=== PATIENT | female | born 1960 | race Caucasian/White ===

== ENCOUNTER 2019-11-09 13:03 | Outpatient (RCR) | payer MEDICARE, SELFPAY ==
--- NOTE | 2019-11-09 18:42 | N.ONRAD NP_ITS ---
Radiation Oncology New Patient Visit Patient: Alia Nair MR#: [id number] : 1960> Age: 59> Sex: Female> Dictated by: Dr. Vu Sher Date of Service: 11/09/2019 Referring Physician(s) : Chapin Seth M.D. 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 Radiotherapy to date: Course: C1 Treatment Site: RT NECK PTV50, Ref. ID: [id number], Energy: 6X, Dose/Fx (cGy): 200, #Fx: 25 / 25, Dose Correction (cGy): 0, Total Dose (cGy): 5,000, Start Date: 08/31/2015, End Date: 10/05/2015, Elapsed Days: 35 Treatment Site: RT NECK PTV68, Ref. ID: [id number], Energy: 6X, Dose/Fx (cGy): 200, #Fx: , Dose Correction (cGy): 0, Total Dose (cGy): 1,800, Start Date: 10/06/2015, End Date: 10/18/2015, Elapsed Days: 12 Chief Complaint / History of Present Illness: Mrs. 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 In late 2014 she underwent a resection of a right parotid mass. The pathology was adenoid cystic carcinoma. The tumor measured 2.1 cm. The tumor extended to the inked resection margin. Further surgery in the area of the positive margin was not advised. Cancer was low-grade but there was perineural invasion. No lymphovascular invasion seen. No lymph nodes were obtained at the time of surgery and staging was T2NXM0. Because of the perineural invasion and the positive margin, postoperative radiation was advised. That was delivered by Dr. Chase mckeon in [place]. A total dose of 6800 cGy in 34 fractions was delivered. Treatment was tolerated well overall, though the patient did develop some moist desquamation late in treatment. The skin healed uneventfully. Last spring, Ms. Mrs. Rivera began experiencing right jaw and facial pain. She underwent an MRI of the neck at [facility] 02/15/2019. The study showed no evidence of recurrent disease. A PET was performed 03/06/2019. The PET was interpreted as negative for recurrence. A CT of the head without contrast was performed 08/15/2019. That study showed abnormal soft tissue in the medial right orbit, inflammation versus pseudotumor versus infection versus neoplasm. It was negative otherwise. Symptoms persisted and patient developed right facial paralysis. Her pain worsened in the right jaw, right face and right ear area. She underwent an MR of the neck at [facility] 09/08/2019. Unfortunately that study shows extensive recurrent disease. I have not reviewed the study but it will be obtained. The report indicates there is enhancing tumor in the mesial right orbit extending to the orbital roof from near the orbital apex posteriorly to the anterior septum. Mild thickening and enhancement of the globe was noted. Enhancing tumor also appeared to be present in the inferior orbital fissure. Also tumor was seen in the foramen ovale extending into the cavernous sinus and probably was present in the foramen rotundum. Tumor noted also in the right receiving supervisor space especially anteriorly. Also extension into the pterygopalatine fossa was noted. Mrs. Rivera recently saw Dr. Posadas. He presented her case at the multi-disciplinary head neck tumor board. It was recommended that she be evaluated for palliative radiation and systemic therapy. She was referred to Dr. Stone and Dr. Walters. It was also discussed that she may be a candidate for proton beam therapy. That would need to be done in [place]. Mrs. Nair comes in for evaluation. She saw Dr. Walters earlier today. This patient was referred to to the palliative care service at [facility] in [place]. They are going to be seeing her once per month. They are controlling her pain medication regimen. She has extended release morphine, immediate release oxycodone, and is also on Lyrica and tramadol. Current Medications: Albuterol Sulfate, albuterol Sulfate HFA, aLPRAZolam, ambien, artificial Tears, stacy Aspirin, benadryl, deep Sea Nasal [place], lyrica, morphine Sulfate, oxyCODONE HCl, tobramycin, traMADol HCl, vitamin D3, zantac. Allergies: No Known Allergies Medical History: - Asthma, - cancer on 08/02/2015 (Adenoid Cystic Carcinoma of Right Parotid Gland) , - gastroesophageal reflux, - hypertension, - rheumatoid arthritis. No history of collagen vascular disease. No previous radiation therapy. Surgical History: Appendectomy in 1971, biopsy in 2004 (Growth on Right Cheek), knee Surgery in 1992, parotidectomy on 08/02/2015 and tonsillectomy in 1973. Family History: Father is at age 76 having experienced Pharynx Cancer. Mother is at age 72 having experienced Colon Cancer, and Leukemia. Paternal Grandfather is at age 68 having experienced Pharynx Cancer. Social History: Current every day smoker 0.5 packs/day for 51 years (25.5 pack years). Drinks occasionally. Smokes Vapor Cigarette. Current Complaints / Review of Systems: . Vital Signs: Performed on 11/09/2019 2:35 PM Height - 60.00 in, Weight - 144.6 lbs (high), BSA - 1.63 sq.m, BMI - 28.24, Temperature - 99.4 f (high), Pulse - 85 /min, Respiration - 18 /min, O2 Sat - 95 % (low), Pain - 5 and BP - 116/ 79 mm(hg). Physical Exam: Alert, oriented, and in mild distress from facial pain. She has obvious paralysis of the muscles of the right side of the face. The right eye is closed. The tympanic membranes are clear. No lesions seen in the ear canals. No palpable abnormality involving the soft tissues of the facial area. Oral cavity exam reveals that she is edentulous. She has full dental plates. The mucous membranes are dry. No lesions seen. Neck is supple and free of lymphadenopathy. No supraclavicular lymphadenopathy. Lungs clear to auscultation with no rales rhonchi or wheezes. No dullness to percussion. Heart rhythm regular with no murmur gallop or rub. Abdomen no distention. No organomegaly or mass or tenderness. Musculoskeletal exam reveals no bone tenderness. She has a normal gait. Performance Status: KPS 6/10 Pathology: Primary, c07 - malignant neoplasm of parotid gland, Diagnosed 08/15/2015 (active) stage x, t2, nx, m0. Lab: Imaging: See HPI Impression: Extensive recurrence of adenoid cystic carcinoma with involvement of the right orbit, the base of skull, the right cavernous sinus, the receiving supervisor space, and the pterygopalatine fossa. She does not have curable disease at this point. Surgery is not an option. Aggressive radiation is not advisable due to the dose of radiation she received in the past. I did discuss with her that proton beam therapy can be helpful in situations like thi,s where there is base of skull involvement and tumor very near critical structures. I asked that she think over the possibility of being referred to [place] for evaluation. I told her that I need to get the MR from [facility] to review; however, I doubt that she is a candidate for additional photon beam radiation. Certainly, a conservative approach would need to be taken and low dose RT might not turntable engineer to be helpful to the patient at all. She did say that Dr. Walters has some systemic therapy options to consider. She understands that palliation is the goal of treatment. Plan: Obtain the MRI from [facility] to review and await the patient's decision about referral to the proton center at [facility] in [place]. Signed by: 11/09/2019 6:40:29 PM <<Signature on File>> Time spent with patient: CPT Code: CPT Code:
--- NOTE | 2019-11-11 15:59 | ONC CON_ITS ---
Dr. Walters New Patient Note Patient: Alia Nair Unit #: [id number]: 1960 Dicatated By: Milton Walters M.D.Date of Visit: Nov 09, 2019 Onc MED New Patient/Consult Referring Physician: Chapin Seth History of Present Illness: Mrs. Alia Rivera, is a 59-year-old female with history of adenoid cystic carcinoma right excessive probably gland status post partial parotidectomy with facial nerve monitoring followed by reconstruction of she soft tissue defect with pedicled into oral buccal flap final pathology confirmed T2, MX lesion with positive surgical margins patient was referred to radiation oncology, as per patient she underwent radiation therapy here in [facility]. Since then she has been followed by ENT and with no evidence of disease until recently started having a right eye problem MRI scan of the neck done on 09/08/2019 showed widespread neural spread of tumor into the right orbit right cavernous sinus, projection camera operator space, pterygopalatine fossa and probably right facial nerve. Case was discussed in multidisciplinary head and neck tumor conference in [place] by her ENT physician there and options including treating skull base involved area to palliate symptoms (IMRT or SRS). Or perhaps consider proton beam IM RT. She was referred to radiation oncology here in [place] and she was also referred to palliative care clinic for pain management and also recommended to see medical oncology for palliative systemic therapy Long-standing history of smoking still active, Patient denies any fever or chills denies any nausea or vomiting, denies any diarrhea constipation, Dilantin dysphagia. Her pain is under control with current pain medication . And also complaining of right eye discomfort and visual problems. Past Medical History: Ms. Nair's medical history consists of Asthma, gastroesophageal reflux, hypertension, rheumatoid arthritis, and cancer (Adenoid Cystic Carcinoma of Right Parotid Gland) in 2015. Past Surgical History: Ms. Nair's surgical/procedural history consists of Parotidectomy in 2014, Biopsy in 2004 - Growth on Right Cheek, Knee Surgery in 1992, tonsillectomy in 1973, and appendectomy in 1971. Medications: Albuterol Sulfate (0.63 mg/3ml) Nebulization solution Inhalation daily, Albuterol Sulfate HFA 2 puff(s) (of 108 (90 Base) mcg/act) Aerosol, solution Inhalation q 6 hours PRN, ALPRAZolam 1 Tablet (of 1 mg) Oral t.i.d. PRN, Ambien 1 Tablet (of 5 mg) Tablet Oral at bedtime, Artificial Tears Ointment Ophthalmic q 2 hours, Darling Aspirin 1 Tablet (of 325 mg) Tablet, enteric coated Oral daily, Benadryl 1 Tablet (of 25 mg) Tablet Oral q 6 hours PRN, Deep Sea Nasal [place] 1 (0.65 %) Solution Nasal q 2 hours, Lyrica 1 Capsule (of 100 mg) Oral t.i.d., Morphine Sulfate 1 Tablet (of 15 mg) Oral b.i.d., OxyCODONE HCl 1 Tablet (of 20 mg) Oral q 4 to 6 hours PRN, Tobramycin 1 Drop(s) (of 0.3 %) Ointment Ophthalmic daily, traMADol HCl (50 mg) Tablet Oral 5x/d, Vitamin D3 1 Tablet (of 5000 Units) Tablet Oral daily, Zantac 1 Tablet (of 300 mg) Tablet Oral b.i.d. Allergies: No Known Allergies. Social History: Ms. Nair is and she is a disability. She is a daily smoker who has smoked 0.5 packs/day for 51 years. She drinks occasionally. Smokes Vapor Cigarette Family History: Ms. Nair's mother at age 72: Colon Cancer, and Leukemia. Ms. Nair's father at age 76: Pharynx Cancer. Her paternal grandfather at age 68: Pharynx Cancer. Review Of Symptoms: Constitutional - Appetite is good and weight is increasing. No fever, chills, hot flashes, or night sweats. Energy level is good, ENMT - No sinus congestion/drainage. No mouth sores. No sore throat or difficulty swallowing, Hematologic/Lymphatic - No abnormal bruising or bleeding, Respiratory - No shortness of breath. No cough. No pleuritic pain or hemoptysis, Cardiovascular - No angina pain. No palpitations, Gastrointestinal - No nausea or vomiting. Positive for heartburn, no acid reflux. No diarrhea or constipation. No blood in the stool or black stools, Genitourinary (F) - No dysuria or hematuria. No urinary frequency. No urgency or incontinence, Musculoskeletal - No joint or bone pain, Neurologic - No headache or dizziness. No numbness/paresthesias or other focal neurologic symptoms, Psychiatric - No anxiety or depression. No insomnia. Vital Signs: Performed on Nov 09, 2019 15:54: 60.00 in, 144.6 lbs, 99.4 F, 85, 18, 116/79 mm(hg), 95 % (LOW), 5, Performed on Nov 09, 2019 15:54: 28.24 kg/m2 (HIGH), and Performed on Nov 09, 2019 14:35: 1.63 sq.m. Performance Status: 1 - No physically strenuous activity, but ambulatory and able to carry out light or sedentary work (e.g. office work, light house work). (ECOG) Physical Examination: ENMT - postsurgical changes in right neck and face with protuberance/congestion of right eye and right facial deformity, Respiratory - Lungs are clear to auscultation without rhonchi or wheezing, Cardiovascular - Regular rate and rhythm of heart, Abdomen - Non-tender, non-distended, Good bowel sounds. No guarding or rebound tenderness. No pulsatile masses, Extremities - no edema. Lab/Imaging: Most recent lab results are not available for this patient. Impression: Recent adenoid cystic carcinoma peripheral gland with cranial nerve involvement/right skull base involvement per MRI scan done on 09/08/2019 which showed widespread spread of tumor into right orbit, right cavernous sinus, projection camera operator space, pterygopalatine fossa and right facial nerve. Now with right facial nerve paralysis, facial asymmetry. History of adenoid cystic carcinoma right excessive peripheral gland status post partial pericardiectomy with facial nerve monitoring followed by reconstruction for T2 Nx with possible surgical margin lesion, followed by radiation therapy. Chronic smoking Anxiety disorder Plan: Discussed with patient regarding her disease status and treatment options, because of poor concerned with right eye due to tumor involvement and right facial/neck/head pain not being managed by palliative care clinic in [place]. As per medical record patient's case was discussed in multidisciplinary head and neck tumor board in [facility], palliative radiation therapy was recommended followed by if possible palliative systemic therapy. At this point we will request pathology to check HER-2/rowdy status as well as androgen receptor status and also check NTRK gene status and in the meantime she will see radiation oncology discuss about role of palliative radiation therapy and we will review above-mentioned workup if she is negative for HER-2/rowdy, NTRK gene or androgen receptor then may consider cisplatin/Navelbine based chemotherapy regimen as this regimen has produced 44% overall response and blood 38% one year survival. She will return to clinic after palliative radiation therapy is concluded] Signed By: Milton Walters M.D. <<Signature on File>>
== END 2019-11-23 23:59 | disposition home or self-care (01) ==
LOC: ONCMED 13:03
PROVIDERS: Absent Provider Specialist; Family Provider Family Medicine; PCP Family Medicine; Referring Provider Otolaryngology; Visit Provider Internal Medicine Hematology & Oncology
DX: C07 Malignant neoplasm of parotid gland (principal); C79.51 Secondary malignant neoplasm of bone; G89.3 Neoplasm related pain (acute) (chronic); G51.0 Bell's palsy; J45.909 Unspecified asthma, uncomplicated; I10 Essential (primary) hypertension; K21.9 Gastro-esophageal reflux disease without esophagitis; M06.9 Rheumatoid arthritis, unspecified; F17.210 Nicotine dependence, cigarettes, uncomplicated; Z79.891 Long term (current) use of opiate analgesic; Z79.82 Long term (current) use of aspirin; Z98.890 Other specified postprocedural states; Z92.3 Personal history of irradiation
CPT/HCPCS: 99203; 99204; 99214

== ENCOUNTER 2019-11-15 08:02 | Day surgery (SDC) | payer MEDICARE, SELFPAY ==
--- NOTE | 2019-11-15 | SCC_ITS ---
Procedure Done: Placement of PowerPort in the left subclavian vein 43 seconds of fluoroscopic guidance, for a cumulative dose of 5.04 mGy, was provided to Dr. Kessler by the radiology department. C-arm images of the chest were saved for the patient's permanent record. BETH DAVID HOSPITALAbran
[2019-11-15 08:26] VITALS: BMI 26.4
[2019-11-15 08:38] VITALS: BP 118/78; PULSE 82; RESP 18; TEMP 36.9; O2SAT 95
--- NOTE | 2019-11-15 08:39 | W.PM.OPSUD ---
Surgery/Procedure H&P Update DATE OF PROCEDURE: November 15, 2019 DATE H&P PERFORMED: 11/12/19 H&P UPDATE INFORMATION: I have reviewed H&P completed within last 30 days, I have examined patient prior to procedure and No changes to prior documentation PREOP DIAGNOSIS: PowerPort placement PLANNED PROCEDURE: Operation Date: 11/15/19 09:50 Proposed Procedures p Portacath Placement 86106 C80.1(Not Applicable) - Alexandre Kessler MD
[2019-11-15] MEDS: sodium chloride 0.9% 1,000 ML 30 ML IV (08:42)
--- NOTE | 2019-11-15 08:45 | P.ANESASSM_ITS ---
Pre-Anesthetic Assessment Pre-Anesthetic Assessment: Height/Weight: Height 1.55 m Weight 63.503 kg Temp Pulse Resp BP Pulse Ox 98.5 F 82 18 118/78 95 11/15/19 08:38 11/15/19 08:38 11/15/19 08:38 11/15/19 08:38 11/15/19 08:38 Preop Diagnosis: PowerPort placement Proposed Procedure: Operation Date: 11/15/19 09:50 Proposed Procedures p Portacath Placement 96267 C80.1(Not Applicable) - Alexandre Kessler MD Familial anesthetic complications: None Was Beta Rah taken within 24 hours: N/A Last intake: Intake took morphine and oxycodone & ,lyrica this AM w/ sips of water Last Liquid Date 11/14/19 Last Liquid Time 22:30 Last Solid Date 11/14/19 Last Solid Time 22:30 Social: Social History: No alcohol and No tobacco Comment: vapes Exam: Pre-Anes Outpt Exam: alert, oriented x 3, clear to auscultation bilaterally and regular rate & rhythm Airway: Cervical ROM: WNL MP: 4 Dentition: False Additional comments: Asymmetrical mouth opening Pulmonary: Pulmonary: None reported CV/HEM: CV/HEM: None reported : : None reported Hepatic: Hepatic: None reported GI: GI: None reported Metabolic: Metabolic: None reported Musc/skel: Musc/skel: None reported Neuropsych: Neuropsych: None reported Comments: Carcinoma of R parotid, now spreading to ear/adenoid cyst Anesthetic Plan: ASA status: 3 Anesthesia: MAC Risk of > 500 ml blood loss (7ml/kg in children): No Meds/Allergies Current Medications: Current Medications Generic Name Dose Route Start Last Admin Trade Name Freq PRN Reason Stop Dose Admin Sodium Chloride 1,000 mls @ 30 ml s/hr 11/15/19 08:30 11/15/19 08:42 Sodium Chloride 0.9% IV 11/16/19 08:29 30 mls/hr .Q24H RICA Administration PFSH Anesthesia PFSH: Social History Smoking and tobacco status: never smoked Second hand smoke exposure: No Alcohol intake: never Adopted: No Caregiver/support person: Yes Lives independently: Yes Household members: spouse Housing: House Marital status: service: No Current occupational exposures/hazards: No Pets and animals: No History of recent travel: No Current gender identity: Female Kanchan/Sikhism: Roman Catholic Financial difficulty paying for basics: Decline to Answer Data Anesthesia Cardiac Studies: No Data to Display
--- NOTE | 2019-11-15 10:08 | SC_ITS ---
WS: [id number] INTRAOPERATIVE TECHNIQUE: 2 Spot fluoroscopic images for intraoperative purposes. FLUOROSCOPY TIME: 43 seconds CLINICAL INFORMATION: intra-op COMPARISON: None. FINDINGS: Left central venous catheter with tip in the mid SVC. No pneumothorax. SC/C-arm FL for CVA [id number] IMPRESSION: Images obtained for intraoperative purposes.
[2019-11-15] MEDS: lidocaine 1% INJ 20 mL SUBCUT (10:23)
[2019-11-15] MEDS: heparin, porcine 1,000 unit/mL INJ 10 mL 10000 UNIT IRRIGATION (10:24)
[2019-11-15 10:44] VITALS: BP 104/68; PULSE 74; RESP 18; TEMP 36.5; O2SAT 94
--- NOTE | 2019-11-15 10:46 | PM.OP ---
Operative Report Date of procedure: November 15, 2019 Pre-op Diagnosis: Adenocystic carcinoma requiring central venous access for chemotherapy Post-op diagnosis: same Procedure Done: Placement of PowerPort in the left subclavian vein Fluoroscopic guidance and interpretation for placement of catheter Pathology: none sent Surgeon: Alexandre Kessler Anesthesia: MAC Estimated blood loss (mL): 10 Condition: stable Disposition: PACU Procedure: The patient was taken to the Operating Room and the chest and neck bilaterally were prepped and draped in a sterile manner after the antibiotic had been administered and shoulder rolls had been placed. A total of 10 mL of 1% lidocaine with 0.5% Marcaine was infiltrated under the clavicle on the left side at the site of the planned entry into the subclavian vein. An introducer needle was then used to access the subclavian vein under the clavicle and after withdrawing blood syringe was removed and a guidewire passed under fluoroscopy into the superior vena cava. The site of the planned port was then marked on the chest and a 15 blade was used to make a 3 cm skin incision this was extended into the subcutaneous tissue using electrocautery and a subcutaneous pocket over the pectoralis fascia was created 2-0 Vicryl suture was used to suture the port to the pectoral fascia in the pocket on 3 sides. The catheter, after having been flushed with hep saline, was attached to the tunneler and a tunnel created between the port site and the subclavian vein entry site. Under fluoroscopy the dilator sheath was passed over the guidewire into the proximal superior vena cava. The inner dilator was removed and the sheath left behind and~ the catheter was introduced through the peel-away sheath with the tip in the superior vena cava. The peel-away sheath was removed. The proximal end of the catheter was cut to the right size and was attached to the port. Using a Collins needle the port was accessed, it withdrew blood easily and flushed easily. A final 5cc of heparin was used to flush the PowerPort. The subcutaneous tissue was approximated using interrupted 3-0 Vicryl sutures and the skin at the introducer site and the port site was closed using subcuticular running 4-0 Monocryl sutures. Surgical glue was applied and the patient was stable throughout the procedure. Fluoroscopic guidance and interpretation was performed for introduction of the guidewire in the left subclavian vein, passage of dilator and placement of catheter tip in the distal superior vena cava.
--- NOTE | 2019-11-15 10:52 | SUR.PHASEII ---
POWER PORT INFORMATION GIVEN TO
[2019-11-15 11:05] VITALS: BP 128/87; PULSE 78; RESP 20; O2SAT 100
== END 2019-11-15 11:15 | disposition home or self-care (01) ==
PROVIDERS: Family Provider Family Medicine; PCP Family Medicine; Visit Provider Surgery
PROC: (CPT 36561; principal; 2019-11-15 09:50)
DX: C08.0 Malignant neoplasm of submandibular gland (principal); Z79.82 Long term (current) use of aspirin
CPT/HCPCS: 36561; 12345; 76000; 77001; C1788; J0690; J1644; J2001; J2405; J2704; J3010; J3490; J7030

== ENCOUNTER 2019-12-23 06:56 | Outpatient (RCR) | payer MEDICARE, SELFPAY ==
[2019-12-22 20:06] LABS: Basophils % 0.4 %; Eosinophils # 0.4 10^3/uL (0.0-0.8); Eosinophils % 7.7 %; Hematocrit 41.9 % (37.0-47.0); Hemoglobin 12.8 g/dL (11.5-15.3); Lymphocytes # 1.8 10^3/uL (0.8-4.8); Lymphocytes % 38.5 %; Mean Corpuscular HGB Conc 30.5 g/dL (30.0-36.0); Mean Corpuscular Hemoglobin 26.3 pg (28.0-34.0); Mean Corpuscular Volume 86.2 fL (81-99); Mean Platelet Volume 9.8 fL (7.4-10.4); Monocytes # 0.6 10^3/uL (0.2-0.9); Monocytes % 11.7 %; Neutrophils % 41.5 %; Nucleated Red Blood Cells % 0 %; Platelet Count 282 10^3/cmm (130-400); Red Blood Count 4.86 10^6/uL (4.1-5.3); Red Cell Distribution Width 13.2 % (12.1-15.1); White Blood Count 4.8 10^3/uL (4.0-10.0)
[2019-12-22 21:07] LABS: Alanine Aminotransferase 16 U/L (0-33); Albumin Level 3.9 g/dL (3.5-5.2); Alkaline Phosphatase 83 IU/L (35-105); Anion Gap 14.1 (5-19); Aspartate Amino Transferase 18 U/L (0-32); Blood Urea Nitrogen 10 mg/dL (6-20); Calcium 9.6 mg/dL (8.5-10.5); Carbon Dioxide 28 mmol/L (22-29); Chloride 99 mmol/L (98-107); Globulin 2.9 g/dL (1.3-4.6); Glomerular Filtration Rate 85.6 mL/min (90-130); Glucose 73 mg/dL (65-115); Osmolality Calculated 279 mOsm/kg (285-295); Potassium 4.1 mmol/L (3.5-5.1); Sodium 137 mmol/L (136-145); Total Bilirubin 0.2 mg/dL (0.15-1.2); Total Protein 6.8 g/dL (6.6-8.7)
--- NOTE | 2019-12-23 16:55 | ONC FU_ITS ---
Dr. Walters follow up note Patient: Alia Nair Unit #: [id number]: 1960 Dicatated By: Milton Walters M.D.Date of Visit:Dec 23, 2019 Onc Med Follow-up/Prog Note History of Present Illness: Mrs. 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 Since then she has been followed by ENT and with no evidence of disease until recently started having a right eye problem MRI scan of the neck done on 09/08/2019 showed widespread neural spread of tumor into the right orbit right cavernous sinus, improvement auditor space, pterygopalatine fossa and probably right facial nerve. Case was discussed in multidisciplinary head and neck tumor conference in [place] by her ENT physician there and options including treating skull base involved area to palliate symptoms (IMRT or SRS). Or perhaps consider proton beam IM RT. She was referred to radiation oncology here in [place] and she was also referred to palliative care clinic for pain management and also recommended to see medical oncology for palliative systemic therapy Patient has seen radiation oncology and as per patient she was told there is a no room for further radiation therapy considering the risk versus benefits especially due to prior radiation therapy to same area. Long-standing history of smoking still active, Her pain is under control with current pain medication . And also complaining of right eye discomfort and visual problems.Next Came for follow-up, denies any new complaints but persistent right facial pain and visual disturbance in right eye. 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 Medications: Albuterol Sulfate HFA 2 puff(s) (of 108 (90 Base) mcg/act) Aerosol, solution Inhalation q 6 hours PRN, ALPRAZolam 1 Tablet (of 1 mg) Oral t.i.d. PRN, Artificial Tears Ointment Ophthalmic q 2 hours, Benadryl 1 Tablet (of 25 mg) Tablet Oral q 6 hours PRN, Deep Sea Nasal [place] 1 (0.65 %) Solution Nasal q 2 hours, Lyrica 1 Capsule (of 100 mg) Oral t.i.d., Morphine Sulfate 1 Tablet (of 15 mg) Oral b.i.d., OxyCODONE HCl 1 Tablet (of 20 mg) Oral q 4 to 6 hours PRN, Vitamin D3 1 Tablet (of 5000 Units) Tablet Oral daily, Zantac 1 Tablet (of 300 mg) Tablet Oral b.i.d. Allergies: No Known Allergies. Review of Systems: Constitutional - Appetite is good and weight is increasing. No fever, chills, hot flashes, or night sweats. Energy level is good, ENMT - No sinus congestion/drainage. No mouth sores. No sore throat or difficulty swallowing, Hematologic/Lymphatic - No abnormal bruising or bleeding, Respiratory - No shortness of breath. No cough. No pleuritic pain or hemoptysis, Cardiovascular - No angina pain. No palpitations, Gastrointestinal - No nausea or vomiting. Positive for heartburn, no acid reflux. No diarrhea or constipation. No blood in the stool or black stools, Genitourinary (F) - No dysuria or hematuria. No urinary frequency. No urgency or incontinence, Musculoskeletal - No joint or bone pain, Neurologic - No headache or dizziness. No numbness/paresthesias or other focal neurologic symptoms, Psychiatric - No anxiety or depression. No insomnia. Vital Signs: Performed on Dec 23, 2019 15:45 Height - 60.00 in Weight - 151.2 lbs (HIGH) BSA - 1.66 sq.m BMI - 29.53 Temperature - 99.0 F (HIGH) Pulse - 103 /min (HIGH) Respiration - 17 /min BP - 118/77 mm(hg) O2 Sat - 93 % (LOW) Pain - 6 Performance Status: 1 - No physically strenuous activity, but ambulatory and able to carry out light or sedentary work (e.g. office work, light house work). (ECOG) Physical Examination: Respiratory - Lungs are clear, Cardiovascular - Regular rate and rhythm of heart, Abdomen - bowel sounds present, no distention, Extremities - no visible edema or rash. Lab/Imaging: Most recent lab results are not available for this patient. Impression: Recent adenoid cystic carcinoma peripheral gland with cranial nerve involvement/right skull base involvement per MRI scan done on 09/08/2019 which showed widespread spread of tumor into right orbit, right cavernous sinus, improvement auditor space, pterygopalatine fossa and right facial nerve. Now with right facial nerve paralysis, facial asymmetry. History of adenoid cystic carcinoma right excessive peripheral gland status post partial pericardiectomy with facial nerve monitoring followed by reconstruction for T2 Nx with possible surgical margin lesion, followed by radiation therapy. Chronic smoking Anxiety disorder Plan: Discussed with patient regarding her labs white blood count 4.8 hemoglobin 12.8 hematocrit 41.9 platelets 282,000 CMP within normal limits Clinically, patient is doing reasonably well, in [id number] distress due to right facial pain and right eye visual disturbance, patient was referred to radiation oncology for palliative radiation therapy but she is not a candidate for further radiation therapy due to involved risk due to history of prior radiation therapy to same area. Request was sent to pathology regarding next generation sequencing especially NTRK gene analysis but we were told, specimen is not available for evaluation. Role of palliative chemotherapy with cisplatin/Navelbine was discussed as literature has shown overall responsibilities about 44% and with 38% one year survival. All the side effects possible benefits associated with cisplatin/Navelbine regimen were discussed including but not limited to bone marrow suppression, increase risk for infection, nausea vomiting, hair loss, nephro/ototoxicity especially with cisplatin and peripheral neuropathy and constipation especially with Navelbine . Further teaching will be done by chemotherapy nurse in the meantime we'll obtain approval from her insurance prior to the treatment and we'll see her back 1 week with CBC and CMP, after chemotherapy is initiated plan to give her chemotherapy with split dose of cisplatin/Navelbine on day 1 and 8 and repeat cycle every 21 days Signed By: Milton Walters M.D. <<Signature on File>>
== END 2019-12-23 23:59 | disposition home or self-care (01) ==
LOC: ONCMED 06:56
PROVIDERS: Family Provider Family Medicine; PCP Family Medicine; Referring Provider Otolaryngology; Visit Provider Internal Medicine Hematology & Oncology
DX: C07 Malignant neoplasm of parotid gland (principal); C79.89 Secondary malignant neoplasm of other specified sites; G89.3 Neoplasm related pain (acute) (chronic); F17.210 Nicotine dependence, cigarettes, uncomplicated; F41.9 Anxiety disorder, unspecified; Z92.3 Personal history of irradiation
CPT/HCPCS: 36415; 80053; 85025; 99214

== ENCOUNTER 2020-01-21 06:47 | Outpatient (RCR) | payer MEDICARE, SELFPAY ==
[2020-01-03] MEDS: sodium chloride 0.9% 250 ML 75 ML IV (09:35)
[2020-01-03 09:48] LABS: Basophils % 0.3 %; Eosinophils # 0.5 10^3/uL (0.0-0.8); Eosinophils % 6.9 %; Hematocrit 38.5 % (37.0-47.0); Hemoglobin 12.2 g/dL (11.5-15.3); Lymphocytes % 45.9 %; Mean Corpuscular HGB Conc 31.7 g/dL (30.0-36.0); Mean Corpuscular Hemoglobin 26.7 pg (28.0-34.0); Mean Corpuscular Volume 84.2 fL (81-99); Mean Platelet Volume 9.1 fL (7.4-10.4); Monocytes # 0.6 10^3/uL (0.2-0.9); Monocytes % 9.5 %; Neutrophils # 2.5 10^3/uL (1.8-7.7); Neutrophils % 37.2 %; Nucleated Red Blood Cells % 0 %; Platelet Count 353 10^3/cmm (130-400); Red Blood Count 4.57 10^6/uL (4.1-5.3); Red Cell Distribution Width 13.1 % (12.1-15.1); White Blood Count 6.6 10^3/uL (4.0-10.0)
[2020-01-03 10:10] LABS: Alanine Aminotransferase 16 U/L (0-33); Albumin Level 3.8 g/dL (3.5-5.2); Alkaline Phosphatase 86 IU/L (35-105); Anion Gap 13.1 (5-19); Aspartate Amino Transferase 16 U/L (0-32); Blood Urea Nitrogen 10 mg/dL (6-20); Calcium 9.8 mg/dL (8.5-10.5); Carbon Dioxide 31 mmol/L (22-29); Chloride 101 mmol/L (98-107); Globulin 3.1 g/dL (1.3-4.6); Glomerular Filtration Rate 85.6 mL/min (90-130); Glucose 88 mg/dL (65-115); Osmolality Calculated 287 mOsm/kg (285-295); Potassium 4.1 mmol/L (3.5-5.1); Sodium 141 mmol/L (136-145); Total Bilirubin 0.2 mg/dL (0.15-1.2); Total Protein 6.9 g/dL (6.6-8.7)
[2020-01-03] MEDS: FUROsemide 10 mg/mL SDV 2mL 20 MG IV (12:18)
[2020-01-03] MEDS: potassium chloride 20 MEQ in sodium chloride 0.9% 500 ML 250 MEQ IV (13:35)
[2020-01-10] MEDS: sodium chloride 0.9% 250 ML 75 ML IV (08:36)
[2020-01-10 08:54] LABS: Basophils % 0.4 %; Eosinophils # 0.1 10^3/uL (0.0-0.8); Eosinophils % 1.6 %; Hematocrit 44.4 % (37.0-47.0); Hemoglobin 14.3 g/dL (11.5-15.3); Lymphocytes # 1.6 10^3/uL (0.8-4.8); Lymphocytes % 32.7 %; Mean Corpuscular HGB Conc 32.2 g/dL (30.0-36.0); Mean Corpuscular Hemoglobin 25.9 pg (28.0-34.0); Mean Corpuscular Volume 80.4 fL (81-99); Mean Platelet Volume 9.9 fL (7.4-10.4); Monocytes # 0.3 10^3/uL (0.2-0.9); Monocytes % 5.4 %; Neutrophils % 59.5 %; Nucleated Red Blood Cells % 0 %; Platelet Count 390 10^3/cmm (130-400); Red Blood Count 5.52 10^6/uL (4.1-5.3); Red Cell Distribution Width 12.7 % (12.1-15.1)
[2020-01-10 09:09] LABS: Alanine Aminotransferase 29 U/L (0-33); Albumin Level 4.6 g/dL (3.5-5.2); Alkaline Phosphatase 87 IU/L (35-105); Anion Gap 17.7 (5-19); Aspartate Amino Transferase 17 U/L (0-32); Blood Urea Nitrogen 11 mg/dL (6-20); Calcium 10.5 mg/dL (8.5-10.5); Carbon Dioxide 26 mmol/L (22-29); Chloride 99 mmol/L (98-107); Globulin 3.3 g/dL (1.3-4.6); Glomerular Filtration Rate 102.3 mL/min (90-130); Glucose 129 mg/dL (65-115); Osmolality Calculated 286 mOsm/kg (285-295); Potassium 3.7 mmol/L (3.5-5.1); Sodium 139 mmol/L (136-145); Total Bilirubin 0.4 mg/dL (0.15-1.2); Total Protein 7.9 g/dL (6.6-8.7)
[2020-01-10] MEDS: potassium chloride 20 MEQ in sodium chloride 0.9% 500 ML 510 MEQ IV (12:56)
[2020-01-10] MEDS: FUROsemide 10 mg/mL SDV 2mL 20 MG IV (12:59)
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
[2020-01-19] MEDS: alteplase 1 mg/mL SDV 2 mL 2 MG IV (15:20)
[2020-01-19 16:11] LABS: Basophils % 0.4 %; Eosinophils % 1.2 %; Hematocrit 35.2 % (37.0-47.0); Hemoglobin 11.1 g/dL (11.5-15.3); Lymphocytes # 1.8 10^3/uL (0.8-4.8); Mean Corpuscular HGB Conc 31.5 g/dL (30.0-36.0); Mean Corpuscular Volume 82.4 fL (81-99); Monocytes # 0.1 10^3/uL (0.2-0.9); Monocytes % 5.6 %; Neutrophils % 22.8 %; Nucleated Red Blood Cells % 0 %; Platelet Count 289 10^3/cmm (130-400); Red Blood Count 4.27 10^6/uL (4.1-5.3); Red Cell Distribution Width 12.5 % (12.1-15.1); White Blood Count 2.5 10^3/uL (4.0-10.0)
[2020-01-19 18:50] LABS: Neutrophils # 0.6 10^3/uL (1.8-7.7)
[2020-01-19 18:52] LABS: Alanine Aminotransferase 17 U/L (0-33); Albumin Level 3.9 g/dL (3.5-5.2); Alkaline Phosphatase 87 IU/L (35-105); Anion Gap 15.2 (5-19); Aspartate Amino Transferase 15 U/L (0-32); Blood Urea Nitrogen 12 mg/dL (6-20); Calcium 9.5 mg/dL (8.5-10.5); Carbon Dioxide 27 mmol/L (22-29); Chloride 99 mmol/L (98-107); Globulin 2.7 g/dL (1.3-4.6); Glomerular Filtration Rate 102.3 mL/min (90-130); Glucose 102 mg/dL (65-115); Osmolality Calculated 280 mOsm/kg (285-295); Potassium 4.2 mmol/L (3.5-5.1); Sodium 137 mmol/L (136-145); Total Bilirubin 0.2 mg/dL (0.15-1.2); Total Protein 6.6 g/dL (6.6-8.7)
[2020-01-19 18:53] LABS: Slide Review Slide Review Perform
--- NOTE | 2020-01-24 14:01 | ONC FU_ITS ---
[facility] Ruby Patient Note Patient: Alia Nair Unit #: [id number]: 1960 Dictated By: Milton Walters M.D.Date of Visit: January 20, 2020 Onc MED Follow-Up/Prog Note Ms. Nair presented for interim counts today. This is day 15 of cisplatin and vinorelbine. She has not received growth factors support. Her white count was 2.5 hemoglobin 11.1 platelets return 89,000 and her day 15 ANC was 600. She is asymptomatic and afebrile at this time. However I have requested that she receive Neupogen 300 mcg daily for 3 days and recheck her counts on Friday. She will also be given a antibiotic to have on hand in the event that she develops fever or has any signs of infection over the weekend. Ms. Nair certainly will need growth Dr. support from this point forward. She will benefit from Neulasta on day 15 if her counts allow her to go that far again. She has definite chemo induced neutropenia on day 15 after receiving cisplatin vinorelbine on day 1 and 8. She is advised neutropenic precautions and she has no questions or complaints at this time. Signed By: Laura Ruby, CARPENTER-EMILIE, AOCNP Milton Walters MD <<Signature on File>>
== END 2020-01-23 23:59 | disposition home or self-care (01) ==
LOC: ONCMED 06:47
PROVIDERS: Nurse Practitioner; PCP Family Medicine; Referring Provider Otolaryngology; Visit Provider Internal Medicine Hematology & Oncology
DX: Z51.11 Encounter for antineoplastic chemotherapy (principal); C07 Malignant neoplasm of parotid gland; D70.1 Agranulocytosis secondary to cancer chemotherapy; T45.1X5A Adverse effect of antineoplastic and immunosuppressive drugs, initial encounter; K21.9 Gastro-esophageal reflux disease without esophagitis; I10 Essential (primary) hypertension; M06.9 Rheumatoid arthritis, unspecified; J45.909 Unspecified asthma, uncomplicated
CPT/HCPCS: 36415; 36593; 80053; 85025; 96366; 96367; 96372; 96374; 96375; 96413; 96415; 96417; 99214; J1100; J1442; J1453; J1940; J2469; J2997; J3475; J3480; J7030; J7040; J7050; J9060; J9390

== ENCOUNTER 2020-01-22 08:00 | Outpatient (CLI) | payer MEDICARE, SELFPAY ==
[2020-01-22 10:45] VITALS: BMI 27.8
[2020-01-22 11:24] VITALS: BP 141/78; PULSE 110; RESP 16; TEMP 36.4; O2SAT 96
== END 2020-01-22 09:00 | disposition home or self-care (01) ==
LOC: GILAB 04-28 11:46
PROVIDERS: PCP Family Medicine; Visit Provider Nurse Practitioner
DX: C07 Malignant neoplasm of parotid gland (principal); D70.2 Other drug-induced agranulocytosis; T45.1X5A Adverse effect of antineoplastic and immunosuppressive drugs, initial encounter; Y92.009 Unspecified place in unspecified non-institutional (private) residence as the place of occurrence of the external cause
CPT/HCPCS: 96372

== ENCOUNTER 2020-02-22 06:47 | Outpatient (RCR) | payer MEDICARE, MEDICAID, SELFPAY ==
[2020-01-24 10:12] LABS: Hematocrit 34.4 % (37.0-47.0); Hemoglobin 10.7 g/dL (11.5-15.3); Mean Corpuscular HGB Conc 31.1 g/dL (30.0-36.0); Mean Corpuscular Hemoglobin 26.4 pg (28.0-34.0); Mean Corpuscular Volume 84.9 fL (81-99); Mean Platelet Volume 9.4 fL (7.4-10.4); Nucleated Red Blood Cells # 0.1 /100WBC; Platelet Count 258 10^3/cmm (130-400); Red Blood Count 4.05 10^6/uL (4.1-5.3); White Blood Count 12.1 10^3/uL (4.0-10.0)
[2020-01-24 10:29] LABS: Alanine Aminotransferase 21 U/L (0-33); Albumin Level 3.7 g/dL (3.5-5.2); Alkaline Phosphatase 106 IU/L (35-105); Aspartate Amino Transferase 25 U/L (0-32); Blood Urea Nitrogen 12 mg/dL (6-20); Calcium 9.3 mg/dL (8.5-10.5); Carbon Dioxide 31 mmol/L (22-29); Chloride 98 mmol/L (98-107); Globulin 2.7 g/dL (1.3-4.6); Glomerular Filtration Rate 85.6 mL/min (90-130); Glucose 112 mg/dL (65-115); Osmolality Calculated 285 mOsm/kg (285-295); Sodium 139 mmol/L (136-145); Total Bilirubin 0.2 mg/dL (0.15-1.2); Total Protein 6.4 g/dL (6.6-8.7)
[2020-01-24 10:32] LABS: Slide Review Slide Review Perform
[2020-01-24 10:35] LABS: Absolute Eosinophils 0.2 10^3/cmm (0.0-0.7); Absolute Segmented Neutrophil 2.9 10/cmm (1.6-7.1); Band Neutrophils Absolute 3.1 10^3/cmm (0.0-1.2); Eosinophils 2 %; Lymphocytes 30 %; Monocytes Absolute 1.3 10^3/cmm (0.1-0.6); Platelet Estimate Normal (Normal); Segmented Neutrophils 24 %; Total Cells Counted 100 (0-100)
[2020-01-24] MEDS: sodium chloride 0.9% 250 ML 75 ML IV (12:30)
[2020-01-24] MEDS: potassium chloride 20 MEQ in sodium chloride 0.9% 500 ML 500 MEQ IV (14:05)
[2020-01-24] MEDS: FUROsemide 10 mg/mL SDV 2mL 20 MG IV (14:05)
--- NOTE | 2020-01-25 17:21 | ONC FU_ITS ---
Dr. Walters follow up note Patient: Alia Nair Unit #: [id number]: 1960 Dicatated By: Milton Walters M.D.Date of Visit:Jan 24, 2020 Onc Med Follow-up/Prog Note History of Present Illness: Mrs. Rivera is a 59-year-old female with history of adenoid cystic carcinoma right parotid gland. She is status post partial parotidectomy with facial nerve monitoring followed by reconstruction of the soft tissue defect with pedicled into oral buccal flap. The final pathology confirmed T2, MX lesion with positive surgical margins. Mrs Nair was referred to radiation oncology, as per patient she underwent radiation therapy here in [facility]. Since then she has been followed by ENT and with no evidence of disease until recently started having a right eye problem. MRI scan of the neck done on 09/08/2019 showed widespread neural spread of tumor into the right orbit right cavernous sinus, fixed income manager space, pterygopalatine fossa and probably right facial nerve. Her case was discussed in multidisciplinary head and neck tumor conference in [place] by her ENT physician there. Treatment options including treating skull base involved area to palliate symptoms (IMRT or SRS). Or perhaps consider proton beam IM RT. She was referred to radiation oncology here in [place] and she was also referred to palliative care clinic for pain management. Mrs Nair was also encouraged to see medical oncology for palliative systemic therap. Mrs Nair has seen radiation oncology and as per patient she was told there is no plan for further radiation therapy considering the risk versus benefits, especially due to prior radiation therapy to same area. 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 did offer her treatment with Cisplatin and vinorelbine. She began her first cycle on 01/03/2020. Long-standing history of smoking still active. Her pain (right eye and right side of her face) is under control with current pain medication. Came for follow-up, denies any specific complaints, in fact now she is pleased with chemotherapy as her right facial swelling is improving and also notice discharge from her right nostril and now pain in her right eye area is also improving. Patient is very pleased with the improvement and tolerating systemic chemotherapy with cisplatin/Navelbine well Medications: Albuterol Sulfate HFA 2 puff(s) (of 108 (90 Base) mcg/act) Aerosol, solution Inhalation q 6 hours PRN, ALPRAZolam 1 Tablet (of 1 mg) Oral t.i.d. PRN, Deep Sea Nasal [place] 1 (0.65 %) Solution Nasal q 2 hours, Lyrica 1 Capsule (of 100 mg) Oral t.i.d., Morphine Sulfate 1 Tablet (of 30 mg) Oral t.i.d., OxyCODONE HCl 1 Tablet (of 20 mg) Oral q 4 to 6 hours PRN Allergies: Aleve Review of Systems: Review of Systems is not available for this patient. Vital Signs: Performed on Jan 24, 2020 15:20 Height - 60.00 in Temperature - 98.2 F (LOW) Pulse - 77 /min Respiration - 18 /min BP - 121/89 mm(hg) O2 Sat - 97 % Pain - 0 Fatigue - 0 Performed on Jan 24, 2020 11:27 Height - 60.00 in Weight - 156.4 lbs (HIGH) BSA - 1.68 sq.m BMI - 30.54 (HIGH) Temperature - 97.3 F (LOW) Pulse - 88 /min Respiration - 16 /min BP - 109/70 mm(hg) O2 Sat - 95 % (LOW) Pain - 4 Performance Status: 1 - No physically strenuous activity, but ambulatory and able to carry out light or sedentary work (e.g. office work, light house work). (ECOG) Physical Examination: ENMT - no mouth sores, no thrush, right facial swelling, is improving, Respiratory - Lungs are clear, Cardiovascular - Regular rate and rhythm of heart, Abdomen - soft, bowel sounds present, Extremities - , no visible edema or rash. Lab/Imaging: Test performed on January 10, 2020 08:19 Sodium 139 mmol/L Potassium 3.7 mmol/L Chloride 99 mmol/L CO2 26 mmol/L Anion Gap 17.7 BUN 11 mg/dL Creatinine 0.6 mg/dL Cr Clearance (Est) 109.3100 mL/min eGFR 102.3 mL/min Glucose 129 mg/dL Calcium 10.5 mg/dL Protein, Total 7.9 g/dL Albumin 4.6 g/dL Globulin 3.3 g/dL Bilirubin, Total 0.4 mg/dL ALT (SGPT) 29 U/L AST (SGOT) 17 U/L Alkaline Phosphatase 87 IU/L WBC 5.0 10 3/uL RBC 5.52 10 6/uL HGB 14.3 g/dL HCT 44.4 % MCV 80.4 fL MCH 25.9 pg MCHC 32.2 g/dL RDW 12.7 % Platelet Count 390 10 3/cmm MPV 9.9 fL Neutrophils 3.0 10 3/uL Lymphocytes 1.6 10 3/uL Monocytes 0.3 10 3/uL Eosinophils 0.1 10 3/uL Basophils 0.0 10 3/uL Neutrophil % 59.5 % Lymphocyte % 32.7 % Monocyte % 5.4 % Eosinophil % 1.6 % Basophils % 0.4 % Impression: Recent adenoid cystic carcinoma peripheral gland with cranial nerve involvement/right skull base involvement. MRI scan done on 09/08/2019 showed widespread spread of tumor into right orbit, right cavernous sinus, fixed income manager space, pterygopalatine fossa and right facial nerve. Now with right facial nerve paralysis, facial asymmetry. History of adenoid cystic carcinoma right excessive peripheral gland status post partial pericardiectomy with facial nerve monitoring followed by reconstruction for T2 Nx with possible surgical margin lesion, followed by radiation therapy. Chronic smoking Anxiety disorder Clinically, patient has been doing reasonably well, in sbek-pe-yurkjebv distress due to right facial pain and right eye visual disturbance. Mrs Rivera was referred to radiation oncology for palliative radiation therapy. Unfortunately, she is not a candidate for further radiation therapy due to involved risk due to history of prior radiation therapy to same area. A request was sent to pathology regarding next generation sequencing especially NTRK gene analysis but we were told, specimen is not available for evaluation. The role of palliative chemotherapy with cisplatin/Navelbine was discussed per Dr Walters as literature has shown overall responsibilities about 44% and with 38% one year survival. did offer her treatment with cisplatin and Navelbine. Her current treatment plan is to give her chemotherapy with split dose of cisplatin/Navelbine on day 1 and 8 and repeat cycle every 21 days. She began her first dose on 01/03/2020. She is tolerating treatment well thus far. Plan: Discussed with patient regarding her labs white blood count 12.1 hemoglobin 10.7 crit 34.4 platelets 258,000 CMP within normal limits Clinically, patient is doing well, tolerating palliative therapy with cisplatin/Navelbine well but with expected side effects. We'll proceed with next cycle today and then she will return to clinic in 1 week with CBC CMP, reasonable , for day 8 chemotherapy Signed By: Milton Walters M.D. <<Signature on File>>
[2020-01-31 09:47] LABS: Basophils % 0.5 %; Hematocrit 37.3 % (37.0-47.0); Lymphocytes # 0.9 10^3/uL (0.8-4.8); Lymphocytes % 24.4 %; Mean Corpuscular HGB Conc 32.2 g/dL (30.0-36.0); Mean Corpuscular Hemoglobin 26.1 pg (28.0-34.0); Mean Corpuscular Volume 81.3 fL (81-99); Mean Platelet Volume 9.9 fL (7.4-10.4); Monocytes # 0.1 10^3/uL (0.2-0.9); Monocytes % 3.1 %; Neutrophils # 2.7 10^3/uL (1.8-7.7); Nucleated Red Blood Cells % 0 %; Platelet Count 163 10^3/cmm (130-400); Red Blood Count 4.59 10^6/uL (4.1-5.3); Red Cell Distribution Width 13.2 % (12.1-15.1); White Blood Count 3.8 10^3/uL (4.0-10.0)
[2020-01-31] MEDS: sodium chloride 0.9% 250 ML 999 ML IV (09:50)
[2020-01-31 10:01] LABS: Alanine Aminotransferase 18 U/L (0-33); Alkaline Phosphatase 81 IU/L (35-105); Anion Gap 15.6 (5-19); Aspartate Amino Transferase 15 U/L (0-32); Blood Urea Nitrogen 18 mg/dL (6-20); Carbon Dioxide 28 mmol/L (22-29); Chloride 98 mmol/L (98-107); Globulin 2.9 g/dL (1.3-4.6); Glomerular Filtration Rate 102.3 mL/min (90-130); Glucose 136 mg/dL (65-115); Osmolality Calculated 285 mOsm/kg (285-295); Potassium 3.6 mmol/L (3.5-5.1); Sodium 138 mmol/L (136-145); Total Bilirubin 0.3 mg/dL (0.15-1.2); Total Protein 6.9 g/dL (6.6-8.7)
[2020-01-31 10:23] LABS: Slide Review Slide Review Perform
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
[2020-01-31] MEDS: FUROsemide 10 mg/mL SDV 2mL 20 MG IV (13:36)
[2020-01-31] MEDS: potassium chloride 20 MEQ in sodium chloride 0.9% 500 ML 500 MEQ IV (13:38)
[2020-02-07 17:05] LABS: Eosinophils % 1.2 %; Hematocrit 32.1 % (37.0-47.0); Hemoglobin 10.4 g/dL (11.5-15.3); Lymphocytes # 0.7 10^3/uL (0.8-4.8); Mean Corpuscular HGB Conc 32.4 g/dL (30.0-36.0); Mean Corpuscular Hemoglobin 26.2 pg (28.0-34.0); Mean Corpuscular Volume 80.9 fL (81-99); Mean Platelet Volume 10.2 fL (7.4-10.4); Monocytes % 4.9 %; Neutrophils % 9.9 %; Nucleated Red Blood Cells % 0 %; Platelet Count 229 10^3/cmm (130-400); Red Blood Count 3.97 10^6/uL (4.1-5.3); Red Cell Distribution Width 13.4 % (12.1-15.1)
[2020-02-07 17:42] LABS: Alanine Aminotransferase 19 U/L (0-33); Alkaline Phosphatase 80 IU/L (35-105); Anion Gap 13.9 (5-19); Aspartate Amino Transferase 15 U/L (0-32); Blood Urea Nitrogen 12 mg/dL (6-20); Carbon Dioxide 28 mmol/L (22-29); Chloride 99 mmol/L (98-107); Globulin 2.6 g/dL (1.3-4.6); Glomerular Filtration Rate 126.3 mL/min (90-130); Glucose 122 mg/dL (65-115); Osmolality Calculated 281 mOsm/kg (285-295); Potassium 3.9 mmol/L (3.5-5.1); Sodium 137 mmol/L (136-145); Total Bilirubin 0.2 mg/dL (0.15-1.2); Total Protein 6.6 g/dL (6.6-8.7)
[2020-02-07 18:45] LABS: Slide Review Slide Review Perform
[2020-02-07 19:48] LABS: Neutrophils # 0.1 10^3/uL (1.8-7.7); White Blood Count 0.8 10^3/uL (4.0-10.0)
[2020-02-10 10:57] LABS: Hematocrit 29.1 % (37.0-47.0); Hemoglobin 9.5 g/dL (11.5-15.3); Mean Corpuscular HGB Conc 32.6 g/dL (30.0-36.0); Mean Corpuscular Hemoglobin 26.1 pg (28.0-34.0); Mean Corpuscular Volume 79.9 fL (81-99); Mean Platelet Volume 9.6 fL (7.4-10.4); Nucleated Red Blood Cells # 0.1 /100WBC; Nucleated Red Blood Cells % 1.2 %; Platelet Count 340 10^3/cmm (130-400); Red Blood Count 3.64 10^6/uL (4.1-5.3); Red Cell Distribution Width 13.5 % (12.1-15.1); White Blood Count 4.2 10^3/uL (4.0-10.0)
[2020-02-10 12:32] LABS: Slide Review Slide Review Perform
[2020-02-10 12:33] LABS: Total Cells Counted 100 (0-100)
[2020-02-10 12:42] LABS: Absolute Segmented Neutrophil 0.9 10/cmm (1.6-7.1); Lymphocytes 55 %; Lymphocytes Absolute 2.9 10^3/cmm (1.2-3.4); Monocytes Absolute 0.2 10^3/cmm (0.1-0.6); Segmented Neutrophils 22 %
[2020-02-10 12:43] LABS: Platelet Estimate Normal (Normal)
[2020-02-10 12:45] LABS: Absolute Neutrophil 0.9 10^3/cmm (1.4-6.5)
[2020-02-14 11:08] LABS: Hematocrit 32.9 % (37.0-47.0); Hemoglobin 10.4 g/dL (11.5-15.3); Mean Corpuscular HGB Conc 31.6 g/dL (30.0-36.0); Mean Corpuscular Hemoglobin 25.8 pg (28.0-34.0); Mean Corpuscular Volume 81.6 fL (81-99); Mean Platelet Volume 9.1 fL (7.4-10.4); Nucleated Red Blood Cells # 0.1 /100WBC; Nucleated Red Blood Cells % 1.1 %; Platelet Count 275 10^3/cmm (130-400); Red Blood Count 4.03 10^6/uL (4.1-5.3); Red Cell Distribution Width 14.8 % (12.1-15.1); White Blood Count 12.2 10^3/uL (4.0-10.0)
[2020-02-14 11:16] LABS: Alanine Aminotransferase 13 U/L (0-33); Alkaline Phosphatase 96 IU/L (35-105); Anion Gap 15.2 (5-19); Aspartate Amino Transferase 21 U/L (0-32); Blood Urea Nitrogen 11 mg/dL (6-20); Calcium 9.4 mg/dL (8.5-10.5); Carbon Dioxide 28 mmol/L (22-29); Chloride 98 mmol/L (98-107); Globulin 2.9 g/dL (1.3-4.6); Glomerular Filtration Rate 102.3 mL/min (90-130); Glucose 129 mg/dL (65-115); Osmolality Calculated 282 mOsm/kg (285-295); Potassium 4.2 mmol/L (3.5-5.1); Sodium 137 mmol/L (136-145); Total Bilirubin 0.2 mg/dL (0.15-1.2); Total Protein 6.9 g/dL (6.6-8.7)
[2020-02-14 11:45] LABS: Slide Review Slide Review Perform
[2020-02-14 11:47] LABS: Absolute Segmented Neutrophil 3.2 10/cmm (1.6-7.1); Band Neutrophils Absolute 2.7 10^3/cmm (0.0-1.2); Lymphocytes 25 %; Lymphocytes Absolute 3.4 10^3/cmm (1.2-3.4); Monocytes Absolute 1.5 10^3/cmm (0.1-0.6); Segmented Neutrophils 26 %; Total Cells Counted 100 (0-100)
[2020-02-14 11:48] LABS: Absolute Neutrophil 5.9 10^3/cmm (1.4-6.5); Platelet Estimate Normal (Normal)
[2020-02-15] MEDS: FUROsemide 10 mg/mL SDV 2mL 20 MG IV (13:35)
[2020-02-15] MEDS: sodium chlor 0.9% + KCl 20 mEq 20 MEQ/1,000 ML BAG 500 MEQ IV (13:38)
--- NOTE | 2020-02-16 17:41 | ONC FU_ITS ---
Dr. Walters follow up note Patient: Alia Nair Unit #: [id number]: 1960 Dicatated By: Milton Walters M.D.Date of Visit:Feb 15, 2020 Onc Med Follow-up/Prog Note History of Present Illness: Mrs. Rivera is a 59-year-old female with history of adenoid cystic carcinoma right parotid gland. She is status post partial parotidectomy with facial nerve monitoring followed by reconstruction of the soft tissue defect with pedicled into oral buccal flap. The final pathology confirmed T2, MX lesion with positive surgical margins. Mrs Nair was referred to radiation oncology, as per patient she underwent radiation therapy here in [facility]. Since then she has been followed by ENT and with no evidence of disease until recently started having a right eye problem. MRI scan of the neck done on 09/08/2019 showed widespread neural spread of tumor into the right orbit right cavernous sinus, bricklayer's assistant space, pterygopalatine fossa and probably right facial nerve. Her case was discussed in multidisciplinary head and neck tumor conference in [place] by her ENT physician there. Treatment options including treating skull base involved area to palliate symptoms (IMRT or SRS). Or perhaps consider proton beam IM RT. She was referred to radiation oncology here in [place] and she was also referred to palliative care clinic for pain management. Mrs Nair was also encouraged to see medical oncology for palliative systemic therap. Mrs Nair has seen radiation oncology and as per patient she was told there is no plan for further radiation therapy considering the risk versus benefits, especially due to prior radiation therapy to same area. 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 She began her first cycle on 01/03/2020. Long-standing history of smoking still active. Her pain (right eye and right side of her face) is under control with current pain medication. Came for follow-up, denies any specific complaint, no fever or chills, no nausea or vomiting, no diarrhea or constipation, right facial swelling is improving, no more headache, now even noticed drainage from her right nose, and can also breathe through right nostril. Overall, is pleased with response to the chemotherapy, tolerating palliative chemotherapy with cisplatin and Navelbine well Medications: Albuterol Sulfate HFA 2 puff(s) (of 108 (90 Base) mcg/act) Aerosol, solution Inhalation q 6 hours PRN, ALPRAZolam 1 Tablet (of 1 mg) Oral t.i.d. PRN, Deep Sea Nasal [place] 1 (0.65 %) Solution Nasal q 2 hours, Effexor XR 1 Capsule (of 37.5 mg) Capsule SR 24 HR Oral daily, Morphine Sulfate 1 Tablet (of 30 mg) Oral t.i.d., OxyCODONE HCl 1 Tablet (of 20 mg) Oral q 4 to 6 hours PRN Allergies: Aleve Review of Systems: Constitutional - Appetite is good and weight is stable. No fever, chills, hot flashes, or night sweats. Energy level is good, ENMT - No sinus congestion/drainage. No mouth sores. No sore throat or difficulty swallowing, Hematologic/Lymphatic - No abnormal bruising or bleeding, Respiratory - No shortness of breath. No cough. No pleuritic pain or hemoptysis, Cardiovascular - No angina pain. No palpitations, Gastrointestinal - No nausea or vomiting. Positive for heartburn, no acid reflux. No diarrhea or constipation. No blood in the stool or black stools, Genitourinary (F) - No dysuria or hematuria. No urinary frequency. No urgency or incontinence, Musculoskeletal - No joint or bone pain, Neurologic - No headache or dizziness. No numbness/paresthesias or other focal neurologic symptoms, Psychiatric - No anxiety or depression. No insomnia. Vital Signs: Performed on Feb 15, 2020 09:15 Height - 60.00 in Temperature - 97.8 F (LOW) Pulse - 85 /min Respiration - 18 /min BP - 112/77 mm(hg) O2 Sat - 98 % Performance Status: 1 - No physically strenuous activity, but ambulatory and able to carry out light or sedentary work (e.g. office work, light house work). (ECOG) Physical Examination: ENMT - No mouth sores, right facial swelling improving, still unable to open her right eye, no thrush, no jaundice, Respiratory - Lungs are clear, Cardiovascular - Regular rate and rhythm of heart, Abdomen - Soft, bowel sounds present, Extremities - No visible edema. Lab/Imaging: Test performed on Feb 10, 2020 10:22 WBC 4.2 10 3/uL Manual Bands % 0.0 % RBC 3.64 10 6/uL HGB 9.5 g/dL Manual Lymphs % 55 % Atypical Lymphs % 13.0 % HCT 29.1 % Manual Monos % 4.0 % MCV 79.9 fL MCH 26.1 pg MCHC 32.6 g/dL Metamyelocytes % 1.0 % RDW 13.5 % Platelet Count 340 10 3/cmm MPV 9.6 fL Promyelocytes % 5.0 % NRBC % 1.2 % CBC Slide Review Slide Review Perform Manual Bands Abs 0.0 10 3/cmm Manual Neutrophils Abs 0.9 10 3/cmm Manual Lymphocytes Abs 2.9 10 3/cmm Manual Monocytes Abs 0.2 10 3/cmm Test performed on Jan 31, 2020 09:35 Sodium 138 mmol/L Potassium 3.6 mmol/L Chloride 98 mmol/L CO2 28 mmol/L Anion Gap 15.6 BUN 18 mg/dL Creatinine 0.6 mg/dL Cr Clearance (Est) 109.3100 mL/min eGFR 102.3 mL/min Glucose 136 mg/dL Calcium 10.0 mg/dL Protein, Total 6.9 g/dL Albumin 4.0 g/dL Globulin 2.9 g/dL Bilirubin, Total 0.3 mg/dL ALT (SGPT) 18 U/L AST (SGOT) 15 U/L Alkaline Phosphatase 81 IU/L Neutrophils 2.7 10 3/uL Lymphocytes 0.9 10 3/uL Monocytes 0.1 10 3/uL Eosinophils 0.0 10 3/uL Basophils 0.0 10 3/uL Neutrophil % 70.0 % Lymphocyte % 24.4 % Monocyte % 3.1 % Eosinophil % 1.0 % Basophils % 0.5 % Test performed on Jan 24, 2020 09:37 Myelocytes % 2.0 % Manual Eosinophils Abs 0.2 10 3/cmm Impression: Recent adenoid cystic carcinoma peripheral gland with cranial nerve involvement/right skull base involvement. MRI scan done on 09/08/2019 showed widespread spread of tumor into right orbit, right cavernous sinus, bricklayer's assistant space, pterygopalatine fossa and right facial nerve. Now with right facial nerve paralysis, facial asymmetry. History of adenoid cystic carcinoma right excessive peripheral gland status post partial pericardiectomy with facial nerve monitoring followed by reconstruction for T2 Nx with possible surgical margin lesion, followed by radiation therapy. Chronic smoking Anxiety disorder Clinically, patient has been doing reasonably well, in [id number] distress due to right facial pain and right eye visual disturbance. Mrs Rivera was referred to radiation oncology for palliative radiation therapy. Unfortunately, she is not a candidate for further radiation therapy due to involved risk due to history of prior radiation therapy to same area. A request was sent to pathology regarding next generation sequencing especially NTRK gene analysis but we were told, specimen is not available for evaluation. The role of palliative chemotherapy with cisplatin/Navelbine was discussed as literature has shown overall responsibilities about 44% and with 38% one year survival. did offer her treatment with cisplatin and Navelbine. Her current treatment plan is to give her chemotherapy with split dose of cisplatin/Navelbine on day 1 and 8 and repeat cycle every 21 days. She began her first dose on 01/03/2020. She is tolerating treatment well thus far. Plan: Discussed with patient regarding her labs white blood count 12.2 hemoglobin 10.4 hematocrit 32.9 platelets 275,000 CMP within normal limits Clinically, patient is doing well, tolerating palliative therapy with cisplatin/Navelbine well but with expected side effects. We will proceed with next cycle day 1 with weekly cisplatin/Navelbine today then she will return to clinic in 1 week with CBC CMP followed by Neulasta to prevent chemotherapy-induced neutropenia. Signed By: Milton Walters M.D. <<Signature on File>>
[2020-02-22 09:12] LABS: Eosinophils % 0.6 %; Hematocrit 30.1 % (37.0-47.0); Hemoglobin 9.7 g/dL (11.5-15.3); Lymphocytes # 2.1 10^3/uL (0.8-4.8); Mean Corpuscular HGB Conc 32.2 g/dL (30.0-36.0); Mean Corpuscular Hemoglobin 26.1 pg (28.0-34.0); Mean Corpuscular Volume 81.1 fL (81-99); Mean Platelet Volume 9.9 fL (7.4-10.4); Monocytes # 0.2 10^3/uL (0.2-0.9); Monocytes % 5.4 %; Neutrophils % 26.7 %; Nucleated Red Blood Cells % 0 %; Platelet Count 242 10^3/cmm (130-400); Red Blood Count 3.71 10^6/uL (4.1-5.3); Red Cell Distribution Width 14.5 % (12.1-15.1); White Blood Count 3.1 10^3/uL (4.0-10.0)
[2020-02-22 10:01] LABS: Neutrophils # 0.8 10^3/uL (1.8-7.7)
[2020-02-22 10:02] LABS: Alanine Aminotransferase 15 U/L (0-33); Albumin Level 3.8 g/dL (3.5-5.2); Alkaline Phosphatase 86 IU/L (35-105); Anion Gap 13.2 (5-19); Aspartate Amino Transferase 16 U/L (0-32); Blood Urea Nitrogen 19 mg/dL (6-20); Calcium 9.2 mg/dL (8.5-10.5); Carbon Dioxide 31 mmol/L (22-29); Chloride 98 mmol/L (98-107); Globulin 2.6 g/dL (1.3-4.6); Glomerular Filtration Rate 102.3 mL/min (90-130); Glucose 143 mg/dL (65-115); Osmolality Calculated 285 mOsm/kg (285-295); Potassium 4.2 mmol/L (3.5-5.1); Sodium 138 mmol/L (136-145); Total Bilirubin 0.2 mg/dL (0.15-1.2); Total Protein 6.4 g/dL (6.6-8.7)
--- NOTE | 2020-02-22 11:04 | ONC FU_ITS ---
Dr. Walters follow up note Patient: Alia Nair Unit #: [id number]: 1960 Dicatated By: Milton Walters M.D.Date of Visit:Feb 22, 2020 Onc Med Follow-up/Prog Note History of Present Illness: Mrs. Rivera is a 59-year-old female with history of adenoid cystic carcinoma right parotid gland. She is status post partial parotidectomy with facial nerve monitoring followed by reconstruction of the soft tissue defect with pedicled into oral buccal flap. The final pathology confirmed T2, MX lesion with positive surgical margins. Mrs Nair was referred to radiation oncology, as per patient she underwent radiation therapy here in [facility]. Since then she has been followed by ENT and with no evidence of disease until recently started having a right eye problem. MRI scan of the neck done on 09/08/2019 showed widespread neural spread of tumor into the right orbit right cavernous sinus, french folding machine operator space, pterygopalatine fossa and probably right facial nerve. Her case was discussed in multidisciplinary head and neck tumor conference in [place] by her ENT physician there. Treatment options including treating skull base involved area to palliate symptoms (IMRT or SRS). Or perhaps consider proton beam IM RT. She was referred to radiation oncology here in [place] and she was also referred to palliative care clinic for pain management. Mrs Nair was also encouraged to see medical oncology for palliative systemic therap. Mrs Nair has seen radiation oncology and as per patient she was told there is no plan for further radiation therapy considering the risk versus benefits, especially due to prior radiation therapy to same area. 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 She began her first cycle on 01/03/2020. Long-standing history of smoking still active. Her pain (right eye and right side of her face) is under control with current pain medication., right facial swelling is improving, no more headache, now even noticed drainage from her right nose, and can also breathe through right nostril. Overall, is pleased with response to the chemotherapy, Came for follow-up, denies any specific complaints, no fever or chills, no nausea or vomiting, no diarrhea or constipation, no peripheral neuropathy, right facial swelling continue to improve. Tolerating palliative therapy with cisplatin/Navelbine well Medications: Albuterol Sulfate HFA 2 puff(s) (of 108 (90 Base) mcg/act) Aerosol, solution Inhalation q 6 hours PRN, ALPRAZolam 1 Tablet (of 1 mg) Oral t.i.d. PRN, Deep Sea Nasal [place] 1 (0.65 %) Solution Nasal q 2 hours, Effexor XR 1 Capsule (of 37.5 mg) Capsule SR 24 HR Oral daily, Morphine Sulfate 1 Tablet (of 30 mg) Oral t.i.d., OxyCODONE HCl 1 Tablet (of 20 mg) Oral q 4 to 6 hours PRN Allergies: Aleve Review of Systems: Constitutional - Appetite is good and weight is stable. No fever, chills, hot flashes, or night sweats. Energy level is good, ENMT - No sinus congestion/drainage. No mouth sores. No sore throat or difficulty swallowing, Hematologic/Lymphatic - No abnormal bruising or bleeding, Respiratory - No shortness of breath. No cough. No pleuritic pain or hemoptysis, Cardiovascular - No angina pain. No palpitations, Gastrointestinal - No nausea or vomiting. Positive for heartburn, no acid reflux. No diarrhea or constipation. No blood in the stool or black stools, Genitourinary (F) - No dysuria or hematuria. No urinary frequency. No urgency or incontinence, Musculoskeletal - No joint or bone pain, Neurologic - No headache or dizziness. No numbness/paresthesias or other focal neurologic symptoms, Psychiatric - No anxiety or depression. No insomnia. Vital Signs: Performed on Feb 22, 2020 10:45 Height - 60.00 in Weight - 156.0 lbs (HIGH) BSA - 1.68 sq.m BMI - 30.47 (HIGH) Temperature - 98.3 F (LOW) Pulse - 100 /min Respiration - 20 /min BP - 107/72 mm(hg) O2 Sat - 96 % Pain - 0 Performance Status: 1 - No physically strenuous activity, but ambulatory and able to carry out light or sedentary work (e.g. office work, light house work). (ECOG) Physical Examination: ENMT - Right facial swelling improving, No mouth sores, no thrush, no jaundice, Respiratory - Lungs are clear, Cardiovascular - Regular rate and rhythm of heart, Abdomen - Soft, bowel sounds present, Extremities - No edema or rash. Lab/Imaging: Test performed on Feb 14, 2020 10:33 Sodium 137 mmol/L Potassium 4.2 mmol/L Chloride 98 mmol/L CO2 28 mmol/L Anion Gap 15.2 BUN 11 mg/dL Creatinine 0.6 mg/dL Cr Clearance (Est) 108.15 mL/min eGFR 102.3 mL/min Glucose 129 mg/dL Calcium 9.4 mg/dL Protein, Total 6.9 g/dL Albumin 4.0 g/dL Globulin 2.9 g/dL Bilirubin, Total 0.2 mg/dL ALT (SGPT) 13 U/L AST (SGOT) 21 U/L Alkaline Phosphatase 96 IU/L WBC 12.2 10 3/uL Manual Bands % 22.0 % RBC 4.03 10 6/uL HGB 10.4 g/dL Manual Lymphs % 25 % Atypical Lymphs % 3.0 % HCT 32.9 % Manual Monos % 12.0 % MCV 81.6 fL MCH 25.8 pg MCHC 31.6 g/dL Metamyelocytes % 8.0 % RDW 14.8 % Myelocytes % 4.0 % Platelet Count 275 10 3/cmm MPV 9.1 fL NRBC % 1.1 % CBC Slide Review Slide Review Perform Manual Bands Abs 2.7 10 3/cmm Manual Neutrophils Abs 5.9 10 3/cmm Manual Lymphocytes Abs 3.4 10 3/cmm Manual Monocytes Abs 1.5 10 3/cmm Test performed on Feb 10, 2020 10:22 Promyelocytes % 5.0 % Test performed on Jan 31, 2020 09:35 Neutrophils 2.7 10 3/uL Lymphocytes 0.9 10 3/uL Monocytes 0.1 10 3/uL Eosinophils 0.0 10 3/uL Basophils 0.0 10 3/uL Neutrophil % 70.0 % Lymphocyte % 24.4 % Monocyte % 3.1 % Eosinophil % 1.0 % Basophils % 0.5 % Test performed on Jan 24, 2020 09:37 Manual Eosinophils Abs 0.2 10 3/cmm Impression: Recent adenoid cystic carcinoma peripheral gland with cranial nerve involvement/right skull base involvement. MRI scan done on 09/08/2019 showed widespread spread of tumor into right orbit, right cavernous sinus, french folding machine operator space, pterygopalatine fossa and right facial nerve. Now with right facial nerve paralysis, facial asymmetry. History of adenoid cystic carcinoma right excessive peripheral gland status post partial pericardiectomy with facial nerve monitoring followed by reconstruction for T2 Nx with possible surgical margin lesion, followed by radiation therapy. Chronic smoking Anxiety disorder Clinically, patient has been doing reasonably well, in [id number] distress due to right facial pain and right eye visual disturbance. Mrs Rivera was referred to radiation oncology for palliative radiation therapy. Unfortunately, she is not a candidate for further radiation therapy due to involved risk due to history of prior radiation therapy to same area. A request was sent to pathology regarding next generation sequencing especially NTRK gene analysis but we were told, specimen is not available for evaluation. The role of palliative chemotherapy with cisplatin/Navelbine was discussed as literature has shown overall responsibilities about 44% and with 38% one year survival. did offer her treatment with cisplatin and Navelbine. Her current treatment plan is to give her chemotherapy with split dose of cisplatin/Navelbine on day 1 and 8 and repeat cycle every 21 days. She began her first dose on 01/03/2020. She is tolerating treatment well thus far. Plan: Discussed with patient regarding her labs white blood count 3.1 hemoglobin 9.7 hematocrit 30.1 platelets 242,000 ANC 800 CMP within normal limits except glucose 143 Clinically, patient is doing well, tolerating palliative therapy with cisplatin/Navelbine well but with expected side effects e.g. progressive neutropenia causing delay in her treatment. We will hold her chemotherapy today and consider Neupogen 400 mcg subcu today and tomorrow and then repeat her CBC on Friday if recover consider next weekly dose of split dose cisplatin and Navelbine. And patient already scheduled for follow-up CT scan of head and face next week. Signed By: Milton Walters M.D. <<Signature on File>>
== END 2020-02-22 23:59 | disposition home or self-care (01) ==
LOC: ONCMED 06:47
PROVIDERS: Nurse Practitioner; PCP Family Medicine; Referring Provider Otolaryngology; Visit Provider Internal Medicine Hematology & Oncology
DX: Z51.11 Encounter for antineoplastic chemotherapy (principal); C07 Malignant neoplasm of parotid gland; C79.31 Secondary malignant neoplasm of brain; F17.210 Nicotine dependence, cigarettes, uncomplicated; F41.9 Anxiety disorder, unspecified
CPT/HCPCS: 36591; 80053; 85007; 85025; 96365; 96366; 96367; 96372; 96375; 96411; 96413; 96415; 99214; J1100; J1442; J1453; J1940; J2469; J3475; J3480; J7030; J7040; J7050; J9060; J9390

== ENCOUNTER 2020-03-24 06:50 | Outpatient (RCR) | payer MEDICARE, MEDICAID, SELFPAY ==
--- NOTE | 2020-02-29 11:00 | CT_ITS ---
WS: [id number] CT HEAD TECHNIQUE: Noncontrast and contrast-enhanced CT of the head. CLINICAL INFORMATION: HX OF CANCER-RESTAGING PLS INCLUDE VIEW OF MANDIBLE COMPARISON: August 15, 2019 DLP: 925.[address] scans at use at least one of these dose optimization techniques: automat ed exposure control; mA and/or kV adjustment per patient size (includes targeted exams where dose is matched to clinical indication); or iterative reconstruction. FINDINGS: No evidence of intracranial hemorrhage or mass effect. Ventricular system and basal cisterns are tena nt. Mild small vessel changes. Mild parenchymal volume loss. Chronic appearing infarct in the left ba ning ganglia is unchanged since August 15, 2019. No abnormal intracranial enhancement. No evidence o f enhancing intracranial metastatic disease. Left mastoid air cells are well aerated. Opacification right mastoid air cells and middle ear. Mild m ucosal thickening in the ethmoid air cells.Previously described thin curvilinear soft tissue along th e right medial orbit deep to the medial rectus is unchanged since the MRI September 08, 2019 and the [address] ior CT head of August 15, 2019. This is nonspecific but could be related to orbital pseudotumor, ne oplasm, or prior surgery. CT/CT head wo/w con [id number] IMPRESSION: 1. No evidence of enhancing intracranial metastatic disease. 2. Mild small vessel changes with chronic infarct in the left basal ganglia un changed. 3. Curvilinear previously described soft tissue along the right medial orbit d eep to the medial rectus is unchanged. This is nonspecific but could be related to orbital pseudotumor, neoplasm, or prior surgery. 4. Mild parenchymal volume loss. 5. No abnormal intracranial enhancement. 6. Opacification right mastoid air cells and right middle ear.
--- NOTE | 2020-02-29 11:00 | CT_ITS ---
WS: [id number] CT NECK TECHNIQUE: Contrast-enhanced CT of the neck with coronal and sagittal reformatted images. CLINICAL INFORMATION: RESTAGING EVALUATION;COMP TO LAST MALIG NEOPLASM PAROTID COMPARISON: MRI neck September 08, 2019 CT head August 15, 2019 PET/CT March 06, [address] neck November 02, 2015 DLP: 2375.[address] scans at [facility] use at least one of these dose optimization techniques: automat ed exposure control; mA and/or kV adjustment per patient size (includes targeted exams where dose is matched to clinical indication); or iterative reconstruction. FINDINGS: Prior postoperative changes right parotidectomy with resection of the adjacent nodule previously desc ribed along the anterior margin of the right masseter. No evidence of residual or recurrent tumor in this area. Expected postoperative surgical changes in the right neck. Salivary glands otherwise norm al. Normal left parotid gland and submandibular glands. No evidence of supraglottic or glottic mass. Subglottic airway is normal. Normal parapharyngeal fat. Normal posterior nasopharynx. Normal piriform sinuses. Cluster of slightly prominent enhancing lymph nodes left submandibular and jugulodigastric measuring 6 to 7 mm in short axis dimension. These appear stable compared to the September 08, 2019 MRI. Recommend interval follow-u p with PET/CT. Otherwise no cervical lymphadenopathy. Small left thyroid nodule 6 mm is unchanged. Opacification rig ht mastoid air cells and right middle ear. Moderate spondylitic changes cervical spine. CT/CT neck w con* [id number] IMPRESSION: 1. Prior postoperative changes right parotidectomy. No evidence of recurrent o r residual disease in the right neck. 2. Cluster of slightly prominent enhancing lymph nodes left submandibular and jugulodigastric measuring 6 to 7 mm in short axis dimension. These appear stabl e compared to the September 08, 2019 MRI. Recommend interval follow-up with PET/C T. 3. Otherwise no cervical lymphadenopathy. 4. Stable postoperative changes right neck. 5. Opacification right mastoid air cells and middle ear. 6. No evidence of supraglottic or glottic mass.
[2020-02-29] MEDS: iohexol 300 mg/mL 100 mL Btl IV ×2 (11:52→11:54)
[2020-03-01 08:49] LABS: Basophils % 0.2 %; Eosinophils # 0.2 10^3/uL (0.0-0.8); Hemoglobin 9.7 g/dL (11.5-15.3); Lymphocytes # 2.3 10^3/uL (0.8-4.8); Mean Corpuscular HGB Conc 31.3 g/dL (30.0-36.0); Mean Corpuscular Hemoglobin 25.8 pg (28.0-34.0); Mean Corpuscular Volume 82.4 fL (81-99); Mean Platelet Volume 8.9 fL (7.4-10.4); Monocytes # 0.8 10^3/uL (0.2-0.9); Monocytes % 18.6 %; Neutrophils % 22.6 %; Nucleated Red Blood Cells % 0 %; Platelet Count 304 10^3/cmm (130-400); Red Blood Count 3.76 10^6/uL (4.1-5.3); Red Cell Distribution Width 16.4 % (12.1-15.1); White Blood Count 4.4 10^3/uL (4.0-10.0)
[2020-03-01 09:15] LABS: Alanine Aminotransferase 11 U/L (0-33); Albumin Level 3.7 g/dL (3.5-5.2); Alkaline Phosphatase 72 IU/L (35-105); Anion Gap 12.9 (5-19); Aspartate Amino Transferase 15 U/L (0-32); Blood Urea Nitrogen 13 mg/dL (6-20); Calcium 9.1 mg/dL (8.5-10.5); Carbon Dioxide 28 mmol/L (22-29); Chloride 101 mmol/L (98-107); Globulin 2.6 g/dL (1.3-4.6); Glomerular Filtration Rate 73.4 mL/min (90-130); Glucose 111 mg/dL (65-115); Osmolality Calculated 283 mOsm/kg (285-295); Potassium 3.9 mmol/L (3.5-5.1); Sodium 138 mmol/L (136-145); Total Bilirubin 0.2 mg/dL (0.15-1.2); Total Protein 6.3 g/dL (6.6-8.7)
[2020-03-01] MEDS: sodium chloride 0.9% 250 ML 75 ML IV (10:20)
[2020-03-01] MEDS: FUROsemide 10 mg/mL SDV 2mL 20 MG IV (12:32)
[2020-03-01] MEDS: pegfilgrastim 6 mg/0.6 mL Kit (onpro) SUBCUT (14:20)
--- NOTE | 2020-03-07 21:59 | ONC FU_ITS ---
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 Rivera is a 59-year-old female with history of adenoid cystic carcinoma right parotid gland. She is status post partial parotidectomy with facial nerve monitoring followed by reconstruction of the soft tissue defect with pedicled into oral buccal flap. The final pathology confirmed T2, MX lesion with positive surgical margins. Mrs Nair was referred to radiation oncology, as per patient she underwent radiation therapy here in [facility]. Since then she has been followed by ENT and with no evidence of disease until recently started having a right eye problem. MRI scan of the neck done on 09/08/2019 showed widespread neural spread of tumor into the right orbit right cavernous sinus, weed sprayer space, pterygopalatine fossa and probably right facial nerve. Her case was discussed in multidisciplinary head and neck tumor conference in [place] by her ENT physician there. Treatment options including treating skull base involved area to palliate symptoms (IMRT or SRS). Or perhaps consider proton beam IM RT. She was referred to radiation oncology here in [place] and she was also referred to palliative care clinic for pain management. Mrs Nair was also encouraged to see medical oncology for palliative systemic therapy. Mrs Nair has seen radiation oncology and as per patient she was told there is no plan for further radiation therapy considering the risk versus benefits, especially due to prior radiation therapy to same area. 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 Dr Walters did offer her treatment with Cisplatin and vinorelbine. She began her first cycle on 01/03/2020. Long-standing history of smoking and is still active. Her pain (right eye and right side of her face) is under control with current pain medication., right facial swelling is improving, no more headache, now even noticed drainage from her right nose, and can also breathe through right nostril. Overall, she is pleased with response to the chemotherapy. She had CT of the head on 02/29/2020 with and without contrast. There is no evidence of intracranial hemorrhage or mass-effect. Ventricular system and basal cisterns are patent. Mild small vessel changes. Mild parenchymal volume loss. 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 No evidence of enhancing intracranial metastatic disease. The left mastoid air cells are well aerated. Opacification right mastoid air cells and middle ear. Mild mucosal thickening along the ethmoid air cells. Previously described thin curvilinear soft tissue along the right medial orbit deep to the medial rectus is unchanged since her MRI September 08, [address] of the head August 15, 2019. This is nonspecific but could be related to orbital pseudotumor, neoplasm or prior surgery. She also had CT of the neck on 02/29/2020 with contrast. There is postoperative changes in the right parotidectomy. No evidence of recurrent residual disease in the right neck. Cluster of slightly prominent enhancing lymph nodes left submandibular and jugulodigastric gastric measuring 6 to 7 mm in short axis dimension. These appear stable compared to September 08, 2019. Recommend interval follow-up with PET/CT. Otherwise no cervical lymphadenopathy. Stable postoperative changes right neck. Opacification right mastoid air cells and middle ear. No evidence of supraglottic or glottic mass. As of February 15, 2020 Mrs. Nair had started her third cycle of chemotherapy unfortunately day 8 was held due to neutropenia. Her ANC at that time was 800. She was given 2 days of Neupogen and is here today for reassessment. Her ANC today is 1000. Ms. Nair states that overall she is doing well. She denies any fever or chills. She states that her right ear and right eye have been draining however. Is been some yellow thick discharge. She states is been there for for 5 days now. She states she is eating good. She denies any new pain. She denies any taste changes or changes in her appetite. She denies mouth sores, sore throat or difficulty swallowing. She denies any new shortness of breath orthopnea. She denies chest pain or palpitations. She states she has had no diarrhea or constipation. She denies any new neuropathy symptoms at this time. Her ECOG is 1. She did have some slight pain with the Neupogen in the past but did not sound as if she took her Claritin consistently. Past Medical History: Asthma Gastroesophageal reflux Hypertension Rheumatoid arthritis Cancer (Adenoid Cystic Carcinoma of Right Parotid Gland) in 2014 Past Surgical History: Parotidectomy in 2014 Biopsy in 2004 - Growth on Right Cheek Knee Surgery in 1992 Tonsillectomy in 1973 Appendectomy in 1971 Allergies: Aleve Medications: Albuterol Sulfate HFA 2 puff(s) (of 108 (90 Base) mcg/act) Aerosol, solution Inhalation q 6 hours PRN ALPRAZolam 1 Tablet (of 1 mg) Oral t.i.d. PRN Deep Sea Nasal [place] 1 (0.65 %) Solution Nasal q 2 hours Effexor XR 1 Capsule (of 37.5 mg) Capsule SR 24 HR Oral daily Morphine Sulfate 1 Tablet (of 30 mg) Oral t.i.d. OxyCODONE HCl 1 Tablet (of 20 mg) Oral q 4 to 6 hours PRN Family History: Ms. Nair's mother at age 72: Colon Cancer, and Leukemia. Ms. Nair's father at age 76: Pharynx Cancer. Her paternal grandfather at age 68: Pharynx Cancer. Social History: Ms. Nair is and she is a disability. She is a daily smoker who has smoked 0.5 packs/day for 51 years. She drinks occasionally. Smokes Vapor Cigarette She uses vape cig. . Review Of Symptoms: Constitutional Denies fevers, chills, night sweats, excessive fatigue or weight loss. Eyes left eye normal but right eye affected by disease and non functional. Some eye socket pain but controlled. Occasional drainage from right eye. ENMT Denies changes in hearing, sore throat, mouth sores, difficulty or changes in swallowing ability, and/or sinus drainage. Intermittent right ear pain and drainage but overall much better. Hematologic/Lymphatic Denies easy bruising or bleeding. The patient denies any tender or palpable lymph nodes. Breasts mammo current Respiratory Denies dyspnea on exertion, chest pain, cough or hemoptysis. Denies orthopnea. Cardiovascular Denies anginal chest pain, palpitations or orthopnea. Gastrointestinal Denies vomiting, diarrhea, GI bleeding, or constipation. Denies change in bowel habits and/or stool color, no heartburn or early satiety. Some nausea but controlled with lorazepam. Genitourinary (F) No hematuria, hesitancy, incontinence, vaginal bleeding, discharge or other problems with urination. Musculoskeletal Denies joint pain, swelling or redness. No decreased range of motion. Integumentary Denies chronic rashes, inflammation, ulcerations or skin changes. Neurologic Normal gait. No sensory problems. Right sided pain but no worse than before-some better now. Psychiatric Denies insomnia, depression, karen or mood swings. Vital Signs: Performed on Mar 01, 2020 08:57 Height - 60.00 in Weight - 155.4 lbs (LOW) BSA - 1.68 sq.m BMI - 30.35 (HIGH) Temperature - 98.5 F Pulse - 88 /min Respiration - 19 /min BP - 145/100 mm(hg) (HIGH) O2 Sat - 97 % Pain - 3,1 - No physically strenuous activity, but ambulatory and able to carry out light or sedentary work (e.g. office work, light house work). (ECOG) Physical Examination: Constitutional Alert, oriented, no acute distress. Skin pink, warm and dry. Head Normocephalic; atraumatic. Right side paralysis noted but not new. Eyes Conjunctivae and sclerae are clear and without icterus. Pupils are reactive and equal. Right eye lashes have scant amount of dried exudate. No redness or odor. ENMT Right ear is unremarkable-no exudate or TM changes visualized. Neck Supple without masses or thyromegaly. No jugular venous distension. Hematologic/Lymphatic No petechiae or purpura. No tender or palpable lymph nodes in the cervical or supraclavicular areas. Respiratory Lungs are clear to auscultation without rhonchi or wheezing. Cardiovascular Regular rate and rhythm of heart without murmurs,clicks, gallops or rubs. Chest Left chest wall port a cath healed well and unremarkable. Abdomen Non-tender, non-distended, no masses or ascites. No guarding or rebound tenderness. No pulsatile masses. Back/Spine Non-tender to palpation. Extremities No visible deformities, no cyanosis, clubbing. Trace bilateral ankle edema. Musculoskeletal No tenderness or swelling, normal range of motion without obvious weakness. Integumentary No rashes or lesions. Neurologic No sensory or motor deficits, normal cerebellar function, normal gait. Psychiatric Alert and oriented times three. Coherent speech. Verbalizes understanding of our discussions today. Laboratory:Test performed on Mar 01, 2020 08:25 Sodium 138 mmol/L Potassium 3.9 mmol/L Chloride 101 mmol/L CO2 28 mmol/L Anion Gap 12.9 BUN 13 mg/dL Creatinine 0.8 mg/dL Cr Clearance (Est) 81.1100 mL/min eGFR 73.4 mL/min Glucose 111 mg/dL Calcium 9.1 mg/dL Protein, Total 6.3 g/dL Albumin 3.7 g/dL Globulin 2.6 g/dL Bilirubin, Total 0.2 mg/dL ALT (SGPT) 11 U/L AST (SGOT) 15 U/L Alkaline Phosphatase 72 IU/L WBC 4.4 10 3/uL RBC 3.76 10 6/uL HGB 9.7 g/dL HCT 31.0 % MCV 82.4 fL MCH 25.8 pg MCHC 31.3 g/dL RDW 16.4 % Platelet Count 304 10 3/cmm MPV 8.9 fL Neutrophils 1.0 10 3/uL Lymphocytes 2.3 10 3/uL Monocytes 0.8 10 3/uL Eosinophils 0.2 10 3/uL Basophils 0.0 10 3/uL Neutrophil % 22.6 % Lymphocyte % 52.0 % Monocyte % 18.6 % Eosinophil % 5.0 % Basophils % 0.2 % NRBC % 0 % Impression: Recent adenoid cystic carcinoma peripheral gland with cranial nerve involvement/right skull base involvement. MRI scan done on 09/08/2019 showed widespread spread of tumor into right orbit, right cavernous sinus, weed sprayer space, pterygopalatine fossa and right facial nerve. Now with right facial nerve paralysis, facial asymmetry. History of adenoid cystic carcinoma right excessive peripheral gland status post partial pericardiectomy with facial nerve monitoring followed by reconstruction for T2 Nx with possible surgical margin lesion, followed by radiation therapy. Chronic smoking Anxiety disorder Clinically, patient has been doing reasonably well, in [id number] distress due to right facial pain and right eye visual disturbance. Mrs Rivera was referred to radiation oncology for palliative radiation therapy. Unfortunately, she is not a candidate for further radiation therapy due to involved risk due to history of prior radiation therapy to same area. A request was sent to pathology regarding next generation sequencing especially NTRK gene analysis but we were told, specimen is not available for evaluation. The role of palliative chemotherapy with cisplatin/Navelbine was discussed as literature has shown overall responsibilities about 44% and with 38% one year survival. did offer her treatment with cisplatin and Navelbine. Her current treatment plan is to give her chemotherapy with split dose of cisplatin/Navelbine on day 1 and 8 and repeat cycle every 21 days. She began her first dose on 01/03/2020. She is tolerating treatment well thus far. She had CT of the head on 02/29/2020 with and without contrast. There is no evidence of intracranial hemorrhage or mass-effect. Ventricular system and basal cisterns are patent. Mild small vessel changes. Mild parenchymal volume loss. 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 No evidence of enhancing intracranial metastatic disease. The left mastoid air cells are well aerated. Opacification right mastoid air cells and middle ear. Mild mucosal thickening along the ethmoid air cells. Previously described thin curvilinear soft tissue along the right medial orbit deep to the medial rectus is unchanged since her MRI September 08, [address] of the head August 15, 2019. This is nonspecific but could be related to orbital pseudotumor, neoplasm or prior surgery. She also had CT of the neck on 02/29/2020 with contrast. There is postoperative changes in the right parotidectomy. No evidence of recurrent residual disease in the right neck. Cluster of slightly prominent enhancing lymph nodes left submandibular and jugulodigastric gastric measuring 6 to 7 mm in short axis dimension. These appear stable compared to September 08, 2019. Recommend interval follow-up with PET/CT. Otherwise no cervical lymphadenopathy. Stable postoperative changes right neck. Opacification right mastoid air cells and middle ear. No evidence of supraglottic or glottic mass. As of February 15, 2020 Mrs. Nair had started her third cycle of chemotherapy unfortunately day 8 was held due to neutropenia. Her ANC at that time was 800. She was given 2 days of Neupogen and is here today for reassessment. Her ANC today is 1000. Plan: 1. Proceed with cycle 3-day 8 (delayed due to ANC of 800 last week) cisplatin/vinorelbine. 2. Request PA for Neulasta for supportive care given her ANC is 800 on day 8 and even after 2 doses of Neupogen 4 and 80 mcg her ANC is only 1000. She will be due for the Neulasta tomorrow if approved. 3. Continue current antiemetics as they are working well for her. 3. We will have her try Levaquin 500 mg daily her right ear and eye drainage. She does have an ANC of 100 and is noted to have some drainage from the eye, however the ear is not drainage at present, but some crusting noted. 4. Today's labs reviewed in detail and discussed with Mrs. Nair and a copy was given to her. WBC 4.4 hemoglobin 9.7 platelets 304,000 ANC is 8000 creatinine 0.8 random glucose 111 LFTs are normal. Her weight is stable at 155.4. 5. Most recent restaging imaging with CT of the neck and head from 02/29/2024 results see above. 6. She was encouraged to take Claritin daily for Neulasta pain. She was advised to make sure that she does go ahead and start the Levaquin and to have a refill on hand in the event that her ANC drops with her next treatments. 7. We will plan to have her return in 2 weeks with CBC CMP she will be due for cycle 4-day 1 cisplatin/vinorelabine at that time. 8. Mrs. Nair was encouraged to contact us in the interim should questions or problems arise. Signed By: Harper Vick-, [facility] Milton Walters MD <<Signature on File>>
[2020-03-16 08:40] LABS: Basophils % 0.4 %; Eosinophils # 0.2 10^3/uL (0.0-0.8); Eosinophils % 3.5 %; Hematocrit 31.1 % (37.0-47.0); Hemoglobin 9.7 g/dL (11.5-15.3); Lymphocytes # 2.2 10^3/uL (0.8-4.8); Lymphocytes % 44.7 %; Mean Corpuscular HGB Conc 31.2 g/dL (30.0-36.0); Mean Corpuscular Hemoglobin 25.8 pg (28.0-34.0); Mean Corpuscular Volume 82.7 fL (81-99); Mean Platelet Volume 8.9 fL (7.4-10.4); Monocytes # 0.6 10^3/uL (0.2-0.9); Monocytes % 11.8 %; Neutrophils # 1.89 10^3/uL (1.8-7.7); Neutrophils % 39.2 %; Nucleated Red Blood Cells % 0 %; Platelet Count 208 10^3/cmm (130-400); Red Blood Count 3.76 10^6/uL (4.1-5.3); White Blood Count 4.8 10^3/uL (4.0-10.0)
[2020-03-16] MEDS: sodium chloride 0.9% 250 ML 999 ML IV (08:45)
[2020-03-16 09:01] LABS: Alanine Aminotransferase 10 U/L (0-33); Albumin Level 3.9 g/dL (3.5-5.2); Alkaline Phosphatase 102 IU/L (35-105); Anion Gap 10.9 (5-19); Aspartate Amino Transferase 15 U/L (0-32); Blood Urea Nitrogen 14 mg/dL (8-23); Calcium 8.5 mg/dL (8.5-10.5); Carbon Dioxide 29 mmol/L (22-29); Chloride 102 mmol/L (98-107); Globulin 2.5 g/dL (1.3-4.6); Glomerular Filtration Rate 85.4 mL/min (90-130); Glucose 114 mg/dL (65-115); Osmolality Calculated 283 mOsm/kg (285-295); Potassium 3.9 mmol/L (3.5-5.1); Sodium 138 mmol/L (136-145); Total Bilirubin 0.2 mg/dL (0.15-1.2); Total Protein 6.4 g/dL (6.6-8.7)
[2020-03-16] MEDS: FUROsemide 10 mg/mL SDV 2mL 20 MG IV (13:48)
[2020-03-16] MEDS: sodium chlor 0.9% + KCl 20 mEq 20 MEQ/1,000 ML BAG 500 MEQ IV (13:50)
--- NOTE | 2020-03-17 11:01 | ONC FU_ITS ---
Dr. Walters follow up note Patient: Alia Nair Unit #: [id number]: 1960 Dicatated By: Milton Walters M.D.Date of Visit:Mar 16, 2020 Onc Med Follow-up/Prog Note History of Present Illness: Mrs. Rivera is a 60 -year-old female with history of adenoid cystic carcinoma right parotid gland. She is status post partial parotidectomy with facial nerve monitoring followed by reconstruction of the soft tissue defect with pedicled into oral buccal flap. The final pathology confirmed T2, MX lesion with positive surgical margins. Mrs Nair was referred to radiation oncology, as per patient she underwent radiation therapy here in [facility]. Since then she has been followed by ENT and with no evidence of disease until recently started having a right eye problem. MRI scan of the neck done on 09/08/2019 showed widespread neural spread of tumor into the right orbit right cavernous sinus, dough puncher space, pterygopalatine fossa and probably right facial nerve. Her case was discussed in multidisciplinary head and neck tumor conference in [place] by her ENT physician there. Treatment options including treating skull base involved area to palliate symptoms (IMRT or SRS). Or perhaps consider proton beam IM RT. She was referred to radiation oncology here in [place] and she was also referred to palliative care clinic for pain management. Mrs Nair was also encouraged to see medical oncology for palliative systemic therapy. Mrs Nair has seen radiation oncology and as per patient she was told there is no plan for further radiation therapy considering the risk versus benefits, especially due to prior radiation therapy to same area. 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 was offerred treatment with Cisplatin and vinorelbine. She began her first cycle on 01/03/2020. Long-standing history of smoking and is still active. Her pain (right eye and right side of her face) is under control with current pain medication., right facial swelling is improving, no more headache, now even noticed drainage from her right nose, and can also breathe through right nostril. Overall, she is pleased with response to the chemotherapy. She had CT of the head on 02/29/2020 with and without contrast. There is no evidence of intracranial hemorrhage or mass-effect. Ventricular system and basal cisterns are patent. Mild small vessel changes. Mild parenchymal volume loss. 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 No evidence of enhancing intracranial metastatic disease. The left mastoid air cells are well aerated. Opacification right mastoid air cells and middle ear. Mild mucosal thickening along the ethmoid air cells. Previously described thin curvilinear soft tissue along the right medial orbit deep to the medial rectus is unchanged since her MRI September 08, [address] of the head August 15, 2019. This is nonspecific but could be related to orbital pseudotumor, neoplasm or prior surgery. She also had CT of the neck on 02/29/2020 with contrast. There is postoperative changes in the right parotidectomy. No evidence of recurrent residual disease in the right neck. Cluster of slightly prominent enhancing lymph nodes left submandibular and jugulodigastric gastric measuring 6 to 7 mm in short axis dimension. These appear stable compared to September 08, 2019. Recommend interval follow-up with PET/CT. Otherwise no cervical lymphadenopathy. Stable postoperative changes right neck. Opacification right mastoid air cells and middle ear. No evidence of supraglottic or glottic mass. As of February 15, 2020 Mrs. Nair had started her third cycle of chemotherapy unfortunately day 8 was held due to neutropenia. Her ANC at that time was 800. She was given Neupogen Came for follow-up, denies any specific complaint except right ear discomfort/pain and right maxillary fullness but overall feeling much better since she is on chemotherapy and facial swelling facial swelling has gone down significantly, no fever chills otherwise no nausea or vomiting, no diarrhea or constipation, tolerating systemic chemotherapy with cisplatin/Navelbine well with no significant side effects. Medications: Albuterol Sulfate HFA 2 puff(s) (of 108 (90 Base) mcg/act) Aerosol, solution Inhalation q 6 hours PRN, ALPRAZolam 1 Tablet (of 1 mg) Oral t.i.d. PRN, Deep Sea Nasal Napoleon 1 (0.65 %) Solution Nasal q 2 hours, Effexor XR 1 Capsule (of 37.5 mg) Capsule SR 24 HR Oral daily, Morphine Sulfate 1 Tablet (of 30 mg) Oral t.i.d., OxyCODONE HCl 1 Tablet (of 20 mg) Oral q 4 to 6 hours PRN Allergies: Aleve Review of Systems: Review of Systems is not available for this patient. Vital Signs: Vitals are not available for this patient. Performance Status: 1 - No physically strenuous activity, but ambulatory and able to carry out light or sedentary work (e.g. office work, light house work). (ECOG) Physical Examination: ENMT - no mouth sores no thrush, no Right sinus tenderness or no visible right ear discharge or inflammation, Respiratory - Lungs are clear, Cardiovascular - Regular rate and rhythm of heart, Abdomen - Soft, bowel sounds present, Extremities - No visible edema. Lab/Imaging: Test performed on Mar 01, 2020 08:25 Sodium 138 mmol/L Potassium 3.9 mmol/L Chloride 101 mmol/L CO2 28 mmol/L Anion Gap 12.9 BUN 13 mg/dL Creatinine 0.8 mg/dL Cr Clearance (Est) 81.1100 mL/min eGFR 73.4 mL/min Glucose 111 mg/dL Calcium 9.1 mg/dL Protein, Total 6.3 g/dL Albumin 3.7 g/dL Globulin 2.6 g/dL Bilirubin, Total 0.2 mg/dL ALT (SGPT) 11 U/L AST (SGOT) 15 U/L Alkaline Phosphatase 72 IU/L WBC 4.4 10 3/uL RBC 3.76 10 6/uL HGB 9.7 g/dL HCT 31.0 % MCV 82.4 fL MCH 25.8 pg MCHC 31.3 g/dL RDW 16.4 % Platelet Count 304 10 3/cmm MPV 8.9 fL Neutrophils 1.0 10 3/uL Lymphocytes 2.3 10 3/uL Monocytes 0.8 10 3/uL Eosinophils 0.2 10 3/uL Basophils 0.0 10 3/uL Neutrophil % 22.6 % Lymphocyte % 52.0 % Monocyte % 18.6 % Eosinophil % 5.0 % Basophils % 0.2 % NRBC % 0 % Test performed on Feb 14, 2020 10:33 Manual Bands % 22.0 % Manual Lymphs % 25 % Atypical Lymphs % 3.0 % Manual Monos % 12.0 % Metamyelocytes % 8.0 % Myelocytes % 4.0 % CBC Slide Review Slide Review Perform Manual Bands Abs 2.7 10 3/cmm Manual Neutrophils Abs 5.9 10 3/cmm Manual Lymphocytes Abs 3.4 10 3/cmm Manual Monocytes Abs 1.5 10 3/cmm Test performed on Feb 10, 2020 10:22 Promyelocytes % 5.0 % Test performed on Jan 24, 2020 09:37 Manual Eosinophils Abs 0.2 10 3/cmm Impression: Recent adenoid cystic carcinoma peripheral gland with cranial nerve involvement/right skull base involvement. MRI scan done on 09/08/2019 showed widespread spread of tumor into right orbit, right cavernous sinus, dough puncher space, pterygopalatine fossa and right facial nerve. Now with right facial nerve paralysis, facial asymmetry. History of adenoid cystic carcinoma right excessive peripheral gland status post partial pericardiectomy with facial nerve monitoring followed by reconstruction for T2 Nx with possible surgical margin lesion, followed by radiation therapy. Chronic smoking Anxiety disorder Clinically, patient has been doing reasonably well, in [id number] distress due to right facial pain and right eye visual disturbance. Mrs Rivera was referred to radiation oncology for palliative radiation therapy. Unfortunately, she is not a candidate for further radiation therapy due to involved risk due to history of prior radiation therapy to same area. A request was sent to pathology regarding next generation sequencing especially NTRK gene analysis but we were told, specimen is not available for evaluation. The role of palliative chemotherapy with cisplatin/Navelbine was discussed as literature has shown overall responsibilities about 44% and with 38% one year survival. did offer her treatment with cisplatin and Navelbine. Her current treatment plan is to give her chemotherapy with split dose of cisplatin/Navelbine on day 1 and 8 and repeat cycle every 21 days. She began her first dose on 01/03/2020. She is tolerating treatment well thus far. She had CT of the head on 02/29/2020 with and without contrast. There is no evidence of intracranial hemorrhage or mass-effect. Ventricular system and basal cisterns are patent. Mild small vessel changes. Mild parenchymal volume loss. 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 No evidence of enhancing intracranial metastatic disease. The left mastoid air cells are well aerated. Opacification right mastoid air cells and middle ear. Mild mucosal thickening along the ethmoid air cells. Previously described thin curvilinear soft tissue along the right medial orbit deep to the medial rectus is unchanged since her MRI September 08, [address] of the head August 15, 2019. This is nonspecific but could be related to orbital pseudotumor, neoplasm or prior surgery. She also had CT of the neck on 02/29/2020 with contrast. There is postoperative changes in the right parotidectomy. No evidence of recurrent residual disease in the right neck. Cluster of slightly prominent enhancing lymph nodes left submandibular and jugulodigastric gastric measuring 6 to 7 mm in short axis dimension. These appear stable compared to September 08, 2019. Recommend interval follow-up with PET/CT. Otherwise no cervical lymphadenopathy. Stable postoperative changes right neck. Opacification right mastoid air cells and middle ear. No evidence of supraglottic or glottic mass. As of February 15, 2020 Mrs. Nair had started her third cycle of chemotherapy unfortunately day 8 was held due to neutropenia. Her ANC at that time was 800. She was given 2 days of Neupogen Plan: Discussed with patient regarding her labs white blood count 4.8 hemoglobin 9.7 hematocrit 31.1 platelets 208,000 CMP within normal limits Clinically, patient is doing reasonably well with good palliation with systemic therapy with cisplatin/Navelbine. We will proceed with next dose with cycle #4 today and then she will return to clinic in 1 week with CBC CMP As well as right ear pain/discomfort or right maxillary fullness is concerned, will refer her to Dr. Alfonso, for ENT evaluation, may be helpful. Signed By: Mitlon Walters M.D. <<Signature on File>>
[2020-03-23 09:22] LABS: Basophils % 0.7 %; Eosinophils # 0.2 10^3/uL (0.0-0.8); Eosinophils % 6.3 %; Hematocrit 28.6 % (37.0-47.0); Lymphocytes # 1.3 10^3/uL (0.8-4.8); Lymphocytes % 46.9 %; Mean Corpuscular HGB Conc 31.5 g/dL (30.0-36.0); Mean Corpuscular Hemoglobin 25.8 pg (28.0-34.0); Mean Corpuscular Volume 81.9 fL (81-99); Mean Platelet Volume 9.6 fL (7.4-10.4); Monocytes # 0.2 10^3/uL (0.2-0.9); Monocytes % 6.3 %; Neutrophils # 1.06 10^3/uL (1.8-7.7); Neutrophils % 39.1 %; Nucleated Red Blood Cells % 0 %; Platelet Count 222 10^3/cmm (130-400); Red Blood Count 3.49 10^6/uL (4.1-5.3); Red Cell Distribution Width 17.5 % (12.1-15.1); White Blood Count 2.7 10^3/uL (4.0-10.0)
[2020-03-23 09:37] LABS: Alanine Aminotransferase 11 U/L (0-33); Alkaline Phosphatase 69 IU/L (35-105); Anion Gap 11.8 (5-19); Aspartate Amino Transferase 14 U/L (0-32); Blood Urea Nitrogen 12 mg/dL (8-23); Calcium 8.6 mg/dL (8.5-10.5); Carbon Dioxide 28 mmol/L (22-29); Chloride 96 mmol/L (98-107); Globulin 2.4 g/dL (1.3-4.6); Glucose 108 mg/dL (65-115); Osmolality Calculated 271 mOsm/kg (285-295); Potassium 3.8 mmol/L (3.5-5.1); Sodium 132 mmol/L (136-145); Total Bilirubin 0.5 mg/dL (0.15-1.2); Total Protein 6.4 g/dL (6.6-8.7)
--- NOTE | 2020-03-24 13:23 | ONC FU_ITS ---
Dr. Walters follow up note Patient: Alia Nair Unit #: [id number]: 1960 Dicatated By: Milton Walters M.D.Date of Visit:Mar 23, 2020 Onc Med Follow-up/Prog Note History of Present Illness: Mrs. Rivera is a 60 -year-old female with history of adenoid cystic carcinoma right parotid gland. She is status post partial parotidectomy with facial nerve monitoring followed by reconstruction of the soft tissue defect with pedicled into oral buccal flap. The final pathology confirmed T2, MX lesion with positive surgical margins. Mrs Nair was referred to radiation oncology, as per patient she underwent radiation therapy here in [facility]. Since then she has been followed by ENT and with no evidence of disease until recently started having a right eye problem. MRI scan of the neck done on 09/08/2019 showed widespread neural spread of tumor into the right orbit right cavernous sinus, analysis tester space, pterygopalatine fossa and probably right facial nerve. Her case was discussed in multidisciplinary head and neck tumor conference in [place] by her ENT physician there. Treatment options including treating skull base involved area to palliate symptoms (IMRT or SRS). Or perhaps consider proton beam IM RT. She was referred to radiation oncology here in [place] and she was also referred to palliative care clinic for pain management. Mrs Nair was also encouraged to see medical oncology for palliative systemic therapy. Mrs Nair has seen radiation oncology and as per patient she was told there is no plan for further radiation therapy considering the risk versus benefits, especially due to prior radiation therapy to same area. 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 was offerred treatment with Cisplatin and vinorelbine. She began her first cycle on 01/03/2020. Long-standing history of smoking and is still active. Her pain (right eye and right side of her face) is under control with current pain medication., right facial swelling is improving, no more headache, now even noticed drainage from her right nose, and can also breathe through right nostril. Overall, she is pleased with response to the chemotherapy. She had CT of the head on 02/29/2020 with and without contrast. There is no evidence of intracranial hemorrhage or mass-effect. Ventricular system and basal cisterns are patent. Mild small vessel changes. Mild parenchymal volume loss. 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 No evidence of enhancing intracranial metastatic disease. The left mastoid air cells are well aerated. Opacification right mastoid air cells and middle ear. Mild mucosal thickening along the ethmoid air cells. Previously described thin curvilinear soft tissue along the right medial orbit deep to the medial rectus is unchanged since her MRI September 08, [address] of the head August 15, 2019. This is nonspecific but could be related to orbital pseudotumor, neoplasm or prior surgery. She also had CT of the neck on 02/29/2020 with contrast. There is postoperative changes in the right parotidectomy. No evidence of recurrent residual disease in the right neck. Cluster of slightly prominent enhancing lymph nodes left submandibular and jugulodigastric gastric measuring 6 to 7 mm in short axis dimension. These appear stable compared to September 08, 2019. Recommend interval follow-up with PET/CT. Otherwise no cervical lymphadenopathy. Stable postoperative changes right neck. Opacification right mastoid air cells and middle ear. No evidence of supraglottic or glottic mass. As of February 15, 2020 Mrs. Nair had started her third cycle of chemotherapy unfortunately day 8 was held due to neutropenia. Her ANC at that time was 800. She was given Neupogen Came for follow-up, denies any specific complaints, no fever chills, no nausea or vomiting, no diarrhea or constipation, right ear pain/discomfort and right sinus fullness is under control, awaiting ENT evaluation scheduled for April 03, 2020. Tolerating palliative chemotherapy with cisplatin/Navelbine well Medications: Albuterol Sulfate HFA 2 puff(s) (of 108 (90 Base) mcg/act) Aerosol, solution Inhalation q 6 hours PRN, ALPRAZolam 1 Tablet (of 1 mg) Oral t.i.d. PRN, Deep Sea Nasal Jackson 1 (0.65 %) Solution Nasal q 2 hours, Effexor XR 1 Capsule (of 37.5 mg) Capsule SR 24 HR Oral daily, Morphine Sulfate 1 Tablet (of 30 mg) Oral t.i.d., OxyCODONE HCl 1 Tablet (of 20 mg) Oral q 4 to 6 hours PRN Allergies: Aleve Review of Systems: Constitutional - Appetite is good and weight is stable. No fever, chills, hot flashes, or night sweats. Energy level is good, ENMT - No sinus congestion/drainage. No mouth sores. No sore throat or difficulty swallowing, Hematologic/Lymphatic - No abnormal bruising or bleeding, Respiratory - No shortness of breath. No cough. No pleuritic pain or hemoptysis, Cardiovascular - No angina pain. No palpitations, Gastrointestinal - No nausea or vomiting. Positive for heartburn, no acid reflux. No diarrhea or constipation. No blood in the stool or black stools, Genitourinary (F) - No dysuria or hematuria. No urinary frequency. No urgency or incontinence, Musculoskeletal - No joint or bone pain, Neurologic - No headache or dizziness. No numbness/paresthesias or other focal neurologic symptoms, Psychiatric - No anxiety or depression. No insomnia. Vital Signs: Performed on Mar 23, 2020 09:14 Height - 60.00 in Weight - 152.4 lbs (LOW) BSA - 1.66 sq.m BMI - 29.76 Temperature - 98.4 F Pulse - 94 /min Respiration - 18 /min BP - 111/73 mm(hg) O2 Sat - 95 % (LOW) Pain - 3 Performance Status: 1 - No physically strenuous activity, but ambulatory and able to carry out light or sedentary work (e.g. office work, light house work). (ECOG) Physical Examination: Respiratory - Lungs are clear, Cardiovascular - Regular rate and rhythm of heart, Abdomen - Soft, bowel sounds present, Extremities - No visible edema. Lab/Imaging: Test performed on Mar 16, 2020 08:25 Sodium 138 mmol/L Potassium 3.9 mmol/L Chloride 102 mmol/L CO2 29 mmol/L Anion Gap 10.9 BUN 14 mg/dL Creatinine 0.7 mg/dL Cr Clearance (Est) 91.5600 mL/min eGFR 85.4 mL/min Glucose 114 mg/dL Calcium 8.5 mg/dL Protein, Total 6.4 g/dL Albumin 3.9 g/dL Globulin 2.5 g/dL Bilirubin, Total 0.2 mg/dL ALT (SGPT) 10 U/L AST (SGOT) 15 U/L Alkaline Phosphatase 102 IU/L WBC 4.8 10 3/uL RBC 3.76 10 6/uL HGB 9.7 g/dL HCT 31.1 % MCV 82.7 fL MCH 25.8 pg MCHC 31.2 g/dL RDW 18.0 % Platelet Count 208 10 3/cmm MPV 8.9 fL Neutrophils 1.89 10 3/uL Lymphocytes 2.2 10 3/uL Monocytes 0.6 10 3/uL Eosinophils 0.2 10 3/uL Basophils 0.0 10 3/uL Neutrophil % 39.2 % Lymphocyte % 44.7 % Monocyte % 11.8 % Eosinophil % 3.5 % Basophils % 0.4 % NRBC % 0 % Test performed on Feb 14, 2020 10:33 Manual Bands % 22.0 % Manual Lymphs % 25 % Atypical Lymphs % 3.0 % Manual Monos % 12.0 % Metamyelocytes % 8.0 % Myelocytes % 4.0 % CBC Slide Review Slide Review Perform Manual Bands Abs 2.7 10 3/cmm Manual Neutrophils Abs 5.9 10 3/cmm Manual Lymphocytes Abs 3.4 10 3/cmm Manual Monocytes Abs 1.5 10 3/cmm Test performed on Feb 10, 2020 10:22 Promyelocytes % 5.0 % Test performed on Jan 24, 2020 09:37 Manual Eosinophils Abs 0.2 10 3/cmm Impression: Recent adenoid cystic carcinoma peripheral gland with cranial nerve involvement/right skull base involvement. MRI scan done on 09/08/2019 showed widespread spread of tumor into right orbit, right cavernous sinus, analysis tester space, pterygopalatine fossa and right facial nerve. Now with right facial nerve paralysis, facial asymmetry. History of adenoid cystic carcinoma right excessive peripheral gland status post partial pericardiectomy with facial nerve monitoring followed by reconstruction for T2 Nx with possible surgical margin lesion, followed by radiation therapy. Chronic smoking Anxiety disorder Clinically, patient has been doing reasonably well, in [id number] distress due to right facial pain and right eye visual disturbance. Mrs Rivera was referred to radiation oncology for palliative radiation therapy. Unfortunately, she is not a candidate for further radiation therapy due to involved risk due to history of prior radiation therapy to same area. A request was sent to pathology regarding next generation sequencing especially NTRK gene analysis but we were told, specimen is not available for evaluation. The role of palliative chemotherapy with cisplatin/Navelbine was discussed as literature has shown overall responsibilities about 44% and with 38% one year survival. did offer her treatment with cisplatin and Navelbine. Her current treatment plan is to give her chemotherapy with split dose of cisplatin/Navelbine on day 1 and 8 and repeat cycle every 21 days. She began her first dose on 01/03/2020. She is tolerating treatment well thus far. She had CT of the head on 02/29/2020 with and without contrast. There is no evidence of intracranial hemorrhage or mass-effect. Ventricular system and basal cisterns are patent. Mild small vessel changes. Mild parenchymal volume loss. 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 No evidence of enhancing intracranial metastatic disease. The left mastoid air cells are well aerated. Opacification right mastoid air cells and middle ear. Mild mucosal thickening along the ethmoid air cells. Previously described thin curvilinear soft tissue along the right medial orbit deep to the medial rectus is unchanged since her MRI September 08, [address] of the head August 15, 2019. This is nonspecific but could be related to orbital pseudotumor, neoplasm or prior surgery. She also had CT of the neck on 02/29/2020 with contrast. There is postoperative changes in the right parotidectomy. No evidence of recurrent residual disease in the right neck. Cluster of slightly prominent enhancing lymph nodes left submandibular and jugulodigastric gastric measuring 6 to 7 mm in short axis dimension. These appear stable compared to September 08, 2019. Recommend interval follow-up with PET/CT. Otherwise no cervical lymphadenopathy. Stable postoperative changes right neck. Opacification right mastoid air cells and middle ear. No evidence of supraglottic or glottic mass. As of February 15, 2020 Mrs. Nair had started her third cycle of chemotherapy unfortunately day 8 was held due to neutropenia. Her ANC at that time was 800. She was given 2 days of Neupogen Plan: Discussed with patient regarding her labs white blood count 2.7 hemoglobin 9 g hematocrit 28.6 platelets 222,000 ANC 1300 CMP within normal limits Clinically, patient doing well, with excellent palliation, tolerating weekly cisplatin/Navelbine well but with expected side effects e.g. progressive leukopenia/neutropenia, we will hold her chemotherapy today and consider dose of Neupogen today and tomorrow and then if she return to clinic on Friday blood count looks reasonable proceed with weekly dose of cisplatin/Navelbine and in the future we will consider Neupogen daily x2 after every weekly dose to maintain chemotherapy schedule. Patient will follow-up with Dr. Alfonso on April 03, 2020 for right ear discomfort and right sinus fullness evaluation. Signed By: Milton Walters M.D. <<Signature on File>>
== END 2020-03-24 23:59 | disposition home or self-care (01) ==
LOC: ONCMED 06:50
PROVIDERS: Nurse Practitioner; PCP Family Medicine; Referring Provider Otolaryngology; Visit Provider Internal Medicine Hematology & Oncology
DX: Z51.11 Encounter for antineoplastic chemotherapy (principal); C07 Malignant neoplasm of parotid gland; C79.49 Secondary malignant neoplasm of other parts of nervous system; C78.39 Secondary malignant neoplasm of other respiratory organs; D70.1 Agranulocytosis secondary to cancer chemotherapy; T45.1X5A Adverse effect of antineoplastic and immunosuppressive drugs, initial encounter; G51.0 Bell's palsy; F17.210 Nicotine dependence, cigarettes, uncomplicated; F41.9 Anxiety disorder, unspecified; K21.9 Gastro-esophageal reflux disease without esophagitis; I10 Essential (primary) hypertension; M06.9 Rheumatoid arthritis, unspecified; Z79.891 Long term (current) use of opiate analgesic; Z92.3 Personal history of irradiation
CPT/HCPCS: 70470; 70491; 80053; 85025; 96365; 96366; 96367; 96372; 96375; 96413; 96417; 99214; J1100; J1442; J1453; J1940; J2469; J2505; J3475; J3480; J7030; J7040; J7050; J9060; J9390; Q9967

== ENCOUNTER 2020-04-24 05:34 | Outpatient (RCR) | payer MEDICARE, MEDICAID, SELFPAY ==
[2020-03-27] MEDS: sodium chloride 0.9% 250 ML 999 ML IV (08:45)
[2020-03-27 08:46] LABS: Basophils % 0.3 %; Eosinophils # 0.2 10^3/uL (0.0-0.8); Hematocrit 29.9 % (37.0-47.0); Hemoglobin 9.5 g/dL (11.5-15.3); Lymphocytes # 1.7 10^3/uL (0.8-4.8); Lymphocytes % 46.2 %; Mean Corpuscular HGB Conc 31.8 g/dL (30.0-36.0); Mean Corpuscular Hemoglobin 26.9 pg (28.0-34.0); Mean Corpuscular Volume 84.7 fL (81-99); Mean Platelet Volume 9.2 fL (7.4-10.4); Monocytes # 0.8 10^3/uL (0.2-0.9); Monocytes % 20.9 %; Neutrophils % 26.3 %; Nucleated Red Blood Cells % 0 %; Platelet Count 226 10^3/cmm (130-400); Red Blood Count 3.53 10^6/uL (4.1-5.3); Red Cell Distribution Width 18.6 % (12.1-15.1); White Blood Count 3.7 10^3/uL (4.0-10.0)
[2020-03-27 09:06] LABS: Alanine Aminotransferase 14 U/L (0-33); Alkaline Phosphatase 90 IU/L (35-105); Anion Gap 11.8 (5-19); Aspartate Amino Transferase 17 U/L (0-32); Blood Urea Nitrogen 7 mg/dL (8-23); Calcium 8.8 mg/dL (8.5-10.5); Carbon Dioxide 29 mmol/L (22-29); Chloride 104 mmol/L (98-107); Globulin 2.7 g/dL (1.3-4.6); Glomerular Filtration Rate 85.4 mL/min (90-130); Glucose 114 mg/dL (65-115); Osmolality Calculated 289 mOsm/kg (285-295); Potassium 3.8 mmol/L (3.5-5.1); Sodium 141 mmol/L (136-145); Total Bilirubin 0.2 mg/dL (0.15-1.2); Total Protein 6.7 g/dL (6.6-8.7)
[2020-03-27 09:11] LABS: Neutrophils # 0.97 10^3/uL (1.8-7.7)
[2020-03-29 08:41] LABS: Hematocrit 29.3 % (37.0-47.0); Hemoglobin 8.9 g/dL (11.5-15.3); Mean Corpuscular HGB Conc 30.4 g/dL (30.0-36.0); Mean Corpuscular Hemoglobin 25.9 pg (28.0-34.0); Mean Corpuscular Volume 85.4 fL (81-99); Mean Platelet Volume 9.6 fL (7.4-10.4); Platelet Count 293 10^3/cmm (130-400); Red Blood Count 3.43 10^6/uL (4.1-5.3); Red Cell Distribution Width 19.3 % (12.1-15.1)
[2020-03-29 09:11] LABS: Alanine Aminotransferase 10 U/L (0-33); Albumin Level 3.8 g/dL (3.5-5.2); Alkaline Phosphatase 113 IU/L (35-105); Anion Gap 12.8 (5-19); Aspartate Amino Transferase 15 U/L (0-32); Blood Urea Nitrogen 5 mg/dL (8-23); Calcium 8.7 mg/dL (8.5-10.5); Carbon Dioxide 29 mmol/L (22-29); Chloride 101 mmol/L (98-107); Globulin 2.4 g/dL (1.3-4.6); Glomerular Filtration Rate 63.9 mL/min (90-130); Glucose 147 mg/dL (65-115); Osmolality Calculated 286 mOsm/kg (285-295); Potassium 3.8 mmol/L (3.5-5.1); Sodium 139 mmol/L (136-145); Total Bilirubin 0.2 mg/dL (0.15-1.2); Total Protein 6.2 g/dL (6.6-8.7)
[2020-03-29 09:27] LABS: Slide Review Slide Review Perform; White Blood Count 30.1 10^3/uL (4.0-10.0)
[2020-03-29 09:38] LABS: Absolute Eosinophils 0.9 10^3/cmm (0.0-0.7); Absolute Neutrophil 20.2 10^3/cmm (1.4-6.5); Absolute Segmented Neutrophil 10.5 10/cmm (1.6-7.1); Band Neutrophils Absolute 9.6 10^3/cmm (0.0-1.2); Eosinophils 3 %; Lymphocytes 17 %; Platelet Estimate Normal (Normal); Segmented Neutrophils 35 %; Total Cells Counted 100 (0-100)
[2020-03-29] MEDS: sodium chloride 0.9% 250 ML 75 ML IV (10:45)
[2020-03-29] MEDS: sodium chlor 0.9% + KCl 20 mEq 20 MEQ/1,000 ML BAG 999 MEQ IV (13:00)
[2020-03-29] MEDS: FUROsemide 10 mg/mL SDV 2mL 20 MG IV (14:55)
[2020-04-11 09:38] LABS: Basophils % 1.1 %; Eosinophils # 0.1 10^3/uL (0.0-0.8); Eosinophils % 2.6 %; Hematocrit 32.6 % (37.0-47.0); Hemoglobin 10.1 g/dL (11.5-15.3); Lymphocytes # 1.3 10^3/uL (0.8-4.8); Lymphocytes % 66.7 %; Mean Corpuscular Hemoglobin 26.4 pg (28.0-34.0); Mean Corpuscular Volume 85.1 fL (81-99); Mean Platelet Volume 9.3 fL (7.4-10.4); Monocytes # 0.4 10^3/uL (0.2-0.9); Monocytes % 22.8 %; Neutrophils % 6.3 %; Nucleated Red Blood Cells % 0 %; Platelet Count 357 10^3/cmm (130-400); Red Blood Count 3.83 10^6/uL (4.1-5.3); Red Cell Distribution Width 18.4 % (12.1-15.1); White Blood Count 1.9 10^3/uL (4.0-10.0)
[2020-04-11 10:00] LABS: Alanine Aminotransferase 12 U/L (0-33); Albumin Level 4.6 g/dL (3.5-5.2); Alkaline Phosphatase 93 IU/L (35-105); Anion Gap 14.5 (5-19); Aspartate Amino Transferase 11 U/L (0-32); Blood Urea Nitrogen 6 mg/dL (8-23); Calcium 9.4 mg/dL (8.5-10.5); Carbon Dioxide 26 mmol/L (22-29); Chloride 100 mmol/L (98-107); Globulin 2.7 g/dL (1.3-4.6); Glucose 161 mg/dL (65-115); Osmolality Calculated 283 mOsm/kg (285-295); Potassium 3.5 mmol/L (3.5-5.1); Sodium 137 mmol/L (136-145); Total Bilirubin 0.3 mg/dL (0.15-1.2); Total Protein 7.3 g/dL (6.6-8.7)
[2020-04-11 10:14] LABS: Neutrophils # 0.12 10^3/uL (1.8-7.7)
--- NOTE | 2020-04-11 16:48 | ONC FU_ITS ---
Dr. Walters follow up note Patient: Alia Nair Unit #: [id number]: 1960 Dicatated By: Milton Walters M.D.Date of Visit:Apr 11, 2020 Onc Med Follow-up/Prog Note History of Present Illness: Mrs. Rivera is a 60 -year-old female with history of adenoid cystic carcinoma right parotid gland. She is status post partial parotidectomy with facial nerve monitoring followed by reconstruction of the soft tissue defect with pedicled into oral buccal flap. The final pathology confirmed T2, MX lesion with positive surgical margins. Mrs Nair was referred to radiation oncology, as per patient she underwent radiation therapy here in [facility]. Since then she has been followed by ENT and with no evidence of disease until recently started having a right eye problem. MRI scan of the neck done on 09/08/2019 showed widespread neural spread of tumor into the right orbit right cavernous sinus, shirt ironer supervisor space, pterygopalatine fossa and probably right facial nerve. Her case was discussed in multidisciplinary head and neck tumor conference in [place] by her ENT physician there. Treatment options including treating skull base involved area to palliate symptoms (IMRT or SRS). Or perhaps consider proton beam IM RT. She was referred to radiation oncology here in [place] and she was also referred to palliative care clinic for pain management. Mrs Nair was also encouraged to see medical oncology for palliative systemic therapy. Mrs Nair has seen radiation oncology and as per patient she was told there is no plan for further radiation therapy considering the risk versus benefits, especially due to prior radiation therapy to same area. 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 was offerred treatment with Cisplatin and vinorelbine. She began her first cycle on 01/03/2020. Long-standing history of smoking and is still active. Her pain (right eye and right side of her face) is under control with current pain medication., right facial swelling is improving, no more headache, now even noticed drainage from her right nose, and can also breathe through right nostril. Overall, she is pleased with response to the chemotherapy. She had CT of the head on 02/29/2020 with and without contrast. There is no evidence of intracranial hemorrhage or mass-effect. Ventricular system and basal cisterns are patent. Mild small vessel changes. Mild parenchymal volume loss. 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 No evidence of enhancing intracranial metastatic disease. The left mastoid air cells are well aerated. Opacification right mastoid air cells and middle ear. Mild mucosal thickening along the ethmoid air cells. Previously described thin curvilinear soft tissue along the right medial orbit deep to the medial rectus is unchanged since her MRI September 08, [address] of the head August 15, 2019. This is nonspecific but could be related to orbital pseudotumor, neoplasm or prior surgery. She also had CT of the neck on 02/29/2020 with contrast. There is postoperative changes in the right parotidectomy. No evidence of recurrent residual disease in the right neck. Cluster of slightly prominent enhancing lymph nodes left submandibular and jugulodigastric gastric measuring 6 to 7 mm in short axis dimension. These appear stable compared to September 08, 2019. Recommend interval follow-up with PET/CT. Otherwise no cervical lymphadenopathy. Stable postoperative changes right neck. Opacification right mastoid air cells and middle ear. No evidence of supraglottic or glottic mass. As of February 15, 2020 Mrs. Nair had started her third cycle of chemotherapy unfortunately day 8 was held due to neutropenia. Her ANC at that time was 800. She was given Neupogen Tolerating palliative chemotherapy with cisplatin/Navelbine well Came for follow-up, denies any specific complaints, no fever chills, no nausea or vomiting, no diarrhea constipation, no headaches, no right ear pain is much better, no peripheral numbness, tolerating systemic chemotherapy well otherwise Medications: Albuterol Sulfate HFA 2 puff(s) (of 108 (90 Base) mcg/act) Aerosol, solution Inhalation q 6 hours PRN, ALPRAZolam 1 Tablet (of 1 mg) Oral t.i.d. PRN, Deep Sea Nasal [place] 1 (0.65 %) Solution Nasal q 2 hours, Effexor XR 1 Capsule (of 37.5 mg) Capsule SR 24 HR Oral daily, Lyrica 1 Capsule (of 100 mg) Oral t.i.d., Morphine Sulfate 1 Tablet (of 30 mg) Oral t.i.d., OxyCODONE HCl 1 Tablet (of 20 mg) Oral q 4 to 6 hours PRN Allergies: Aleve Review of Systems: Review of Systems is not available for this patient. Vital Signs: Performed on Apr 11, 2020 11:03 Height - 60.00 in Weight - 147.6 lbs (LOW) BSA - 1.64 sq.m BMI - 28.83 Temperature - 99.0 F (HIGH) Pulse - 93 /min Respiration - 22 /min BP - 179/104 mm(hg) (HIGH) O2 Sat - 96 % Pain - 2 Performance Status: 1 - No physically strenuous activity, but ambulatory and able to carry out light or sedentary work (e.g. office work, light house work). (ECOG) Physical Examination: Respiratory - Lungs are clear, Cardiovascular - Regular rate and rhythm of heart, Abdomen - Soft, bowel sounds present, Extremities - No visible edema. Lab/Imaging: Test performed on Mar 29, 2020 08:20 Sodium 139 mmol/L Potassium 3.8 mmol/L Chloride 101 mmol/L CO2 29 mmol/L Anion Gap 12.8 BUN 5 mg/dL Creatinine 0.9 mg/dL Cr Clearance (Est) 71.2100 mL/min eGFR 63.9 mL/min Glucose 147 mg/dL Calcium 8.7 mg/dL Protein, Total 6.2 g/dL Albumin 3.8 g/dL Globulin 2.4 g/dL Bilirubin, Total 0.2 mg/dL ALT (SGPT) 10 U/L AST (SGOT) 15 U/L Alkaline Phosphatase 113 IU/L WBC 30.1 10 3/uL Manual Bands % 32.0 % RBC 3.43 10 6/uL HGB 8.9 g/dL Manual Lymphs % 17 % HCT 29.3 % Manual Monos % 10.0 % MCV 85.4 fL MCH 25.9 pg MCHC 30.4 g/dL Metamyelocytes % 2.0 % RDW 19.3 % Myelocytes % 1.0 % Platelet Count 293 10 3/cmm MPV 9.6 fL CBC Slide Review Slide Review Perform Manual Bands Abs 9.6 10 3/cmm Manual Neutrophils Abs 20.2 10 3/cmm Manual Monocytes Abs 3.0 10 3/cmm Manual Eosinophils Abs 0.9 10 3/cmm Test performed on Mar 27, 2020 08:33 Neutrophils 0.97 10 3/uL Lymphocytes 1.7 10 3/uL Monocytes 0.8 10 3/uL Eosinophils 0.2 10 3/uL Basophils 0.0 10 3/uL Neutrophil % 26.3 % Lymphocyte % 46.2 % Monocyte % 20.9 % Eosinophil % 6.0 % Basophils % 0.3 % NRBC % 0 % Test performed on Feb 14, 2020 10:33 Atypical Lymphs % 3.0 % Manual Lymphocytes Abs 3.4 10 3/cmm Test performed on Feb 10, 2020 10:22 Promyelocytes % 5.0 % Impression: Recent adenoid cystic carcinoma peripheral gland with cranial nerve involvement/right skull base involvement. MRI scan done on 09/08/2019 showed widespread spread of tumor into right orbit, right cavernous sinus, shirt ironer supervisor space, pterygopalatine fossa and right facial nerve. Now with right facial nerve paralysis, facial asymmetry. History of adenoid cystic carcinoma right excessive peripheral gland status post partial pericardiectomy with facial nerve monitoring followed by reconstruction for T2 Nx with possible surgical margin lesion, followed by radiation therapy. Chronic smoking Anxiety disorder Clinically, patient has been doing reasonably well, in [id number] distress due to right facial pain and right eye visual disturbance. Mrs Rivera was referred to radiation oncology for palliative radiation therapy. Unfortunately, she is not a candidate for further radiation therapy due to involved risk due to history of prior radiation therapy to same area. A request was sent to pathology regarding next generation sequencing especially NTRK gene analysis but we were told, specimen is not available for evaluation. The role of palliative chemotherapy with cisplatin/Navelbine was discussed as literature has shown overall responsibilities about 44% and with 38% one year survival. did offer her treatment with cisplatin and Navelbine. Her current treatment plan is to give her chemotherapy with split dose of cisplatin/Navelbine on day 1 and 8 and repeat cycle every 21 days. She began her first dose on 01/03/2020. She is tolerating treatment well thus far. She had CT of the head on 02/29/2020 with and without contrast. There is no evidence of intracranial hemorrhage or mass-effect. Ventricular system and basal cisterns are patent. Mild small vessel changes. Mild parenchymal volume loss. 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 No evidence of enhancing intracranial metastatic disease. The left mastoid air cells are well aerated. Opacification right mastoid air cells and middle ear. Mild mucosal thickening along the ethmoid air cells. Previously described thin curvilinear soft tissue along the right medial orbit deep to the medial rectus is unchanged since her MRI September 08, [address] of the head August 15, 2019. This is nonspecific but could be related to orbital pseudotumor, neoplasm or prior surgery. She also had CT of the neck on 02/29/2020 with contrast. There is postoperative changes in the right parotidectomy. No evidence of recurrent residual disease in the right neck. Cluster of slightly prominent enhancing lymph nodes left submandibular and jugulodigastric gastric measuring 6 to 7 mm in short axis dimension. These appear stable compared to September 08, 2019. Recommend interval follow-up with PET/CT. Otherwise no cervical lymphadenopathy. Stable postoperative changes right neck. Opacification right mastoid air cells and middle ear. No evidence of supraglottic or glottic mass. As of February 15, 2020 Mrs. Nair had started her third cycle of chemotherapy unfortunately day 8 was held due to neutropenia. Her ANC at that time was 800. She was given 2 days of Neupogen Plan: Discussed with patient regarding her labs white blood count 1.9 hemoglobin 10.1 hematocrit 32.6 platelets 357,000 ANC 120 CMP within normal range except glucose 161 Clinically, patient is doing reasonably well tolerating palliative chemotherapy with cisplatin/Navelbine well but with expected side effects e.g. progressive leukopenia/neutropenia requiring colony-stimulating factor, patient was supposed to get daily Neupogen x2 but she took 1 dose only. Today her CBC shows persistent leukopenia/neutropenia with absolute neutrophil count 120, in that case we will hold her chemotherapy and consider Neupogen daily x3 and then she will return to clinic next Friday with CBC CMP if recover we will consider next cycle of chemotherapy with cisplatin and Navelbine, because of severe neutropenia, will consider Levaquin 5 mg p.o. daily prophylactically. Patient was advised in case she has any mental status changes or fever, she need to go to hospital immediately. Signed By: Milton Walters M.D. <<Signature on File>>
[2020-04-20 09:42] LABS: Basophils % 0.4 %; Eosinophils # 0.2 10^3/uL (0.0-0.8); Eosinophils % 4.4 %; Hematocrit 33.2 % (37.0-47.0); Hemoglobin 10.1 g/dL (11.5-15.3); Lymphocytes # 1.9 10^3/uL (0.8-4.8); Lymphocytes % 35.8 %; Mean Corpuscular HGB Conc 30.4 g/dL (30.0-36.0); Mean Corpuscular Hemoglobin 25.6 pg (28.0-34.0); Mean Corpuscular Volume 84.3 fL (81-99); Mean Platelet Volume 9.3 fL (7.4-10.4); Monocytes # 0.7 10^3/uL (0.2-0.9); Monocytes % 12.8 %; Neutrophils # 2.39 10^3/uL (1.8-7.7); Neutrophils % 45.8 %; Nucleated Red Blood Cells % 0 %; Platelet Count 245 10^3/cmm (130-400); Red Blood Count 3.94 10^6/uL (4.1-5.3); Red Cell Distribution Width 17.1 % (12.1-15.1); White Blood Count 5.2 10^3/uL (4.0-10.0)
[2020-04-20 10:04] LABS: Alanine Aminotransferase 8 U/L (0-33); Albumin Level 3.7 g/dL (3.5-5.2); Alkaline Phosphatase 86 IU/L (35-105); Anion Gap 12.3 (5-19); Aspartate Amino Transferase 12 U/L (0-32); Blood Urea Nitrogen 13 mg/dL (8-23); Calcium 8.7 mg/dL (8.5-10.5); Carbon Dioxide 26 mmol/L (22-29); Chloride 102 mmol/L (98-107); Globulin 2.6 g/dL (1.3-4.6); Glomerular Filtration Rate 125.9 mL/min (90-130); Glucose 122 mg/dL (65-115); Osmolality Calculated 279 mOsm/kg (285-295); Potassium 4.3 mmol/L (3.5-5.1); Sodium 136 mmol/L (136-145); Total Bilirubin 0.2 mg/dL (0.15-1.2); Total Protein 6.3 g/dL (6.6-8.7)
[2020-04-20] MEDS: sodium chloride 0.9% 250 ML 999 ML IV (11:00)
--- NOTE | 2020-04-20 11:09 | ONC FU_ITS ---
Dr. Walters follow up note Patient: Alia Nair Unit #: [id number]: [id number] Dicatated By: Milton Walters M.D.Date of Visit:Apr 20, 2020 Onc Med Follow-up/Prog Note History of Present Illness: Mrs. Rivera is a 60 -year-old female with history of adenoid cystic carcinoma right parotid gland. She is status post partial parotidectomy with facial nerve monitoring followed by reconstruction of the soft tissue defect with pedicled into oral buccal flap. The final pathology confirmed T2, MX lesion with positive surgical margins. Mrs Nair was referred to radiation oncology, as per patient she underwent radiation therapy here in [facility]. Since then she has been followed by ENT and with no evidence of disease until recently started having a right eye problem. MRI scan of the neck done on 09/08/2019 showed widespread neural spread of tumor into the right orbit right cavernous sinus, sinter feeder space, pterygopalatine fossa and probably right facial nerve. Her case was discussed in multidisciplinary head and neck tumor conference in [place] by her ENT physician there. Treatment options including treating skull base involved area to palliate symptoms (IMRT or SRS). Or perhaps consider proton beam IM RT. She was referred to radiation oncology here in [place] and she was also referred to palliative care clinic for pain management. Mrs Nair was also encouraged to see medical oncology for palliative systemic therapy. Mrs Nair has seen radiation oncology and as per patient she was told there is no plan for further radiation therapy considering the risk versus benefits, especially due to prior radiation therapy to same area. 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 was offerred treatment with Cisplatin and vinorelbine. She began her first cycle on 01/03/2020. Long-standing history of smoking and is still active. Her pain (right eye and right side of her face) is under control with current pain medication., right facial swelling is improving, no more headache, now even noticed drainage from her right nose, and can also breathe through right nostril. Overall, she is pleased with response to the chemotherapy. She had CT of the head on 02/29/2020 with and without contrast. There is no evidence of intracranial hemorrhage or mass-effect. Ventricular system and basal cisterns are patent. Mild small vessel changes. Mild parenchymal volume loss. 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 No evidence of enhancing intracranial metastatic disease. The left mastoid air cells are well aerated. Opacification right mastoid air cells and middle ear. Mild mucosal thickening along the ethmoid air cells. Previously described thin curvilinear soft tissue along the right medial orbit deep to the medial rectus is unchanged since her MRI September 08, [address] of the head August 15, 2019. This is nonspecific but could be related to orbital pseudotumor, neoplasm or prior surgery. She also had CT of the neck on 02/29/2020 with contrast. There is postoperative changes in the right parotidectomy. No evidence of recurrent residual disease in the right neck. Cluster of slightly prominent enhancing lymph nodes left submandibular and jugulodigastric gastric measuring 6 to 7 mm in short axis dimension. These appear stable compared to September 08, 2019. Recommend interval follow-up with PET/CT. Otherwise no cervical lymphadenopathy. Stable postoperative changes right neck. Opacification right mastoid air cells and middle ear. No evidence of supraglottic or glottic mass. As of February 15, 2020 Mrs. Nair had started her third cycle of chemotherapy unfortunately day 8 was held due to neutropenia. Her ANC at that time was 800. She was given Neupogen Tolerating palliative chemotherapy with cisplatin/Navelbine well Came for follow-up, denies any specific complaints, no fever chills, no nausea or vomiting, no diarrhea constipation, no right facial pain, has seen Dr. Alfonso, ENT recently, as per patient no abnormality seen in the ear or sinus. Tolerating palliative therapy with cisplatin/Navelbine well Medications: Albuterol Sulfate HFA 2 puff(s) (of 108 (90 Base) mcg/act) Aerosol, solution Inhalation q 6 hours PRN, ALPRAZolam 1 Tablet (of 1 mg) Oral t.i.d. PRN, Deep Sea Nasal [place] 1 (0.65 %) Solution Nasal q 2 hours, Effexor XR 1 Capsule (of 37.5 mg) Capsule SR 24 HR Oral daily, Lyrica 1 Capsule (of 100 mg) Oral t.i.d., Morphine Sulfate 1 Tablet (of 30 mg) Oral t.i.d., OxyCODONE HCl 1 Tablet (of 20 mg) Oral q 4 to 6 hours PRN Allergies: Aleve Review of Systems: Review of Systems is not available for this patient. Vital Signs: Performed on Apr 20, 2020 10:44 Height - 60.00 in Weight - 153.0 lbs (HIGH) BSA - 1.67 sq.m BMI - 29.88 Temperature - 98.3 F (LOW) Pulse - 90 /min Respiration - 20 /min BP - 154/86 mm(hg) (HIGH) O2 Sat - 97 % Pain - 3 Performance Status: 0 - Fully active, able to carry on all predisease activities without restrictions. (ECOG) Physical Examination: ENMT - No mouth sores, no thrush, Respiratory - Lungs are clear, Cardiovascular - Regular rate and rhythm of heart, Abdomen - Soft, bowel sounds present, Extremities - No visible edema. Lab/Imaging: Test performed on Mar 29, 2020 08:20 Sodium 139 mmol/L Potassium 3.8 mmol/L Chloride 101 mmol/L CO2 29 mmol/L Anion Gap 12.8 BUN 5 mg/dL Creatinine 0.9 mg/dL Cr Clearance (Est) 71.2100 mL/min eGFR 63.9 mL/min Glucose 147 mg/dL Calcium 8.7 mg/dL Protein, Total 6.2 g/dL Albumin 3.8 g/dL Globulin 2.4 g/dL Bilirubin, Total 0.2 mg/dL ALT (SGPT) 10 U/L AST (SGOT) 15 U/L Alkaline Phosphatase 113 IU/L WBC 30.1 10 3/uL Manual Bands % 32.0 % RBC 3.43 10 6/uL HGB 8.9 g/dL Manual Lymphs % 17 % HCT 29.3 % Manual Monos % 10.0 % MCV 85.4 fL MCH 25.9 pg MCHC 30.4 g/dL Metamyelocytes % 2.0 % RDW 19.3 % Myelocytes % 1.0 % Platelet Count 293 10 3/cmm MPV 9.6 fL CBC Slide Review Slide Review Perform Manual Bands Abs 9.6 10 3/cmm Manual Neutrophils Abs 20.2 10 3/cmm Manual Monocytes Abs 3.0 10 3/cmm Manual Eosinophils Abs 0.9 10 3/cmm Test performed on Mar 27, 2020 08:33 Neutrophils 0.97 10 3/uL Lymphocytes 1.7 10 3/uL Monocytes 0.8 10 3/uL Eosinophils 0.2 10 3/uL Basophils 0.0 10 3/uL Neutrophil % 26.3 % Lymphocyte % 46.2 % Monocyte % 20.9 % Eosinophil % 6.0 % Basophils % 0.3 % NRBC % 0 % Test performed on Feb 14, 2020 10:33 Atypical Lymphs % 3.0 % Manual Lymphocytes Abs 3.4 10 3/cmm Test performed on Feb 10, 2020 10:22 Promyelocytes % 5.0 % Impression: Recent adenoid cystic carcinoma peripheral gland with cranial nerve involvement/right skull base involvement. MRI scan done on 09/08/2019 showed widespread spread of tumor into right orbit, right cavernous sinus, sinter feeder space, pterygopalatine fossa and right facial nerve. Now with right facial nerve paralysis, facial asymmetry. History of adenoid cystic carcinoma right excessive peripheral gland status post partial pericardiectomy with facial nerve monitoring followed by reconstruction for T2 Nx with possible surgical margin lesion, followed by radiation therapy. Chronic smoking Anxiety disorder Clinically, patient has been doing reasonably well, in [id number] distress due to right facial pain and right eye visual disturbance. Mrs Rivera was referred to radiation oncology for palliative radiation therapy. Unfortunately, she is not a candidate for further radiation therapy due to involved risk due to history of prior radiation therapy to same area. A request was sent to pathology regarding next generation sequencing especially NTRK gene analysis but we were told, specimen is not available for evaluation. The role of palliative chemotherapy with cisplatin/Navelbine was discussed as literature has shown overall responsibilities about 44% and with 38% one year survival. did offer her treatment with cisplatin and Navelbine. Her current treatment plan is to give her chemotherapy with split dose of cisplatin/Navelbine on day 1 and 8 and repeat cycle every 21 days. She began her first dose on 01/03/2020. She is tolerating treatment well thus far. She had CT of the head on 02/29/2020 with and without contrast. There is no evidence of intracranial hemorrhage or mass-effect. Ventricular system and basal cisterns are patent. Mild small vessel changes. Mild parenchymal volume loss. 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 No evidence of enhancing intracranial metastatic disease. The left mastoid air cells are well aerated. Opacification right mastoid air cells and middle ear. Mild mucosal thickening along the ethmoid air cells. Previously described thin curvilinear soft tissue along the right medial orbit deep to the medial rectus is unchanged since her MRI September 08, [address] of the head August 15, 2019. This is nonspecific but could be related to orbital pseudotumor, neoplasm or prior surgery. She also had CT of the neck on 02/29/2020 with contrast. There is postoperative changes in the right parotidectomy. No evidence of recurrent residual disease in the right neck. Cluster of slightly prominent enhancing lymph nodes left submandibular and jugulodigastric gastric measuring 6 to 7 mm in short axis dimension. These appear stable compared to September 08, 2019. Recommend interval follow-up with PET/CT. Otherwise no cervical lymphadenopathy. Stable postoperative changes right neck. Opacification right mastoid air cells and middle ear. No evidence of supraglottic or glottic mass. As of February 15, 2020 Mrs. Nair had started her third cycle of chemotherapy unfortunately day 8 was held due to neutropenia. Her ANC at that time was 800. She was given 2 days of Neupogen Plan: Discussed with patient regarding her labs white blood count 5.2 hemoglobin 10.1 hematocrit 33.2 platelets 245,000 CMP within normal limits Clinically, patient is doing well, tolerating split dose cisplatin/Navelbine well but with expected side effects e.g. progressive neutropenia/leukopenia causing delay in treatment. Now her blood count has recovered, will consider proceeding with next cycle of chemotherapy day 1 with split dose cisplatin/Navelbine followed by daily Neupogen for 3 days and then she will return to clinic in 1 week with CBC CMP if blood count looks reasonable will consider day 8 with cisplatin/Navelbine. Signed By: Milton Walters M.D. <<Signature on File>>
[2020-04-20] MEDS: FUROsemide 10 mg/mL SDV 2mL 20 MG IV (13:45)
[2020-04-20] MEDS: sodium chlor 0.9% + KCl 20 mEq 20 MEQ/1,000 ML BAG 800 MEQ IV (13:45)
== END 2020-04-24 23:59 | disposition home or self-care (01) ==
LOC: ONCMED 05:34
PROVIDERS: Nurse Practitioner; PCP Family Medicine; Referring Provider Otolaryngology; Visit Provider Internal Medicine Hematology & Oncology
DX: Z51.11 Encounter for antineoplastic chemotherapy (principal); C07 Malignant neoplasm of parotid gland; J45.909 Unspecified asthma, uncomplicated; K21.9 Gastro-esophageal reflux disease without esophagitis; I10 Essential (primary) hypertension; M06.9 Rheumatoid arthritis, unspecified
CPT/HCPCS: 80053; 85007; 85025; 96365; 96366; 96367; 96372; 96375; 96413; 96417; 99214; J1100; J1442; J1453; J1940; J2469; J3475; J3480; J7030; J7040; J7050; J9060; J9390

== ENCOUNTER 2020-05-17 06:19 | Outpatient (RCR) | payer MEDICARE, MEDICAID, SELFPAY ==
[2020-04-26] MEDS: sodium chloride 0.9% 250 ML 75 ML IV ×2 (08:20→09:55)
[2020-04-26 08:43] LABS: Hematocrit 32.4 % (37.0-47.0); Mean Corpuscular HGB Conc 30.9 g/dL (30.0-36.0); Mean Corpuscular Hemoglobin 26.5 pg (28.0-34.0); Mean Corpuscular Volume 85.7 fL (81-99); Mean Platelet Volume 10.4 fL (7.4-10.4); Platelet Count 234 10^3/cmm (130-400); Red Blood Count 3.78 10^6/uL (4.1-5.3); Red Cell Distribution Width 17.5 % (12.1-15.1); White Blood Count 21.7 10^3/uL (4.0-10.0)
[2020-04-26 09:04] LABS: Alanine Aminotransferase 11 U/L (0-33); Alkaline Phosphatase 122 IU/L (35-105); Anion Gap 11.8 (5-19); Aspartate Amino Transferase 11 U/L (0-32); Blood Urea Nitrogen 14 mg/dL (8-23); Calcium 9.4 mg/dL (8.5-10.5); Carbon Dioxide 31 mmol/L (22-29); Chloride 100 mmol/L (98-107); Globulin 2.8 g/dL (1.3-4.6); Glomerular Filtration Rate 85.4 mL/min (90-130); Glucose 136 mg/dL (65-115); Osmolality Calculated 286 mOsm/kg (285-295); Potassium 3.8 mmol/L (3.5-5.1); Sodium 139 mmol/L (136-145); Total Bilirubin 0.3 mg/dL (0.15-1.2); Total Protein 6.8 g/dL (6.6-8.7)
[2020-04-26 09:24] LABS: Slide Review Slide Review Perform
[2020-04-26 09:25] LABS: Absolute Neutrophil 19.7 10^3/cmm (1.4-6.5); Absolute Segmented Neutrophil 15.4 10/cmm (1.6-7.1); Anisocytosis Trace; Band Neutrophils Absolute 4.3 10^3/cmm (0.0-1.2); Lymphocytes 8 %; Monocytes Absolute 0.2 10^3/cmm (0.1-0.6); Platelet Estimate Normal (Normal); Segmented Neutrophils 71 %; Total Cells Counted 100 (0-100)
--- NOTE | 2020-04-26 10:21 | ONC FU_ITS ---
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 Rivera is a 59-year-old female with history of adenoid cystic carcinoma right parotid gland. She is status post partial parotidectomy with facial nerve monitoring followed by reconstruction of the soft tissue defect with pedicled into oral buccal flap. The final pathology confirmed T2, MX lesion with positive surgical margins. Mrs Nair was referred to radiation oncology, as per patient she underwent radiation therapy here in [facility]. Since then she has been followed by ENT and with no evidence of disease until recently started having a right eye problem. MRI scan of the neck done on 09/08/2019 showed widespread neural spread of tumor into the right orbit right cavernous sinus, safety relief valve technician space, pterygopalatine fossa and probably right facial nerve. Her case was discussed in multidisciplinary head and neck tumor conference in [place] by her ENT physician there. Treatment options including treating skull base involved area to palliate symptoms (IMRT or SRS). Or perhaps consider proton beam IM RT. She was referred to radiation oncology here in [place] and she was also referred to palliative care clinic for pain management. Mrs Nair was also encouraged to see medical oncology for palliative systemic therapy. Mrs Nair has seen radiation oncology and as per patient she was told there is no plan for further radiation therapy considering the risk versus benefits, especially due to prior radiation therapy to same area. 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 Dr Walters did offer her treatment with Cisplatin and vinorelbine. She began her first cycle on 01/03/2020. Long-standing history of smoking and is still active. Her pain (right eye and right side of her face) is under control with current pain medication., right facial swelling improved; no more headache and can also breathe through right nostril. Overall, she is pleased with response to the chemotherapy. She had CT of the head on 02/29/2020 with and without contrast. There is no evidence of intracranial hemorrhage or mass-effect. Ventricular system and basal cisterns are patent. Mild small vessel changes. Mild parenchymal volume loss. 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 No evidence of enhancing intracranial metastatic disease. The left mastoid air cells are well aerated. Opacification right mastoid air cells and middle ear. Mild mucosal thickening along the ethmoid air cells. Previously described thin curvilinear soft tissue along the right medial orbit deep to the medial rectus is unchanged since her MRI September 08, [address] of the head August 15, 2019. This is nonspecific but could be related to orbital pseudotumor, neoplasm or prior surgery. She also had CT of the neck on 02/29/2020 with contrast. There is postoperative changes in the right parotidectomy. No evidence of recurrent residual disease in the right neck. Cluster of slightly prominent enhancing lymph nodes left submandibular and jugulodigastric gastric measuring 6 to 7 mm in short axis dimension. These appear stable compared to September 08, 2019. Recommend interval follow-up with PET/CT. Otherwise no cervical lymphadenopathy. Stable postoperative changes right neck. Opacification right mastoid air cells and middle ear. No evidence of supraglottic or glottic mass. As of February 15, 2020 Mrs. Nair had started her third cycle of chemotherapy unfortunately day 8 was held due to neutropenia. Her ANC at that time was 800. She has required growth factor support through her treatment. Mrs. Nair is here today for followup. She is due for cycle 5-day 8. She is tolerating the treatment well overall. She received 3 doses of Neupogen since last week for persistent chemotherapy induced neturopenia. She states she did have some bone pain but overall it is better. She denies any fever or chills. She denies any shortness of breath or cough. She states that she has not had any trouble swallowing more than her normal. She is eating well. She denies nausea or vomiting. She is had no diarrhea or constipation. She denies any neuropathy symptoms but states she has some jerking in her hands once a while which she thinks is from the Lyrica. This is not new and is no worse than what it has been for her. She states she has noticed a white patchy spot on the right side of her tongue. She is concerned that it may be the cancer. It is not painful or has been draining. It is not altered her taste any. She continues to have right-sided paralysis which is stable. Her ECOG is 1. Past Medical History: Asthma Gastroesophageal reflux Hypertension Rheumatoid arthritis Cancer (Adenoid Cystic Carcinoma of Right Parotid Gland) in 2014 Past Surgical History: Parotidectomy in 2014 Biopsy in 2004 - Growth on Right Cheek Knee Surgery in 1992 Tonsillectomy in 1973 Appendectomy in 1971 Allergies: Aleve Medications: Albuterol Sulfate HFA 2 puff(s) (of 108 (90 Base) mcg/act) Aerosol, solution Inhalation q 6 hours PRN ALPRAZolam 1 Tablet (of 1 mg) Oral t.i.d. PRN Deep Sea Nasal [place] 1 (0.65 %) Solution Nasal q 2 hours Effexor XR 1 Capsule (of 37.5 mg) Capsule SR 24 HR Oral daily Lyrica 1 Capsule (of 100 mg) Oral t.i.d. Morphine Sulfate 1 Tablet (of 30 mg) Oral t.i.d. OxyCODONE HCl 1 Tablet (of 20 mg) Oral q 4 to 6 hours PRN Family History: Ms. Nair's mother at age 72: Colon Cancer, and Leukemia. Ms. Nair's father at age 76: Pharynx Cancer. Her paternal grandfather at age 68: Pharynx Cancer. Social History: Ms. Nair is and she is a disability. She is a daily smoker who has smoked 0.5 packs/day for 51 years. She drinks occasionally. Smokes Vapor Cigarette She uses vape cig. . Review Of Symptoms: Constitutional Denies fevers, chills, night sweats, excessive fatigue or weight loss. Eyes left eye normal but right eye affected by disease and non functional. Some eye socket pain but controlled. Occasional drainage from right eye. ENMT Denies changes in hearing, sore throat, mouth sores, difficulty or changes in swallowing ability, and/or sinus drainage. Intermittent right ear pain and drainage but overall much better. White stuff on tongue . Hematologic/Lymphatic Denies easy bruising or bleeding. The patient denies any tender or palpable lymph nodes. Breasts mammo current Respiratory Denies dyspnea on exertion, chest pain, cough or hemoptysis. Denies orthopnea. Cardiovascular Denies anginal chest pain, palpitations or orthopnea. Gastrointestinal Denies vomiting, diarrhea, GI bleeding, or constipation. Denies change in bowel habits and/or stool color, no heartburn or early satiety. Genitourinary (F) No hematuria, hesitancy, incontinence, vaginal bleeding, discharge or other problems with urination. Musculoskeletal Denies joint pain, swelling or redness. No decreased range of motion. Integumentary Denies chronic rashes, inflammation, ulcerations or skin changes. Neurologic Normal gait. No sensory problems. Right sided pain but no worse than before-some better now. Psychiatric Denies insomnia, depression, karen or mood swings. Vital Signs: Performed on Apr 26, 2020 09:20 Height - 60.00 in Weight - 151.8 lbs (LOW) BSA - 1.66 sq.m BMI - 29.65 Temperature - 97.7 F (LOW) Pulse - 92 /min Respiration - 18 /min BP - 122/81 mm(hg) O2 Sat - 98 % Pain - 0,1 - No physically strenuous activity, but ambulatory and able to carry out light or sedentary work (e.g. office work, light house work). (ECOG) Physical Examination: Constitutional Alert, oriented, no acute distress. Skin pink, warm and dry. Head Normocephalic; atraumatic. Right side paralysis noted but not new-no worse than her normal. Eyes Conjunctivae and sclerae are clear and without icterus. Pupils are reactive and equal. Right eye lashes have scant amount of dried exudate. No redness or odor. ENMT No oral exudates, ulcers, masses or mucositis. Oropharynx clear. Tongue has mild thrush on the right side anterior and slightly posterior side-no pain or drainage. Neck Supple without masses or thyromegaly. No jugular venous distension. Hematologic/Lymphatic No petechiae or purpura. No tender or palpable lymph nodes in the cervical or supraclavicular areas. Respiratory Lungs are clear to auscultation without rhonchi or wheezing. Cardiovascular Regular rate and rhythm of heart without murmurs,clicks, gallops or rubs. Chest Left chest wall port a cath healed well and unremarkable. Abdomen Non-tender, non-distended, no masses or ascites. No guarding or rebound tenderness. No pulsatile masses. Back/Spine Non-tender to palpation. Extremities No visible deformities, no cyanosis, clubbing. Trace bilateral ankle edema. Musculoskeletal No tenderness or swelling, normal range of motion without obvious weakness. Integumentary No rashes or lesions. Neurologic No sensory or motor deficits, normal cerebellar function, normal gait. Psychiatric Alert and oriented times three. Coherent speech. Verbalizes understanding of our discussions today. Laboratory:Test performed on Apr 26, 2020 08:15 Sodium 139 mmol/L Potassium 3.8 mmol/L Chloride 100 mmol/L CO2 31 mmol/L Anion Gap 11.8 BUN 14 mg/dL Creatinine 0.7 mg/dL Cr Clearance (Est) 91.5600 mL/min eGFR 85.4 mL/min Glucose 136 mg/dL Calcium 9.4 mg/dL Protein, Total 6.8 g/dL Albumin 4.0 g/dL Globulin 2.8 g/dL Bilirubin, Total 0.3 mg/dL ALT (SGPT) 11 U/L AST (SGOT) 11 U/L Alkaline Phosphatase 122 IU/L WBC 21.7 10 3/uL Manual Bands % 20.0 % RBC 3.78 10 6/uL HGB 10.0 g/dL Manual Lymphs % 8 % HCT 32.4 % Manual Monos % 1.0 % MCV 85.7 fL MCH 26.5 pg MCHC 30.9 g/dL RDW 17.5 % Platelet Count 234 10 3/cmm MPV 10.4 fL Anisocytosis Trace CBC Slide Review Slide Review Perform Manual Bands Abs 4.3 10 3/cmm Manual Neutrophils Abs 19.7 10 3/cmm Manual Monocytes Abs 0.2 10 3/cmm Test performed on Mar 29, 2020 08:20 Metamyelocytes % 2.0 % Myelocytes % 1.0 % Manual Eosinophils Abs 0.9 10 3/cmm Test performed on Mar 27, 2020 08:33 Neutrophils 0.97 10 3/uL Lymphocytes 1.7 10 3/uL Monocytes 0.8 10 3/uL Eosinophils 0.2 10 3/uL Basophils 0.0 10 3/uL Neutrophil % 26.3 % Lymphocyte % 46.2 % Monocyte % 20.9 % Eosinophil % 6.0 % Basophils % 0.3 % NRBC % 0 % Test performed on Feb 14, 2020 10:33 Atypical Lymphs % 3.0 % Manual Lymphocytes Abs 3.4 10 3/cmm Test performed on Feb 10, 2020 10:22 Promyelocytes % 5.0 % Impression: Recent adenoid cystic carcinoma peripheral gland with cranial nerve involvement/right skull base involvement. MRI scan done on 09/08/2019 showed widespread spread of tumor into right orbit, right cavernous sinus, safety relief valve technician space, pterygopalatine fossa and right facial nerve. Now with right facial nerve paralysis, facial asymmetry. History of adenoid cystic carcinoma right excessive peripheral gland status post partial pericardiectomy with facial nerve monitoring followed by reconstruction for T2 Nx with possible surgical margin lesion, followed by radiation therapy. Chronic smoking Anxiety disorder Clinically, patient has been doing reasonably well, in [id number] distress due to right facial pain and right eye visual disturbance. Mrs Rivera was referred to radiation oncology for palliative radiation therapy. Unfortunately, she is not a candidate for further radiation therapy due to involved risk due to history of prior radiation therapy to same area. A request was sent to pathology regarding next generation sequencing especially NTRK gene analysis but we were told, specimen is not available for evaluation. The role of palliative chemotherapy with cisplatin/Navelbine was discussed as literature has shown overall responsibilities about 44% and with 38% one year survival. did offer her treatment with cisplatin and Navelbine. Her current treatment plan is to give her chemotherapy with split dose of cisplatin/Navelbine on day 1 and 8 and repeat cycle every 21 days. She began her first dose on 01/03/2020. She prieto tolerated treatment well thus far. She had CT of the head on 02/29/2020 with and without contrast. There is no evidence of intracranial hemorrhage or mass-effect. Ventricular system and basal cisterns are patent. Mild small vessel changes. Mild parenchymal volume loss. 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 No evidence of enhancing intracranial metastatic disease. The left mastoid air cells are well aerated. Opacification right mastoid air cells and middle ear. Mild mucosal thickening along the ethmoid air cells. Previously described thin curvilinear soft tissue along the right medial orbit deep to the medial rectus is unchanged since her MRI September 08, [address] of the head August 15, 2019. This is nonspecific but could be related to orbital pseudotumor, neoplasm or prior surgery. She also had CT of the neck on 02/29/2020 with contrast. There is postoperative changes in the right parotidectomy. No evidence of recurrent residual disease in the right neck. Cluster of slightly prominent enhancing lymph nodes left submandibular and jugulodigastric gastric measuring 6 to 7 mm in short axis dimension. These appear stable compared to September 08, 2019. Recommend interval follow-up with PET/CT. Otherwise no cervical lymphadenopathy. Stable postoperative changes right neck. Opacification right mastoid air cells and middle ear. No evidence of supraglottic or glottic mass. As of February 15, 2020 Mrs. Nair had started her third cycle of chemotherapy unfortunately day 8 was held due to neutropenia. Her ANC at that time was 800. She was given 2 days of Neupogen and recovered well. She has required continued growth factor support with her chemotherapy due to persistent chemotherapy induced neutropenia. The growth factors has been necessary to keep her treatment plan on schedule. Plan: 1. Proceed with cycle 5-day 8 cisplatin vinorelbine. 2. Continue current antiemetics as they are working well for him. 3. Today's labs were reviewed in detail and discussed with Ms. Nair and a copy was given to her. Her white count is 21.7 hemoglobin is 10 platelet count 3 34,000 ANC is 19,700 creatinine 0.7 LFTs are normal random glucose is 136. 4. I have not ordered any growth factor support for her for this week. I plan to have her return in 1 week to recheck her CBC CMP if she is neutropenic at that time or trending low we will add the Neupogen 480 for couple doses then to prepare for treatment in 2 weeks. 5. She return in 2 weeks with CBC CMP and planned for cycle 6-day 1 cisplatin vinorelbine. 6. We will have her try nystatin for the white patches on her tongue. This was called [facility]. She has no insurance and complete self-pay at this point. She has very small, limited from her disability. 7. Mrs. Nair was instructed to contact us in the interim should questions or problems arise. Signed By: Harper Vick-, [facility] Milton Walters MD <<Signature on File>>
[2020-04-26] MEDS: sodium chlor 0.9% + KCl 20 mEq 20 MEQ/1,000 ML BAG 800 MEQ IV (12:15)
[2020-04-26] MEDS: FUROsemide 10 mg/mL SDV 2mL 20 MG IV (12:15)
[2020-05-03 09:28] LABS: Eosinophils # 0.1 10^3/uL (0.0-0.8); Eosinophils % 8.2 %; Hemoglobin 8.3 g/dL (11.5-15.3); Lymphocytes # 0.7 10^3/uL (0.8-4.8); Lymphocytes % 75.3 %; Mean Corpuscular HGB Conc 30.7 g/dL (30.0-36.0); Mean Corpuscular Hemoglobin 26.3 pg (28.0-34.0); Mean Corpuscular Volume 85.7 fL (81-99); Monocytes # 0.1 10^3/uL (0.2-0.9); Monocytes % 5.2 %; Neutrophils % 10.3 %; Nucleated Red Blood Cells % 0 %; Platelet Count 202 10^3/cmm (130-400); Red Blood Count 3.15 10^6/uL (4.1-5.3); Red Cell Distribution Width 16.6 % (12.1-15.1)
[2020-05-03 09:46] LABS: Alanine Aminotransferase 10 U/L (0-33); Albumin Level 3.6 g/dL (3.5-5.2); Alkaline Phosphatase 78 IU/L (35-105); Anion Gap 10.7 (5-19); Aspartate Amino Transferase 13 U/L (0-32); Blood Urea Nitrogen 12 mg/dL (8-23); Calcium 8.7 mg/dL (8.5-10.5); Carbon Dioxide 28 mmol/L (22-29); Chloride 101 mmol/L (98-107); Globulin 2.3 g/dL (1.3-4.6); Glucose 113 mg/dL (65-115); Osmolality Calculated 279 mOsm/kg (285-295); Potassium 3.7 mmol/L (3.5-5.1); Sodium 136 mmol/L (136-145); Total Bilirubin 0.2 mg/dL (0.15-1.2); Total Protein 5.9 g/dL (6.6-8.7)
[2020-05-10 09:19] LABS: Basophils # 0.1 10^3/uL (0.0-0.1); Basophils % 0.8 %; Eosinophils # 0.2 10^3/uL (0.0-0.8); Eosinophils % 2.5 %; Hematocrit 32.3 % (37.0-47.0); Hemoglobin 9.7 g/dL (11.5-15.3); Lymphocytes # 2.6 10^3/uL (0.8-4.8); Lymphocytes % 32.5 %; Mean Corpuscular Hemoglobin 25.9 pg (28.0-34.0); Mean Corpuscular Volume 86.1 fL (81-99); Mean Platelet Volume 9.6 fL (7.4-10.4); Monocytes # 1.4 10^3/uL (0.2-0.9); Monocytes % 17.7 %; Neutrophils # 3.14 10^3/uL (1.8-7.7); Nucleated Red Blood Cells # 0.1 /100WBC; Nucleated Red Blood Cells % 0.8 %; Platelet Count 319 10^3/cmm (130-400); Red Blood Count 3.75 10^6/uL (4.1-5.3); Red Cell Distribution Width 17.7 % (12.1-15.1); White Blood Count 7.9 10^3/uL (4.0-10.0)
[2020-05-10 09:42] LABS: Alanine Aminotransferase 12 U/L (0-33); Albumin Level 4.1 g/dL (3.5-5.2); Alkaline Phosphatase 83 IU/L (35-105); Anion Gap 13.2 (5-19); Aspartate Amino Transferase 17 U/L (0-32); Blood Urea Nitrogen 13 mg/dL (8-23); Calcium 8.7 mg/dL (8.5-10.5); Carbon Dioxide 27 mmol/L (22-29); Chloride 100 mmol/L (98-107); Globulin 2.7 g/dL (1.3-4.6); Glomerular Filtration Rate 85.4 mL/min (90-130); Glucose 125 mg/dL (65-115); Osmolality Calculated 280 mOsm/kg (285-295); Potassium 4.2 mmol/L (3.5-5.1); Sodium 136 mmol/L (136-145); Total Bilirubin 0.2 mg/dL (0.15-1.2); Total Protein 6.8 g/dL (6.6-8.7)
[2020-05-10 10:01] LABS: Slide Review Slide Review Perform
[2020-05-10] MEDS: sodium chloride 0.9% 250 ML 75 ML IV (10:30)
[2020-05-10] MEDS: sodium chlor 0.9% + KCl 20 mEq 20 MEQ/1,000 ML BAG 800 MEQ IV (12:50)
[2020-05-10] MEDS: FUROsemide 10 mg/mL SDV 2mL 20 MG IV (12:50)
--- NOTE | 2020-05-14 17:14 | ONC FU_ITS ---
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 Rivera is a 59-year-old female with history of adenoid cystic carcinoma right parotid gland. She is status post partial parotidectomy with facial nerve monitoring followed by reconstruction of the soft tissue defect with pedicled into oral buccal flap. The final pathology confirmed T2, MX lesion with positive surgical margins. Mrs Nair was referred to radiation oncology, as per patient she underwent radiation therapy here in [facility]. Since then she has been followed by ENT and with no evidence of disease until recently started having a right eye problem. MRI scan of the neck done on 09/08/2019 showed widespread neural spread of tumor into the right orbit right cavernous sinus, soot blower space, pterygopalatine fossa and probably right facial nerve. Her case was discussed in multidisciplinary head and neck tumor conference in [place] by her ENT physician there. Treatment options including treating skull base involved area to palliate symptoms (IMRT or SRS). Or perhaps consider proton beam IM RT. She was referred to radiation oncology here in [place] and she was also referred to palliative care clinic for pain management. Mrs Nair was also encouraged to see medical oncology for palliative systemic therapy. Mrs Nair has seen radiation oncology and as per patient she was told there is no plan for further radiation therapy considering the risk versus benefits, especially due to prior radiation therapy to same area. 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 Dr Walters did offer her treatment with Cisplatin and vinorelbine. She began her first cycle on 01/03/2020. Long-standing history of smoking and is still active. Her pain (right eye and right side of her face) is under control with current pain medication., right facial swelling improved; no more headache and can also breathe through right nostril. Overall, she is pleased with response to the chemotherapy. She had CT of the head on 02/29/2020 with and without contrast. There is no evidence of intracranial hemorrhage or mass-effect. Ventricular system and basal cisterns are patent. Mild small vessel changes. Mild parenchymal volume loss. 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 No evidence of enhancing intracranial metastatic disease. The left mastoid air cells are well aerated. Opacification right mastoid air cells and middle ear. Mild mucosal thickening along the ethmoid air cells. Previously described thin curvilinear soft tissue along the right medial orbit deep to the medial rectus is unchanged since her MRI September 08, [address] of the head August 15, 2019. This is nonspecific but could be related to orbital pseudotumor, neoplasm or prior surgery. She also had CT of the neck on 02/29/2020 with contrast. There is postoperative changes in the right parotidectomy. No evidence of recurrent residual disease in the right neck. Cluster of slightly prominent enhancing lymph nodes left submandibular and jugulodigastric gastric measuring 6 to 7 mm in short axis dimension. These appear stable compared to September 08, 2019. Recommend interval follow-up with PET/CT. Otherwise no cervical lymphadenopathy. Stable postoperative changes right neck. Opacification right mastoid air cells and middle ear. No evidence of supraglottic or glottic mass. As of February 15, 2020 Mrs. Nair had started her third cycle of chemotherapy unfortunately day 8 was held due to neutropenia. Her ANC at that time was 800. She has required growth factor support through her treatment. Mrs. Nair is here today for followup. She is due for cycle 6-day 1. She is tolerating the treatment well overall. She received 3 doses of Neupogen since last week for persistent chemotherapy induced neturopenia. She states she did have some bone pain but overall it is better. She denies any fever or chills. She denies any shortness of breath or cough. She states that she has not had any trouble swallowing more than her normal. She is eating well. She denies nausea or vomiting. She is had no diarrhea or constipation. She denies any neuropathy symptoms but states she has some jerking in her hands once a while which she thinks is from the Lyrica. This is not new and is no worse than what it has been for her. She has no new concerns today. She continues to have right-sided paralysis which is stable. Her ECOG is 1. Past Medical History: Asthma Gastroesophageal reflux Hypertension Rheumatoid arthritis Cancer (Adenoid Cystic Carcinoma of Right Parotid Gland) in 2014 Past Surgical History: Parotidectomy in 2014 Biopsy in 2004 - Growth on Right Cheek Knee Surgery in 1992 Tonsillectomy in 1973 Appendectomy in 1971 Allergies: Aleve Medications: Albuterol Sulfate HFA 2 puff(s) (of 108 (90 Base) mcg/act) Aerosol, solution Inhalation q 6 hours PRN ALPRAZolam 1 Tablet (of 1 mg) Oral t.i.d. PRN Deep Sea Nasal [place] 1 (0.65 %) Solution Nasal q 2 hours Effexor XR 1 Capsule (of 37.5 mg) Capsule SR 24 HR Oral daily Lyrica 1 Capsule (of 100 mg) Oral t.i.d. Morphine Sulfate 1 Tablet (of 30 mg) Oral t.i.d. OxyCODONE HCl 1 Tablet (of 20 mg) Oral q 4 to 6 hours PRN Family History: Ms. Nair's mother at age 72: Colon Cancer, and Leukemia. Ms. Nair's father at age 76: Pharynx Cancer. Her paternal grandfather at age 68: Pharynx Cancer. Social History: Ms. Nair is and she is a disability. She is a daily smoker who has smoked 0.5 packs/day for 51 years. She drinks occasionally. Smokes Vapor Cigarette She uses vape cig. . Review Of Symptoms: Constitutional Denies fevers, chills, night sweats, excessive fatigue or weight loss. Eyes left eye normal but right eye affected by disease and non functional. Some eye socket pain but controlled. Occasional drainage from right eye. ENMT Denies changes in hearing, sore throat, mouth sores, difficulty or changes in swallowing ability, and/or sinus drainage. White stuff on tongue better with Nystatin. Hematologic/Lymphatic Denies easy bruising or bleeding. The patient denies any tender or palpable lymph nodes. Respiratory Denies dyspnea on exertion, chest pain, cough or hemoptysis. Denies orthopnea. Cardiovascular Denies anginal chest pain, palpitations or orthopnea. Gastrointestinal Denies vomiting, diarrhea, GI bleeding, or constipation. Denies change in bowel habits and/or stool color, no heartburn or early satiety. Genitourinary (F) No hematuria, hesitancy, incontinence, vaginal bleeding, discharge or other problems with urination. Musculoskeletal Denies joint pain, swelling or redness. No decreased range of motion. Integumentary Denies chronic rashes, inflammation, ulcerations or skin changes. Neurologic Normal gait. No sensory problems. Psychiatric Denies insomnia, depression, karen or mood swings. Vital Signs: Performed on May 10, 2020 14:16 Height - 60.00 in Temperature - 97.1 F (LOW) Pulse - 82 /min Respiration - 18 /min BP - 132/92 mm(hg) O2 Sat - 94 % (LOW) Pain - 0 Fatigue - 0 Performed on May 10, 2020 09:57 Height - 60.00 in Weight - 155.6 lbs (HIGH) BSA - 1.68 sq.m BMI - 30.39 (HIGH) Temperature - 97.7 F (LOW) Pulse - 96 /min Respiration - 18 /min BP - 137/101 mm(hg) O2 Sat - 95 % (LOW) Pain - 2,1 - No physically strenuous activity, but ambulatory and able to carry out light or sedentary work (e.g. office work, light house work). (ECOG) Physical Examination: Constitutional Alert, oriented, no acute distress. Skin pink, warm and dry. Head Normocephalic; atraumatic. Right side paralysis noted but not new-no worse than her normal. Eyes Left eye unremarkable. Right eye covered today. ENMT No oral exudates, ulcers, masses or mucositis. Oropharynx clear. Tongue has very slight thrush on the right side anterior and slightly posterior side-no pain or drainage. Improved from last week. Neck Supple without masses or thyromegaly. No jugular venous distension. Hematologic/Lymphatic No petechiae or purpura. No tender or palpable lymph nodes in the cervical or supraclavicular areas. Respiratory Lungs are clear to auscultation without rhonchi or wheezing. Cardiovascular Regular rate and rhythm of heart without murmurs,clicks, gallops or rubs. Chest Left chest wall port a cath healed well and unremarkable. Abdomen Non-tender, non-distended, no masses or ascites. No guarding or rebound tenderness. No pulsatile masses. Back/Spine Non-tender to palpation. Extremities No visible deformities, no cyanosis, clubbing. Trace bilateral ankle edema. Musculoskeletal No tenderness or swelling, normal range of motion without obvious weakness. Integumentary No rashes or lesions. Neurologic No sensory or motor deficits, normal cerebellar function, normal gait. Psychiatric Alert and oriented times three. Coherent speech. Verbalizes understanding of our discussions today. Laboratory:Test performed on May 10, 2020 08:50 Sodium 136 mmol/L Potassium 4.2 mmol/L Chloride 100 mmol/L CO2 27 mmol/L Anion Gap 13.2 BUN 13 mg/dL Creatinine 0.7 mg/dL Cr Clearance (Est) 91.5600 mL/min eGFR 85.4 mL/min Glucose 125 mg/dL Osmolality - Calculated 280 mOsm/kg Calcium 8.7 mg/dL Protein, Total 6.8 g/dL Albumin 4.1 g/dL Globulin 2.7 g/dL Bilirubin, Total 0.2 mg/dL ALT (SGPT) 12 U/L AST (SGOT) 17 U/L Alkaline Phosphatase 83 IU/L WBC 7.9 10 3/uL RBC 3.75 10 6/uL HGB 9.7 g/dL HCT 32.3 % MCV 86.1 fL MCH 25.9 pg MCHC 30.0 g/dL RDW 17.7 % Platelet Count 319 10 3/cmm MPV 9.6 fL Neutrophils 3.14 10 3/uL Lymphocytes 2.6 10 3/uL Monocytes 1.4 10 3/uL Eosinophils 0.2 10 3/uL Basophils 0.1 10 3/uL Neutrophil % 40.0 % Lymphocyte % 32.5 % Monocyte % 17.7 % Eosinophil % 2.5 % Basophils % 0.8 % NRBC % 0.8 % CBC Slide Review Slide Review Perform SLIDE REVIEW AGREES WITH AUTOMATED RESULTS ST Impression: Recent adenoid cystic carcinoma peripheral gland with cranial nerve involvement/right skull base involvement. MRI scan done on 09/08/2019 showed widespread spread of tumor into right orbit, right cavernous sinus, soot blower space, pterygopalatine fossa and right facial nerve. Now with right facial nerve paralysis, facial asymmetry. History of adenoid cystic carcinoma right excessive peripheral gland status post partial pericardiectomy with facial nerve monitoring followed by reconstruction for T2 Nx with possible surgical margin lesion, followed by radiation therapy. Chronic smoking Anxiety disorder Clinically, patient has been doing reasonably well, in [id number] distress due to right facial pain and right eye visual disturbance. Mrs Rivera was referred to radiation oncology for palliative radiation therapy. Unfortunately, she is not a candidate for further radiation therapy due to involved risk due to history of prior radiation therapy to same area. A request was sent to pathology regarding next generation sequencing especially NTRK gene analysis but we were told, specimen is not available for evaluation. The role of palliative chemotherapy with cisplatin/Navelbine was discussed as literature has shown overall responsibilities about 44% and with 38% one year survival. did offer her treatment with cisplatin and Navelbine. Her current treatment plan is to give her chemotherapy with split dose of cisplatin/Navelbine on day 1 and 8 and repeat cycle every 21 days. She began her first dose on 01/03/2020. She prieto tolerated treatment well thus far. She had CT of the head on 02/29/2020 with and without contrast. There is no evidence of intracranial hemorrhage or mass-effect. Ventricular system and basal cisterns are patent. Mild small vessel changes. Mild parenchymal volume loss. 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 No evidence of enhancing intracranial metastatic disease. The left mastoid air cells are well aerated. Opacification right mastoid air cells and middle ear. Mild mucosal thickening along the ethmoid air cells. Previously described thin curvilinear soft tissue along the right medial orbit deep to the medial rectus is unchanged since her MRI September 08, [address] of the head August 15, 2019. This is nonspecific but could be related to orbital pseudotumor, neoplasm or prior surgery. She also had CT of the neck on 02/29/2020 with contrast. There is postoperative changes in the right parotidectomy. No evidence of recurrent residual disease in the right neck. Cluster of slightly prominent enhancing lymph nodes left submandibular and jugulodigastric gastric measuring 6 to 7 mm in short axis dimension. These appear stable compared to September 08, 2019. Recommend interval follow-up with PET/CT. Otherwise no cervical lymphadenopathy. Stable postoperative changes right neck. Opacification right mastoid air cells and middle ear. No evidence of supraglottic or glottic mass. As of February 15, 2020 Mrs. Nair had started her third cycle of chemotherapy unfortunately day 8 was held due to neutropenia. Her ANC at that time was 800. She was given 2 days of Neupogen and recovered well. She has required continued growth factor support with her chemotherapy due to persistent chemotherapy induced neutropenia. The growth factors has been necessary to keep her treatment plan on schedule. Plan: 1. Proceed with cycle 6-day 1 cisplatin/vinorelbine. 2. Continue current antiemetics as they are working well for him. 3. Today's labs were reviewed in detail and discussed with Ms. Nair and a copy was given to her. Her white count is 7.9 hemoglobin is 9.7 platelet count 319,000 ANC is 3140 creatinine 0.7 LFTs are normal random glucose is 125. 4. Neupogen 480 ordered for next Friday and Friday prior to day 8 chemo. 5. She return in 1 week with CBC CMP and planned for cycle 6-day 8 cisplatin vinorelbine. 6. We will have continue nystatin prn for the white patches on her tongue-if they return. 7. Mrs. Nair was instructed to contact us in the interim should questions or problems arise. Signed By: Harper Vick-, CNP Milton Walters MD <<Signature on File>>
[2020-05-16 13:29] LABS: Basophils # 0.2 10^3/uL (0.0-0.1); Basophils % 0.5 %; Eosinophils # 0.1 10^3/uL (0.0-0.8); Eosinophils % 0.2 %; Hematocrit 29.1 % (37.0-47.0); Hemoglobin 9.1 g/dL (11.5-15.3); Lymphocytes # 2.8 10^3/uL (0.8-4.8); Lymphocytes % 8.4 %; Mean Corpuscular HGB Conc 31.3 g/dL (30.0-36.0); Mean Corpuscular Hemoglobin 26.4 pg (28.0-34.0); Mean Corpuscular Volume 84.3 fL (81-99); Mean Platelet Volume 10.6 fL (7.4-10.4); Monocytes # 0.3 10^3/uL (0.2-0.9); Neutrophils % 88.4 %; Nucleated Red Blood Cells % 0 %; Platelet Count 209 10^3/cmm (130-400); Red Blood Count 3.45 10^6/uL (4.1-5.3); Red Cell Distribution Width 17.6 % (12.1-15.1)
[2020-05-16 13:37] LABS: Alanine Aminotransferase 10 U/L (0-33); Albumin Level 3.9 g/dL (3.5-5.2); Alkaline Phosphatase 86 IU/L (35-105); Anion Gap 11.5 (5-19); Aspartate Amino Transferase 13 U/L (0-32); Blood Urea Nitrogen 16 mg/dL (8-23); Calcium 8.6 mg/dL (8.5-10.5); Carbon Dioxide 29 mmol/L (22-29); Chloride 100 mmol/L (98-107); Globulin 2.5 g/dL (1.3-4.6); Glucose 105 mg/dL (65-115); Osmolality Calculated 284 mOsm/kg (285-295); Potassium 4.5 mmol/L (3.5-5.1); Sodium 136 mmol/L (136-145); Total Bilirubin 0.2 mg/dL (0.15-1.2); Total Protein 6.4 g/dL (6.6-8.7)
[2020-05-16 13:38] LABS: White Blood Count 33.4 10^3/uL (4.0-10.0)
[2020-05-17] MEDS: sodium chlor 0.9% + KCl 20 mEq 20 MEQ/1,000 ML BAG 800 MEQ IV (10:40)
[2020-05-17] MEDS: sodium chloride 0.9% 250 ML 75 ML IV (12:20)
[2020-05-17] MEDS: FUROsemide 10 mg/mL SDV 2mL 20 MG IV (12:41)
--- NOTE | 2020-05-26 07:26 | ONC FU_ITS ---
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 Rivera is a 59-year-old female with history of adenoid cystic carcinoma right parotid gland. She is status post partial parotidectomy with facial nerve monitoring followed by reconstruction of the soft tissue defect with pedicled into oral buccal flap. The final pathology confirmed T2, MX lesion with positive surgical margins. Mrs Nair was referred to radiation oncology, as per patient she underwent radiation therapy here in [facility]. Since then she has been followed by ENT and with no evidence of disease until recently started having a right eye problem. 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 Her case was discussed in multidisciplinary head and neck tumor conference in [place] by her ENT physician there. Treatment options including treating skull base involved area to palliate symptoms (IMRT or SRS). Or perhaps consider proton beam IM RT. She was referred to radiation oncology here in [place] and she was also referred to palliative care clinic for pain management. Mrs Nair was also encouraged to see medical oncology for palliative systemic therapy. Mrs Nair has seen radiation oncology and as per patient she was told there is no plan for further radiation therapy considering the risk versus benefits, especially due to prior radiation therapy to same area. 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 Dr Walters did offer her treatment with Cisplatin and vinorelbine. She began her first cycle on 01/03/2020. Long-standing history of smoking and is still active. Her pain (right eye and right side of her face) is under control with current pain medication., right facial swelling improved; no more headache and can also breathe through right nostril. Overall, she is pleased with response to the chemotherapy. She had CT of the head on 02/29/2020 with and without contrast. There is no evidence of intracranial hemorrhage or mass-effect. Ventricular system and basal cisterns are patent. Mild small vessel changes. Mild parenchymal volume loss. 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 No evidence of enhancing intracranial metastatic disease. The left mastoid air cells are well aerated. Opacification right mastoid air cells and middle ear. Mild mucosal thickening along the ethmoid air cells. Previously described thin curvilinear soft tissue along the right medial orbit deep to the medial rectus is unchanged since her MRI September 08, [address] of the head August 15, 2019. This is nonspecific but could be related to orbital pseudotumor, neoplasm or prior surgery. She also had CT of the neck on 02/29/2020 with contrast. There is postoperative changes in the right parotidectomy. No evidence of recurrent residual disease in the right neck. Cluster of slightly prominent enhancing lymph nodes left submandibular and jugulodigastric gastric measuring 6 to 7 mm in short axis dimension. These appear stable compared to September 08, 2019. Recommend interval follow-up with PET/CT. Otherwise no cervical lymphadenopathy. Stable postoperative changes right neck. Opacification right mastoid air cells and middle ear. No evidence of supraglottic or glottic mass. As of February 15, 2020 Mrs. Nair had started her third cycle of chemotherapy unfortunately day 8 was held due to neutropenia. Her ANC at that time was 800. She has required growth factor support through her treatment. Mrs. Nair is here today for followup. She is due for cycle 6-day 8. She continues to tolerate the treatment well overall. She received 2 doses of Neupogen since her treatment last week for persistent chemotherapy induced neturopenia. She states she did have some bone pain but overall it is better. She denies any fever or chills. She denies any shortness of breath or cough. She states that she has not had any trouble swallowing more than her normal. She is eating well. She denies nausea or vomiting. She has had no diarrhea or constipation. She denies any neuropathy symptoms. She has no new concerns today. She states she does have a follow-up with the pain clinic tomorrow. They are regulating her pain medication at this time. She states she thinks the pain medication is not working as well as it had and may need to be adjusted. She continues to have right-sided paralysis which is stable. Her ECOG is 1. Past Medical History: Asthma Gastroesophageal reflux Hypertension Rheumatoid arthritis Cancer (Adenoid Cystic Carcinoma of Right Parotid Gland) in 2014 Past Surgical History: Parotidectomy in 2014 Biopsy in 2004 - Growth on Right Cheek Knee Surgery in 1992 Tonsillectomy in 1973 Appendectomy in 1971 Allergies: Aleve Medications: Albuterol Sulfate HFA 2 puff(s) (of 108 (90 Base) mcg/act) Aerosol, solution Inhalation q 6 hours PRN ALPRAZolam 1 Tablet (of 1 mg) Oral t.i.d. PRN Deep Sea Nasal [place] 1 (0.65 %) Solution Nasal q 2 hours Effexor XR 1 Capsule (of 37.5 mg) Capsule SR 24 HR Oral daily Furosemide 1 Tablet (of 20 mg) Oral PRN Lyrica 1 Capsule (of 100 mg) Oral t.i.d. Morphine Sulfate 1 Tablet (of 30 mg) Oral t.i.d. OxyCODONE HCl 1 Tablet (of 20 mg) Oral q 4 to 6 hours PRN Family History: Ms. Nair's mother at age 72: Colon Cancer, and Leukemia. Ms. Nair's father at age 76: Pharynx Cancer. Her paternal grandfather at age 68: Pharynx Cancer. Social History: Ms. Nair is and she is a disability. She is a daily smoker who has smoked 0.5 packs/day for 51 years. She drinks occasionally. Smokes Vapor Cigarette She uses vape cig. . Review Of Symptoms: Constitutional Denies fevers, chills, night sweats, excessive fatigue or weight loss. Some increase in right sided head pain behind eye. Eyes left eye normal but right eye affected by disease and non functional. Some eye socket pain but controlled. Occasional drainage from right eye. ENMT Denies changes in hearing, sore throat, mouth sores, difficulty or changes in swallowing ability, and/or sinus drainage. Hematologic/Lymphatic Denies easy bruising or bleeding. The patient denies any tender or palpable lymph nodes. Breasts mammo current Respiratory Denies dyspnea on exertion, chest pain, cough or hemoptysis. Denies orthopnea. Cardiovascular Denies anginal chest pain, palpitations or orthopnea. Gastrointestinal Denies vomiting, diarrhea, GI bleeding, or constipation. Denies change in bowel habits and/or stool color, no heartburn or early satiety. Genitourinary (F) No hematuria, hesitancy, incontinence, vaginal bleeding, discharge or other problems with urination. Musculoskeletal Denies joint pain, swelling or redness. No decreased range of motion. Integumentary Denies chronic rashes, inflammation, ulcerations or skin changes. Neurologic Normal gait. No sensory problems. Psychiatric Denies insomnia, depression, karen or mood swings. Vital Signs: Performed on May 17, 2020 15:05 Height - 60.00 in Temperature - 98.5 F Pulse - 88 /min Respiration - 18 /min BP - 127/88 mm(hg) O2 Sat - 97 % Pain - 0 Fatigue - 0 Performed on May 17, 2020 09:45 Height - 60.00 in Weight - 153.6 lbs (LOW) BSA - 1.67 sq.m BMI - 30.00 Temperature - 99.1 F (HIGH) Pulse - 97 /min Respiration - 22 /min BP - 101/69 mm(hg) O2 Sat - 98 % Pain - 5,1 - No physically strenuous activity, but ambulatory and able to carry out light or sedentary work (e.g. office work, light house work). (ECOG) Physical Examination: Constitutional Alert, oriented, no acute distress. Skin pink, warm and dry. Head Normocephalic; atraumatic. Right side paralysis noted but not new-no worse than her normal. Eyes Left eye unremarkable. Right eye covered today. ENMT No oral exudates, ulcers, masses or mucositis. Oropharynx clear. Tongue is clear. Neck Supple without masses or thyromegaly. No jugular venous distension. Hematologic/Lymphatic No petechiae or purpura. No tender or palpable lymph nodes in the cervical or supraclavicular areas. Respiratory Lungs are clear to auscultation without rhonchi or wheezing. Cardiovascular Regular rate and rhythm of heart without murmurs,clicks, gallops or rubs. Chest Left chest wall port a cath healed well and unremarkable. Abdomen Non-tender, non-distended, no masses or ascites. No guarding or rebound tenderness. No pulsatile masses. Back/Spine Non-tender to palpation. Extremities No visible deformities, no cyanosis, clubbing. Trace bilateral ankle edema. Musculoskeletal No tenderness or swelling, normal range of motion without obvious weakness. Integumentary No rashes or lesions. Neurologic No sensory or motor deficits, normal cerebellar function, normal gait. Psychiatric Alert and oriented times three. Coherent speech. Verbalizes understanding of our discussions today. Laboratory:Test performed on May 16, 2020 12:45 Sodium 136 mmol/L Potassium 4.5 mmol/L Chloride 100 mmol/L CO2 29 mmol/L Anion Gap 11.5 BUN 16 mg/dL Creatinine 0.6 mg/dL Cr Clearance (Est) 106.8100 mL/min eGFR 102.0 mL/min Glucose 105 mg/dL Osmolality - Calculated 284 mOsm/kg Calcium 8.6 mg/dL Protein, Total 6.4 g/dL Albumin 3.9 g/dL Globulin 2.5 g/dL Bilirubin, Total 0.2 mg/dL ALT (SGPT) 10 U/L AST (SGOT) 13 U/L Alkaline Phosphatase 86 IU/L WBC 33.4 10 3/uL RBC 3.45 10 6/uL HGB 9.1 g/dL HCT 29.1 % MCV 84.3 fL MCH 26.4 pg MCHC 31.3 g/dL RDW 17.6 % Platelet Count 209 10 3/cmm MPV 10.6 fL Neutrophils 29.50 10 3/uL Lymphocytes 2.8 10 3/uL Monocytes 0.3 10 3/uL Eosinophils 0.1 10 3/uL Basophils 0.2 10 3/uL Neutrophil % 88.4 % Lymphocyte % 8.4 % Monocyte % 1.0 % Eosinophil % 0.2 % Basophils % 0.5 % NRBC % 0 % Impression: Recent adenoid cystic carcinoma peripheral gland with cranial nerve involvement/right skull base involvement. 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 Now with right facial nerve paralysis, facial asymmetry. History of adenoid cystic carcinoma right excessive peripheral gland status post partial pericardiectomy with facial nerve monitoring followed by reconstruction for T2 Nx with possible surgical margin lesion, followed by radiation therapy. Chronic smoking Anxiety disorder Clinically, patient has been doing reasonably well, in [id number] distress due to right facial pain and right eye visual disturbance. Mrs Rivera was referred to radiation oncology for palliative radiation therapy. Unfortunately, she is not a candidate for further radiation therapy due to involved risk due to history of prior radiation therapy to same area. A request was sent to pathology regarding next generation sequencing especially NTRK gene analysis but we were told, specimen is not available for evaluation. The role of palliative chemotherapy with cisplatin/Navelbine was discussed as literature has shown overall responsibilities about 44% and with 38% one year survival. did offer her treatment with cisplatin and Navelbine. Her current treatment plan is to give her chemotherapy with split dose of cisplatin/Navelbine on day 1 and 8 and repeat cycle every 21 days. She began her first dose on 01/03/2020. She has tolerated treatment well thus far. She had CT of the head on 02/29/2020 with and without contrast. There is no evidence of intracranial hemorrhage or mass-effect. Ventricular system and basal cisterns are patent. Mild small vessel changes. Mild parenchymal volume loss. 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 No evidence of enhancing intracranial metastatic disease. The left mastoid air cells are well aerated. Opacification right mastoid air cells and middle ear. Mild mucosal thickening along the ethmoid air cells. Previously described thin curvilinear soft tissue along the right medial orbit deep to the medial rectus is unchanged since her MRI September 08, [address] of the head August 15, 2019. This is nonspecific but could be related to orbital pseudotumor, neoplasm or prior surgery. She also had CT of the neck on 02/29/2020 with contrast. There is postoperative changes in the right parotidectomy. No evidence of recurrent residual disease in the right neck. Cluster of slightly prominent enhancing lymph nodes left submandibular and jugulodigastric gastric measuring 6 to 7 mm in short axis dimension. These appear stable compared to September 08, 2019. Recommend interval follow-up with PET/CT. Otherwise no cervical lymphadenopathy. Stable postoperative changes right neck. Opacification right mastoid air cells and middle ear. No evidence of supraglottic or glottic mass. As of February 15, 2020 Mrs. Nair had started her third cycle of chemotherapy unfortunately day 8 was held due to neutropenia. Her ANC at that time was 800. She was given 2 days of Neupogen and recovered well. She has required continued growth factor support with her chemotherapy due to persistent chemotherapy induced neutropenia. The growth factors has been necessary to keep her treatment plan on schedule. Plan: 81. Proced with cycle 6-day 8 cisplatin/vinorelbine. 2. Continue current antiemetics as they are working well for him. 3. Today's labs were reviewed in detail and discussed with Ms. Nair and a copy was given to her. Her white count is 33.4 hemoglobin is 9.1 platelet count 209,000 ANC is 29,500 creatinine 0.6 LFTs are normal random glucose is 105. 4. No Neupogen was ordered affter today's treatment given her ANC is 29,500. She will be off treatment next week so her blood counts should recover before her next cycle of chemotherapy. 5. She return in 2 weeks with CBC CMP and planned for cycle 7-day 1 cisplatin vinorelbine. 6. We will request follow-up PET/CT as her last PET/CT was January 2020. She is now completed 6 cycles of chemotherapy. She is also stating that she is having some worsening right-sided head pain. Her last PET/CT was in [facility]. I have requested that she had the PET done prior to her follow-up in 2 weeks. 7. Mrs. Nair was instructed to contact us in the interim should questions or problems arise. Signed By: Harper Vick-, AOP Milton Walters MD <<Signature on File>>
== END 2020-05-24 23:59 | disposition home or self-care (01) ==
LOC: ONCMED 06:19
PROVIDERS: Internal Medicine Hematology & Oncology; PCP Family Medicine; Referring Provider Otolaryngology; Visit Provider Nurse Practitioner
DX: Z51.11 Encounter for antineoplastic chemotherapy (principal); C07 Malignant neoplasm of parotid gland; F17.210 Nicotine dependence, cigarettes, uncomplicated; F41.9 Anxiety disorder, unspecified; R51 Headache; H53.9 Unspecified visual disturbance; Z79.899 Other long term (current) drug therapy; Z92.3 Personal history of irradiation
CPT/HCPCS: 36591; 80053; 85007; 85025; 96366; 96367; 96372; 96375; 96413; 96417; 99214; J1100; J1442; J1453; J1940; J2469; J3475; J3480; J7030; J7040; J7050; J9060; J9390

== ENCOUNTER 2020-06-19 05:35 | Outpatient (RCR) | payer MEDICARE, MEDICAID, SELFPAY ==
[2020-05-30] MEDS: alteplase 1 mg/mL SDV 2 mL 2 MG INTRACATH (12:05)
[2020-05-30 12:23] LABS: Basophils % 0.4 %; Eosinophils # 0.1 10^3/uL (0.0-0.8); Eosinophils % 5.3 %; Hematocrit 28.5 % (37.0-47.0); Hemoglobin 8.8 g/dL (11.5-15.3); Lymphocytes # 1.5 10^3/uL (0.8-4.8); Lymphocytes % 62.6 %; Mean Corpuscular HGB Conc 30.9 g/dL (30.0-36.0); Mean Corpuscular Volume 84.1 fL (81-99); Mean Platelet Volume 9.8 fL (7.4-10.4); Monocytes # 0.4 10^3/uL (0.2-0.9); Monocytes % 16.5 %; Neutrophils % 15.2 %; Nucleated Red Blood Cells % 0 %; Platelet Count 284 10^3/cmm (130-400); Red Blood Count 3.39 10^6/uL (4.1-5.3); Red Cell Distribution Width 17.9 % (12.1-15.1); White Blood Count 2.4 10^3/uL (4.0-10.0)
[2020-05-30 12:28] LABS: Neutrophils # 0.37 10^3/uL (1.8-7.7)
[2020-05-30 12:58] LABS: Alanine Aminotransferase 9 U/L (0-33); Alkaline Phosphatase 87 IU/L (35-105); Aspartate Amino Transferase 13 U/L (0-32); Blood Urea Nitrogen 9 mg/dL (8-23); Carbon Dioxide 28 mmol/L (22-29); Chloride 99 mmol/L (98-107); Globulin 2.3 g/dL (1.3-4.6); Glucose 93 mg/dL (65-115); Osmolality Calculated 276 mOsm/kg (285-295); Sodium 134 mmol/L (136-145); Total Bilirubin 0.2 mg/dL (0.15-1.2); Total Protein 6.3 g/dL (6.6-8.7)
[2020-06-05 08:56] LABS: Basophils # 0.1 10^3/uL (0.0-0.1); Eosinophils # 0.2 10^3/uL (0.0-0.8); Eosinophils % 2.4 %; Hematocrit 33.6 % (37.0-47.0); Hemoglobin 10.3 g/dL (11.5-15.3); Lymphocytes # 2.4 10^3/uL (0.8-4.8); Mean Corpuscular HGB Conc 30.7 g/dL (30.0-36.0); Mean Corpuscular Hemoglobin 25.7 pg (28.0-34.0); Mean Corpuscular Volume 83.8 fL (81-99); Mean Platelet Volume 9.1 fL (7.4-10.4); Monocytes # 1.2 10^3/uL (0.2-0.9); Monocytes % 19.4 %; Neutrophils # 2.22 10^3/uL (1.8-7.7); Neutrophils % 35.5 %; Nucleated Red Blood Cells % 0 %; Platelet Count 277 10^3/cmm (130-400); Red Blood Count 4.01 10^6/uL (4.1-5.3); Red Cell Distribution Width 17.4 % (12.1-15.1); White Blood Count 6.2 10^3/uL (4.0-10.0)
[2020-06-05 09:36] LABS: Alanine Aminotransferase 7 U/L (0-33); Albumin Level 3.9 g/dL (3.5-5.2); Alkaline Phosphatase 86 IU/L (35-105); Anion Gap 12.1 (5-19); Aspartate Amino Transferase 13 U/L (0-32); Blood Urea Nitrogen 9 mg/dL (8-23); Calcium 9.6 mg/dL (8.5-10.5); Carbon Dioxide 30 mmol/L (22-29); Chloride 101 mmol/L (98-107); Globulin 2.5 g/dL (1.3-4.6); Glucose 107 mg/dL (65-115); Osmolality Calculated 287 mOsm/kg (285-295); Potassium 4.1 mmol/L (3.5-5.1); Sodium 139 mmol/L (136-145); Total Bilirubin 0.2 mg/dL (0.15-1.2); Total Protein 6.4 g/dL (6.6-8.7)
[2020-06-05] MEDS: sodium chloride 0.9% 250 ML 75 ML IV (11:00)
[2020-06-05] MEDS: FUROsemide 10 mg/mL SDV 2mL 20 MG IV (13:00)
[2020-06-05] MEDS: sodium chlor 0.9% + KCl 20 mEq 20 MEQ/1,000 ML BAG 800 MEQ IV (13:15)
--- NOTE | 2020-06-05 16:44 | ONC FU_ITS ---
Dr. Walters follow up note Patient: Alia Nair Unit #: [id number]: 1960 Dicatated By: Milton Walters M.D.Date of Visit:Jun 05, 2020 Onc Med Follow-up/Prog Note History of Present Illness: Mrs. Rivera is a 60 -year-old female with history of adenoid cystic carcinoma right parotid gland. She is status post partial parotidectomy with facial nerve monitoring followed by reconstruction of the soft tissue defect with pedicled into oral buccal flap. The final pathology confirmed T2, MX lesion with positive surgical margins. Mrs Nair was referred to radiation oncology, as per patient she underwent radiation therapy here in [facility]. Since then she has been followed by ENT and with no evidence of disease until recently started having a right eye problem. MRI scan of the neck done on 09/08/2019 showed widespread neural spread of tumor into the right orbit right cavernous sinus, engine repairer service space, pterygopalatine fossa and probably right facial nerve. Her case was discussed in multidisciplinary head and neck tumor conference in [place] by her ENT physician there. Treatment options including treating skull base involved area to palliate symptoms (IMRT or SRS). Or perhaps consider proton beam IM RT. She was referred to radiation oncology here in [place] and she was also referred to palliative care clinic for pain management. Mrs Nair was also encouraged to see medical oncology for palliative systemic therapy. Mrs Nair has seen radiation oncology and as per patient she was told there is no plan for further radiation therapy considering the risk versus benefits, especially due to prior radiation therapy to same area. 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 Dr Walters did offer her treatment with Cisplatin and vinorelbine. She began her first cycle on 01/03/2020. Long-standing history of smoking and is still active. Her pain (right eye and right side of her face) is under control with current pain medication., right facial swelling improved; no more headache and can also breathe through right nostril. Overall, she is pleased with response to the chemotherapy. She had CT of the head on 02/29/2020 with and without contrast. There is no evidence of intracranial hemorrhage or mass-effect. Ventricular system and basal cisterns are patent. Mild small vessel changes. Mild parenchymal volume loss. 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 No evidence of enhancing intracranial metastatic disease. The left mastoid air cells are well aerated. Opacification right mastoid air cells and middle ear. Mild mucosal thickening along the ethmoid air cells. Previously described thin curvilinear soft tissue along the right medial orbit deep to the medial rectus is unchanged since her MRI September 08, [address] of the head August 15, 2019. This is nonspecific but could be related to orbital pseudotumor, neoplasm or prior surgery. She also had CT of the neck on 02/29/2020 with contrast. There is postoperative changes in the right parotidectomy. No evidence of recurrent residual disease in the right neck. Cluster of slightly prominent enhancing lymph nodes left submandibular and jugulodigastric gastric measuring 6 to 7 mm in short axis dimension. These appear stable compared to September 08, 2019. Otherwise no cervical lymphadenopathy. Stable postoperative changes right neck. Opacification right mastoid air cells and middle ear. No evidence of supraglottic or glottic mass. As of February 15, 2020 Mrs. Nair had started her third cycle of chemotherapy unfortunately day 8 was held due to neutropenia. Her ANC at that time was 800. She has required growth factor support through her treatment.Follow-up CT PET scan done on May 30, 2020 showed focal increased metabolic activity is present in the left posterior palate. A single left level 2 lymph node size 0.6 cm, demonstrated increased metabolic activity. No evidence of metabolic activity disease in the right face or involving orbit or previous tumor location. New, compared to CT PET scan done in February 2019, subcentimeter left lung nodular findings size about 0.7 cm and 0.6 cm may reflect early metastatic disease. Came for follow-up, denies any specific complaints, no fever chills, no nausea or vomiting, no diarrhea or constipation, no peripheral neuropathy, tolerating systemic chemotherapy with cisplatin/Navelbine well Medications: Albuterol Sulfate HFA 2 puff(s) (of 108 (90 Base) mcg/act) Aerosol, solution Inhalation q 6 hours PRN, ALPRAZolam 1 Tablet (of 1 mg) Oral t.i.d. PRN, Deep Sea Nasal [place] 1 (0.65 %) Solution Nasal q 2 hours, Effexor XR 1 Capsule (of 37.5 mg) Capsule SR 24 HR Oral daily, Furosemide 1 Tablet (of 20 mg) Oral PRN, Lyrica 1 Capsule (of 100 mg) Oral t.i.d., Morphine Sulfate 1 Tablet (of 30 mg) Oral t.i.d., OxyCODONE HCl 1 Tablet (of 20 mg) Oral q 4 to 6 hours PRN Allergies: Aleve Review of Systems: Review of Systems is not available for this patient. Vital Signs: Performed on Jun 05, 2020 10:07 Height - 60.00 in Weight - 156.6 lbs (HIGH) BSA - 1.68 sq.m BMI - 30.58 (HIGH) Temperature - 99.0 F (HIGH) Pulse - 80 /min Respiration - 18 /min BP - 171/97 mm(hg) (HIGH) O2 Sat - 100 % Pain - 4 Performance Status: 1 - No physically strenuous activity, but ambulatory and able to carry out light or sedentary work (e.g. office work, light house work). (ECOG) Physical Examination: ENMT - No mouth sores, no thrush, no jaundice, Respiratory - Lungs are clear to auscultation, Cardiovascular - Regular rate and rhythm of heart, Abdomen - Soft, bowel sounds present, Extremities - No visible edema or rash. Lab/Imaging: Test performed on May 16, 2020 12:45 Sodium 136 mmol/L Potassium 4.5 mmol/L Chloride 100 mmol/L CO2 29 mmol/L Anion Gap 11.5 BUN 16 mg/dL Creatinine 0.6 mg/dL Cr Clearance (Est) 106.8100 mL/min eGFR 102.0 mL/min Glucose 105 mg/dL Osmolality - Calculated 284 mOsm/kg Calcium 8.6 mg/dL Protein, Total 6.4 g/dL Albumin 3.9 g/dL Globulin 2.5 g/dL Bilirubin, Total 0.2 mg/dL ALT (SGPT) 10 U/L AST (SGOT) 13 U/L Alkaline Phosphatase 86 IU/L WBC 33.4 10 3/uL RBC 3.45 10 6/uL HGB 9.1 g/dL HCT 29.1 % MCV 84.3 fL MCH 26.4 pg MCHC 31.3 g/dL RDW 17.6 % Platelet Count 209 10 3/cmm MPV 10.6 fL Neutrophils 29.50 10 3/uL Lymphocytes 2.8 10 3/uL Monocytes 0.3 10 3/uL Eosinophils 0.1 10 3/uL Basophils 0.2 10 3/uL Neutrophil % 88.4 % Lymphocyte % 8.4 % Monocyte % 1.0 % Eosinophil % 0.2 % Basophils % 0.5 % NRBC % 0 % Test performed on Apr 26, 2020 08:15 CBC Slide Review Slide Review Perform Test performed on Feb 14, 2020 10:33 Manual Bands % 22.0 % Manual Lymphs % 25 % Atypical Lymphs % 3.0 % Manual Monos % 12.0 % Metamyelocytes % 8.0 % Myelocytes % 4.0 % Manual Bands Abs 2.7 10 3/cmm Manual Neutrophils Abs 5.9 10 3/cmm Manual Lymphocytes Abs 3.4 10 3/cmm Manual Monocytes Abs 1.5 10 3/cmm Test performed on Feb 10, 2020 10:22 Promyelocytes % 5.0 % Test performed on Jan 24, 2020 09:37 Manual Eosinophils Abs 0.2 10 3/cmm Impression: Recent adenoid cystic carcinoma peripheral gland with cranial nerve involvement/right skull base involvement. MRI scan done on 09/08/2019 showed widespread spread of tumor into right orbit, right cavernous sinus, engine repairer service space, pterygopalatine fossa and right facial nerve. Now with right facial nerve paralysis, facial asymmetry. History of adenoid cystic carcinoma right excessive peripheral gland status post partial pericardiectomy with facial nerve monitoring followed by reconstruction for T2 Nx with possible surgical margin lesion, followed by radiation therapy. Chronic smoking Anxiety disorder Clinically, patient has been doing reasonably well, in [id number] distress due to right facial pain and right eye visual disturbance. Mrs Rivera was referred to radiation oncology for palliative radiation therapy. Unfortunately, she is not a candidate for further radiation therapy due to involved risk due to history of prior radiation therapy to same area. A request was sent to pathology regarding next generation sequencing especially NTRK gene analysis but we were told, specimen is not available for evaluation. The role of palliative chemotherapy with cisplatin/Navelbine was discussed as literature has shown overall responsibilities about 44% and with 38% one year survival. did offer her treatment with cisplatin and Navelbine. Her current treatment plan is to give her chemotherapy with split dose of cisplatin/Navelbine on day 1 and 8 and repeat cycle every 21 days. She began her first dose on 01/03/2020. She has tolerated treatment well thus far. She had CT of the head on 02/29/2020 with and without contrast. There is no evidence of intracranial hemorrhage or mass-effect. Ventricular system and basal cisterns are patent. Mild small vessel changes. Mild parenchymal volume loss. 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 No evidence of enhancing intracranial metastatic disease. The left mastoid air cells are well aerated. Opacification right mastoid air cells and middle ear. Mild mucosal thickening along the ethmoid air cells. Previously described thin curvilinear soft tissue along the right medial orbit deep to the medial rectus is unchanged since her MRI September 08, [address] of the head August 15, 2019. This is nonspecific but could be related to orbital pseudotumor, neoplasm or prior surgery. She also had CT of the neck on 02/29/2020 with contrast. There is postoperative changes in the right parotidectomy. No evidence of recurrent residual disease in the right neck. Cluster of slightly prominent enhancing lymph nodes left submandibular and jugulodigastric gastric measuring 6 to 7 mm in short axis dimension. These appear stable compared to September 08, 2019. Recommend interval follow-up with PET/CT. Otherwise no cervical lymphadenopathy. Stable postoperative changes right neck. Opacification right mastoid air cells and middle ear. No evidence of supraglottic or glottic mass. As of February 15, 2020 Mrs. Nair had started her third cycle of chemotherapy unfortunately day 8 was held due to neutropenia. Her ANC at that time was 800. She was given 2 days of Neupogen and recovered well. She has required continued growth factor support with her chemotherapy due to persistent chemotherapy induced neutropenia. The growth factors has been necessary to keep her treatment plan on schedule. Plan: Discussed with patient regarding her labs blood work on 6.2 hemoglobin 10.3 hematocrit 33.6 platelets 277,000 CMP within normal limits And CT PET scan finding which shows excellent response, Clinically patient doing very well no more facial pain, some vision in the right eye but still rotated to the right side with no eyeball movements. As per patient she has some vision in her right eye. No facial swelling. No swallowing problem. With excellent palliative results from systemic chemotherapy with cisplatin/Navelbine. We will proceed with the next weekly dose today, CT PET scan findings were discussed with patient, and she will return to clinic in 1 week with a CBC CMP In the meantime we will refer her to ophthalmology for right eye evaluation to see any role of palliative surgery which can improve her vision or salvage her right eye. Signed By: Milton Walters M.D. <<Signature on File>>
[2020-06-12] MEDS: sodium chloride 0.9% 250 ML 75 ML IV (09:15)
[2020-06-12 09:25] LABS: Basophils % 0.5 %; Eosinophils # 0.2 10^3/uL (0.0-0.8); Eosinophils % 4.1 %; Hematocrit 33.1 % (37.0-47.0); Hemoglobin 10.3 g/dL (11.5-15.3); Mean Corpuscular HGB Conc 31.1 g/dL (30.0-36.0); Mean Corpuscular Hemoglobin 25.4 pg (28.0-34.0); Mean Corpuscular Volume 81.5 fL (81-99); Mean Platelet Volume 9.8 fL (7.4-10.4); Monocytes # 0.3 10^3/uL (0.2-0.9); Neutrophils # 2.16 10^3/uL (1.8-7.7); Neutrophils % 59.1 %; Nucleated Red Blood Cells % 0 %; Platelet Count 231 10^3/cmm (130-400); Red Blood Count 4.06 10^6/uL (4.1-5.3); White Blood Count 3.7 10^3/uL (4.0-10.0)
[2020-06-12 09:43] LABS: Alanine Aminotransferase 10 U/L (0-33); Alkaline Phosphatase 92 IU/L (35-105); Anion Gap 13.1 (5-19); Aspartate Amino Transferase 14 U/L (0-32); Blood Urea Nitrogen 17 mg/dL (8-23); Calcium 9.6 mg/dL (8.5-10.5); Carbon Dioxide 25 mmol/L (22-29); Chloride 104 mmol/L (98-107); Globulin 2.4 g/dL (1.3-4.6); Glucose 102 mg/dL (65-115); Osmolality Calculated 288 mOsm/kg (285-295); Potassium 4.1 mmol/L (3.5-5.1); Sodium 138 mmol/L (136-145); Total Bilirubin 0.2 mg/dL (0.15-1.2); Total Protein 6.4 g/dL (6.6-8.7)
[2020-06-12] MEDS: FUROsemide 10 mg/mL SDV 2mL 20 MG IV (14:00)
[2020-06-12] MEDS: sodium chlor 0.9% + KCl 20 mEq 20 MEQ/1,000 ML BAG 800 MEQ IV (14:05)
--- NOTE | 2020-06-12 20:19 | ONC FU_ITS ---
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 Rivera is a 60 -year-old female with history of adenoid cystic carcinoma right parotid gland. She is status post partial parotidectomy with facial nerve monitoring followed by reconstruction of the soft tissue defect with pedicled into oral buccal flap. The final pathology confirmed T2, MX lesion with positive surgical margins. Mrs Nair was referred to radiation oncology, as per patient she underwent radiation therapy here in [facility]. Since then she has been followed by ENT and with no evidence of disease until recently started having a right eye problem. MRI scan of the neck done on 09/08/2019 showed widespread neural spread of tumor into the right orbit right cavernous sinus, cold press operator space, pterygopalatine fossa and probably right facial nerve. Her case was discussed in multidisciplinary head and neck tumor conference in [place] by her ENT physician there. Treatment options including treating skull base involved area to palliate symptoms (IMRT or SRS). Or perhaps consider proton beam IM RT. She was referred to radiation oncology here in [place] and she was also referred to palliative care clinic for pain management. Mrs Nair was also encouraged to see medical oncology for palliative systemic therapy. Mrs Nair has seen radiation oncology and as per patient she was told there is no plan for further radiation therapy considering the risk versus benefits, especially due to prior radiation therapy to same area. 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 Dr Walters did offer her treatment with Cisplatin and vinorelbine. She began her first cycle on 01/03/2020. Long-standing history of smoking and is still active. Her pain (right eye and right side of her face) is under control with current pain medication., right facial swelling improved; no more headache and can also breathe through right nostril. Overall, she is pleased with response to the chemotherapy. She had CT of the head on 02/29/2020 with and without contrast. There is no evidence of intracranial hemorrhage or mass-effect. Ventricular system and basal cisterns are patent. Mild small vessel changes. Mild parenchymal volume loss. 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 No evidence of enhancing intracranial metastatic disease. The left mastoid air cells are well aerated. Opacification right mastoid air cells and middle ear. Mild mucosal thickening along the ethmoid air cells. Previously described thin curvilinear soft tissue along the right medial orbit deep to the medial rectus is unchanged since her MRI September 08, [address] of the head August 15, 2019. This is nonspecific but could be related to orbital pseudotumor, neoplasm or prior surgery. She also had CT of the neck on 02/29/2020 with contrast. There is postoperative changes in the right parotidectomy. No evidence of recurrent residual disease in the right neck. Cluster of slightly prominent enhancing lymph nodes left submandibular and jugulodigastric gastric measuring 6 to 7 mm in short axis dimension. These appear stable compared to September 08, 2019. Otherwise no cervical lymphadenopathy. Stable postoperative changes right neck. Opacification right mastoid air cells and middle ear. No evidence of supraglottic or glottic mass. As of February 15, 2020 Mrs. Nair had started her third cycle of chemotherapy unfortunately day 8 was held due to neutropenia. Her ANC at that time was 800. She has required growth factor support through her treatment.Follow-up CT PET scan done on May 30, 2020 showed focal increased metabolic activity is present in the left posterior palate. A single left level 2 lymph node size 0.6 cm, demonstrated increased metabolic activity. No evidence of metabolic activity disease in the right face or involving orbit or previous tumor location. New, compared to CT PET scan done in February 2019, subcentimeter left lung nodular findings size about 0.7 cm and 0.6 cm may reflect early metastatic disease. Ms. Nair is here today for follow-up. She states Dr. Walters told her her last PET scan was improved and was responding to treatment. She states her right eye has been draining and itching and burning more. She states been very red. She does have an appointment to see Dr. Ignacio later today. She is been tolerating the chemotherapy well. She has required Neupogen support due to her chemo induced neutropenia. She has been getting 2 doses of Neupogen in between day 1 and 8 and then again after day 8 and this is supported her well. She has no concerns with diarrhea or nausea vomiting. She states her bowels are moving normally for her. She does have a bowel regimen if she does get constipated which works well for her. She denies any mouth sores, sore throat or difficulty swallowing. She is had no hearing changes???she is a little hard hearing to begin with but does not think it is worse. She denies any numbness or tingling in her hands or feet. She states she has not had any fever or chills or any signs infection for at least the last 72 hours. She has not had any known Covid exposure or symptoms. She states she is eating good and her energy is fair. She is able to do her ADLs without any assistance. Her ECOG is 1. Past Medical History: Asthma Gastroesophageal reflux Hypertension Rheumatoid arthritis Cancer (Adenoid Cystic Carcinoma of Right Parotid Gland) in 2014 Past Surgical History: Parotidectomy in 2014 Biopsy in 2004 - Growth on Right Cheek Knee Surgery in 1992 Tonsillectomy in 1973 Appendectomy in 1971 Allergies: Aleve Medications: Albuterol Sulfate HFA 2 puff(s) (of 108 (90 Base) mcg/act) Aerosol, solution Inhalation q 6 hours PRN ALPRAZolam 1 Tablet (of 1 mg) Oral t.i.d. PRN Deep Sea Nasal [place] 1 (0.65 %) Solution Nasal q 2 hours Effexor XR 1 Capsule (of 37.5 mg) Capsule SR 24 HR Oral daily Furosemide 1 Tablet (of 20 mg) Oral PRN Lyrica 1 Capsule (of 100 mg) Oral t.i.d. Morphine Sulfate 1 Tablet (of 30 mg) Oral t.i.d. OxyCODONE HCl 1 Tablet (of 20 mg) Oral q 4 to 6 hours PRN Family History: Ms. Nair's mother at age 72: Colon Cancer, and Leukemia. Ms. Nair's father at age 76: Pharynx Cancer. Her paternal grandfather at age 68: Pharynx Cancer. Social History: Ms. Nair is and she is a disability. She is a daily smoker who has smoked 0.5 packs/day for 51 years. She drinks occasionally. Smokes Vapor Cigarette She uses vape cig. . Review Of Symptoms: Constitutional Denies fevers, chills, night sweats, excessive fatigue or weight loss. Some increase in right sided head pain behind eye. Eyes left eye normal but right eye affected by disease and non functional. Some eye socket pain but controlled. More drainage and itching from right eye. Sees Dr Ignacio later today. ENMT Denies changes in hearing, sore throat, mouth sores, difficulty or changes in swallowing ability, and/or sinus drainage. Hematologic/Lymphatic Denies easy bruising or bleeding. The patient denies any tender or palpable lymph nodes. Respiratory Denies dyspnea on exertion, chest pain, cough or hemoptysis. Denies orthopnea. Cardiovascular Denies anginal chest pain, palpitations or orthopnea. Gastrointestinal Denies vomiting, diarrhea, GI bleeding, or constipation. Denies change in bowel habits and/or stool color, no heartburn or early satiety. Genitourinary (F) No hematuria, hesitancy, incontinence, vaginal bleeding, discharge or other problems with urination. Musculoskeletal Denies joint pain, swelling or redness. No decreased range of motion. Integumentary Denies chronic rashes, inflammation, ulcerations or skin changes. Neurologic Normal gait. No sensory problems. Psychiatric Denies insomnia, depression, karen or mood swings. Vital Signs: Performed on Jun 12, 2020 10:55 Height - 60.00 in Weight - 154.2 lbs (LOW) BSA - 1.67 sq.m BMI - 30.12 (HIGH) Temperature - 98.7 F Pulse - 84 /min Respiration - 18 /min BP - 127/84 mm(hg) O2 Sat - 97 % Pain - 4,1 - No physically strenuous activity, but ambulatory and able to carry out light or sedentary work (e.g. office work, light house work). (ECOG) Physical Examination: Constitutional Alert, oriented, no acute distress. Skin pink, warm and dry. Head Normocephalic; atraumatic. Right side paralysis noted but not new-no worse than her normal. Eyes Left eye unremarkable. Right eye -sclera red-irritated with slight exudate noted. ENMT No oral exudates, ulcers, masses or mucositis. Oropharynx clear. Tongue is clear. Neck Supple without masses or thyromegaly. No jugular venous distension. Hematologic/Lymphatic No petechiae or purpura. No tender or palpable lymph nodes in the cervical or supraclavicular areas. Respiratory Lungs are clear to auscultation without rhonchi or wheezing. Cardiovascular Regular rate and rhythm of heart without murmurs,clicks, gallops or rubs. Chest Left chest wall port a cath healed well and unremarkable. Abdomen Non-tender, non-distended, no masses or ascites. No guarding or rebound tenderness. No pulsatile masses. Back/Spine Non-tender to palpation. Extremities No visible deformities, no cyanosis, clubbing. Trace bilateral ankle edema. Musculoskeletal No tenderness or swelling, normal range of motion without obvious weakness. Integumentary No rashes or lesions. Neurologic No sensory or motor deficits, normal cerebellar function, normal gait. Psychiatric Alert and oriented times three. Coherent speech. Verbalizes understanding of our discussions today. Laboratory:Test performed on Jun 12, 2020 09:09 Sodium 138 mmol/L Potassium 4.1 mmol/L Chloride 104 mmol/L CO2 25 mmol/L Anion Gap 13.1 BUN 17 mg/dL Creatinine 0.6 mg/dL Cr Clearance (Est) 106.8100 mL/min eGFR 102.0 mL/min Glucose 102 mg/dL Osmolality - Calculated 288 mOsm/kg Calcium 9.6 mg/dL Protein, Total 6.4 g/dL Albumin 4.0 g/dL Globulin 2.4 g/dL Bilirubin, Total 0.2 mg/dL ALT (SGPT) 10 U/L AST (SGOT) 14 U/L Alkaline Phosphatase 92 IU/L WBC 3.7 10 3/uL RBC 4.06 10 6/uL HGB 10.3 g/dL HCT 33.1 % MCV 81.5 fL MCH 25.4 pg MCHC 31.1 g/dL RDW 17.0 % Platelet Count 231 10 3/cmm MPV 9.8 fL Neutrophils 2.16 10 3/uL Lymphocytes 1.0 10 3/uL Monocytes 0.3 10 3/uL Eosinophils 0.2 10 3/uL Basophils 0.0 10 3/uL Neutrophil % 59.1 % Lymphocyte % 27.0 % Monocyte % 9.0 % Eosinophil % 4.1 % Basophils % 0.5 % NRBC % 0 % Test performed on Apr 26, 2020 08:15 CBC Slide Review Slide Review Perform Test performed on Feb 14, 2020 10:33 Manual Bands % 22.0 % Manual Lymphs % 25 % Atypical Lymphs % 3.0 % Manual Monos % 12.0 % Metamyelocytes % 8.0 % Myelocytes % 4.0 % Manual Bands Abs 2.7 10 3/cmm Manual Neutrophils Abs 5.9 10 3/cmm Manual Lymphocytes Abs 3.4 10 3/cmm Manual Monocytes Abs 1.5 10 3/cmm Test performed on Feb 10, 2020 10:22 Promyelocytes % 5.0 % Test performed on Jan 24, 2020 09:37 Manual Eosinophils Abs 0.2 10 3/cmm Impression: Recent adenoid cystic carcinoma peripheral gland with cranial nerve involvement/right skull base involvement. MRI scan done on 09/08/2019 showed widespread spread of tumor into right orbit, right cavernous sinus, cold press operator space, pterygopalatine fossa and right facial nerve. Now with right facial nerve paralysis, facial asymmetry. History of adenoid cystic carcinoma right excessive peripheral gland status post partial pericardiectomy with facial nerve monitoring followed by reconstruction for T2 Nx with possible surgical margin lesion, followed by radiation therapy. Chronic smoking Anxiety disorder Clinically, patient has been doing reasonably well, in [id number] distress due to right facial pain and right eye visual disturbance. Mrs Rivera was referred to radiation oncology for palliative radiation therapy. Unfortunately, she is not a candidate for further radiation therapy due to involved risk due to history of prior radiation therapy to same area. A request was sent to pathology regarding next generation sequencing especially NTRK gene analysis but we were told, specimen is not available for evaluation. The role of palliative chemotherapy with cisplatin/Navelbine was discussed as literature has shown overall responsibilities about 44% and with 38% one year survival. did offer her treatment with cisplatin and Navelbine. Her current treatment plan is to give her chemotherapy with split dose of cisplatin/Navelbine on day 1 and 8 and repeat cycle every 21 days. She began her first dose on 01/03/2020. She has tolerated treatment well thus far. She had CT of the head on 02/29/2020 with and without contrast. There is no evidence of intracranial hemorrhage or mass-effect. Ventricular system and basal cisterns are patent. Mild small vessel changes. Mild parenchymal volume loss. 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 No evidence of enhancing intracranial metastatic disease. The left mastoid air cells are well aerated. Opacification right mastoid air cells and middle ear. Mild mucosal thickening along the ethmoid air cells. Previously described thin curvilinear soft tissue along the right medial orbit deep to the medial rectus is unchanged since her MRI September 08, [address] of the head August 15, 2019. This is nonspecific but could be related to orbital pseudotumor, neoplasm or prior surgery. She also had CT of the neck on 02/29/2020 with contrast. There is postoperative changes in the right parotidectomy. No evidence of recurrent residual disease in the right neck. Cluster of slightly prominent enhancing lymph nodes left submandibular and jugulodigastric gastric measuring 6 to 7 mm in short axis dimension. These appear stable compared to September 08, 2019. Recommend interval follow-up with PET/CT. Otherwise no cervical lymphadenopathy. Stable postoperative changes right neck. Opacification right mastoid air cells and middle ear. No evidence of supraglottic or glottic mass. As of February 15, 2020 Mrs. Nair had started her third cycle of chemotherapy unfortunately day 8 was held due to neutropenia. Her ANC at that time was 800. She was given 2 days of Neupogen and recovered well. She has required continued growth factor support with her chemotherapy due to persistent chemotherapy induced neutropenia. The growth factors has been necessary to keep her treatment plan on schedule. PET/CT from May 30, 2020 shows excellent response per Dr Walters's notes. She continues with chemotherapy as she does still have residual disease but dramatically improved. Dr Walters did refer her to ophthalmology for right eye evaluation to see any role of palliative surgery which can improve her vision or salvage her right eye. Plan: 1. Proceed with cycle 7-day 8 cisplatin vinorelbine. 2. Continue aggressive antiemetics due to high risk regimen 3. Continue Neupogen support as her ANC today is 2160. She will do 2 doses in between treatments. 4. Today's labs were reviewed in detail and discussed with Ms. Nair and a copy was given to her WBC 3.7, hemoglobin 10.3, platelets 231,000 ANC is 2160. Potassium 4.1, creatinine 0.6 random glucose 102 LFTs were normal. 5. Mrs. Nair does have an appoint with Dr. Ignacio in ophthalmology later today. She will keep this appointment per her statement. 6. She will have weekly interim counts and we will see her back in 2 weeks for cycle 8-day 1 chemotherapy consideration. 7. Mrs. Nair was instructed to contact us in the interim should questions or problems arise. Signed By: Harper Vick-, [facility] Fercho Wheatley MD <<Signature on File>>
[2020-06-19 14:17] LABS: Eosinophils # 0.1 10^3/uL (0.0-0.8); Eosinophils % 4.3 %; Hematocrit 28.4 % (37.0-47.0); Hemoglobin 8.9 g/dL (11.5-15.3); Lymphocytes # 1.5 10^3/uL (0.8-4.8); Lymphocytes % 56.2 %; Mean Corpuscular HGB Conc 31.3 g/dL (30.0-36.0); Mean Corpuscular Hemoglobin 25.6 pg (28.0-34.0); Mean Corpuscular Volume 81.8 fL (81-99); Mean Platelet Volume 9.9 fL (7.4-10.4); Monocytes # 0.3 10^3/uL (0.2-0.9); Monocytes % 13.2 %; Neutrophils % 25.9 %; Nucleated Red Blood Cells % 0 %; Platelet Count 214 10^3/cmm (130-400); Red Blood Count 3.47 10^6/uL (4.1-5.3); Red Cell Distribution Width 17.7 % (12.1-15.1); White Blood Count 2.6 10^3/uL (4.0-10.0)
[2020-06-19 14:23] LABS: Neutrophils # 0.67 10^3/uL (1.8-7.7)
== END 2020-06-24 23:59 | disposition home or self-care (01) ==
LOC: ONCMED 05:35
PROVIDERS: Internal Medicine Hematology & Oncology; PCP Family Medicine; Referring Provider Otolaryngology; Visit Provider Nurse Practitioner
DX: Z51.11 Encounter for antineoplastic chemotherapy (principal); C07 Malignant neoplasm of parotid gland; C79.49 Secondary malignant neoplasm of other parts of nervous system; C78.39 Secondary malignant neoplasm of other respiratory organs; D70.1 Agranulocytosis secondary to cancer chemotherapy; T45.1X5A Adverse effect of antineoplastic and immunosuppressive drugs, initial encounter; T82.9XXA Unspecified complication of cardiac and vascular prosthetic device, implant and graft, initial encounter; Y82.9 Unspecified medical devices associated with adverse incidents; G89.3 Neoplasm related pain (acute) (chronic); J45.909 Unspecified asthma, uncomplicated; K21.9 Gastro-esophageal reflux disease without esophagitis; I10 Essential (primary) hypertension; M19.90 Unspecified osteoarthritis, unspecified site; F17.210 Nicotine dependence, cigarettes, uncomplicated; F41.9 Anxiety disorder, unspecified; Z79.51 Long term (current) use of inhaled steroids; Z79.891 Long term (current) use of opiate analgesic; Z92.3 Personal history of irradiation
CPT/HCPCS: 36415; 36591; 36593; 80053; 85025; 96367; 96372; 96374; 96375; 96413; 96417; 99214; J1100; J1442; J1453; J1940; J2469; J2997; J3475; J3480; J7030; J7040; J7050; J9060; J9390

== ENCOUNTER 2020-07-24 05:09 | Outpatient (RCR) | payer MEDICARE, MEDICAID, SELFPAY ==
[2020-06-26] MEDS: sodium chloride 0.9% 250 ML 50 ML IV (09:15)
[2020-06-26 10:12] LABS: Hematocrit 31.1 % (37.0-47.0); Hemoglobin 9.3 g/dL (11.5-15.3); Mean Corpuscular HGB Conc 29.9 g/dL (30.0-36.0); Mean Corpuscular Hemoglobin 25.3 pg (28.0-34.0); Mean Corpuscular Volume 84.7 fL (81-99); Mean Platelet Volume 9.9 fL (7.4-10.4); Platelet Count 292 10^3/cmm (130-400); Red Blood Count 3.67 10^6/uL (4.1-5.3); Red Cell Distribution Width 18.5 % (12.1-15.1); White Blood Count 3.2 10^3/uL (4.0-10.0)
[2020-06-26 10:17] LABS: Alanine Aminotransferase 10 U/L (0-33); Albumin Level 3.9 g/dL (3.5-5.2); Alkaline Phosphatase 86 IU/L (35-105); Anion Gap 10.7 (5-19); Aspartate Amino Transferase 13 U/L (0-32); Blood Urea Nitrogen 10 mg/dL (8-23); Carbon Dioxide 29 mmol/L (22-29); Chloride 100 mmol/L (98-107); Globulin 2.2 g/dL (1.3-4.6); Glomerular Filtration Rate 85.4 mL/min (90-130); Glucose 140 mg/dL (65-115); Osmolality Calculated 283 mOsm/kg (285-295); Potassium 3.7 mmol/L (3.5-5.1); Sodium 136 mmol/L (136-145); Total Bilirubin 0.2 mg/dL (0.15-1.2); Total Protein 6.1 g/dL (6.6-8.7)
[2020-06-26 10:32] LABS: Slide Review Slide Review Perform
[2020-06-26 10:37] LABS: Absolute Eosinophils 0.3 10^3/cmm (0.0-0.7); Absolute Segmented Neutrophil 0.9 10/cmm (1.6-7.1); Band Neutrophils Absolute 0.2 10^3/cmm (0.0-1.2); Eosinophils 10 %; Lymphocytes 48 %; Monocytes Absolute 0.3 10^3/cmm (0.1-0.6); Segmented Neutrophils 29 %; Total Cells Counted 100 (0-100)
[2020-06-26 10:38] LABS: Absolute Neutrophil 1.1 10^3/cmm (1.4-6.5); Anisocytosis 1+; Giant Platelets Trace; Microcytosis Trace; Ovalocytes Trace; Platelet Estimate Normal (Normal); Poikilocytosis 1+
--- NOTE | 2020-06-26 16:08 | ONC FU_ITS ---
Dr. Walters follow up note Patient: Alia Nair Unit #: [id number]: 1960 Dicatated By: Milton Walters M.D.Date of Visit:Jun 26, 2020 Onc Med Follow-up/Prog Note History of Present Illness: Mrs. Rivera is a 60 -year-old female with history of adenoid cystic carcinoma right parotid gland. She is status post partial parotidectomy with facial nerve monitoring followed by reconstruction of the soft tissue defect with pedicled into oral buccal flap. The final pathology confirmed T2, MX lesion with positive surgical margins. Mrs Nair was referred to radiation oncology, as per patient she underwent radiation therapy here in [facility]. Since then she has been followed by ENT and with no evidence of disease until recently started having a right eye problem. MRI scan of the neck done on 09/08/2019 showed widespread neural spread of tumor into the right orbit right cavernous sinus, precision filer hand space, pterygopalatine fossa and probably right facial nerve. Her case was discussed in multidisciplinary head and neck tumor conference in [place] by her ENT physician there. Treatment options including treating skull base involved area to palliate symptoms (IMRT or SRS). Or perhaps consider proton beam IM RT. She was referred to radiation oncology here in [place] and she was also referred to palliative care clinic for pain management. Mrs Nair was also encouraged to see medical oncology for palliative systemic therapy. Mrs Nair has seen radiation oncology and as per patient she was told there is no plan for further radiation therapy considering the risk versus benefits, especially due to prior radiation therapy to same area. 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 did offer her treatment with Cisplatin and vinorelbine. She began her first cycle on 01/03/2020. Long-standing history of smoking and is still active. Her pain (right eye and right side of her face) is under control with current pain medication., right facial swelling improved; no more headache and can also breathe through right nostril. Overall, she is pleased with response to the chemotherapy. She had CT of the head on 02/29/2020 with and without contrast. There is no evidence of intracranial hemorrhage or mass-effect. Ventricular system and basal cisterns are patent. Mild small vessel changes. Mild parenchymal volume loss. 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 No evidence of enhancing intracranial metastatic disease. The left mastoid air cells are well aerated. Opacification right mastoid air cells and middle ear. Mild mucosal thickening along the ethmoid air cells. Previously described thin curvilinear soft tissue along the right medial orbit deep to the medial rectus is unchanged since her MRI September 08, [address] of the head August 15, 2019. This is nonspecific but could be related to orbital pseudotumor, neoplasm or prior surgery. She also had CT of the neck on 02/29/2020 with contrast. There is postoperative changes in the right parotidectomy. No evidence of recurrent residual disease in the right neck. Cluster of slightly prominent enhancing lymph nodes left submandibular and jugulodigastric gastric measuring 6 to 7 mm in short axis dimension. These appear stable compared to September 08, 2019. Otherwise no cervical lymphadenopathy. Stable postoperative changes right neck. Opacification right mastoid air cells and middle ear. No evidence of supraglottic or glottic mass. As of February 15, 2020 Mrs. Nair had started her third cycle of chemotherapy unfortunately day 8 was held due to neutropenia. Her ANC at that time was 800. She has required growth factor support through her treatment.Follow-up CT PET scan done on May 30, 2020 showed focal increased metabolic activity is present in the left posterior palate. A single left level 2 lymph node size 0.6 cm, demonstrated increased metabolic activity. No evidence of metabolic activity disease in the right face or involving orbit or previous tumor location. New, compared to CT PET scan done in February 2019, subcentimeter left lung nodular findings size about 0.7 cm and 0.6 cm may reflect early metastatic disease.But compared to CT scan of head and neck prior to the treatment showed excellent response Came for follow-up, denies any specific complaints, no fever chills, no nausea or vomiting, no diarrhea constipation, patient said she has seen ophthalmology and recently underwent a right lid closure to prevent further damage to the eyeball or minimize risk of infections., Tolerating systemic therapy with cisplatin/Navelbine well Medications: Albuterol Sulfate HFA 2 puff(s) (of 108 (90 Base) mcg/act) Aerosol, solution Inhalation q 6 hours PRN, ALPRAZolam 1 Tablet (of 1 mg) Oral t.i.d. PRN, Deep Sea Nasal [place] 1 (0.65 %) Solution Nasal q 2 hours, Effexor XR 1 Capsule (of 37.5 mg) Capsule SR 24 HR Oral daily, Furosemide 1 Tablet (of 20 mg) Oral PRN, Lyrica 1 Capsule (of 100 mg) Oral t.i.d., Morphine Sulfate 1 Tablet (of 30 mg) Oral t.i.d., OxyCODONE HCl 1 Tablet (of 20 mg) Oral q 4 to 6 hours PRN Allergies: Aleve Review of Systems: Review of Systems is not available for this patient. Vital Signs: Performed on Jun 26, 2020 10:48 Height - 60.00 in Weight - 157.4 lbs (HIGH) BSA - 1.69 sq.m BMI - 30.74 (HIGH) Temperature - 97.2 F (LOW) Pulse - 90 /min Respiration - 18 /min BP - 144/80 mm(hg) (HIGH) O2 Sat - 97 % Pain - 4 Performance Status: 1 - No physically strenuous activity, but ambulatory and able to carry out light or sedentary work (e.g. office work, light house work). (ECOG) Physical Examination: ENMT - No mouth sores, no thrush, status post right eyelid closure, Respiratory - Lungs are clear to auscultation, Cardiovascular - Regular rate and rhythm of heart, Abdomen - Soft, bowel sounds present, Extremities - No visible edema. Lab/Imaging: Test performed on Jun 26, 2020 09:27 Sodium 136 mmol/L Potassium 3.7 mmol/L Chloride 100 mmol/L CO2 29 mmol/L Anion Gap 10.7 BUN 10 mg/dL Creatinine 0.7 mg/dL Cr Clearance (Est) 91.5600 mL/min eGFR 85.4 mL/min Glucose 140 mg/dL Osmolality - Calculated 283 mOsm/kg Calcium 9.0 mg/dL Protein, Total 6.1 g/dL Albumin 3.9 g/dL Globulin 2.2 g/dL Bilirubin, Total 0.2 mg/dL ALT (SGPT) 10 U/L AST (SGOT) 13 U/L Alkaline Phosphatase 86 IU/L WBC 3.2 10 3/uL Manual Segs % 29 % Manual Bands % 5.0 % RBC 3.67 10 6/uL HGB 9.3 g/dL Manual Lymphs % 48 % Atypical Lymphs % 0.0 % HCT 31.1 % MCV 84.7 fL Total Cells Counted 100 Manual Monos % 8.0 % MCH 25.3 pg Manual Eos % 10 % MCHC 29.9 g/dL Manual Basos % 0.0 % RDW 18.5 % Platelet Count 292 10 3/cmm MPV 9.9 fL CBC Slide Review Slide Review Perform Anisocytosis 1+ Microcytosis Trace Poikilocytosis 1+ Ovalocytes Trace Platelet Estimate Normal Platelets, Giant Trace Manual Segs Abs 0.9 10/cmm Manual Bands Abs 0.2 10 3/cmm Manual Neutrophils Abs 1.1 10 3/cmm Manual Monocytes Abs 0.3 10 3/cmm Manual Eosinophils Abs 0.3 10 3/cmm Manual Basophils Abs 0.0 10 3/cmm Test performed on Jun 19, 2020 13:58 Neutrophils 0.67 10 3/uL Lymphocytes 1.5 10 3/uL Monocytes 0.3 10 3/uL Eosinophils 0.1 10 3/uL Basophils 0.0 10 3/uL Neutrophil % 25.9 % Lymphocyte % 56.2 % Monocyte % 13.2 % Eosinophil % 4.3 % Basophils % 0.0 % NRBC % 0 % Test performed on Feb 14, 2020 10:33 Metamyelocytes % 8.0 % Myelocytes % 4.0 % Manual Lymphocytes Abs 3.4 10 3/cmm Test performed on Feb 10, 2020 10:22 Promyelocytes % 5.0 % Impression: Recent adenoid cystic carcinoma peripheral gland with cranial nerve involvement/right skull base involvement. MRI scan done on 09/08/2019 showed widespread spread of tumor into right orbit, right cavernous sinus, precision filer hand space, pterygopalatine fossa and right facial nerve. Now with right facial nerve paralysis, facial asymmetry. History of adenoid cystic carcinoma right excessive peripheral gland status post partial pericardiectomy with facial nerve monitoring followed by reconstruction for T2 Nx with possible surgical margin lesion, followed by radiation therapy. Chronic smoking Anxiety disorder Clinically, patient has been doing reasonably well, in [id number] distress due to right facial pain and right eye visual disturbance. Mrs Rivera was referred to radiation oncology for palliative radiation therapy. Unfortunately, she is not a candidate for further radiation therapy due to involved risk due to history of prior radiation therapy to same area. A request was sent to pathology regarding next generation sequencing especially NTRK gene analysis but we were told, specimen is not available for evaluation. The role of palliative chemotherapy with cisplatin/Navelbine was discussed as literature has shown overall responsibilities about 44% and with 38% one year survival. did offer her treatment with cisplatin and Navelbine. Her current treatment plan is to give her chemotherapy with split dose of cisplatin/Navelbine on day 1 and 8 and repeat cycle every 21 days. She began her first dose on 01/03/2020. She has tolerated treatment well thus far. She had CT of the head on 02/29/2020 with and without contrast. There is no evidence of intracranial hemorrhage or mass-effect. Ventricular system and basal cisterns are patent. Mild small vessel changes. Mild parenchymal volume loss. 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 No evidence of enhancing intracranial metastatic disease. The left mastoid air cells are well aerated. Opacification right mastoid air cells and middle ear. Mild mucosal thickening along the ethmoid air cells. Previously described thin curvilinear soft tissue along the right medial orbit deep to the medial rectus is unchanged since her MRI September 08, [address] of the head August 15, 2019. This is nonspecific but could be related to orbital pseudotumor, neoplasm or prior surgery. She also had CT of the neck on 02/29/2020 with contrast. There is postoperative changes in the right parotidectomy. No evidence of recurrent residual disease in the right neck. Cluster of slightly prominent enhancing lymph nodes left submandibular and jugulodigastric gastric measuring 6 to 7 mm in short axis dimension. These appear stable compared to September 08, 2019. Recommend interval follow-up with PET/CT. Otherwise no cervical lymphadenopathy. Stable postoperative changes right neck. Opacification right mastoid air cells and middle ear. No evidence of supraglottic or glottic mass. As of February 15, 2020 Mrs. Nair had started her third cycle of chemotherapy unfortunately day 8 was held due to neutropenia. Her ANC at that time was 800. She was given 2 days of Neupogen and recovered well. She has required continued growth factor support with her chemotherapy due to persistent chemotherapy induced neutropenia. The growth factors has been necessary to keep her treatment plan on schedule. PET/CT from May 30, 2020 shows excellent response When compared with CT scan of head and neck prior to the initiation of palliative chemotherapy with cisplatin/Navelbine. She continues with chemotherapy as she does still have residual disease but dramatically improved. did refer her to ophthalmology for right eye evaluation to see any role of palliative surgery which can improve her vision or salvage her right eye. Plan: Discussed with patient regarding her labs white blood count 3.2 hemoglobin 9.3 hematocrit 31.1 platelets 292,000 ANC 1100 CMP within normal limit Clinically, patient is doing reasonably well, tolerating palliative chemotherapy with cisplatin/Navelbine well but with expected side effect e.g. progressive/persistent leukopenia/neutropenia now causing delay in her treatment, at this point will proceed with Neupogen 480 mcg subcu today and then tomorrow and repeat CBC on Friday if improved will consider next cycle of chemotherapy and because of progressive/persistent neutropenia/leukopenia causing delay in her chemotherapy, will consider Neulasta after day 8 chemotherapy, to prevent chemotherapy-induced persistent/progressive neutropenia as well as to maintain chemotherapy schedule Patient return to clinic on Friday, June 28, 2020 with CBC if it shows resolution of neutropenia/leukopenia will consider next cycle of chemotherapy with cisplatin/Navelbine Signed By: Milton Walters M.D. <<Signature on File>>
[2020-06-28 11:45] LABS: Basophils # 0.1 10^3/uL (0.0-0.1); Basophils % 0.1 %; Eosinophils # 0.4 10^3/uL (0.0-0.8); Eosinophils % 0.8 %; Hematocrit 31.1 % (37.0-47.0); Hemoglobin 9.5 g/dL (11.5-15.3); Lymphocytes # 2.7 10^3/uL (0.8-4.8); Lymphocytes % 5.6 %; Mean Corpuscular HGB Conc 30.5 g/dL (30.0-36.0); Mean Corpuscular Hemoglobin 25.8 pg (28.0-34.0); Mean Corpuscular Volume 84.5 fL (81-99); Mean Platelet Volume 9.3 fL (7.4-10.4); Monocytes # 1.3 10^3/uL (0.2-0.9); Monocytes % 2.8 %; Neutrophils # 40.32 10^3/uL (1.8-7.7); Neutrophils % 84.6 %; Nucleated Red Blood Cells % 0 %; Platelet Count 295 10^3/cmm (130-400); Red Blood Count 3.68 10^6/uL (4.1-5.3); Red Cell Distribution Width 19.4 % (12.1-15.1)
[2020-06-28 12:16] LABS: Alanine Aminotransferase 10 U/L (0-33); Albumin Level 4.1 g/dL (3.5-5.2); Alkaline Phosphatase 133 IU/L (35-105); Aspartate Amino Transferase 15 U/L (0-32); Blood Urea Nitrogen 7 mg/dL (8-23); Carbon Dioxide 32 mmol/L (22-29); Chloride 96 mmol/L (98-107); Globulin 2.2 g/dL (1.3-4.6); Glomerular Filtration Rate 56.6 mL/min (90-130); Glucose 152 mg/dL (65-115); Osmolality Calculated 283 mOsm/kg (285-295); Sodium 136 mmol/L (136-145); Total Bilirubin 0.2 mg/dL (0.15-1.2); Total Protein 6.3 g/dL (6.6-8.7)
[2020-06-28 12:34] LABS: Slide Review Slide Review Perform; White Blood Count 47.7 10^3/uL (4.0-10.0)
[2020-06-28] MEDS: sodium chlor 0.9% + KCl 20 mEq 20 MEQ/1,000 ML BAG 800 MEQ IV (13:00)
[2020-06-28] MEDS: sodium chloride 0.9% 250 ML 75 ML IV (13:05)
[2020-06-28] MEDS: FUROsemide 10 mg/mL SDV 2mL 20 MG IV (15:00)
[2020-07-04 08:58] LABS: Basophils % 1.6 %; Eosinophils # 0.1 10^3/uL (0.0-0.8); Eosinophils % 3.6 %; Hematocrit 33.9 % (37.0-47.0); Hemoglobin 10.6 g/dL (11.5-15.3); Lymphocytes % 52.3 %; Mean Corpuscular HGB Conc 31.3 g/dL (30.0-36.0); Mean Corpuscular Hemoglobin 25.4 pg (28.0-34.0); Mean Corpuscular Volume 81.1 fL (81-99); Mean Platelet Volume 10.1 fL (7.4-10.4); Monocytes # 0.2 10^3/uL (0.2-0.9); Monocytes % 7.8 %; Neutrophils % 32.6 %; Nucleated Red Blood Cells % 0 %; Platelet Count 200 10^3/cmm (130-400); Red Blood Count 4.18 10^6/uL (4.1-5.3); Red Cell Distribution Width 17.4 % (12.1-15.1); White Blood Count 1.9 10^3/uL (4.0-10.0)
[2020-07-04 09:15] LABS: Alanine Aminotransferase 12 U/L (0-33); Alkaline Phosphatase 93 IU/L (35-105); Anion Gap 12.2 (5-19); Aspartate Amino Transferase 14 U/L (0-32); Blood Urea Nitrogen 16 mg/dL (8-23); Calcium 9.2 mg/dL (8.5-10.5); Carbon Dioxide 28 mmol/L (22-29); Chloride 101 mmol/L (98-107); Globulin 2.4 g/dL (1.3-4.6); Glucose 115 mg/dL (65-115); Osmolality Calculated 286 mOsm/kg (285-295); Potassium 4.2 mmol/L (3.5-5.1); Sodium 137 mmol/L (136-145); Total Bilirubin 0.2 mg/dL (0.15-1.2); Total Protein 6.4 g/dL (6.6-8.7)
[2020-07-04 10:15] LABS: Neutrophils # 0.63 10^3/uL (1.8-7.7); Slide Review Slide Review Perform
--- NOTE | 2020-07-04 16:52 | ONC FU_ITS ---
Dr. Walters follow up note Patient: Alia Nair Unit #: [id number]: 1960 Dicatated By: Milton Walters M.D.Date of Visit:Jul 04, 2020 Onc Med Follow-up/Prog Note History of Present Illness: Mrs. Rivera is a 60 -year-old female with history of adenoid cystic carcinoma right parotid gland. She is status post partial parotidectomy with facial nerve monitoring followed by reconstruction of the soft tissue defect with pedicled into oral buccal flap. The final pathology confirmed T2, MX lesion with positive surgical margins. Mrs Nair was referred to radiation oncology, as per patient she underwent radiation therapy here in [facility]. Since then she has been followed by ENT and with no evidence of disease until recently started having a right eye problem. MRI scan of the neck done on 09/08/2019 showed widespread neural spread of tumor into the right orbit right cavernous sinus, secretary of state space, pterygopalatine fossa and probably right facial nerve. Her case was discussed in multidisciplinary head and neck tumor conference in [place] by her ENT physician there. Treatment options including treating skull base involved area to palliate symptoms (IMRT or SRS). Or perhaps consider proton beam IM RT. She was referred to radiation oncology here in [place] and she was also referred to palliative care clinic for pain management. Mrs Nair was also encouraged to see medical oncology for palliative systemic therapy. Mrs Nair has seen radiation oncology and as per patient she was told there is no plan for further radiation therapy considering the risk versus benefits, especially due to prior radiation therapy to same area. 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 did offer her treatment with Cisplatin and vinorelbine. She began her first cycle on 01/03/2020. Long-standing history of smoking and is still active. Her pain (right eye and right side of her face) is under control with current pain medication., right facial swelling improved; no more headache and can also breathe through right nostril. Overall, she is pleased with response to the chemotherapy. She had CT of the head on 02/29/2020 with and without contrast. There is no evidence of intracranial hemorrhage or mass-effect. Ventricular system and basal cisterns are patent. Mild small vessel changes. Mild parenchymal volume loss. 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 No evidence of enhancing intracranial metastatic disease. The left mastoid air cells are well aerated. Opacification right mastoid air cells and middle ear. Mild mucosal thickening along the ethmoid air cells. Previously described thin curvilinear soft tissue along the right medial orbit deep to the medial rectus is unchanged since her MRI September 08, [address] of the head August 15, 2019. This is nonspecific but could be related to orbital pseudotumor, neoplasm or prior surgery. She also had CT of the neck on 02/29/2020 with contrast. There is postoperative changes in the right parotidectomy. No evidence of recurrent residual disease in the right neck. Cluster of slightly prominent enhancing lymph nodes left submandibular and jugulodigastric gastric measuring 6 to 7 mm in short axis dimension. These appear stable compared to September 08, 2019. Otherwise no cervical lymphadenopathy. Stable postoperative changes right neck. Opacification right mastoid air cells and middle ear. No evidence of supraglottic or glottic mass. As of February 15, 2020 Mrs. Nair had started her third cycle of chemotherapy unfortunately day 8 was held due to neutropenia. Her ANC at that time was 800. She has required growth factor support through her treatment.Follow-up CT PET scan done on May 30, 2020 showed focal increased metabolic activity is present in the left posterior palate. A single left level 2 lymph node size 0.6 cm, demonstrated increased metabolic activity. No evidence of metabolic activity disease in the right face or involving orbit or previous tumor location. New, compared to CT PET scan done in February 2019, subcentimeter left lung nodular findings size about 0.7 cm and 0.6 cm may reflect early metastatic disease.But compared to CT scan of head and neck prior to the treatment showed excellent response Tolerating systemic therapy with cisplatin/Navelbine well Came for follow-up, complaining generalized weakness and fatigue but no nausea or vomiting no fever chills, no diarrhea constipation, tolerating palliative therapy with weekly cisplatin/Navelbine well otherwise Medications: Albuterol Sulfate HFA 2 puff(s) (of 108 (90 Base) mcg/act) Aerosol, solution Inhalation q 6 hours PRN, ALPRAZolam 1 Tablet (of 1 mg) Oral t.i.d. PRN, Deep Sea Nasal Mcdougal 1 (0.65 %) Solution Nasal q 2 hours, Effexor XR 1 Capsule (of 37.5 mg) Capsule SR 24 HR Oral daily, Furosemide 1 Tablet (of 20 mg) Oral PRN, Lyrica 1 Capsule (of 100 mg) Oral t.i.d., Morphine Sulfate 1 Tablet (of 30 mg) Oral t.i.d., OxyCODONE HCl 1 Tablet (of 20 mg) Oral q 4 to 6 hours PRN Allergies: Aleve Review of Systems: Constitutional - Appetite is good and weight is stable. No fever, chills, hot flashes, or night sweats. Energy level is good, ENMT - No sinus congestion/drainage. No mouth sores. No sore throat or difficulty swallowing, Hematologic/Lymphatic - No abnormal bruising or bleeding, Respiratory - No shortness of breath. No cough. No pleuritic pain or hemoptysis, Cardiovascular - No angina pain. No palpitations, Gastrointestinal - No nausea or vomiting. Positive for heartburn, no acid reflux. No diarrhea or constipation. No blood in the stool or black stools, Genitourinary (F) - No dysuria or hematuria. No urinary frequency. No urgency or incontinence, Musculoskeletal - No joint or bone pain, Neurologic - No headache or dizziness. No numbness/paresthesias or other focal neurologic symptoms, Psychiatric - No anxiety or depression. No insomnia. Vital Signs: Performed on Jul 04, 2020 10:18 Height - 60.00 in Weight - 151.8 lbs (LOW) BSA - 1.66 sq.m BMI - 29.65 Temperature - 98.6 F Pulse - 85 /min Respiration - 18 /min BP - 116/75 mm(hg) O2 Sat - 97 % Pain - 2 Performance Status: 1 - No physically strenuous activity, but ambulatory and able to carry out light or sedentary work (e.g. office work, light house work). (ECOG) Physical Examination: ENMT - No mouth sores, no thrush, no jaundice, Respiratory - Lungs are clear to auscultation, Cardiovascular - Regular rate and rhythm of heart, Abdomen - Soft, bowel sounds present, Extremities - No visible edema. Lab/Imaging: Test performed on Jun 28, 2020 11:27 Sodium 136 mmol/L Potassium 4.0 mmol/L Chloride 96 mmol/L CO2 32 mmol/L Anion Gap 12.0 BUN 7 mg/dL Creatinine 1.0 mg/dL Cr Clearance (Est) 64.0900 mL/min eGFR 56.6 mL/min Glucose 152 mg/dL Osmolality - Calculated 283 mOsm/kg Calcium 9.0 mg/dL Protein, Total 6.3 g/dL Albumin 4.1 g/dL Globulin 2.2 g/dL Bilirubin, Total 0.2 mg/dL ALT (SGPT) 10 U/L AST (SGOT) 15 U/L Alkaline Phosphatase 133 IU/L WBC 47.7 10 3/uL RBC 3.68 10 6/uL HGB 9.5 g/dL HCT 31.1 % MCV 84.5 fL MCH 25.8 pg MCHC 30.5 g/dL RDW 19.4 % Platelet Count 295 10 3/cmm MPV 9.3 fL Neutrophils 40.32 10 3/uL Lymphocytes 2.7 10 3/uL Monocytes 1.3 10 3/uL Eosinophils 0.4 10 3/uL Basophils 0.1 10 3/uL Neutrophil % 84.6 % Lymphocyte % 5.6 % Monocyte % 2.8 % Eosinophil % 0.8 % Basophils % 0.1 % NRBC % 0 % CBC Slide Review Slide Review Perform Test performed on Jun 28, 2020 00:00 Manual Diff Cancelled via OM: Cancelled in Connected System Test performed on Jun 26, 2020 09:27 Manual Segs % 29 % Manual Bands % 5.0 % Manual Lymphs % 48 % Atypical Lymphs % 0.0 % Total Cells Counted 100 Manual Monos % 8.0 % Manual Eos % 10 % Manual Basos % 0.0 % Anisocytosis 1+ Microcytosis Trace Poikilocytosis 1+ Ovalocytes Trace Platelet Estimate Normal Platelets, Giant Trace Manual Segs Abs 0.9 10/cmm Manual Bands Abs 0.2 10 3/cmm Manual Neutrophils Abs 1.1 10 3/cmm Manual Monocytes Abs 0.3 10 3/cmm Manual Eosinophils Abs 0.3 10 3/cmm Manual Basophils Abs 0.0 10 3/cmm Test performed on Feb 14, 2020 10:33 Metamyelocytes % 8.0 % Myelocytes % 4.0 % Manual Lymphocytes Abs 3.4 10 3/cmm Test performed on Feb 10, 2020 10:22 Promyelocytes % 5.0 % Impression: Recent adenoid cystic carcinoma peripheral gland with cranial nerve involvement/right skull base involvement. MRI scan done on 09/08/2019 showed widespread spread of tumor into right orbit, right cavernous sinus, secretary of state space, pterygopalatine fossa and right facial nerve. Now with right facial nerve paralysis, facial asymmetry. History of adenoid cystic carcinoma right excessive peripheral gland status post partial pericardiectomy with facial nerve monitoring followed by reconstruction for T2 Nx with possible surgical margin lesion, followed by radiation therapy. Chronic smoking Anxiety disorder Clinically, patient has been doing reasonably well, in [id number] distress due to right facial pain and right eye visual disturbance. Mrs Rivera was referred to radiation oncology for palliative radiation therapy. Unfortunately, she is not a candidate for further radiation therapy due to involved risk due to history of prior radiation therapy to same area. A request was sent to pathology regarding next generation sequencing especially NTRK gene analysis but we were told, specimen is not available for evaluation. The role of palliative chemotherapy with cisplatin/Navelbine was discussed as literature has shown overall responsibilities about 44% and with 38% one year survival. did offer her treatment with cisplatin and Navelbine. Her current treatment plan is to give her chemotherapy with split dose of cisplatin/Navelbine on day 1 and 8 and repeat cycle every 21 days. She began her first dose on 01/03/2020. She has tolerated treatment well thus far. She had CT of the head on 02/29/2020 with and without contrast. There is no evidence of intracranial hemorrhage or mass-effect. Ventricular system and basal cisterns are patent. Mild small vessel changes. Mild parenchymal volume loss. 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 No evidence of enhancing intracranial metastatic disease. The left mastoid air cells are well aerated. Opacification right mastoid air cells and middle ear. Mild mucosal thickening along the ethmoid air cells. Previously described thin curvilinear soft tissue along the right medial orbit deep to the medial rectus is unchanged since her MRI September 08, [address] of the head August 15, 2019. This is nonspecific but could be related to orbital pseudotumor, neoplasm or prior surgery. She also had CT of the neck on 02/29/2020 with contrast. There is postoperative changes in the right parotidectomy. No evidence of recurrent residual disease in the right neck. Cluster of slightly prominent enhancing lymph nodes left submandibular and jugulodigastric gastric measuring 6 to 7 mm in short axis dimension. These appear stable compared to September 08, 2019. Recommend interval follow-up with PET/CT. Otherwise no cervical lymphadenopathy. Stable postoperative changes right neck. Opacification right mastoid air cells and middle ear. No evidence of supraglottic or glottic mass. As of February 15, 2020 Mrs. Nair had started her third cycle of chemotherapy unfortunately day 8 was held due to neutropenia. Her ANC at that time was 800. She was given 2 days of Neupogen and recovered well. She has required continued growth factor support with her chemotherapy due to persistent chemotherapy induced neutropenia. The growth factors has been necessary to keep her treatment plan on schedule. PET/CT from May 30, 2020 shows excellent response When compared with CT scan of head and neck prior to the initiation of palliative chemotherapy with cisplatin/Navelbine. She continues with chemotherapy as she does still have residual disease but dramatically improved. Plan: Discussed with patient regarding her labs white blood count 1.9 hemoglobin 10.6 hematocrit 33.9 platelets 200,000 ANC 630 Clinically, patient is doing reasonably well, tolerating palliative therapy with cisplatin/Navelbine well her follow-up labs shows severe neutropenia/leukopenia, will hold her next dose of chemotherapy with cisplatin/Navelbine and consider Neupogen 480 mg subcu today and for next 3 days and return to clinic on Friday with CBC CMP if count looks reasonable, consider next cycle of chemotherapy. Signed By: Milton Walters M.D. <<Signature on File>>
[2020-07-10] MEDS: alteplase 1 mg/mL SDV 2 mL 2 MG IV (09:05)
[2020-07-10 09:23] LABS: Basophils % 0.3 %; Eosinophils # 0.3 10^3/uL (0.0-0.8); Eosinophils % 3.4 %; Hematocrit 33.2 % (37.0-47.0); Lymphocytes # 2.9 10^3/uL (0.8-4.8); Lymphocytes % 31.8 %; Mean Corpuscular HGB Conc 30.1 g/dL (30.0-36.0); Mean Corpuscular Hemoglobin 25.4 pg (28.0-34.0); Mean Corpuscular Volume 84.3 fL (81-99); Mean Platelet Volume 9.8 fL (7.4-10.4); Monocytes # 1.7 10^3/uL (0.2-0.9); Monocytes % 18.2 %; Nucleated Red Blood Cells # 0.1 /100WBC; Platelet Count 244 10^3/cmm (130-400); Red Blood Count 3.94 10^6/uL (4.1-5.3); Red Cell Distribution Width 18.8 % (12.1-15.1); White Blood Count 9.1 10^3/uL (4.0-10.0)
[2020-07-10 09:26] LABS: Neutrophils % 45.5 %
[2020-07-10 09:40] LABS: Alanine Aminotransferase 16 U/L (0-33); Albumin Level 4.2 g/dL (3.5-5.2); Alkaline Phosphatase 108 IU/L (35-105); Anion Gap 14.5 (5-19); Aspartate Amino Transferase 19 U/L (0-32); Blood Urea Nitrogen 8 mg/dL (8-23); Calcium 8.7 mg/dL (8.5-10.5); Carbon Dioxide 28 mmol/L (22-29); Chloride 99 mmol/L (98-107); Globulin 2.2 g/dL (1.3-4.6); Glomerular Filtration Rate 85.4 mL/min (90-130); Glucose 127 mg/dL (65-115); Osmolality Calculated 286 mOsm/kg (285-295); Potassium 3.5 mmol/L (3.5-5.1); Sodium 138 mmol/L (136-145); Total Bilirubin 0.2 mg/dL (0.15-1.2); Total Protein 6.4 g/dL (6.6-8.7)
[2020-07-10] MEDS: sodium chloride 0.9% 250 ML 75 ML IV (12:15)
[2020-07-10] MEDS: FUROsemide 10 mg/mL SDV 2mL 20 MG IV (14:50)
[2020-07-10] MEDS: sodium chlor 0.9% + KCl 20 mEq 20 MEQ/1,000 ML BAG 500 MEQ IV (14:55)
--- NOTE | 2020-07-14 11:58 | ONC FU_ITS ---
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 Nair is a 60 -year-old female with history of adenoid cystic carcinoma right parotid gland. She is status post partial parotidectomy with facial nerve monitoring followed by reconstruction of the soft tissue defect with pedicled into oral buccal flap. The final pathology confirmed T2, MX lesion with positive surgical margins. Mrs Nair was referred to radiation oncology, as per patient she underwent radiation therapy here in [facility]. Since then she has been followed by ENT and with no evidence of disease until recently started having a right eye problem. MRI scan of the neck done on 09/08/2019 showed widespread neural spread of tumor into the right orbit right cavernous sinus, vacuum pan operator space, pterygopalatine fossa and probably right facial nerve. Her case was discussed in multidisciplinary head and neck tumor conference in [place] by her ENT physician there. Treatment options including treating skull base involved area to palliate symptoms (IMRT or SRS). Or perhaps consider proton beam IM RT. She was referred to radiation oncology here in [place] and she was also referred to palliative care clinic for pain management. Mrs Nair was also encouraged to see medical oncology for palliative systemic therapy. Mrs Nair has seen radiation oncology and as per patient she was told there is no plan for further radiation therapy considering the risk versus benefits, especially due to prior radiation therapy to same area. 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 did offer her treatment with Cisplatin and vinorelbine. She began her first cycle on 01/03/2020. Long-standing history of smoking and is still active. Her pain (right eye and right side of her face) is under control with current pain medication., right facial swelling improved; no more headache and can also breathe through right nostril. Overall, she is pleased with response to the chemotherapy. She had CT of the head on 02/29/2020 with and without contrast. There is no evidence of intracranial hemorrhage or mass-effect. Ventricular system and basal cisterns are patent. Mild small vessel changes. Mild parenchymal volume loss. 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 No evidence of enhancing intracranial metastatic disease. The left mastoid air cells are well aerated. Opacification right mastoid air cells and middle ear. Mild mucosal thickening along the ethmoid air cells. Previously described thin curvilinear soft tissue along the right medial orbit deep to the medial rectus is unchanged since her MRI September 08, [address] of the head August 15, 2019. This is nonspecific but could be related to orbital pseudotumor, neoplasm or prior surgery. She also had CT of the neck on 02/29/2020 with contrast. There is postoperative changes in the right parotidectomy. No evidence of recurrent residual disease in the right neck. Cluster of slightly prominent enhancing lymph nodes left submandibular and jugulodigastric gastric measuring 6 to 7 mm in short axis dimension. These appear stable compared to September 08, 2019. Otherwise no cervical lymphadenopathy. Stable postoperative changes right neck. Opacification right mastoid air cells and middle ear. No evidence of supraglottic or glottic mass. As of February 15, 2020 Mrs. Nair had started her third cycle of chemotherapy unfortunately day 8 was held due to neutropenia. Her ANC at that time was 800. She has required growth factor support through her treatment.Follow-up CT PET scan done on May 30, 2020 showed focal increased metabolic activity is present in the left posterior palate. A single left level 2 lymph node size 0.6 cm, demonstrated increased metabolic activity. No evidence of metabolic activity disease in the right face or involving orbit or previous tumor location. New, compared to CT PET scan done in February 2019, subcentimeter left lung nodular findings size about 0.7 cm and 0.6 cm may reflect early metastatic disease.But compared to CT scan of head and neck prior to the treatment showed excellent response Tolerating systemic therapy with cisplatin/Navelbine well. Her last treatment was on 06/28/2020. She has had 4 doses of Neupogen in the interim. The Neupogen started on day 8 at which time her ANC was 630. After Neupogen support with cycle 7 her cycle 8-day 1 ANC was 40,000. She is here today for consideration of cycle 8-day 15 treatment. Her ANC has improved after the 4 doses of the Neupogen with the last Neupogen being given on 07/07/2020. Her ANC today is 2600. She states she feels good to. She is tolerating the Neupogen well thus far. Her vascular sluggish at times but so far she is been able to work that out with medications at home. Her ECOG is 1. Past Medical History: Asthma Gastroesophageal reflux Hypertension Rheumatoid arthritis Cancer (Adenoid Cystic Carcinoma of Right Parotid Gland) in 2014 Past Surgical History: Parotidectomy in 2014 Biopsy in 2004 - Growth on Right Cheek Knee Surgery in 1992 Tonsillectomy in 1973 Appendectomy in 1971 Allergies: Aleve Medications: Albuterol Sulfate HFA 2 puff(s) (of 108 (90 Base) mcg/act) Aerosol, solution Inhalation q 6 hours PRN ALPRAZolam 1 Tablet (of 1 mg) Oral t.i.d. PRN Deep Sea Nasal [place] 1 (0.65 %) Solution Nasal q 2 hours Effexor XR 1 Capsule (of 37.5 mg) Capsule SR 24 HR Oral daily Furosemide 1 Tablet (of 20 mg) Oral PRN Lyrica 1 Capsule (of 100 mg) Oral t.i.d. Morphine Sulfate 1 Tablet (of 30 mg) Oral t.i.d. OxyCODONE HCl 1 Tablet (of 20 mg) Oral q 4 to 6 hours PRN Family History: Ms. Nair's mother at age 72: Colon Cancer, and Leukemia. Ms. Nair's father at age 76: Pharynx Cancer. Her paternal grandfather at age 68: Pharynx Cancer. Social History: Ms. Nair is and she is a disability. She is a daily smoker who has smoked 0.5 packs/day for 51 years. She drinks occasionally. Smokes Vapor Cigarette She uses vape cig. . Review Of Symptoms: Constitutional Denies fevers, chills, night sweats, excessive fatigue or weight loss. Some increase in right sided head pain behind eye. Eyes left eye normal but right eye affected by disease and non functional. Some eye socket pain but controlled. More drainage and itching from right eye. Sees Dr Ignacio later today. ENMT Denies changes in hearing, sore throat, mouth sores, difficulty or changes in swallowing ability, and/or sinus drainage. Hematologic/Lymphatic Denies easy bruising or bleeding. The patient denies any tender or palpable lymph nodes. Breasts mammo current Respiratory Denies dyspnea on exertion, chest pain, cough or hemoptysis. Denies orthopnea. Cardiovascular Denies anginal chest pain, palpitations or orthopnea. Gastrointestinal Denies vomiting, diarrhea, GI bleeding, or constipation. Denies change in bowel habits and/or stool color, no heartburn or early satiety. Genitourinary (F) No hematuria, hesitancy, incontinence, vaginal bleeding, discharge or other problems with urination. Musculoskeletal Denies joint pain, swelling or redness. No decreased range of motion. Integumentary Denies chronic rashes, inflammation, ulcerations or skin changes. Neurologic Normal gait. No sensory problems. Psychiatric Denies insomnia, depression, karen or mood swings. Vital Signs: Performed on Jul 10, 2020 11:19 Height - 60.00 in Temperature - 98.0 F (LOW) Pulse - 76 /min Respiration - 18 /min BP - 104/62 mm(hg) O2 Sat - 96 % Pain - 2,1 - No physically strenuous activity, but ambulatory and able to carry out light or sedentary work (e.g. office work, light house work). (ECOG) Physical Examination: Constitutional Alert, oriented, no acute distress. Skin pink, warm and dry. Head Normocephalic; atraumatic. Right side paralysis noted but not new-no worse than her normal. Eyes Left eye unremarkable. Right eye -sclera red-irritated with slight exudate noted. ENMT No oral exudates, ulcers, masses or mucositis. Oropharynx clear. Tongue is clear. Neck Supple without masses or thyromegaly. No jugular venous distension. Hematologic/Lymphatic No petechiae or purpura. No tender or palpable lymph nodes in the cervical or supraclavicular areas. Respiratory Lungs are clear to auscultation without rhonchi or wheezing. Cardiovascular Regular rate and rhythm of heart without murmurs,clicks, gallops or rubs. Chest Left chest wall port a cath healed well and unremarkable. Abdomen Non-tender, non-distended, no masses or ascites. No guarding or rebound tenderness. No pulsatile masses. Back/Spine Non-tender to palpation. Extremities No visible deformities, no cyanosis, clubbing. Trace bilateral ankle edema. Musculoskeletal No tenderness or swelling, normal range of motion without obvious weakness. Integumentary No rashes or lesions. Neurologic No sensory or motor deficits, normal cerebellar function, normal gait. Psychiatric Alert and oriented times three. Coherent speech. Verbalizes understanding of our discussions today. Laboratory:Test performed on Jul 10, 2020 09:05 Sodium 138 mmol/L Potassium 3.5 mmol/L Chloride 99 mmol/L CO2 28 mmol/L Anion Gap 14.5 BUN 8 mg/dL Creatinine 0.7 mg/dL Cr Clearance (Est) 91.5600 mL/min eGFR 85.4 mL/min Glucose 127 mg/dL Osmolality - Calculated 286 mOsm/kg Calcium 8.7 mg/dL Protein, Total 6.4 g/dL Albumin 4.2 g/dL Globulin 2.2 g/dL Bilirubin, Total 0.2 mg/dL ALT (SGPT) 16 U/L AST (SGOT) 19 U/L Alkaline Phosphatase 108 IU/L WBC 9.1 10 3/uL RBC 3.94 10 6/uL HGB 10.0 g/dL HCT 33.2 % MCV 84.3 fL MCH 25.4 pg MCHC 30.1 g/dL RDW 18.8 % Platelet Count 244 10 3/cmm MPV 9.8 fL Neutrophils 2.60 10 3/uL Lymphocytes 2.9 10 3/uL Monocytes 1.7 10 3/uL Eosinophils 0.3 10 3/uL Basophils 0.0 10 3/uL Neutrophil % 45.5 % Lymphocyte % 31.8 % Monocyte % 18.2 % Eosinophil % 3.4 % Basophils % 0.3 % NRBC % 1.0 % Test performed on Jun 28, 2020 11:27 CBC Slide Review Slide Review Perform Test performed on Jun 28, 2020 00:00 Manual Diff Cancelled via OM: Cancelled in Connected System Test performed on Jun 26, 2020 09:27 Manual Segs % 29 % Manual Bands % 5.0 % Manual Lymphs % 48 % Atypical Lymphs % 0.0 % Total Cells Counted 100 Manual Monos % 8.0 % Manual Eos % 10 % Manual Basos % 0.0 % Anisocytosis 1+ Microcytosis Trace Poikilocytosis 1+ Ovalocytes Trace Platelet Estimate Normal Platelets, Giant Trace Manual Segs Abs 0.9 10/cmm Manual Bands Abs 0.2 10 3/cmm Manual Neutrophils Abs 1.1 10 3/cmm Manual Monocytes Abs 0.3 10 3/cmm Manual Eosinophils Abs 0.3 10 3/cmm Manual Basophils Abs 0.0 10 3/cmm Test performed on Feb 14, 2020 10:33 Metamyelocytes % 8.0 % Myelocytes % 4.0 % Manual Lymphocytes Abs 3.4 10 3/cmm Test performed on Feb 10, 2020 10:22 Promyelocytes % 5.0 % Impression: Recent adenoid cystic carcinoma peripheral gland with cranial nerve involvement/right skull base involvement. MRI scan done on 09/08/2019 showed widespread spread of tumor into right orbit, right cavernous sinus, vacuum pan operator space, pterygopalatine fossa and right facial nerve. Now with right facial nerve paralysis, facial asymmetry. History of adenoid cystic carcinoma right excessive peripheral gland status post partial pericardiectomy with facial nerve monitoring followed by reconstruction for T2 Nx with possible surgical margin lesion, followed by radiation therapy. Chronic smoking Anxiety disorder Clinically, patient has been doing reasonably well, in [id number] distress due to right facial pain and right eye visual disturbance. Mrs Rivera was referred to radiation oncology for palliative radiation therapy. Unfortunately, she is not a candidate for further radiation therapy due to involved risk due to history of prior radiation therapy to same area. A request was sent to pathology regarding next generation sequencing especially NTRK gene analysis but we were told, specimen is not available for evaluation. The role of palliative chemotherapy with cisplatin/Navelbine was discussed as literature has shown overall responsibilities about 44% and with 38% one year survival. did offer her treatment with cisplatin and Navelbine. Her current treatment plan is to give her chemotherapy with split dose of cisplatin/Navelbine on day 1 and 8 and repeat cycle every 21 days. She began her first dose on 01/03/2020. She has tolerated treatment well thus far. She had CT of the head on 02/29/2020 with and without contrast. There is no evidence of intracranial hemorrhage or mass-effect. Ventricular system and basal cisterns are patent. Mild small vessel changes. Mild parenchymal volume loss. 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 No evidence of enhancing intracranial metastatic disease. The left mastoid air cells are well aerated. Opacification right mastoid air cells and middle ear. Mild mucosal thickening along the ethmoid air cells. Previously described thin curvilinear soft tissue along the right medial orbit deep to the medial rectus is unchanged since her MRI September 08, [address] of the head August 15, 2019. This is nonspecific but could be related to orbital pseudotumor, neoplasm or prior surgery. She also had CT of the neck on 02/29/2020 with contrast. There is postoperative changes in the right parotidectomy. No evidence of recurrent residual disease in the right neck. Cluster of slightly prominent enhancing lymph nodes left submandibular and jugulodigastric gastric measuring 6 to 7 mm in short axis dimension. These appear stable compared to September 08, 2019. Recommend interval follow-up with PET/CT. Otherwise no cervical lymphadenopathy. Stable postoperative changes right neck. Opacification right mastoid air cells and middle ear. No evidence of supraglottic or glottic mass. As of February 15, 2020 Mrs. Nair had started her third cycle of chemotherapy unfortunately day 8 was held due to neutropenia. Her ANC at that time was 800. She was given 2 days of Neupogen and recovered well. She has required continued growth factor support with her chemotherapy due to persistent chemotherapy induced neutropenia. The growth factors have been necessary to keep her treatment plan on schedule. PET/CT from May 30, 2020 shows excellent response When compared with CT scan of head and neck prior to the initiation of palliative chemotherapy with cisplatin/Navelbine. She continues with chemotherapy as she does still have residual disease but dramatically improved. Plan: 1. After reviewing her labs with Dr. Walters it was opted to go ahead and pursue her treatment today. We will support her with 4 days of Neupogen after her treatment. She will get next week off for her planned break and return back to see us in 2 weeks. 2. Labs from today were reviewed in detail discussed with Ms. Nair and a copy was given to her. WBC was 9.1, hemoglobin 10 platelets 10 44,000 ANC is 2600. 3. She will continue aggressive antiemetics as this is controlling her nausea thus far. She does having some breakthrough but she is able to relate that with Compazine or Ativan. 4. We will see her back in 2 weeks for cycle 9 day 1 . 5. Ms. Nair was instructed to call us in the interim with questions or problems arise. Signed By: Harper Vick-, AOCNP Amita Walters MD <<Signature on File>>
[2020-07-19 15:05] LABS: Basophils % 0.9 %; Eosinophils # 0.1 10^3/uL (0.0-0.8); Eosinophils % 3.5 %; Hematocrit 29.1 % (37.0-47.0); Lymphocytes # 1.7 10^3/uL (0.8-4.8); Lymphocytes % 48.3 %; Mean Corpuscular HGB Conc 30.9 g/dL (30.0-36.0); Mean Corpuscular Volume 80.8 fL (81-99); Mean Platelet Volume 9.3 fL (7.4-10.4); Monocytes # 0.6 10^3/uL (0.2-0.9); Monocytes % 17.7 %; Neutrophils # 1.01 10^3/uL (1.8-7.7); Neutrophils % 29.3 %; Nucleated Red Blood Cells % 0 %; Platelet Count 240 10^3/cmm (130-400); Red Cell Distribution Width 17.9 % (12.1-15.1); White Blood Count 3.4 10^3/uL (4.0-10.0)
[2020-07-19 15:44] LABS: Alanine Aminotransferase 12 U/L (0-33); Albumin Level 4.2 g/dL (3.5-5.2); Alkaline Phosphatase 111 IU/L (35-105); Anion Gap 9.9 (5-19); Aspartate Amino Transferase 12 U/L (0-32); Blood Urea Nitrogen 9 mg/dL (8-23); Carbon Dioxide 31 mmol/L (22-29); Chloride 101 mmol/L (98-107); Glucose 96 mg/dL (65-115); Osmolality Calculated 285 mOsm/kg (285-295); Potassium 3.9 mmol/L (3.5-5.1); Sodium 138 mmol/L (136-145); Total Bilirubin 0.2 mg/dL (0.15-1.2); Total Protein 6.2 g/dL (6.6-8.7)
[2020-07-24 08:43] LABS: Basophils % 0.7 %; Eosinophils # 0.1 10^3/uL (0.0-0.8); Eosinophils % 5.2 %; Hematocrit 30.8 % (37.0-47.0); Hemoglobin 9.5 g/dL (11.5-15.3); Lymphocytes # 1.4 10^3/uL (0.8-4.8); Lymphocytes % 53.1 %; Mean Corpuscular HGB Conc 30.8 g/dL (30.0-36.0); Mean Corpuscular Hemoglobin 25.3 pg (28.0-34.0); Mean Corpuscular Volume 81.9 fL (81-99); Mean Platelet Volume 9.5 fL (7.4-10.4); Monocytes # 0.4 10^3/uL (0.2-0.9); Monocytes % 16.2 %; Neutrophils % 24.8 %; Nucleated Red Blood Cells % 0 %; Platelet Count 276 10^3/cmm (130-400); Red Blood Count 3.76 10^6/uL (4.1-5.3); Red Cell Distribution Width 18.9 % (12.1-15.1); White Blood Count 2.7 10^3/uL (4.0-10.0)
[2020-07-24] MEDS: sodium chloride 0.9% 250 ML 75 ML IV (08:45)
[2020-07-24 08:48] LABS: Neutrophils # 0.67 10^3/uL (1.8-7.7)
[2020-07-24 09:04] LABS: Alanine Aminotransferase 10 U/L (0-33); Albumin Level 3.8 g/dL (3.5-5.2); Alkaline Phosphatase 93 IU/L (35-105); Anion Gap 12.7 (5-19); Aspartate Amino Transferase 11 U/L (0-32); Blood Urea Nitrogen 8 mg/dL (8-23); Calcium 9.1 mg/dL (8.5-10.5); Carbon Dioxide 30 mmol/L (22-29); Chloride 102 mmol/L (98-107); Globulin 2.1 g/dL (1.3-4.6); Glomerular Filtration Rate 85.4 mL/min (90-130); Glucose 122 mg/dL (65-115); Osmolality Calculated 292 mOsm/kg (285-295); Potassium 3.7 mmol/L (3.5-5.1); Sodium 141 mmol/L (136-145); Total Bilirubin 0.2 mg/dL (0.15-1.2); Total Protein 5.9 g/dL (6.6-8.7)
== END 2020-07-24 23:59 | disposition home or self-care (01) ==
LOC: ONCMED 05:09
PROVIDERS: Internal Medicine Hematology & Oncology; PCP Family Medicine; Referring Provider Otolaryngology; Visit Provider Nurse Practitioner
DX: Z51.11 Encounter for antineoplastic chemotherapy (principal); C07 Malignant neoplasm of parotid gland; D70.1 Agranulocytosis secondary to cancer chemotherapy; T45.1X5A Adverse effect of antineoplastic and immunosuppressive drugs, initial encounter; F17.210 Nicotine dependence, cigarettes, uncomplicated; F41.9 Anxiety disorder, unspecified; R51.9 Headache, unspecified; H53.9 Unspecified visual disturbance; Z79.899 Other long term (current) drug therapy
CPT/HCPCS: 36591; 80053; 85007; 85025; 96365; 96367; 96372; 96375; 96413; 96417; 99214; J1100; J1442; J1453; J1940; J2469; J2997; J3475; J3480; J7030; J7040; J7050; J9060; J9390

== ENCOUNTER 2020-08-24 05:40 | Outpatient (RCR) | payer MEDICARE, MEDICAID, SELFPAY ==
[2020-07-26 13:33] LABS: Basophils # 0.1 10^3/uL (0.0-0.1); Basophils % 0.3 %; Eosinophils # 0.4 10^3/uL (0.0-0.8); Eosinophils % 1.8 %; Hematocrit 32.4 % (37.0-47.0); Lymphocytes # 2.9 10^3/uL (0.8-4.8); Lymphocytes % 11.7 %; Mean Corpuscular HGB Conc 30.9 g/dL (30.0-36.0); Mean Corpuscular Hemoglobin 25.4 pg (28.0-34.0); Mean Corpuscular Volume 82.4 fL (81-99); Mean Platelet Volume 9.1 fL (7.4-10.4); Monocytes # 1.1 10^3/uL (0.2-0.9); Monocytes % 4.3 %; Neutrophils # 18.82 10^3/uL (1.8-7.7); Nucleated Red Blood Cells % 0 %; Platelet Count 265 10^3/cmm (130-400); Red Blood Count 3.93 10^6/uL (4.1-5.3); Red Cell Distribution Width 19.5 % (12.1-15.1); White Blood Count 24.8 10^3/uL (4.0-10.0)
[2020-07-27] MEDS: sodium chlor 0.9% + KCl 20 mEq 20 MEQ/1,000 ML BAG 500 MEQ IV (11:20)
[2020-07-27] MEDS: sodium chloride 0.9% 250 ML 999 ML IV (11:20)
[2020-07-27] MEDS: palonosetron 0.25 mg/5 mL SDV IV (11:28)
[2020-07-27] MEDS: FUROsemide 10 mg/mL SDV 2mL 20 MG IV (13:30)
[2020-08-03 08:33] LABS: Basophils % 0.9 %; Eosinophils # 0.4 10^3/uL (0.0-0.8); Eosinophils % 8.6 %; Hemoglobin 9.7 g/dL (11.5-15.3); Lymphocytes # 1.5 10^3/uL (0.8-4.8); Mean Corpuscular HGB Conc 31.3 g/dL (30.0-36.0); Mean Corpuscular Hemoglobin 25.3 pg (28.0-34.0); Mean Corpuscular Volume 80.9 fL (81-99); Mean Platelet Volume 9.4 fL (7.4-10.4); Monocytes # 0.3 10^3/uL (0.2-0.9); Monocytes % 7.1 %; Neutrophils # 2.39 10^3/uL (1.8-7.7); Neutrophils % 51.2 %; Nucleated Red Blood Cells % 0 %; Platelet Count 222 10^3/cmm (130-400); Red Blood Count 3.83 10^6/uL (4.1-5.3); Red Cell Distribution Width 18.6 % (12.1-15.1); White Blood Count 4.7 10^3/uL (4.0-10.0)
[2020-08-03 09:21] LABS: Alanine Aminotransferase 10 U/L (0-33); Albumin Level 3.7 g/dL (3.5-5.2); Alkaline Phosphatase 111 IU/L (35-105); Anion Gap 11.9 (5-19); Aspartate Amino Transferase 10 U/L (0-32); Blood Urea Nitrogen 19 mg/dL (8-23); Calcium 9.1 mg/dL (8.5-10.5); Carbon Dioxide 28 mmol/L (22-29); Chloride 101 mmol/L (98-107); Globulin 2.3 g/dL (1.3-4.6); Glomerular Filtration Rate 73.2 mL/min (90-130); Glucose 140 mg/dL (65-115); Osmolality Calculated 289 mOsm/kg (285-295); Potassium 3.9 mmol/L (3.5-5.1); Sodium 137 mmol/L (136-145); Total Bilirubin 0.2 mg/dL (0.15-1.2)
--- NOTE | 2020-08-03 10:02 | ONC FU_ITS ---
Dr. Walters follow up note Patient: Alia Nair Unit #: [id number]: 1960 Dicatated By: Milton Walters M.D.Date of Visit:Aug 03, 2020 Onc Med Follow-up/Prog Note History of Present Illness: Mrs. Rivera is a 60 -year-old female with history of adenoid cystic carcinoma right parotid gland. She is status post partial parotidectomy with facial nerve monitoring followed by reconstruction of the soft tissue defect with pedicled into oral buccal flap. The final pathology confirmed T2, MX lesion with positive surgical margins. Mrs Nair was referred to radiation oncology, as per patient she underwent radiation therapy here in [facility]. Since then she has been followed by ENT and with no evidence of disease until recently started having a right eye problem. MRI scan of the neck done on 09/08/2019 showed widespread neural spread of tumor into the right orbit right cavernous sinus, classified ad clerk space, pterygopalatine fossa and probably right facial nerve. Her case was discussed in multidisciplinary head and neck tumor conference in [place] by her ENT physician there. Treatment options including treating skull base involved area to palliate symptoms (IMRT or SRS). Or perhaps consider proton beam IM RT. She was referred to radiation oncology here in [place] and she was also referred to palliative care clinic for pain management. Mrs Nair was also encouraged to see medical oncology for palliative systemic therapy. Mrs Nair has seen radiation oncology and as per patient she was told there is no plan for further radiation therapy considering the risk versus benefits, especially due to prior radiation therapy to same area. 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 did offer her treatment with Cisplatin and vinorelbine. She began her first cycle on 01/03/2020. Long-standing history of smoking and is still active. Her pain (right eye and right side of her face) is under control with current pain medication., right facial swelling improved; no more headache and can also breathe through right nostril. Overall, she is pleased with response to the chemotherapy. She had CT of the head on 02/29/2020 with and without contrast. There is no evidence of intracranial hemorrhage or mass-effect. Ventricular system and basal cisterns are patent. Mild small vessel changes. Mild parenchymal volume loss. 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 No evidence of enhancing intracranial metastatic disease. The left mastoid air cells are well aerated. Opacification right mastoid air cells and middle ear. Mild mucosal thickening along the ethmoid air cells. Previously described thin curvilinear soft tissue along the right medial orbit deep to the medial rectus is unchanged since her MRI September 08, [address] of the head August 15, 2019. This is nonspecific but could be related to orbital pseudotumor, neoplasm or prior surgery. She also had CT of the neck on 02/29/2020 with contrast. There is postoperative changes in the right parotidectomy. No evidence of recurrent residual disease in the right neck. Cluster of slightly prominent enhancing lymph nodes left submandibular and jugulodigastric gastric measuring 6 to 7 mm in short axis dimension. These appear stable compared to September 08, 2019. Otherwise no cervical lymphadenopathy. Stable postoperative changes right neck. Opacification right mastoid air cells and middle ear. No evidence of supraglottic or glottic mass. As of February 15, 2020 Mrs. Nair had started her third cycle of chemotherapy unfortunately day 8 was held due to neutropenia. Her ANC at that time was 800. She has required growth factor support through her treatment.Follow-up CT PET scan done on May 30, 2020 showed focal increased metabolic activity is present in the left posterior palate. A single left level 2 lymph node size 0.6 cm, demonstrated increased metabolic activity. No evidence of metabolic activity disease in the right face or involving orbit or previous tumor location. New, compared to CT PET scan done in February 2019, subcentimeter left lung nodular findings size about 0.7 cm and 0.6 cm may reflect early metastatic disease.But compared to CT scan of head and neck prior to the treatment showed excellent response Tolerating systemic therapy with cisplatin/Navelbine well. Came for follow-up, denies any specific complaints, no fever chills, no nausea or vomiting, no diarrhea or constipation, no burning micturition, right-sided headache and ear pain is under control with current pain medication. Denies any peripheral numbness, right facial swelling continues to improve. Tolerating palliative chemotherapy with cisplatin/Navelbine well . Medications: Albuterol Sulfate HFA 2 puff(s) (of 108 (90 Base) mcg/act) Aerosol, solution Inhalation q 6 hours PRN, ALPRAZolam 1 Tablet (of 1 mg) Oral t.i.d. PRN, Deep Sea Nasal [place] 1 (0.65 %) Solution Nasal q 2 hours, Effexor XR 1 Capsule (of 37.5 mg) Capsule SR 24 HR Oral daily, Furosemide 1 Tablet (of 20 mg) Oral PRN, Levaquin 1 Tablet (of 500 mg) Oral daily for 7 days, Lyrica 1 Capsule (of 100 mg) Oral t.i.d., Morphine Sulfate 1 Tablet (of 30 mg) Oral t.i.d., OxyCODONE HCl 1 Tablet (of 20 mg) Oral q 4 to 6 hours PRN Allergies: Aleve Review of Systems: Constitutional - Appetite is good and weight is stable. No fever, chills, hot flashes, or night sweats. Energy level is good, ENMT - No sinus congestion/drainage. No mouth sores. No sore throat or difficulty swallowing, Hematologic/Lymphatic - No abnormal bruising or bleeding, Respiratory - No shortness of breath. No cough. No pleuritic pain or hemoptysis, Cardiovascular - No angina pain. No palpitations, Gastrointestinal - No nausea or vomiting. Positive for heartburn, no acid reflux. No diarrhea or constipation. No blood in the stool or black stools, Genitourinary (F) - No dysuria or hematuria. Positive for urinary frequency. No urgency or incontinence, Musculoskeletal - Positive for joint or bone pain, Neurologic - No headache or dizziness. No numbness/paresthesias or other focal neurologic symptoms, Psychiatric - No anxiety or depression. No insomnia. Vital Signs: Performed on Aug 03, 2020 09:16 Height - 60.00 in Weight - 153.4 lbs (HIGH) BSA - 1.67 sq.m BMI - 29.96 Temperature - 98.3 F (LOW) Pulse - 87 /min Respiration - 18 /min BP - 109/73 mm(hg) O2 Sat - 97 % Pain - 0 Performance Status: 1 - No physically strenuous activity, but ambulatory and able to carry out light or sedentary work (e.g. office work, light house work). (ECOG) Physical Examination: ENMT - No mouth sores, no thrush, no jaundice, Respiratory - Lungs are clear to auscultation, Cardiovascular - Regular rate and rhythm of heart, Abdomen - Soft, bowel sounds present, Extremities - No visible edema. Lab/Imaging: Test performed on Jul 26, 2020 13:15 WBC 24.8 10 3/uL RBC 3.93 10 6/uL HGB 10.0 g/dL HCT 32.4 % MCV 82.4 fL MCH 25.4 pg MCHC 30.9 g/dL RDW 19.5 % Platelet Count 265 10 3/cmm MPV 9.1 fL Neutrophils 18.82 10 3/uL Lymphocytes 2.9 10 3/uL Monocytes 1.1 10 3/uL Eosinophils 0.4 10 3/uL Basophils 0.1 10 3/uL Neutrophil % 76.0 % Lymphocyte % 11.7 % Monocyte % 4.3 % Eosinophil % 1.8 % Basophils % 0.3 % NRBC % 0 % Test performed on Jul 19, 2020 14:55 Sodium 138 mmol/L Potassium 3.9 mmol/L Chloride 101 mmol/L CO2 31 mmol/L Anion Gap 9.9 BUN 9 mg/dL Creatinine 0.6 mg/dL Cr Clearance (Est) 106.8100 mL/min eGFR 102.0 mL/min Glucose 96 mg/dL Osmolality - Calculated 285 mOsm/kg Calcium 9.0 mg/dL Protein, Total 6.2 g/dL Albumin 4.2 g/dL Globulin 2.0 g/dL Bilirubin, Total 0.2 mg/dL ALT (SGPT) 12 U/L AST (SGOT) 12 U/L Alkaline Phosphatase 111 IU/L Test performed on Jul 04, 2020 08:32 CBC Slide Review Slide Review Perform SLIDE REVIEW AGREES WITH AUTOMATED RESULTS Test performed on Jun 28, 2020 00:00 Manual Diff Cancelled via OM: Cancelled in Connected System Test performed on Jun 26, 2020 09:27 Manual Segs % 29 % Manual Bands % 5.0 % Manual Lymphs % 48 % Atypical Lymphs % 0.0 % Total Cells Counted 100 Manual Monos % 8.0 % Manual Eos % 10 % Manual Basos % 0.0 % Anisocytosis 1+ Microcytosis Trace Poikilocytosis 1+ Ovalocytes Trace Platelet Estimate Normal Platelets, Giant Trace Manual Segs Abs 0.9 10/cmm Manual Bands Abs 0.2 10 3/cmm Manual Neutrophils Abs 1.1 10 3/cmm Manual Monocytes Abs 0.3 10 3/cmm Manual Eosinophils Abs 0.3 10 3/cmm Manual Basophils Abs 0.0 10 3/cmm Test performed on Feb 14, 2020 10:33 Metamyelocytes % 8.0 % Myelocytes % 4.0 % Manual Lymphocytes Abs 3.4 10 3/cmm Test performed on Feb 10, 2020 10:22 Promyelocytes % 5.0 % Impression: 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 MRI scan done on 09/08/2019 showed widespread spread of tumor into right orbit, right cavernous sinus, classified ad clerk space, pterygopalatine fossa and right facial nerve. Now with right facial nerve paralysis, facial asymmetry. History of adenoid cystic carcinoma right excessive peripheral gland status post partial pericardiectomy with facial nerve monitoring followed by reconstruction for T2 Nx with possible surgical margin lesion, followed by radiation therapy. Chronic smoking Anxiety disorder Clinically, patient has been doing reasonably well, in [id number] distress due to right facial pain and right eye visual disturbance. Mrs Rivera was referred to radiation oncology for palliative radiation therapy. Unfortunately, she is not a candidate for further radiation therapy due to involved risk due to history of prior radiation therapy to same area. A request was sent to pathology regarding next generation sequencing especially NTRK gene analysis but we were told, specimen is not available for evaluation. The role of palliative chemotherapy with cisplatin/Navelbine was discussed as literature has shown overall responsibilities about 44% and with 38% one year survival. did offer her treatment with cisplatin and Navelbine. Her current treatment plan is to give her chemotherapy with split dose of cisplatin/Navelbine on day 1 and 8 and repeat cycle every 21 days. She began her first dose on 01/03/2020. She has tolerated treatment well thus far. She had CT of the head on 02/29/2020 with and without contrast. There is no evidence of intracranial hemorrhage or mass-effect. Ventricular system and basal cisterns are patent. Mild small vessel changes. Mild parenchymal volume loss. 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 No evidence of enhancing intracranial metastatic disease. The left mastoid air cells are well aerated. Opacification right mastoid air cells and middle ear. Mild mucosal thickening along the ethmoid air cells. Previously described thin curvilinear soft tissue along the right medial orbit deep to the medial rectus is unchanged since her MRI September 08, [address] of the head August 15, 2019. This is nonspecific but could be related to orbital pseudotumor, neoplasm or prior surgery. She also had CT of the neck on 02/29/2020 with contrast. There is postoperative changes in the right parotidectomy. No evidence of recurrent residual disease in the right neck. Cluster of slightly prominent enhancing lymph nodes left submandibular and jugulodigastric gastric measuring 6 to 7 mm in short axis dimension. These appear stable compared to September 08, 2019. Recommend interval follow-up with PET/CT. Otherwise no cervical lymphadenopathy. Stable postoperative changes right neck. Opacification right mastoid air cells and middle ear. No evidence of supraglottic or glottic mass. As of February 15, 2020 Mrs. Nair had started her third cycle of chemotherapy unfortunately day 8 was held due to neutropenia. Her ANC at that time was 800. She was given 2 days of Neupogen and recovered well. She has required continued growth factor support with her chemotherapy due to persistent chemotherapy induced neutropenia. The growth factors have been necessary to keep her treatment plan on schedule. PET/CT from May 30, 2020 shows excellent response When compared with CT scan of head and neck prior to the initiation of palliative chemotherapy with cisplatin/Navelbine. She continues with chemotherapy as she does still have residual disease but dramatically improved. Plan: Discussed with patient regarding her labs white blood count 4.7 hemoglobin 9.7 hematocrit 31 platelets 222,000 ANC 2390 CMP within normal limits Clinically, patient is doing well with excellent palliation with palliative chemotherapy with weekly cisplatin/Navelbine, tolerating well will proceed with next weekly dose of cisplatin/Navelbine today followed by Neupogen daily for 3 days to prevent chemotherapy-induced neutropenia/leukopenia. And then she will return to clinic after [place] with CBC/CMP and if reasonable, to start next cycle with weekly cisplatin/Navelbine Mild/moderate anemia, appears multifactorial, will continue to monitor and consider blood transfusion if hemoglobin is less than 8 g Signed By: Milton Walters M.D. <<Signature on File>>
[2020-08-03] MEDS: sodium chloride 0.9% 250 ML 999 ML IV (11:06)
[2020-08-03] MEDS: FUROsemide 10 mg/mL SDV 2mL 20 MG IV (13:28)
[2020-08-03] MEDS: palonosetron 0.25 mg/5 mL SDV IV (13:28)
[2020-08-03] MEDS: sodium chlor 0.9% + KCl 20 mEq 20 MEQ/1,000 ML BAG 500 MEQ IV (13:30)
[2020-08-24 09:39] LABS: Basophils % 0.4 %; Eosinophils # 0.3 10^3/uL (0.0-0.8); Eosinophils % 6.5 %; Hematocrit 33.2 % (37.0-47.0); Hemoglobin 10.3 g/dL (11.5-15.3); Lymphocytes # 2.3 10^3/uL (0.8-4.8); Lymphocytes % 47.5 %; Mean Corpuscular Hemoglobin 25.8 pg (28.0-34.0); Mean Corpuscular Volume 83.2 fL (81-99); Monocytes # 0.5 10^3/uL (0.2-0.9); Monocytes % 10.9 %; Neutrophils # 1.65 10^3/uL (1.8-7.7); Neutrophils % 34.7 %; Nucleated Red Blood Cells % 0 %; Platelet Count 258 10^3/cmm (130-400); Red Blood Count 3.99 10^6/uL (4.1-5.3); Red Cell Distribution Width 18.4 % (12.1-15.1); White Blood Count 4.8 10^3/uL (4.0-10.0)
[2020-08-24 10:05] LABS: Alanine Aminotransferase 9 U/L (0-33); Alkaline Phosphatase 85 IU/L (35-105); Anion Gap 12.3 (5-19); Aspartate Amino Transferase 13 U/L (0-32); Blood Urea Nitrogen 14 mg/dL (8-23); Carbon Dioxide 29 mmol/L (22-29); Chloride 99 mmol/L (98-107); Globulin 2.5 g/dL (1.3-4.6); Glomerular Filtration Rate 73.2 mL/min (90-130); Glucose 111 mg/dL (65-115); Osmolality Calculated 283 mOsm/kg (285-295); Potassium 4.3 mmol/L (3.5-5.1); Sodium 136 mmol/L (136-145); Total Bilirubin 0.2 mg/dL (0.15-1.2); Total Protein 6.5 g/dL (6.6-8.7)
--- NOTE | 2020-08-29 22:27 | ONC FU_ITS ---
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 Rivera is a 60 -year-old female with history of adenoid cystic carcinoma right parotid gland. She is status post partial parotidectomy with facial nerve monitoring followed by reconstruction of the soft tissue defect with pedicled into oral buccal flap. The final pathology confirmed T2, MX lesion with positive surgical margins. Mrs Nair was referred to radiation oncology, as per patient she underwent radiation therapy here in [facility]. Since then she has been followed by ENT and with no evidence of disease until recently started having a right eye problem. MRI scan of the neck done on 09/08/2019 showed widespread neural spread of tumor into the right orbit right cavernous sinus, restaurant assistant space, pterygopalatine fossa and probably right facial nerve. Her case was discussed in multidisciplinary head and neck tumor conference in [place] by her ENT physician there. Treatment options including treating skull base involved area to palliate symptoms (IMRT or SRS). Or perhaps consider proton beam IM RT. She was referred to radiation oncology here in [place] and she was also referred to palliative care clinic for pain management. Mrs Nair was also encouraged to see medical oncology for palliative systemic therapy. Mrs Nair has seen radiation oncology and as per patient she was told there is no plan for further radiation therapy considering the risk versus benefits, especially due to prior radiation therapy to same area. 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 did offer her treatment with Cisplatin and vinorelbine. She began her first cycle on 01/03/2020. Long-standing history of smoking and is still active. Her pain (right eye and right side of her face) is under control with current pain medication., right facial swelling improved; no more headache and can also breathe through right nostril. Overall, she is pleased with response to the chemotherapy. She had CT of the head on 02/29/2020 with and without contrast. There is no evidence of intracranial hemorrhage or mass-effect. Ventricular system and basal cisterns are patent. Mild small vessel changes. Mild parenchymal volume loss. 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 No evidence of enhancing intracranial metastatic disease. The left mastoid air cells are well aerated. Opacification right mastoid air cells and middle ear. Mild mucosal thickening along the ethmoid air cells. Previously described thin curvilinear soft tissue along the right medial orbit deep to the medial rectus is unchanged since her MRI September 08, [address] of the head August 15, 2019. This is nonspecific but could be related to orbital pseudotumor, neoplasm or prior surgery. She also had CT of the neck on 02/29/2020 with contrast. There is postoperative changes in the right parotidectomy. No evidence of recurrent residual disease in the right neck. Cluster of slightly prominent enhancing lymph nodes left submandibular and jugulodigastric gastric measuring 6 to 7 mm in short axis dimension. These appear stable compared to September 08, 2019. Otherwise no cervical lymphadenopathy. Stable postoperative changes right neck. Opacification right mastoid air cells and middle ear. No evidence of supraglottic or glottic mass. As of February 15, 2020 Mrs. Nair had started her third cycle of chemotherapy unfortunately day 8 was held due to neutropenia. Her ANC at that time was 800. She has required growth factor support through her treatment. Follow-up CT PET scan done on May 30, 2020 showed focal increased metabolic activity is present in the left posterior palate. A single left level 2 lymph node size 0.6 cm, demonstrated increased metabolic activity. No evidence of metabolic activity disease in the right face or involving orbit or previous tumor location. New, compared to CT PET scan done in February 2019, subcentimeter left lung nodular findings size about 0.7 cm and 0.6 cm may reflect early metastatic disease, but compared to CT scan of head and neck prior to the treatment showed excellent response Mrs Nair is tolerating systemic therapy with cisplatin/Navelbine well. Her last treatment was on August 03, 2020 and she was given 3 doses of Neupogen after that treatment. She presents today for consideration of cycle 10-day 1. She is neutropenic with an ANC of 1650. She denies any new concerns. She denies any fever or chills. She states she has not had any mouth sores, sore throat or difficulty swallowing.. She denies any COVID 19 symptoms, known exposure or recent testing. She states her breathing is about the same. Her energy is about the same. She states is no worse. She denies any neuropathy symptoms. She denies any hearing changes. She states she has not had any recent diarrhea or constipation. She denies any urinary changes. She states she feels good overall and wanted to plan a New Year's Shanna libertarian but elected not to due to the pandemic concerns. Her ECOG is 1. Past Medical History: Asthma Gastroesophageal reflux Hypertension Rheumatoid arthritis Cancer (Adenoid Cystic Carcinoma of Right Parotid Gland) in 2014 Past Surgical History: Parotidectomy in 2014 Biopsy in 2004 - Growth on Right Cheek Knee Surgery in 1992 Tonsillectomy in 1973 Appendectomy in 1971 Allergies: Aleve Medications: Albuterol Sulfate HFA 2 puff(s) (of 108 (90 Base) mcg/act) Aerosol, solution Inhalation q 6 hours PRN ALPRAZolam 1 Tablet (of 1 mg) Oral t.i.d. PRN Effexor XR 1 Capsule (of 37.5 mg) Capsule SR 24 HR Oral daily Furosemide 1 Tablet (of 20 mg) Oral PRN Lyrica 1 Capsule (of 100 mg) Oral t.i.d. Morphine Sulfate 1 Tablet (of 30 mg) Oral t.i.d. OxyCODONE HCl 1 Tablet (of 20 mg) Oral q 4 to 6 hours PRN Family History: Ms. Nair's mother at age 72: Colon Cancer, and Leukemia. Ms. Nair's father at age 76: Pharynx Cancer. Her paternal grandfather at age 68: Pharynx Cancer. Social History: Ms. Nair is and she is a disability. She is a daily smoker who has smoked 0.5 packs/day for 52 years. She drinks occasionally. Smokes Vapor Cigarette She uses vape cig. . Review Of Symptoms: Constitutional Denies fevers, chills, night sweats, excessive fatigue or weight loss. Eyes left eye normal but right eye affected by disease and non functional. Some intermittent eye socket pain but controlled. ENMT Denies changes in hearing, sore throat, mouth sores, difficulty or changes in swallowing ability, and/or sinus drainage. Hematologic/Lymphatic Denies easy bruising or bleeding. The patient denies any tender or palpable lymph nodes. Respiratory Denies dyspnea on exertion, chest pain, cough or hemoptysis. Denies orthopnea. Cardiovascular Denies anginal chest pain, palpitations or orthopnea. Gastrointestinal Denies vomiting, diarrhea, GI bleeding, or constipation. Denies change in bowel habits and/or stool color, no heartburn or early satiety. Genitourinary (F) No hematuria, hesitancy, incontinence, vaginal bleeding, discharge or other problems with urination. Musculoskeletal Denies joint pain, swelling or redness. No decreased range of motion. Integumentary Denies chronic rashes, inflammation, ulcerations or skin changes. Neurologic Normal gait. No sensory problems. Psychiatric Denies insomnia, depression, karen or mood swings. Vital Signs: Performed on Aug 24, 2020 10:56 Height - 60.00 in Weight - 152.2 lbs (LOW) BSA - 1.66 sq.m BMI - 29.72 Temperature - 98.1 F (LOW) Pulse - 80 /min Respiration - 16 /min BP - 134/85 mm(hg) O2 Sat - 99 % Pain - 0 Fatigue - 7,1 - No physically strenuous activity, but ambulatory and able to carry out light or sedentary work (e.g. office work, light house work). (ECOG) Physical Examination: Constitutional Alert, oriented, no acute distress. Skin pink, warm and dry. Head Normocephalic; atraumatic. Right side paralysis noted but not new-no worse than her normal. Eyes Left eye unremarkable. Right eye -surgically closed. ENMT No oral exudates, ulcers, masses or mucositis. Oropharynx clear. Tongue is clear. Neck Supple without masses or thyromegaly. No jugular venous distension. Hematologic/Lymphatic No petechiae or purpura. No tender or palpable lymph nodes in the cervical or supraclavicular areas. Respiratory Lungs are clear to auscultation without rhonchi or wheezing. Cardiovascular Regular rate and rhythm of heart without murmurs,clicks, gallops or rubs. Chest Left chest wall port a cath healed well and unremarkable. Abdomen Non-tender, non-distended, no masses or ascites. No guarding or rebound tenderness. No pulsatile masses. Back/Spine Non-tender to palpation. Extremities No visible deformities, no cyanosis, clubbing. Trace bilateral ankle edema. Musculoskeletal No tenderness or swelling, normal range of motion without obvious weakness. Integumentary No rashes or lesions. Neurologic No sensory or motor deficits, normal cerebellar function, normal gait. Psychiatric Alert and oriented times three. Coherent speech. Verbalizes understanding of our discussions today. Laboratory:Test performed on Aug 29, 2020 08:26 Sodium 135 mmol/L Potassium 4.1 mmol/L Chloride 98 mmol/L CO2 29 mmol/L Anion Gap 12.1 BUN 13 mg/dL Creatinine 0.7 mg/dL Cr Clearance (Est) 91.5600 mL/min eGFR 85.4 mL/min Glucose 95 mg/dL Osmolality - Calculated 280 mOsm/kg Calcium 9.1 mg/dL Protein, Total 6.4 g/dL Albumin 4.2 g/dL Globulin 2.2 g/dL Bilirubin, Total 0.2 mg/dL ALT (SGPT) 9 U/L AST (SGOT) 11 U/L Alkaline Phosphatase 94 IU/L WBC 4.4 10 3/uL RBC 4.18 10 6/uL HGB 10.7 g/dL HCT 34.5 % MCV 82.5 fL MCH 25.6 pg MCHC 31.0 g/dL RDW 17.7 % Platelet Count 234 10 3/cmm MPV 9.0 fL Neutrophils 1.26 10 3/uL Lymphocytes 2.0 10 3/uL Monocytes 0.7 10 3/uL Eosinophils 0.3 10 3/uL Basophils 0.0 10 3/uL Neutrophil % 28.8 % Lymphocyte % 46.5 % Monocyte % 16.9 % Eosinophil % 7.1 % Basophils % 0.5 % NRBC % 0 % Test performed on Jul 04, 2020 08:32 CBC Slide Review Slide Review Perform SLIDE REVIEW AGREES WITH AUTOMATED RESULTS Test performed on Jun 28, 2020 00:00 Manual Diff Cancelled via OM: Cancelled in Connected System Test performed on Jun 26, 2020 09:27 Manual Segs % 29 % Manual Bands % 5.0 % Manual Lymphs % 48 % Atypical Lymphs % 0.0 % Total Cells Counted 100 Manual Monos % 8.0 % Manual Eos % 10 % Manual Basos % 0.0 % Anisocytosis 1+ Microcytosis Trace Poikilocytosis 1+ Ovalocytes Trace Platelet Estimate Normal Platelets, Giant Trace Manual Segs Abs 0.9 10/cmm Manual Bands Abs 0.2 10 3/cmm Manual Neutrophils Abs 1.1 10 3/cmm Manual Monocytes Abs 0.3 10 3/cmm Manual Eosinophils Abs 0.3 10 3/cmm Manual Basophils Abs 0.0 10 3/cmm Impression: Recent adenoid cystic carcinoma peripheral gland with cranial nerve involvement/right skull base involvement. MRI scan done on 09/08/2019 showed widespread spread of tumor into right orbit, right cavernous sinus, restaurant assistant space, pterygopalatine fossa and right facial nerve. Now with right facial nerve paralysis, facial asymmetry. History of adenoid cystic carcinoma right excessive peripheral gland status post partial pericardiectomy with facial nerve monitoring followed by reconstruction for T2 Nx with possible surgical margin lesion, followed by radiation therapy. Chronic smoking Anxiety disorder Clinically, patient has been doing reasonably well, in [id number] distress due to right facial pain and right eye visual disturbance. Mrs Rivera was referred to radiation oncology for palliative radiation therapy. Unfortunately, she is not a candidate for further radiation therapy due to involved risk due to history of prior radiation therapy to same area. A request was sent to pathology regarding next generation sequencing especially NTRK gene analysis but we were told, specimen is not available for evaluation. The role of palliative chemotherapy with cisplatin/Navelbine was discussed as literature has shown overall responsibilities about 44% and with 38% one year survival. did offer her treatment with cisplatin and Navelbine. Her current treatment plan is to give her chemotherapy with split dose of cisplatin/Navelbine on day 1 and 8 and repeat cycle every 21 days. She began her first dose on 01/03/2020. She has tolerated treatment well thus far. She had CT of the head on 02/29/2020 with and without contrast. There is no evidence of intracranial hemorrhage or mass-effect. Ventricular system and basal cisterns are patent. Mild small vessel changes. Mild parenchymal volume loss. 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 No evidence of enhancing intracranial metastatic disease. The left mastoid air cells are well aerated. Opacification right mastoid air cells and middle ear. Mild mucosal thickening along the ethmoid air cells. Previously described thin curvilinear soft tissue along the right medial orbit deep to the medial rectus is unchanged since her MRI September 08, [address] of the head August 15, 2019. This is nonspecific but could be related to orbital pseudotumor, neoplasm or prior surgery. She also had CT of the neck on 02/29/2020 with contrast. There is postoperative changes in the right parotidectomy. No evidence of recurrent residual disease in the right neck. Cluster of slightly prominent enhancing lymph nodes left submandibular and jugulodigastric gastric measuring 6 to 7 mm in short axis dimension. These appear stable compared to September 08, 2019. Recommend interval follow-up with PET/CT. Otherwise no cervical lymphadenopathy. Stable postoperative changes right neck. Opacification right mastoid air cells and middle ear. No evidence of supraglottic or glottic mass. As of February 15, 2020 Mrs. Nair had started her third cycle of chemotherapy unfortunately day 8 was held due to neutropenia. Her ANC at that time was 800. She was given 2 days of Neupogen and recovered well. She has required continued growth factor support with her chemotherapy due to persistent chemotherapy induced neutropenia. The growth factors have been necessary to keep her treatment plan on schedule. PET/CT from May 30, 2020 shows excellent response When compared with CT scan of head and neck prior to the initiation of palliative chemotherapy with cisplatin/Navelbine. She continues with chemotherapy as she does still have residual disease but dramatically improved. Plan: 1. Hold her planned treatment today due to an ANC of 1650. We will give her 1 dose of Neupogen today. She would not be able to follow through with her normal 3 days of Neupogen due to the New Year's holiday. We will plan to reassess her labs on Friday and possibly treat her at that time. 2. Today's labs reviewed in detail and discussed with Ms. Nair and a copy was given to her. WBC 4.8, hemoglobin 10.3, platelets 258,000 ANC is 1650. Potassium 4.3 creatinine 0.8 random glucose was 111 LFTs are normal. Her weight is stable at 152 and she is afebrile. 3. We will plan to repeat CBC on her on Friday, August 28, 2020 for consideration of chemotherapy at that time. She has required growth factor support between treatments. 4. Ms. Nair has been encouraged to contact us in interim should questions or problems arise. Signed By: Harper Vick-, AOCNP Milton Walters MD <<Signature on File>>
== END 2020-08-24 23:59 | disposition home or self-care (01) ==
LOC: ONCMED 05:40
PROVIDERS: Internal Medicine Hematology & Oncology; PCP Family Medicine; Referring Provider Otolaryngology; Visit Provider Nurse Practitioner
DX: C07 Malignant neoplasm of parotid gland (principal); D70.1 Agranulocytosis secondary to cancer chemotherapy; T45.1X5A Adverse effect of antineoplastic and immunosuppressive drugs, initial encounter; D63.0 Anemia in neoplastic disease; F17.290 Nicotine dependence, other tobacco product, uncomplicated; F41.9 Anxiety disorder, unspecified; Z51.81 Encounter for therapeutic drug level monitoring; Z79.899 Other long term (current) drug therapy
CPT/HCPCS: 36591; 80053; 85025; 96365; 96366; 96367; 96372; 96375; 96413; 96417; 99214; J1100; J1442; J1453; J1940; J2469; J3475; J3480; J7030; J7040; J7050; J9060; J9390

== ENCOUNTER 2020-09-20 07:59 | Outpatient (RCR) | payer MEDICARE, MEDICAID, SELFPAY ==
[2020-08-29 08:44] LABS: Basophils % 0.5 %; Eosinophils # 0.3 10^3/uL (0.0-0.8); Eosinophils % 7.1 %; Hematocrit 34.5 % (37.0-47.0); Hemoglobin 10.7 g/dL (11.5-15.3); Lymphocytes % 46.5 %; Mean Corpuscular Hemoglobin 25.6 pg (28.0-34.0); Mean Corpuscular Volume 82.5 fL (81-99); Monocytes # 0.7 10^3/uL (0.2-0.9); Monocytes % 16.9 %; Neutrophils # 1.26 10^3/uL (1.8-7.7); Neutrophils % 28.8 %; Nucleated Red Blood Cells % 0 %; Platelet Count 234 10^3/cmm (130-400); Red Blood Count 4.18 10^6/uL (4.1-5.3); Red Cell Distribution Width 17.7 % (12.1-15.1); White Blood Count 4.4 10^3/uL (4.0-10.0)
[2020-08-29 08:54] LABS: Alanine Aminotransferase 9 U/L (0-33); Albumin Level 4.2 g/dL (3.5-5.2); Alkaline Phosphatase 94 IU/L (35-105); Anion Gap 12.1 (5-19); Aspartate Amino Transferase 11 U/L (0-32); Blood Urea Nitrogen 13 mg/dL (8-23); Calcium 9.1 mg/dL (8.5-10.5); Carbon Dioxide 29 mmol/L (22-29); Chloride 98 mmol/L (98-107); Globulin 2.2 g/dL (1.3-4.6); Glomerular Filtration Rate 85.4 mL/min (90-130); Glucose 95 mg/dL (65-115); Osmolality Calculated 280 mOsm/kg (285-295); Potassium 4.1 mmol/L (3.5-5.1); Sodium 135 mmol/L (136-145); Total Bilirubin 0.2 mg/dL (0.15-1.2); Total Protein 6.4 g/dL (6.6-8.7)
[2020-09-05] MEDS: sodium chloride 0.9% 250 ML 75 ML IV (10:15)
[2020-09-05 10:28] LABS: Basophils % 0.5 %; Eosinophils # 0.4 10^3/uL (0.0-0.8); Eosinophils % 10.9 %; Hematocrit 33.9 % (37.0-47.0); Hemoglobin 10.5 g/dL (11.5-15.3); Lymphocytes # 2.2 10^3/uL (0.8-4.8); Lymphocytes % 55.2 %; Mean Corpuscular Hemoglobin 25.7 pg (28.0-34.0); Mean Corpuscular Volume 82.9 fL (81-99); Mean Platelet Volume 8.8 fL (7.4-10.4); Monocytes # 0.5 10^3/uL (0.2-0.9); Monocytes % 13.1 %; Neutrophils % 20.1 %; Nucleated Red Blood Cells % 0 %; Platelet Count 195 10^3/cmm (130-400); Red Blood Count 4.09 10^6/uL (4.1-5.3); Red Cell Distribution Width 17.4 % (12.1-15.1)
[2020-09-05 10:35] LABS: Neutrophils # 0.81 10^3/uL (1.8-7.7)
[2020-09-05 13:13] LABS: Absolute Eosinophils 0.4 10^3/cmm (0.0-0.7); Absolute Segmented Neutrophil 0.5 10/cmm (1.6-7.1); Band Neutrophils Absolute 0.2 10^3/cmm (0.0-1.2); Eosinophils 12 %; Lymphocytes 59 %; Monocytes Absolute 0.4 10^3/cmm (0.1-0.6); Segmented Neutrophils 13 %; Total Cells Counted 100 (0-100)
[2020-09-05 13:14] LABS: Absolute Neutrophil 0.7 10^3/cmm (1.4-6.5); Platelet Estimate Normal (Normal)
[2020-09-20 09:13] LABS: Basophils % 0.4 %; Eosinophils # 0.5 10^3/uL (0.0-0.8); Eosinophils % 10.2 %; Hematocrit 35.5 % (37.0-47.0); Lymphocytes # 2.8 10^3/uL (0.8-4.8); Mean Corpuscular Hemoglobin 26.1 pg (28.0-34.0); Mean Corpuscular Volume 84.3 fL (81-99); Mean Platelet Volume 9.2 fL (7.4-10.4); Monocytes # 0.5 10^3/uL (0.2-0.9); Monocytes % 10.2 %; Neutrophils # 1.38 10^3/uL (1.8-7.7); Neutrophils % 26.2 %; Nucleated Red Blood Cells % 0 %; Platelet Count 238 10^3/cmm (130-400); Red Blood Count 4.21 10^6/uL (4.1-5.3); Red Cell Distribution Width 17.1 % (12.1-15.1); White Blood Count 5.3 10^3/uL (4.0-10.0)
--- NOTE | 2020-09-20 11:07 | ONC FU_ITS ---
Dr. Walters follow up note Patient: Alia Nair Unit #: [id number]: [id number] Dicatated By: Milton Walters M.D.Date of Visit:Sep 20, 2020 Onc Med Follow-up/Prog Note History of Present Illness: Mrs. Rivera is a 60 -year-old female with history of adenoid cystic carcinoma right parotid gland. She is status post partial parotidectomy with facial nerve monitoring followed by reconstruction of the soft tissue defect with pedicled into oral buccal flap. The final pathology confirmed T2, MX lesion with positive surgical margins. Mrs Nair was referred to radiation oncology, as per patient she underwent radiation therapy here in [facility]. Since then she has been followed by ENT and with no evidence of disease until recently started having a right eye problem. MRI scan of the neck done on 09/08/2019 showed widespread neural spread of tumor into the right orbit right cavernous sinus, weight and balance control agent space, pterygopalatine fossa and probably right facial nerve. Her case was discussed in multidisciplinary head and neck tumor conference in [place] by her ENT physician there. Treatment options including treating skull base involved area to palliate symptoms (IMRT or SRS). Or perhaps consider proton beam IM RT. She was referred to radiation oncology here in [place] and she was also referred to palliative care clinic for pain management. Mrs Nair was also encouraged to see medical oncology for palliative systemic therapy. Mrs Nair has seen radiation oncology and as per patient she was told there is no plan for further radiation therapy considering the risk versus benefits, especially due to prior radiation therapy to same area. 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 did offer her treatment with Cisplatin and vinorelbine. She began her first cycle on 01/03/2020. Long-standing history of smoking and is still active. Her pain (right eye and right side of her face) is under control with current pain medication., right facial swelling improved; no more headache and can also breathe through right nostril. Overall, she is pleased with response to the chemotherapy. She had CT of the head on 02/29/2020 with and without contrast. There is no evidence of intracranial hemorrhage or mass-effect. Ventricular system and basal cisterns are patent. Mild small vessel changes. Mild parenchymal volume loss. 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 No evidence of enhancing intracranial metastatic disease. The left mastoid air cells are well aerated. Opacification right mastoid air cells and middle ear. Mild mucosal thickening along the ethmoid air cells. Previously described thin curvilinear soft tissue along the right medial orbit deep to the medial rectus is unchanged since her MRI September 08, [address] of the head August 15, 2019. This is nonspecific but could be related to orbital pseudotumor, neoplasm or prior surgery. She also had CT of the neck on 02/29/2020 with contrast. There is postoperative changes in the right parotidectomy. No evidence of recurrent residual disease in the right neck. Cluster of slightly prominent enhancing lymph nodes left submandibular and jugulodigastric gastric measuring 6 to 7 mm in short axis dimension. These appear stable compared to September 08, 2019. Otherwise no cervical lymphadenopathy. Stable postoperative changes right neck. Opacification right mastoid air cells and middle ear. No evidence of supraglottic or glottic mass. As of February 15, 2020 Mrs. Nair had started her third cycle of chemotherapy unfortunately day 8 was held due to neutropenia. Her ANC at that time was 800. She has required growth factor support through her treatment. Follow-up CT PET scan done on May 30, 2020 showed focal increased metabolic activity is present in the left posterior palate. A single left level 2 lymph node size 0.6 cm, demonstrated increased metabolic activity. No evidence of metabolic activity disease in the right face or involving orbit or previous tumor location. New, compared to CT PET scan done in February 2019, subcentimeter left lung nodular findings size about 0.7 cm and 0.6 cm may reflect early metastatic disease, but compared to CT scan of head and neck prior to the treatment showed excellent response Mrs Nair is tolerating systemic therapy with cisplatin/Navelbine well. Her last treatment was on August 03, 2020 and Since then she has received 7 doses of Neupogen but no improvement in persistent neutropenia in fact repeat CBC done on September 05, 2020 showed absolute neutrophil count dropped down to 810 from 1260 on August 29, 2020 while total white blood count was within normal range continue to hold chemotherapy and eventually decided to proceed with bone marrow evaluation to rule out underlying bone marrow pathology , Came for follow-up, denies any specific complaints, except discomfort in lower back and anterior chest since on Neupogen shots otherwise no fever chills, no nausea or vomiting, no diarrhea or constipation, no dysphagia right side facial swelling continues to improve. No headaches. No dysuria, no sore throat, appetite is good. Medications: Albuterol Sulfate HFA 2 puff(s) (of 108 (90 Base) mcg/act) Aerosol, solution Inhalation q 6 hours PRN, ALPRAZolam 1 Tablet (of 1 mg) Oral t.i.d. PRN, Effexor XR 1 Capsule (of 37.5 mg) Capsule SR 24 HR Oral daily, Furosemide 1 Tablet (of 20 mg) Oral PRN, Lyrica 1 Capsule (of 100 mg) Oral t.i.d., Morphine Sulfate 1 Tablet (of 30 mg) Oral t.i.d., OxyCODONE HCl 1 Tablet (of 20 mg) Oral q 4 to 6 hours PRN Allergies: Aleve Review of Systems: Constitutional - Appetite is good and weight is stable. No fever, chills, or night sweats. Energy level is good. Positive for hot flashes, ENMT - No sinus congestion/drainage. No mouth sores. No sore throat or difficulty swallowing, Hematologic/Lymphatic - No abnormal bruising or bleeding, Respiratory - No shortness of breath. No cough. No pleuritic pain or hemoptysis, Cardiovascular - No angina pain. No palpitations, Gastrointestinal - No nausea or vomiting. Positive for heartburn, no acid reflux. No diarrhea or constipation. No blood in the stool or black stools, Genitourinary (F) - No dysuria or hematuria. Positive for urinary frequency. No urgency or incontinence, Musculoskeletal - Positive for joint and bone pain, Neurologic - No headache or dizziness. No numbness/paresthesias or other focal neurologic symptoms, Psychiatric - No anxiety or depression. No insomnia. Vital Signs: Vitals are not available for this patient. Performance Status: 1 - No physically strenuous activity, but ambulatory and able to carry out light or sedentary work (e.g. office work, light house work). (ECOG) Physical Examination: ENMT - No mouth sores, no thrush, no jaundice, Respiratory - Lungs are clear to auscultation, Cardiovascular - Regular rate and rhythm of heart, Abdomen - Soft, bowel sounds present, Extremities - No visible edema. Lab/Imaging: Test performed on Aug 29, 2020 08:26 Sodium 135 mmol/L Potassium 4.1 mmol/L Chloride 98 mmol/L CO2 29 mmol/L Anion Gap 12.1 BUN 13 mg/dL Creatinine 0.7 mg/dL Cr Clearance (Est) 91.5600 mL/min eGFR 85.4 mL/min Glucose 95 mg/dL Osmolality - Calculated 280 mOsm/kg Calcium 9.1 mg/dL Protein, Total 6.4 g/dL Albumin 4.2 g/dL Globulin 2.2 g/dL Bilirubin, Total 0.2 mg/dL ALT (SGPT) 9 U/L AST (SGOT) 11 U/L Alkaline Phosphatase 94 IU/L WBC 4.4 10 3/uL RBC 4.18 10 6/uL HGB 10.7 g/dL HCT 34.5 % MCV 82.5 fL MCH 25.6 pg MCHC 31.0 g/dL RDW 17.7 % Platelet Count 234 10 3/cmm MPV 9.0 fL Neutrophils 1.26 10 3/uL Lymphocytes 2.0 10 3/uL Monocytes 0.7 10 3/uL Eosinophils 0.3 10 3/uL Basophils 0.0 10 3/uL Neutrophil % 28.8 % Lymphocyte % 46.5 % Monocyte % 16.9 % Eosinophil % 7.1 % Basophils % 0.5 % NRBC % 0 % Test performed on Jul 04, 2020 08:32 CBC Slide Review Slide Review Perform SLIDE REVIEW AGREES WITH AUTOMATED RESULTS Test performed on Jun 28, 2020 00:00 Manual Diff Cancelled via OM: Cancelled in Connected System Test performed on Jun 26, 2020 09:27 Manual Segs % 29 % Manual Bands % 5.0 % Manual Lymphs % 48 % Atypical Lymphs % 0.0 % Total Cells Counted 100 Manual Monos % 8.0 % Manual Eos % 10 % Manual Basos % 0.0 % Anisocytosis 1+ Microcytosis Trace Poikilocytosis 1+ Ovalocytes Trace Platelet Estimate Normal Platelets, Giant Trace Manual Segs Abs 0.9 10/cmm Manual Bands Abs 0.2 10 3/cmm Manual Neutrophils Abs 1.1 10 3/cmm Manual Monocytes Abs 0.3 10 3/cmm Manual Eosinophils Abs 0.3 10 3/cmm Manual Basophils Abs 0.0 10 3/cmm Impression: Recent adenoid cystic carcinoma peripheral gland with cranial nerve involvement/right skull base involvement. MRI scan done on 09/08/2019 showed widespread spread of tumor into right orbit, right cavernous sinus, weight and balance control agent space, pterygopalatine fossa and right facial nerve. Now with right facial nerve paralysis, facial asymmetry. History of adenoid cystic carcinoma right excessive peripheral gland status post partial pericardiectomy with facial nerve monitoring followed by reconstruction for T2 Nx with possible surgical margin lesion, followed by radiation therapy. Chronic smoking Anxiety disorder Clinically, patient has been doing reasonably well, in [id number] distress due to right facial pain and right eye visual disturbance. Mrs Rivera was referred to radiation oncology for palliative radiation therapy. Unfortunately, she is not a candidate for further radiation therapy due to involved risk due to history of prior radiation therapy to same area. A request was sent to pathology regarding next generation sequencing especially NTRK gene analysis but we were told, specimen is not available for evaluation. The role of palliative chemotherapy with cisplatin/Navelbine was discussed as literature has shown overall responsibilities about 44% and with 38% one year survival. did offer her treatment with cisplatin and Navelbine. Her current treatment plan is to give her chemotherapy with split dose of cisplatin/Navelbine on day 1 and 8 and repeat cycle every 21 days. She began her first dose on 01/03/2020. She has tolerated treatment well thus far. She had CT of the head on 02/29/2020 with and without contrast. There is no evidence of intracranial hemorrhage or mass-effect. Ventricular system and basal cisterns are patent. Mild small vessel changes. Mild parenchymal volume loss. 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 No evidence of enhancing intracranial metastatic disease. The left mastoid air cells are well aerated. Opacification right mastoid air cells and middle ear. Mild mucosal thickening along the ethmoid air cells. Previously described thin curvilinear soft tissue along the right medial orbit deep to the medial rectus is unchanged since her MRI September 08, [address] of the head August 15, 2019. This is nonspecific but could be related to orbital pseudotumor, neoplasm or prior surgery. She also had CT of the neck on 02/29/2020 with contrast. There is postoperative changes in the right parotidectomy. No evidence of recurrent residual disease in the right neck. Cluster of slightly prominent enhancing lymph nodes left submandibular and jugulodigastric gastric measuring 6 to 7 mm in short axis dimension. These appear stable compared to September 08, 2019. Recommend interval follow-up with PET/CT. Otherwise no cervical lymphadenopathy. Stable postoperative changes right neck. Opacification right mastoid air cells and middle ear. No evidence of supraglottic or glottic mass. As of February 15, 2020 Mrs. Nair had started her third cycle of chemotherapy unfortunately day 8 was held due to neutropenia. Her ANC at that time was 800. She was given 2 days of Neupogen and recovered well. She has required continued growth factor support with her chemotherapy due to persistent chemotherapy induced neutropenia. The growth factors have been necessary to keep her treatment plan on schedule. PET/CT from May 30, 2020 shows excellent response When compared with CT scan of head and neck prior to the initiation of palliative chemotherapy with cisplatin/Navelbine. She continues with chemotherapy as she does still have residual disease but dramatically improved. Plan: Discussed with patient regarding her labs white blood count 5.3 hemoglobin 11 hematocrit 35.5 platelets 238,000 ANC 1380 Clinically, patient is doing reasonably well with no new signs symptom except lower back and anterior chest wall discomfort since on Neupogen, most likely due to bone marrow expansion but her follow-up CBC shows no significant improvement and persistent neutropenia which is causing delay in her chemotherapy and etiology of persistent neutropenia is unclear could be underlying prolonged bone marrow suppression due to chemotherapy but concern is developing underlying myelodysplasia or other pathology like leukemia. At this point, we will continue to hold chemotherapy and will consider bone marrow evaluation Also consider follow-up CT PET scan to assess disease status and if PET scan shows stable or no disease progression and bone marrow remains inconclusive, we may consider stopping chemotherapy and observe Return to clinic 2 weeks after bone marrow with CT PET scan and CBC CMP Signed By: Milton Walters M.D. <<Signature on File>>
== END 2020-09-24 23:59 | disposition home or self-care (01) ==
LOC: ONCMED 07:59
PROVIDERS: Nurse Practitioner; PCP Family Medicine; Referring Provider Otolaryngology; Visit Provider Internal Medicine Hematology & Oncology
DX: C07 Malignant neoplasm of parotid gland (principal); D70.1 Agranulocytosis secondary to cancer chemotherapy; T45.1X5A Adverse effect of antineoplastic and immunosuppressive drugs, initial encounter; F17.210 Nicotine dependence, cigarettes, uncomplicated; F41.9 Anxiety disorder, unspecified; H53.9 Unspecified visual disturbance; R51.9 Headache, unspecified; Z92.21 Personal history of antineoplastic chemotherapy; Z79.899 Other long term (current) drug therapy
CPT/HCPCS: 36591; 80053; 85007; 85025; 96365; 96366; 96372; 99214; J1442; J3475; J3480; J7030; J7050

== ENCOUNTER 2020-09-21 09:31 | Day surgery (SDC) | payer MEDICARE, MEDICAID, SELFPAY ==
[2020-09-19 14:04] VITALS: BMI 28.7
[2020-09-21 09:52] VITALS: BP 123/89; PULSE 89; RESP 16; TEMP 36.7; O2SAT 93
[2020-09-21 10:36] LABS: Basophils % 0.5 %; Eosinophils # 0.5 10^3/uL (0.0-0.8); Eosinophils % 12.4 %; Hematocrit 35.5 % (37.0-47.0); Hemoglobin 11.1 g/dL (11.5-15.3); Lymphocytes # 2.2 10^3/uL (0.8-4.8); Lymphocytes % 51.6 %; Mean Corpuscular HGB Conc 31.3 g/dL (30.0-36.0); Mean Corpuscular Hemoglobin 26.2 pg (28.0-34.0); Mean Corpuscular Volume 83.7 fL (81-99); Mean Platelet Volume 9.3 fL (7.4-10.4); Monocytes # 0.5 10^3/uL (0.2-0.9); Monocytes % 10.7 %; Neutrophils # 1.03 10^3/uL (1.8-7.7); Neutrophils % 24.6 %; Nucleated Red Blood Cells % 0 %; Platelet Count 210 10^3/cmm (130-400); Red Blood Count 4.24 10^6/uL (4.1-5.3); Red Cell Distribution Width 16.8 % (12.1-15.1); White Blood Count 4.2 10^3/uL (4.0-10.0)
[2020-09-21] MEDS: sodium chloride 0.9% 1,000 ML 30 ML IV (10:37)
[2020-09-21 11:39] VITALS: BP 101/66; PULSE 67; RESP 16; TEMP 36.3; O2SAT 98
--- NOTE | 2020-09-21 11:40 | P.PCN_ITS ---
Bone Marrow Biopsy Bone Marrow Biopsy: I was consulted by [] office regarding bone marrow biopsy on Alia Nair []. Briefly, the patient is a [60- year old [female with [persistent neutropenia]. In the Outpatient Services Department, with nursing staff and laboratory technologists in attendance, the procedure was discussed with the patient. Appropriate consent form had been signed. Appropriate alternatives, benefits and risks of procedure were discussed with the patient and she was pre- operatively assessed with a history and physical by myself and cleared for the biopsy procedure. The patient did request IV sedation and that was provided by the Anesthesia Department. Under aseptic condition right posterior iliac area was cleaned and prepped, local anesthesia was given, about 15 cc of bone marrow aspirate and core biopsy was obtained, patient tolerated procedure well, hemostasis obtained, postprocedure nursing instructions were given. Specimen was sent for routine histopathology, flow cytometry/cytogenetics and MDS panel Thank you for allowing me to participate in this patient's care and diagnosis. Coding Level of Care Code Acute It Service Delivery Manager for Eran Villafuerte
--- NOTE | 2020-09-21 11:51 | P.ANESASSM_ITS ---
Pre-Anesthetic Assessment Pre-Anesthetic Assessment: Height/Weight: Height 1.55 m Weight 68.946 kg Temp Pulse Resp BP Pulse Ox 97.4 F L 67 16 101/66 98 09/21/20 11:45 09/21/20 11:45 09/21/20 11:45 09/21/20 11:45 09/21/20 11:45 Preop Diagnosis: Adenocystic carcinoma requiring central venous access for chemotherapy Proposed Procedure: Operation Date: 09/21/20 11:00 Proposed Procedures p Bone Marrow Biospy With Aspiration D70.1(Not Applicable) - Milton Walters MD Last intake: Intake Last Liquid Date 09/21/20 Last Liquid Time 02:30 Last Solid Date 09/21/20 Last Solid Time 02:30 Social: Comment: vapes Exam: Pre-Anes Outpt Exam: oriented x 3 and regular rate & rhythm Additional Exam Findings (including area of procedure): patient appears sedated. falling asleep during evaluation Airway: Cervical ROM: WNL MP: 3 Additional comments: edentulous History/ROS: No significant complaints Pulmonary: Pulmonary: None reported CV/HEM: CV/HEM: None reported : : None reported Hepatic: Hepatic: None reported GI: GI: None reported Metabolic: Metabolic: None reported Musc/skel: Musc/skel: None reported Neuropsych: Neuropsych: None reported Anesthetic Plan: ASA status: 3 Anesthesia: MAC Risk of > 500 ml blood loss (7ml/kg in children): No Other Pertinent Information: parotid cancer Meds/Allergies Current Medications: Current Medications Generic Name Dose Route Start Last Admin Trade Name Freq PRN Reason Stop Dose Admin Sodium Chloride 1,000 mls @ 30 ml s/hr 09/21/20 09:45 09/21/20 10:37 Sodium Chloride 0.9% IV 09/22/20 09:44 30 mls/hr .Q24H RICA Administration PFSH Anesthesia PFSH: Medical History Adenoid cystic carcinoma Surgical History (Updated 11/15/19 @ 10:46 by Alexandre Kessler MD) History of appendectomy (~1971) History of knee surgery History of parotidectomy (~2014) History of tonsillectomy (~1973) Port-A-Cath in place (~11/15/19) Family History Father Cancer Denies family history of Anesthesia complication Bleeding disorder Social History Smoking and tobacco status: never smoked Second hand smoke exposure: No Alcohol intake: never Adopted: No Caregiver/support person: Yes Lives independently: Yes Household members: spouse Housing: House Marital status: service: No Current occupational exposures/hazards: No Pets and animals: No History of recent travel: No Current gender identity: Female [employer]: [employer] Financial difficulty paying for basics: Decline to Answer Data Anesthesia CBC & Chem 7: 09/21/20 10:15 Other Labs: Laboratory Results - last 48 hr 09/21/20 10:15 WBC 4.2 RBC 4.24 Hgb 11.1 L Hct 35.5 L MCV 83.7 MCH 26.2 L MCHC 31.3 RDW 16.8 H Plt Count 210 MPV 9.3 Neut % (Auto) 24.6 Lymph % (Auto) 51.6 [place] % (Auto) 10.7 Eos % (Auto) 12.4 Baso % (Auto) 0.5 Neut # (Auto) 1.03 L Lymph # (Auto) 2.2 [place] # (Auto) 0.5 Eos # (Auto) 0.5 Baso # (Auto) 0.0 Nucleated RBC % (auto) 0 Nucleated RBCs # 0.0 Cardiac Studies: No Data to Display
[2020-09-21 11:52] VITALS: BP 100/67; PULSE 70; RESP 18; O2SAT 98
[2020-09-21 12:00] VITALS: BP 105/71; PULSE 100; RESP 16; TEMP 36.6; O2SAT 100
--- NOTE | 2020-09-21 12:07 | ANE.PACU2 ---
Inpatient post-anesthesia follow up: Airway intact: Yes Vital signs: Temperature 97.4 F Pulse Rate 70 Respiratory Rate 18 Blood Pressure 100/67 Pulse Oximetry 98 Oxygen Delivery Me thod Nasal Cannula Oxygen Flow Rate 2 Fraction of Inspir ed Oxygen Hydration adequate: Yes Nausea and vomiting: No Pain level: 1 Additional Comments: Sedated
--- NOTE | 2020-09-21 13:10 | SUR.PHASEII ---
12:30 INFUSER PORT FLUSHED WITH 20ml OF SALINE FLUSH THEN DE ACCESSED PER PROTOCOL. STERILE DRESSING APPLIED.
[2020-09-29 13:12] LABS: Miscellaneous Test See Scanned Lab Rpt
== END 2020-09-21 12:59 | disposition home or self-care (01) ==
PROVIDERS: PCP Family Medicine; Visit Provider Internal Medicine Hematology & Oncology
PROC: 07DT3ZX Extraction of Bone Marrow, Percutaneous Approach, Diagnostic (ICD-10-PCS; CPT 38222; principal; 2020-09-21 11:00)
DX: D70.9 Neutropenia, unspecified (principal)
CPT/HCPCS: 12345; 36415; 38222; 85025; 88184; 88185; 88237; 88264; 88305; 88367; 88374; 96374; J2704; J2710; J3490; J7030

== ENCOUNTER 2020-10-23 13:26 | Outpatient (CLI) | payer MEDICARE, MEDICAID, SELFPAY ==
[2020-10-23 14:34] LABS: Alanine Aminotransferase 11 U/L (0-33); Alkaline Phosphatase 86 IU/L (35-105); Anion Gap 10.3 (5-19); Aspartate Amino Transferase 13 U/L (0-32); Blood Urea Nitrogen 12 mg/dL (8-23); Calcium 9.3 mg/dL (8.5-10.5); Carbon Dioxide 30 mmol/L (22-29); Chloride 104 mmol/L (98-107); Globulin 2.6 g/dL (1.3-4.6); Glomerular Filtration Rate 85.4 mL/min (90-130); Glucose 79 mg/dL (65-115); Osmolality Calculated 289 mOsm/kg (285-295); Potassium 4.3 mmol/L (3.5-5.1); Sodium 140 mmol/L (136-145); Total Bilirubin 0.2 mg/dL (0.15-1.2); Total Protein 6.6 g/dL (6.6-8.7)
[2020-10-23 14:50] LABS: Basophils % 0.2 %; Eosinophils # 0.4 10^3/uL (0.0-0.8); Eosinophils % 6.8 %; Hemoglobin 11.7 g/dL (11.5-15.3); Lymphocytes # 2.8 10^3/uL (0.8-4.8); Lymphocytes % 54.2 %; Mean Corpuscular HGB Conc 31.6 g/dL (30.0-36.0); Mean Corpuscular Hemoglobin 26.4 pg (28.0-34.0); Mean Corpuscular Volume 83.5 fL (81-99); Mean Platelet Volume 9.3 fL (7.4-10.4); Monocytes # 0.5 10^3/uL (0.2-0.9); Neutrophils # 1.46 10^3/uL (1.8-7.7); Neutrophils % 28.6 %; Nucleated Red Blood Cells % 0 %; Platelet Count 248 10^3/cmm (130-400); Red Blood Count 4.43 10^6/uL (4.1-5.3); Red Cell Distribution Width 15.3 % (12.1-15.1); White Blood Count 5.1 10^3/uL (4.0-10.0)
== END 2020-10-23 13:27 | disposition home or self-care (01) ==
LOC: ONCMED 13:30
PROVIDERS: PCP Family Medicine; Visit Provider Internal Medicine Hematology & Oncology
DX: C07 Malignant neoplasm of parotid gland (principal); D70.1 Agranulocytosis secondary to cancer chemotherapy; T45.1X5A Adverse effect of antineoplastic and immunosuppressive drugs, initial encounter
CPT/HCPCS: 36591; 80053; 85025

== ENCOUNTER 2020-10-25 05:35 | Outpatient (CLI) | payer MEDICARE, MEDICAID, SELFPAY ==
--- NOTE | 2020-10-25 10:04 | ONC FU_ITS ---
Dr. Walters follow up note Patient: Alia Nair Unit #: [id number]: [id number] Dicatated By: Milton Walters M.D.Date of Visit:Oct 25, 2020 Onc Med Follow-up/Prog Note History of Present Illness: Mrs. Rivera is a 60 -year-old female with history of adenoid cystic carcinoma right parotid gland. She is status post partial parotidectomy with facial nerve monitoring followed by reconstruction of the soft tissue defect with pedicled into oral buccal flap. The final pathology confirmed T2, MX lesion with positive surgical margins. Mrs Nair was referred to radiation oncology, as per patient she underwent radiation therapy here in [facility]. Since then she has been followed by ENT and with no evidence of disease until recently started having a right eye problem. MRI scan of the neck done on 09/08/2019 showed widespread neural spread of tumor into the right orbit right cavernous sinus, trolley operator space, pterygopalatine fossa and probably right facial nerve. Her case was discussed in multidisciplinary head and neck tumor conference in [place] by her ENT physician there. Treatment options including treating skull base involved area to palliate symptoms (IMRT or SRS). Or perhaps consider proton beam IM RT. She was referred to radiation oncology here in [place] and she was also referred to palliative care clinic for pain management. Mrs Nair was also encouraged to see medical oncology for palliative systemic therapy. Mrs Nair has seen radiation oncology and as per patient she was told there is no plan for further radiation therapy considering the risk versus benefits, especially due to prior radiation therapy to same area. 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 did offer her treatment with Cisplatin and vinorelbine. She began her first cycle on 01/03/2020. Long-standing history of smoking and is still active. Her pain (right eye and right side of her face) is under control with current pain medication., right facial swelling improved; no more headache and can also breathe through right nostril. Overall, she is pleased with response to the chemotherapy. She had CT of the head on 02/29/2020 with and without contrast. There is no evidence of intracranial hemorrhage or mass-effect. Ventricular system and basal cisterns are patent. Mild small vessel changes. Mild parenchymal volume loss. 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 No evidence of enhancing intracranial metastatic disease. The left mastoid air cells are well aerated. Opacification right mastoid air cells and middle ear. Mild mucosal thickening along the ethmoid air cells. Previously described thin curvilinear soft tissue along the right medial orbit deep to the medial rectus is unchanged since her MRI September 08, [address] of the head August 15, 2019. This is nonspecific but could be related to orbital pseudotumor, neoplasm or prior surgery. She also had CT of the neck on 02/29/2020 with contrast. There is postoperative changes in the right parotidectomy. No evidence of recurrent residual disease in the right neck. Cluster of slightly prominent enhancing lymph nodes left submandibular and jugulodigastric gastric measuring 6 to 7 mm in short axis dimension. These appear stable compared to September 08, 2019. Otherwise no cervical lymphadenopathy. Stable postoperative changes right neck. Opacification right mastoid air cells and middle ear. No evidence of supraglottic or glottic mass. As of February 15, 2020 Mrs. Nair had started her third cycle of chemotherapy unfortunately day 8 was held due to neutropenia. Her ANC at that time was 800. She has required growth factor support through her treatment. Follow-up CT PET scan done on May 30, 2020 showed focal increased metabolic activity is present in the left posterior palate. A single left level 2 lymph node size 0.6 cm, demonstrated increased metabolic activity. No evidence of metabolic activity disease in the right face or involving orbit or previous tumor location. New, compared to CT PET scan done in February 2019, subcentimeter left lung nodular findings size about 0.7 cm and 0.6 cm may reflect early metastatic disease, but compared to CT scan of head and neck prior to the treatment showed excellent response Mrs Nair is tolerating systemic therapy with cisplatin/Navelbine well. Her last treatment was on August 03, 2020 and Since then she has received 7 doses of Neupogen but no improvement in persistent neutropenia in fact repeat CBC done on September 05, 2020 showed absolute neutrophil count dropped down to 810 from 1260 on August 29, 2020 while total white blood count was within normal range continue to hold chemotherapy and eventually decided to proceed with bone marrow evaluation to rule out underlying bone marrow pathology Which was done on September 21, 2020 showed normocellular bone marrow for age. Slight erythroid predominance noted adequate myelopoiesis no overt dyspoietic or megaloblastic changes seen. No significant reticulin fibrosis observed FISH for MDS panel was unremarkable, flow cytometry showed no overtly aberrant myeloid or lymphoid population. CT PET scan done on October 07, 2020 showed status post right parotidectomy, no significant head or neck adenopathy. A 9 mm subpleural lingular nodule is FDG negative and slightly more prominent than February 2019 study. Less likely to be malignant. Came for follow-up, denies any specific complaint except chronic right facial/temporal area puffiness due to lymphedema and chronic discomfort/mild pain in the right upper neck. Has been followed by ENT but no fever chills, no nausea or vomiting no diarrhea constipation no dysphagia no sore throat, mild numbness and fingertip but improving Medications: Albuterol Sulfate HFA 2 puff(s) (of 108 (90 Base) mcg/act) Aerosol, solution Inhalation q 6 hours PRN, ALPRAZolam 1 Tablet (of 1 mg) Oral t.i.d. PRN, Effexor XR 1 Capsule (of 37.5 mg) Capsule SR 24 HR Oral daily, Furosemide 1 Tablet (of 20 mg) Oral PRN, Lyrica 1 Capsule (of 100 mg) Oral t.i.d., Morphine Sulfate 1 Tablet (of 30 mg) Oral t.i.d., OxyCODONE HCl 1 Tablet (of 20 mg) Oral q 4 to 6 hours PRN Allergies: Aleve Review of Systems: Review of Systems is not available for this patient. Vital Signs: Performed on Oct 25, 2020 08:45 Height - 60.00 in Weight - 159 lbs (HIGH) BSA - 1.69 sq.m BMI - 31.05 (HIGH) Temperature - 98.6 F Pulse - 93 /min Respiration - 18 /min BP - 131/73 mm(hg) O2 Sat - 99 % Pain - 6 Fatigue - 3 Performance Status: 1 - No physically strenuous activity, but ambulatory and able to carry out light or sedentary work (e.g. office work, light house work). (ECOG) Physical Examination: ENMT - Postsurgical changes right upper neck and mild right upper face/temporal area puffiness due to lymphedema otherwise no mouth sores, no thrush, Respiratory - Lungs are clear to auscultation, Cardiovascular - Regular rate and rhythm of heart, Abdomen - Soft, bowel sounds present, Extremities - No visible edema. Lab/Imaging: Test performed on Sep 20, 2020 08:45 WBC 5.3 10 3/uL RBC 4.21 10 6/uL HGB 11.0 g/dL HCT 35.5 % MCV 84.3 fL MCH 26.1 pg MCHC 31.0 g/dL RDW 17.1 % Platelet Count 238 10 3/cmm MPV 9.2 fL Neutrophils 1.38 10 3/uL Lymphocytes 2.8 10 3/uL Monocytes 0.5 10 3/uL Eosinophils 0.5 10 3/uL Basophils 0.0 10 3/uL Neutrophil % 26.2 % Lymphocyte % 53.0 % Monocyte % 10.2 % Eosinophil % 10.2 % Basophils % 0.4 % NRBC % 0 % Test performed on Aug 29, 2020 08:26 Sodium 135 mmol/L Potassium 4.1 mmol/L Chloride 98 mmol/L CO2 29 mmol/L Anion Gap 12.1 BUN 13 mg/dL Creatinine 0.7 mg/dL Cr Clearance (Est) 91.5600 mL/min eGFR 85.4 mL/min Glucose 95 mg/dL Osmolality - Calculated 280 mOsm/kg Calcium 9.1 mg/dL Protein, Total 6.4 g/dL Albumin 4.2 g/dL Globulin 2.2 g/dL Bilirubin, Total 0.2 mg/dL ALT (SGPT) 9 U/L AST (SGOT) 11 U/L Alkaline Phosphatase 94 IU/L Test performed on Jul 04, 2020 08:32 CBC Slide Review Slide Review Perform SLIDE REVIEW AGREES WITH AUTOMATED RESULTS Test performed on Jun 28, 2020 00:00 Manual Diff Cancelled via OM: Cancelled in Connected System Test performed on Jun 26, 2020 09:27 Manual Segs % 29 % Manual Bands % 5.0 % Manual Lymphs % 48 % Atypical Lymphs % 0.0 % Total Cells Counted 100 Manual Monos % 8.0 % Manual Eos % 10 % Manual Basos % 0.0 % Anisocytosis 1+ Microcytosis Trace Poikilocytosis 1+ Ovalocytes Trace Platelet Estimate Normal Platelets, Giant Trace Manual Segs Abs 0.9 10/cmm Manual Bands Abs 0.2 10 3/cmm Manual Neutrophils Abs 1.1 10 3/cmm Manual Monocytes Abs 0.3 10 3/cmm Manual Eosinophils Abs 0.3 10 3/cmm Manual Basophils Abs 0.0 10 3/cmm Impression: Recent adenoid cystic carcinoma peripheral gland with cranial nerve involvement/right skull base involvement. MRI scan done on 09/08/2019 showed widespread spread of tumor into right orbit, right cavernous sinus, trolley operator space, pterygopalatine fossa and right facial nerve. Now with right facial nerve paralysis, facial asymmetry. History of adenoid cystic carcinoma right excessive peripheral gland status post partial pericardiectomy with facial nerve monitoring followed by reconstruction for T2 Nx with possible surgical margin lesion, followed by radiation therapy. Chronic smoking Anxiety disorder Clinically, patient has been doing reasonably well, in [id number] distress due to right facial pain and right eye visual disturbance. Mrs Rivera was referred to radiation oncology for palliative radiation therapy. Unfortunately, she is not a candidate for further radiation therapy due to involved risk due to history of prior radiation therapy to same area. A request was sent to pathology regarding next generation sequencing especially NTRK gene analysis but we were told, specimen is not available for evaluation. The role of palliative chemotherapy with cisplatin/Navelbine was discussed as literature has shown overall responsibilities about 44% and with 38% one year survival. did offer her treatment with cisplatin and Navelbine. Her current treatment plan is to give her chemotherapy with split dose of cisplatin/Navelbine on day 1 and 8 and repeat cycle every 21 days. She began her first dose on 01/03/2020. She has tolerated treatment well thus far. She had CT of the head on 02/29/2020 with and without contrast. There is no evidence of intracranial hemorrhage or mass-effect. Ventricular system and basal cisterns are patent. Mild small vessel changes. Mild parenchymal volume loss. 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 No evidence of enhancing intracranial metastatic disease. The left mastoid air cells are well aerated. Opacification right mastoid air cells and middle ear. Mild mucosal thickening along the ethmoid air cells. Previously described thin curvilinear soft tissue along the right medial orbit deep to the medial rectus is unchanged since her MRI September 08, [address] of the head August 15, 2019. This is nonspecific but could be related to orbital pseudotumor, neoplasm or prior surgery. She also had CT of the neck on 02/29/2020 with contrast. There is postoperative changes in the right parotidectomy. No evidence of recurrent residual disease in the right neck. Cluster of slightly prominent enhancing lymph nodes left submandibular and jugulodigastric gastric measuring 6 to 7 mm in short axis dimension. These appear stable compared to September 08, 2019. Recommend interval follow-up with PET/CT. Otherwise no cervical lymphadenopathy. Stable postoperative changes right neck. Opacification right mastoid air cells and middle ear. No evidence of supraglottic or glottic mass. As of February 15, 2020 Mrs. Nair had started her third cycle of chemotherapy unfortunately day 8 was held due to neutropenia. Her ANC at that time was 800. She was given 2 days of Neupogen and recovered well. She has required continued growth factor support with her chemotherapy due to persistent chemotherapy induced neutropenia. The growth factors have been necessary to keep her treatment plan on schedule. PET/CT from May 30, 2020 shows excellent response When compared with CT scan of head and neck prior to the initiation of palliative chemotherapy with cisplatin/Navelbine. She continues with chemotherapy as she does still have residual disease but dramatically improved. Last dose of chemotherapy was given on August 03, 2020 subsequently patient developed progressive neutropenia despite of Neupogen support and bone marrow evaluation was done on September 21, 2020 showed no obvious abnormality FISH for MDS was unremarkable flow cytometry was unremarkable and a follow-up CT PET scan done on October 07, 2020 shows complete remission, at that time it was decided to discontinue chemotherapy for the time being and monitor patient, As patient was developing mild peripheral numbness/neuropathy and her bone marrow was showing persistent neutropenia causing delay in her treatment and anemia, and both start recovering without support when no further chemotherapy was given after August 03, 2020. And on October 24, 2020 after discussion with patient regarding her bone marrow findings as well as PET scan finding it was decided to discontinue palliative chemotherapy Plan: Discussed with patient regarding her labs white blood count 5.1 hemoglobin 11.7 g hematocrit 37 platelets 248,000 ANC 1460 and bone marrow finding which shows no obvious abnormality and follow-up CT PET scan which shows excellent response to the palliative chemotherapy Clinically, patient is doing well with no new signs symptoms her follow-up CT PET scan shows no evidence of disease and last dose of chemotherapy was given on August 03, 2020 subsequently she had persistent neutropenia despite of Neupogen support and on September 21, 2020 she underwent bone marrow evaluation which shows no obvious abnormality As her follow-up CT PET scan shows complete remission, considering risk versus benefits associated with continuing palliative chemotherapy especially with prolonged neutropenia despite of Neupogen support and bone marrow showed no obvious abnormality, and with persistent mild peripheral neuropathy, it was decided to stop palliative chemotherapy and observe. Her follow-up CBC shows her hemoglobin continue to improve since she is off chemotherapy and her absolute neutrophil count also continue to improve without Neupogen. As far as right upper neck pain or discomfort is concerned, patient is being evaluated by ENT Patient will return to clinic in 3 months with CBC CMP in the meantime we will continue monthly port maintenance. Signed By: Milton Walters M.D. <<Signature on File>>
== END 2020-10-25 05:36 | disposition home or self-care (01) ==
LOC: ONCMED 05:39
PROVIDERS: PCP Family Medicine; Visit Provider Internal Medicine Hematology & Oncology
DX: Z08 Encounter for follow-up examination after completed treatment for malignant neoplasm (principal); Z85.858 Personal history of malignant neoplasm of other endocrine glands; F17.210 Nicotine dependence, cigarettes, uncomplicated; F41.9 Anxiety disorder, unspecified; Z79.899 Other long term (current) drug therapy; Z92.21 Personal history of antineoplastic chemotherapy
CPT/HCPCS: 99214

== ENCOUNTER 2021-01-29 11:34 | Outpatient (CLI) | payer MEDICARE, MEDICAID, SELFPAY ==
[2021-01-29] MEDS: alteplase 1 mg/mL SDV 2 mL 2 MG IV (12:10)
[2021-01-29 12:20] LABS: Basophils % 0.2 %; Eosinophils # 0.3 10^3/uL (0.0-0.8); Eosinophils % 5.1 %; Hematocrit 37.6 % (37.0-47.0); Hemoglobin 12.2 g/dL (11.5-15.3); Mean Corpuscular HGB Conc 32.4 g/dL (30.0-36.0); Mean Corpuscular Hemoglobin 27.2 pg (28.0-34.0); Mean Corpuscular Volume 83.7 fL (81-99); Monocytes # 0.5 10^3/uL (0.2-0.9); Monocytes % 11.1 %; Neutrophils # 2.01 10^3/uL (1.8-7.7); Neutrophils % 41.4 %; Nucleated Red Blood Cells % 0 %; Platelet Count 262 10^3/cmm (130-400); Red Blood Count 4.49 10^6/uL (4.1-5.3); Red Cell Distribution Width 14.2 % (12.1-15.1); White Blood Count 4.9 10^3/uL (4.0-10.0)
[2021-01-29 12:38] LABS: Alanine Aminotransferase 15 U/L (0-33); Albumin Level 4.3 g/dL (3.5-5.2); Alkaline Phosphatase 92 IU/L (35-105); Anion Gap 14.7 (5-19); Aspartate Amino Transferase 18 U/L (0-32); Blood Urea Nitrogen 12 mg/dL (8-23); Calcium 8.9 mg/dL (8.5-10.5); Carbon Dioxide 29 mmol/L (22-29); Chloride 97 mmol/L (98-107); Globulin 2.7 g/dL (1.3-4.6); Glomerular Filtration Rate 85.4 mL/min (90-130); Glucose 93 mg/dL (65-115); Osmolality Calculated 283 mOsm/kg (285-295); Potassium 3.7 mmol/L (3.5-5.1); Sodium 137 mmol/L (136-145); Total Bilirubin 0.2 mg/dL (0.15-1.2)
--- NOTE | 2021-01-29 15:27 | ONC FU_ITS ---
Dr. Walters follow up note Patient: Alia Nair Unit #: [id number]: 1960 Dicatated By: Milton Walters M.D.Date of Visit:Jan 29, 2021 Onc Med Follow-up/Prog Note History of Present Illness: Mrs. Rivera is a 60 -year-old female with history of adenoid cystic carcinoma right parotid gland. She is status post partial parotidectomy with facial nerve monitoring followed by reconstruction of the soft tissue defect with pedicled into oral buccal flap. The final pathology confirmed T2, MX lesion with positive surgical margins. Mrs Nair was referred to radiation oncology, as per patient she underwent radiation therapy here in [facility]. Since then she has been followed by ENT and with no evidence of disease until recently started having a right eye problem. MRI scan of the neck done on 09/08/2019 showed widespread neural spread of tumor into the right orbit right cavernous sinus, inspector machined parts space, pterygopalatine fossa and probably right facial nerve. Her case was discussed in multidisciplinary head and neck tumor conference in [place] by her ENT physician there. Treatment options including treating skull base involved area to palliate symptoms (IMRT or SRS). Or perhaps consider proton beam IM RT. She was referred to radiation oncology here in [place] and she was also referred to palliative care clinic for pain management. Mrs Nair was also encouraged to see medical oncology for palliative systemic therapy. Mrs Nair has seen radiation oncology and as per patient she was told there is no plan for further radiation therapy considering the risk versus benefits, especially due to prior radiation therapy to same area. 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 did offer her treatment with Cisplatin and vinorelbine. She began her first cycle on 01/03/2020. Long-standing history of smoking and is still active. Her pain (right eye and right side of her face) is under control with current pain medication., right facial swelling improved; no more headache and can also breathe through right nostril. Overall, she is pleased with response to the chemotherapy. She had CT of the head on 02/29/2020 with and without contrast. There is no evidence of intracranial hemorrhage or mass-effect. Ventricular system and basal cisterns are patent. Mild small vessel changes. Mild parenchymal volume loss. 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 No evidence of enhancing intracranial metastatic disease. The left mastoid air cells are well aerated. Opacification right mastoid air cells and middle ear. Mild mucosal thickening along the ethmoid air cells. Previously described thin curvilinear soft tissue along the right medial orbit deep to the medial rectus is unchanged since her MRI September 08, [address] of the head August 15, 2019. This is nonspecific but could be related to orbital pseudotumor, neoplasm or prior surgery. She also had CT of the neck on 02/29/2020 with contrast. There is postoperative changes in the right parotidectomy. No evidence of recurrent residual disease in the right neck. Cluster of slightly prominent enhancing lymph nodes left submandibular and jugulodigastric gastric measuring 6 to 7 mm in short axis dimension. These appear stable compared to September 08, 2019. Otherwise no cervical lymphadenopathy. Stable postoperative changes right neck. Opacification right mastoid air cells and middle ear. No evidence of supraglottic or glottic mass. As of February 15, 2020 Mrs. Nair had started her third cycle of chemotherapy unfortunately day 8 was held due to neutropenia. Her ANC at that time was 800. She has required growth factor support through her treatment. Follow-up CT PET scan done on May 30, 2020 showed focal increased metabolic activity is present in the left posterior palate. A single left level 2 lymph node size 0.6 cm, demonstrated increased metabolic activity. No evidence of metabolic activity disease in the right face or involving orbit or previous tumor location. New, compared to CT PET scan done in February 2019, subcentimeter left lung nodular findings size about 0.7 cm and 0.6 cm may reflect early metastatic disease, but compared to CT scan of head and neck prior to the treatment showed excellent response Mrs Nair is tolerating systemic therapy with cisplatin/Navelbine well. Her last treatment was on August 03, 2020 and Since then she has received 7 doses of Neupogen but no improvement in persistent neutropenia in fact repeat CBC done on September 05, 2020 showed absolute neutrophil count dropped down to 810 from 1260 on August 29, 2020 while total white blood count was within normal range continue to hold chemotherapy and eventually decided to proceed with bone marrow evaluation to rule out underlying bone marrow pathology Which was done on September 21, 2020 showed normocellular bone marrow for age. Slight erythroid predominance noted adequate myelopoiesis no overt dyspoietic or megaloblastic changes seen. No significant reticulin fibrosis observed FISH for MDS panel was unremarkable, flow cytometry showed no overtly aberrant myeloid or lymphoid population. CT PET scan done on October 07, 2020 showed status post right parotidectomy, no significant head or neck adenopathy. A 9 mm subpleural lingular nodule is FDG negative and slightly more prominent than February 2019 study. Less likely to be malignant. Came for follow-up, complaining of mild discomfort at the angle of right mandible area and also off and on problem with swallowing for which she went to see Dr. Seth, ENT, as per patient she saw his wet process assistant head miller and now scan is under consideration, also complaining of right high pain/discomfort, patient has seen ophthalmology and no surgical intervention is under consideration, as per patient traffic and transport planner wants to preserve her right eye whereas her primary care physician recommended enucleation. Patient denies any hemoptysis or hematemesis, denies any facial swelling, denies any neck pain. Medications: Albuterol Sulfate HFA 2 puff(s) (of 108 (90 Base) mcg/act) Aerosol, solution Inhalation q 6 hours PRN, ALPRAZolam 1 Tablet (of 1 mg) Oral t.i.d. PRN, Effexor XR 1 Capsule (of 37.5 mg) Capsule SR 24 HR Oral daily, Furosemide 1 Tablet (of 20 mg) Oral PRN, Lyrica 1 Capsule (of 100 mg) Oral t.i.d., Morphine Sulfate 1 Tablet (of 100 mg) Oral t.i.d., OxyCODONE HCl 1 Tablet (of 30 mg) Oral q 4 to 6 hours PRN Allergies: Aleve Review of Systems: Review of Systems is not available for this patient. Vital Signs: Performed on Jan 29, 2021 15:01 Height - 60.00 in Weight - 167.8 lbs (HIGH) BSA - 1.73 sq.m BMI - 32.77 (HIGH) Temperature - 97.6 F (LOW) Pulse - 93 /min Respiration - 18 /min BP - 125/82 mm(hg) O2 Sat - 97 % Pain - 4 Fatigue - 0 Performance Status: 0 - Fully active, able to carry on all predisease activities without restrictions. (ECOG) Physical Examination: Respiratory - Clear to auscultation no wheezing no rales, Cardiovascular - Regular rate and rhythm of heart, Abdomen - Soft, bowel sounds present, Extremities - No visible edema. Lab/Imaging: Test performed on Sep 20, 2020 08:45 WBC 5.3 10 3/uL RBC 4.21 10 6/uL HGB 11.0 g/dL HCT 35.5 % MCV 84.3 fL MCH 26.1 pg MCHC 31.0 g/dL RDW 17.1 % Platelet Count 238 10 3/cmm MPV 9.2 fL Neutrophils 1.38 10 3/uL Lymphocytes 2.8 10 3/uL Monocytes 0.5 10 3/uL Eosinophils 0.5 10 3/uL Basophils 0.0 10 3/uL Neutrophil % 26.2 % Lymphocyte % 53.0 % Monocyte % 10.2 % Eosinophil % 10.2 % Basophils % 0.4 % NRBC % 0 % Test performed on Aug 29, 2020 08:26 Sodium 135 mmol/L Potassium 4.1 mmol/L Chloride 98 mmol/L CO2 29 mmol/L Anion Gap 12.1 BUN 13 mg/dL Creatinine 0.7 mg/dL Cr Clearance (Est) 91.5600 mL/min eGFR 85.4 mL/min Glucose 95 mg/dL Osmolality - Calculated 280 mOsm/kg Calcium 9.1 mg/dL Protein, Total 6.4 g/dL Albumin 4.2 g/dL Globulin 2.2 g/dL Bilirubin, Total 0.2 mg/dL ALT (SGPT) 9 U/L AST (SGOT) 11 U/L Alkaline Phosphatase 94 IU/L Impression: Recent adenoid cystic carcinoma peripheral gland with cranial nerve involvement/right skull base involvement. MRI scan done on 09/08/2019 showed widespread spread of tumor into right orbit, right cavernous sinus, inspector machined parts space, pterygopalatine fossa and right facial nerve. Now with right facial nerve paralysis, facial asymmetry. History of adenoid cystic carcinoma right excessive peripheral gland status post partial pericardiectomy with facial nerve monitoring followed by reconstruction for T2 Nx with possible surgical margin lesion, followed by radiation therapy. Chronic smoking Anxiety disorder Clinically, patient has been doing reasonably well, in [id number] distress due to right facial pain and right eye visual disturbance. Mrs Rivera was referred to radiation oncology for palliative radiation therapy. Unfortunately, she is not a candidate for further radiation therapy due to involved risk due to history of prior radiation therapy to same area. A request was sent to pathology regarding next generation sequencing especially NTRK gene analysis but we were told, specimen is not available for evaluation. The role of palliative chemotherapy with cisplatin/Navelbine was discussed as literature has shown overall responsibilities about 44% and with 38% one year survival. did offer her treatment with cisplatin and Navelbine. Her current treatment plan is to give her chemotherapy with split dose of cisplatin/Navelbine on day 1 and 8 and repeat cycle every 21 days. She began her first dose on 01/03/2020. She has tolerated treatment well thus far. She had CT of the head on 02/29/2020 with and without contrast. There is no evidence of intracranial hemorrhage or mass-effect. Ventricular system and basal cisterns are patent. Mild small vessel changes. Mild parenchymal volume loss. 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 No evidence of enhancing intracranial metastatic disease. The left mastoid air cells are well aerated. Opacification right mastoid air cells and middle ear. Mild mucosal thickening along the ethmoid air cells. Previously described thin curvilinear soft tissue along the right medial orbit deep to the medial rectus is unchanged since her MRI September 08, [address] of the head August 15, 2019. This is nonspecific but could be related to orbital pseudotumor, neoplasm or prior surgery. She also had CT of the neck on 02/29/2020 with contrast. There is postoperative changes in the right parotidectomy. No evidence of recurrent residual disease in the right neck. Cluster of slightly prominent enhancing lymph nodes left submandibular and jugulodigastric gastric measuring 6 to 7 mm in short axis dimension. These appear stable compared to September 08, 2019. Recommend interval follow-up with PET/CT. Otherwise no cervical lymphadenopathy. Stable postoperative changes right neck. Opacification right mastoid air cells and middle ear. No evidence of supraglottic or glottic mass. As of February 15, 2020 Mrs. Nair had started her third cycle of chemotherapy unfortunately day 8 was held due to neutropenia. Her ANC at that time was 800. She was given 2 days of Neupogen and recovered well. She has required continued growth factor support with her chemotherapy due to persistent chemotherapy induced neutropenia. The growth factors have been necessary to keep her treatment plan on schedule. PET/CT from May 30, 2020 shows excellent response When compared with CT scan of head and neck prior to the initiation of palliative chemotherapy with cisplatin/Navelbine. She continues with chemotherapy as she does still have residual disease but dramatically improved. Last dose of chemotherapy was given on August 03, 2020 subsequently patient developed progressive neutropenia despite of Neupogen support and bone marrow evaluation was done on September 21, 2020 showed no obvious abnormality FISH for MDS was unremarkable flow cytometry was unremarkable and a follow-up CT PET scan done on October 07, 2020 shows complete remission, at that time it was decided to discontinue chemotherapy for the time being and monitor patient, As patient was developing mild peripheral numbness/neuropathy and her bone marrow was showing persistent neutropenia causing delay in her treatment and anemia, and both start recovering without support when no further chemotherapy was given after August 03, 2020. And on October 24, 2020 after discussion with patient regarding her bone marrow findings as well as PET scan finding it was decided to discontinue palliative chemotherapy Plan: Discussed with patient regarding her labs white blood count 4.9 hemoglobin 12.2 hematocrit 37.6 platelets 262,000 CMP within normal limits Clinically, patient is doing well with no new signs symptom except questionable discomfort/right mandibular angle area pain, now being evaluated by ENT Dr. Seth's office, as per patient she has seen his wet process assistant head miller for off and on dysphagia, now scanning is under consideration. She is also having some issues with the right eye pain/discomfort for which she has been evaluated by ophthalmology. We will continue with monthly port flush, and request Dr. Seth to evaluate her for new symptoms and for local recurrence. Signed By: Milton Walters M.D. <<Signature on File>>
== END 2021-01-29 11:35 | disposition home or self-care (01) ==
LOC: ONCMED 11:39
PROVIDERS: PCP Family Medicine; Visit Provider Internal Medicine Hematology & Oncology
DX: Z08 Encounter for follow-up examination after completed treatment for malignant neoplasm (principal); Z85.858 Personal history of malignant neoplasm of other endocrine glands; F17.210 Nicotine dependence, cigarettes, uncomplicated; F41.9 Anxiety disorder, unspecified; Z79.899 Other long term (current) drug therapy; Z92.21 Personal history of antineoplastic chemotherapy
CPT/HCPCS: 36415; 36593; 80053; 85025; 96374; 99215; J2997

== ENCOUNTER 2021-02-20 10:43 | Outpatient (CLI) | payer MEDICARE, MEDICAID, SELFPAY ==
[2021-02-20 11:21] LABS: Basophils % 0.2 %; Eosinophils # 0.1 10^3/uL (0.0-0.8); Eosinophils % 1.5 %; Hematocrit 42.6 % (37.0-47.0); Hemoglobin 13.7 g/dL (11.5-15.3); Lymphocytes # 1.2 10^3/uL (0.8-4.8); Lymphocytes % 29.1 %; Mean Corpuscular HGB Conc 32.2 g/dL (30.0-36.0); Mean Corpuscular Hemoglobin 27.6 pg (28.0-34.0); Mean Corpuscular Volume 85.9 fL (81-99); Mean Platelet Volume 8.6 fL (7.4-10.4); Monocytes # 0.3 10^3/uL (0.2-0.9); Monocytes % 7.7 %; Neutrophils # 2.48 10^3/uL (1.8-7.7); Neutrophils % 61.3 %; Nucleated Red Blood Cells % 0 %; Platelet Count 272 10^3/cmm (130-400); Red Blood Count 4.96 10^6/uL (4.1-5.3); Red Cell Distribution Width 13.4 % (12.1-15.1); White Blood Count 4.1 10^3/uL (4.0-10.0)
[2021-02-20 11:45] LABS: Alanine Aminotransferase 9 U/L (0-33); Albumin Level 4.1 g/dL (3.5-5.2); Alkaline Phosphatase 94 IU/L (35-105); Anion Gap 15.2 (5-19); Aspartate Amino Transferase 12 U/L (0-32); Blood Urea Nitrogen 7 mg/dL (8-23); Carbon Dioxide 28 mmol/L (22-29); Chloride 100 mmol/L (98-107); Globulin 2.7 g/dL (1.3-4.6); Glucose 103 mg/dL (65-115); Osmolality Calculated 286 mOsm/kg (285-295); Potassium 4.2 mmol/L (3.5-5.1); Sodium 139 mmol/L (136-145); Total Bilirubin 0.2 mg/dL (0.15-1.2); Total Protein 6.8 g/dL (6.6-8.7)
== END 2021-02-20 10:44 | disposition home or self-care (01) ==
LOC: ONCMED 10:47
PROVIDERS: PCP Family Medicine; Visit Provider Internal Medicine Hematology & Oncology
DX: D70.1 Agranulocytosis secondary to cancer chemotherapy (principal); T45.1X5A Adverse effect of antineoplastic and immunosuppressive drugs, initial encounter; C07 Malignant neoplasm of parotid gland
CPT/HCPCS: 36415; 80053; 85025

== ENCOUNTER 2021-03-13 10:38 | Outpatient (CLI) | payer MEDICARE, MEDICAID, SELFPAY ==
[2021-03-13 11:14] LABS: Basophils % 0.2 %; Eosinophils # 0.3 10^3/uL (0.0-0.8); Eosinophils % 4.5 %; Hematocrit 40.7 % (37.0-47.0); Hemoglobin 12.9 g/dL (11.5-15.3); Lymphocytes # 2.4 10^3/uL (0.8-4.8); Lymphocytes % 41.2 %; Mean Corpuscular HGB Conc 31.7 g/dL (30.0-36.0); Mean Corpuscular Hemoglobin 27.9 pg (28.0-34.0); Mean Corpuscular Volume 87.9 fL (81-99); Mean Platelet Volume 9.1 fL (7.4-10.4); Monocytes # 0.6 10^3/uL (0.2-0.9); Monocytes % 10.3 %; Neutrophils # 2.51 10^3/uL (1.8-7.7); Neutrophils % 43.6 %; Nucleated Red Blood Cells % 0 %; Platelet Count 249 10^3/cmm (130-400); Red Blood Count 4.63 10^6/uL (4.1-5.3); Red Cell Distribution Width 13.1 % (12.1-15.1); White Blood Count 5.8 10^3/uL (4.0-10.0)
[2021-03-13 11:40] LABS: Alanine Aminotransferase 9 U/L (0-33); Albumin Level 3.8 g/dL (3.5-5.2); Alkaline Phosphatase 95 IU/L (35-105); Anion Gap 10.5 (5-19); Aspartate Amino Transferase 20 U/L (0-32); Blood Urea Nitrogen 9 mg/dL (8-23); Calcium 8.8 mg/dL (8.5-10.5); Carbon Dioxide 34 mmol/L (22-29); Chloride 99 mmol/L (98-107); Globulin 2.6 g/dL (1.3-4.6); Glucose 108 mg/dL (65-115); Osmolality Calculated 287 mOsm/kg (285-295); Potassium 4.5 mmol/L (3.5-5.1); Sodium 139 mmol/L (136-145); Total Bilirubin 0.2 mg/dL (0.15-1.2); Total Protein 6.4 g/dL (6.6-8.7)
--- NOTE | 2021-03-13 17:13 | ONC FU_ITS ---
Dr. Walters follow up note Patient: Alia Nair Unit #: [id number]: 1960 Dicatated By: Milton Walters M.D.Date of Visit:Mar 13, 2021 Onc Med Follow-up/Prog Note History of Present Illness: Mrs. Rivera is a 60 -year-old female with history of adenoid cystic carcinoma right parotid gland. She is status post partial parotidectomy with facial nerve monitoring followed by reconstruction of the soft tissue defect with pedicled into oral buccal flap. The final pathology confirmed T2, MX lesion with positive surgical margins. Mrs Nair was referred to radiation oncology, as per patient she underwent radiation therapy here in [facility]. Since then she has been followed by ENT and with no evidence of disease until recently started having a right eye problem. MRI scan of the neck done on 09/08/2019 showed widespread neural spread of tumor into the right orbit right cavernous sinus, research nutritionist space, pterygopalatine fossa and probably right facial nerve. Her case was discussed in multidisciplinary head and neck tumor conference in [place] by her ENT physician there. Treatment options including treating skull base involved area to palliate symptoms (IMRT or SRS). Or perhaps consider proton beam IM RT. She was referred to radiation oncology here in [place] and she was also referred to palliative care clinic for pain management. Mrs Nair was also encouraged to see medical oncology for palliative systemic therapy. Mrs Nair has seen radiation oncology and as per patient she was told there is no plan for further radiation therapy considering the risk versus benefits, especially due to prior radiation therapy to same area. 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 did offer her treatment with Cisplatin and vinorelbine. She began her first cycle on 01/03/2020. Long-standing history of smoking and is still active. Her pain (right eye and right side of her face) is under control with current pain medication., right facial swelling improved; no more headache and can also breathe through right nostril. Overall, she is pleased with response to the chemotherapy. She had CT of the head on 02/29/2020 with and without contrast. There is no evidence of intracranial hemorrhage or mass-effect. Ventricular system and basal cisterns are patent. Mild small vessel changes. Mild parenchymal volume loss. 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 No evidence of enhancing intracranial metastatic disease. The left mastoid air cells are well aerated. Opacification right mastoid air cells and middle ear. Mild mucosal thickening along the ethmoid air cells. Previously described thin curvilinear soft tissue along the right medial orbit deep to the medial rectus is unchanged since her MRI September 08, [address] of the head August 15, 2019. This is nonspecific but could be related to orbital pseudotumor, neoplasm or prior surgery. She also had CT of the neck on 02/29/2020 with contrast. There is postoperative changes in the right parotidectomy. No evidence of recurrent residual disease in the right neck. Cluster of slightly prominent enhancing lymph nodes left submandibular and jugulodigastric gastric measuring 6 to 7 mm in short axis dimension. These appear stable compared to September 08, 2019. Otherwise no cervical lymphadenopathy. Stable postoperative changes right neck. Opacification right mastoid air cells and middle ear. No evidence of supraglottic or glottic mass. As of February 15, 2020 Mrs. Nair had started her third cycle of chemotherapy unfortunately day 8 was held due to neutropenia. Her ANC at that time was 800. She has required growth factor support through her treatment. Follow-up CT PET scan done on May 30, 2020 showed focal increased metabolic activity is present in the left posterior palate. A single left level 2 lymph node size 0.6 cm, demonstrated increased metabolic activity. No evidence of metabolic activity disease in the right face or involving orbit or previous tumor location. New, compared to CT PET scan done in February 2019, subcentimeter left lung nodular findings size about 0.7 cm and 0.6 cm may reflect early metastatic disease, but compared to CT scan of head and neck prior to the treatment showed excellent response Mrs Nair is tolerating systemic therapy with cisplatin/Navelbine well. Her last treatment was on August 03, 2020 and Since then she has received 7 doses of Neupogen but no improvement in persistent neutropenia in fact repeat CBC done on September 05, 2020 showed absolute neutrophil count dropped down to 810 from 1260 on August 29, 2020 while total white blood count was within normal range continue to hold chemotherapy and eventually decided to proceed with bone marrow evaluation to rule out underlying bone marrow pathology Which was done on September 21, 2020 showed normocellular bone marrow for age. Slight erythroid predominance noted adequate myelopoiesis no overt dyspoietic or megaloblastic changes seen. No significant reticulin fibrosis observed FISH for MDS panel was unremarkable, flow cytometry showed no overtly aberrant myeloid or lymphoid population. CT PET scan done on October 07, 2020 showed status post right parotidectomy, no significant head or neck adenopathy. A 9 mm subpleural lingular nodule is FDG negative and slightly more prominent than February 2019 study. Less likely to be malignant. Came for follow-up, complaining of pain/discomfort in the right side of face, patient has seen Dr. Seth, as per patient his assistant professor of mathematics Ara did order MRI scan of the upper neck and head but somehow due to misunderstanding it was not done, now patient is considering rescheduling it, as per patient she was told in case there is recurrence of disease, she will be referred to [facility] for proton therapy. Other than that patient has seen ophthalmology regarding her right eye and enucleation is under consideration. Patient denies any fever chills, denies any nausea or vomiting transient diarrhea constipation denies any dysphagia. Complaining of mild lower extremity edema, used to take Lasix on as-needed basis and also consuming a lot of tomato/salt Medications: Albuterol Sulfate HFA 2 puff(s) (of 108 (90 Base) mcg/act) Aerosol, solution Inhalation q 6 hours PRN, ALPRAZolam 1 Tablet (of 1 mg) Oral t.i.d. PRN, Effexor XR 1 Capsule (of 37.5 mg) Capsule SR 24 HR Oral daily, Furosemide 1 Tablet (of 20 mg) Oral PRN, Lyrica 1 Capsule (of 100 mg) Oral t.i.d., Morphine Sulfate 1 Tablet (of 100 mg) Oral t.i.d., OxyCODONE HCl 1 Tablet (of 30 mg) Oral q 4 to 6 hours PRN Allergies: Aleve Review of Systems: Review of Systems is not available for this patient. Vital Signs: Performed on Mar 13, 2021 14:37 Height - 60.00 in Weight - 169.8 lbs (HIGH) BSA - 1.74 sq.m BMI - 33.16 (HIGH) Temperature - 97.0 F (LOW) Pulse - 71 /min Respiration - 18 /min BP - 126/86 mm(hg) O2 Sat - 96 % Pain - 3 Fatigue - 2 Performance Status: 1 - No physically strenuous activity, but ambulatory and able to carry out light or sedentary work (e.g. office work, light house work). (ECOG) Physical Examination: ENMT - No mouth sores, no thrush, no jaundice, postoperative changes right neck and right eye with Band-Aid, Respiratory - Lungs are clear to auscultation, Cardiovascular - Regular rate and rhythm of heart, Abdomen - Soft, bowel sounds present, Extremities - 1+ bipedal edema. Lab/Imaging: Test performed on Sep 20, 2020 08:45 WBC 5.3 10 3/uL RBC 4.21 10 6/uL HGB 11.0 g/dL HCT 35.5 % MCV 84.3 fL MCH 26.1 pg MCHC 31.0 g/dL RDW 17.1 % Platelet Count 238 10 3/cmm MPV 9.2 fL Neutrophils 1.38 10 3/uL Lymphocytes 2.8 10 3/uL Monocytes 0.5 10 3/uL Eosinophils 0.5 10 3/uL Basophils 0.0 10 3/uL Neutrophil % 26.2 % Lymphocyte % 53.0 % Monocyte % 10.2 % Eosinophil % 10.2 % Basophils % 0.4 % NRBC % 0 % Impression: Recent adenoid cystic carcinoma peripheral gland with cranial nerve involvement/right skull base involvement. MRI scan done on 09/08/2019 showed widespread spread of tumor into right orbit, right cavernous sinus, research nutritionist space, pterygopalatine fossa and right facial nerve. Now with right facial nerve paralysis, facial asymmetry. History of adenoid cystic carcinoma right excessive peripheral gland status post partial pericardiectomy with facial nerve monitoring followed by reconstruction for T2 Nx with possible surgical margin lesion, followed by radiation therapy. Chronic smoking Anxiety disorder Clinically, patient has been doing reasonably well, in [id number] distress due to right facial pain and right eye visual disturbance. Mrs Rivera was referred to radiation oncology for palliative radiation therapy. Unfortunately, she is not a candidate for further radiation therapy due to involved risk due to history of prior radiation therapy to same area. A request was sent to pathology regarding next generation sequencing especially NTRK gene analysis but we were told, specimen is not available for evaluation. The role of palliative chemotherapy with cisplatin/Navelbine was discussed as literature has shown overall responsibilities about 44% and with 38% one year survival. did offer her treatment with cisplatin and Navelbine. Her current treatment plan is to give her chemotherapy with split dose of cisplatin/Navelbine on day 1 and 8 and repeat cycle every 21 days. She began her first dose on 01/03/2020. She has tolerated treatment well thus far. She had CT of the head on 02/29/2020 with and without contrast. There is no evidence of intracranial hemorrhage or mass-effect. Ventricular system and basal cisterns are patent. Mild small vessel changes. Mild parenchymal volume loss. 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 No evidence of enhancing intracranial metastatic disease. The left mastoid air cells are well aerated. Opacification right mastoid air cells and middle ear. Mild mucosal thickening along the ethmoid air cells. Previously described thin curvilinear soft tissue along the right medial orbit deep to the medial rectus is unchanged since her MRI September 08, [address] of the head August 15, 2019. This is nonspecific but could be related to orbital pseudotumor, neoplasm or prior surgery. She also had CT of the neck on 02/29/2020 with contrast. There is postoperative changes in the right parotidectomy. No evidence of recurrent residual disease in the right neck. Cluster of slightly prominent enhancing lymph nodes left submandibular and jugulodigastric gastric measuring 6 to 7 mm in short axis dimension. These appear stable compared to September 08, 2019. Recommend interval follow-up with PET/CT. Otherwise no cervical lymphadenopathy. Stable postoperative changes right neck. Opacification right mastoid air cells and middle ear. No evidence of supraglottic or glottic mass. As of February 15, 2020 Mrs. Nair had started her third cycle of chemotherapy unfortunately day 8 was held due to neutropenia. Her ANC at that time was 800. She was given 2 days of Neupogen and recovered well. She has required continued growth factor support with her chemotherapy due to persistent chemotherapy induced neutropenia. The growth factors have been necessary to keep her treatment plan on schedule. PET/CT from May 30, 2020 shows excellent response When compared with CT scan of head and neck prior to the initiation of palliative chemotherapy with cisplatin/Navelbine. She continues with chemotherapy as she does still have residual disease but dramatically improved. Last dose of chemotherapy was given on August 03, 2020 subsequently patient developed progressive neutropenia despite of Neupogen support and bone marrow evaluation was done on September 21, 2020 showed no obvious abnormality FISH for MDS was unremarkable flow cytometry was unremarkable and a follow-up CT PET scan done on October 07, 2020 shows complete remission, at that time it was decided to discontinue chemotherapy for the time being and monitor patient, As patient was developing mild peripheral numbness/neuropathy and her bone marrow was showing persistent neutropenia causing delay in her treatment and anemia, and both start recovering without support when no further chemotherapy was given after August 03, 2020. And on October 24, 2020 after discussion with patient regarding her bone marrow findings as well as PET scan finding it was decided to discontinue palliative chemotherapy Plan: Discussed with patient regarding her labs white blood count 5.8 hemoglobin 12.9 hematocrit 40.7 platelets 249,000 CMP within normal limits Clinically, patient doing reasonably well now with persistent right facial puffiness and pain, was recently evaluated by Dr. Seth and his assistant professor of mathematics Nesha, as per patient MRI scan of upper neck and head was considered but due to miscommunication it was not done and now patient is considering rescheduling it as per patient she was told in case there is recurrence of disease, she will be referred to [facility] for proton therapy but patient has transportation problem Patient was advised to get her MRI scan of the upper neck and head as planned by Dr. Seth, and we will continue to monitor along with ENT and flush her Port-A-Cath today and then she will return to clinic in 1 month for further discussion As far as lower extremity edema is concerned, patient was advised to avoid salt and keep legs elevated while in the bed and be careful with as needed Lasix rather follow-up with PMD regarding further management. Signed By: Milton Walters M.D. <<Signature on File>>
== END 2021-03-13 10:39 | disposition home or self-care (01) ==
LOC: ONCMED 10:39
PROVIDERS: PCP Family Medicine; Visit Provider Internal Medicine Hematology & Oncology
DX: Z08 Encounter for follow-up examination after completed treatment for malignant neoplasm (principal); Z85.858 Personal history of malignant neoplasm of other endocrine glands; F17.210 Nicotine dependence, cigarettes, uncomplicated; F41.9 Anxiety disorder, unspecified; R60.9 Edema, unspecified
CPT/HCPCS: 36415; 80053; 85025; 99214

== ENCOUNTER 2021-04-23 14:05 | Outpatient (CLI) | payer MEDICARE, MEDICAID, SELFPAY ==
--- NOTE | 2021-04-23 15:24 | ONC FU_ITS ---
Dr. Walters follow up note Patient: Alia Nair Unit #: [id number]: [id number] Dicatated By: Milton Walters M.D.Date of Visit:Apr 23, 2021 Onc Med Follow-up/Prog Note History of Present Illness: Mrs. Rivera is a 61 -year-old female with history of adenoid cystic carcinoma right parotid gland. She is status post partial parotidectomy with facial nerve monitoring followed by reconstruction of the soft tissue defect with pedicled into oral buccal flap. The final pathology confirmed T2, MX lesion with positive surgical margins. Mrs Nair was referred to radiation oncology, as per patient she underwent radiation therapy here in [facility]. Since then she has been followed by ENT and with no evidence of disease until recently started having a right eye problem. MRI scan of the neck done on 09/08/2019 showed widespread neural spread of tumor into the right orbit right cavernous sinus, fermentation operator space, pterygopalatine fossa and probably right facial nerve. Her case was discussed in multidisciplinary head and neck tumor conference in [place] by her ENT physician there. Treatment options including treating skull base involved area to palliate symptoms (IMRT or SRS). Or perhaps consider proton beam IM RT. She was referred to radiation oncology here in [place] and she was also referred to palliative care clinic for pain management. Mrs Nair was also encouraged to see medical oncology for palliative systemic therapy. Mrs Nair has seen radiation oncology and as per patient she was told there is no plan for further radiation therapy considering the risk versus benefits, especially due to prior radiation therapy to same area. 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 did offer her treatment with Cisplatin and vinorelbine. She began her first cycle on 01/03/2020. Long-standing history of smoking and is still active. Her pain (right eye and right side of her face) is under control with current pain medication., right facial swelling improved; no more headache and can also breathe through right nostril. Overall, she is pleased with response to the chemotherapy. She had CT of the head on 02/29/2020 with and without contrast. There is no evidence of intracranial hemorrhage or mass-effect. Ventricular system and basal cisterns are patent. Mild small vessel changes. Mild parenchymal volume loss. 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 No evidence of enhancing intracranial metastatic disease. The left mastoid air cells are well aerated. Opacification right mastoid air cells and middle ear. Mild mucosal thickening along the ethmoid air cells. Previously described thin curvilinear soft tissue along the right medial orbit deep to the medial rectus is unchanged since her MRI September 08, [address] of the head August 15, 2019. This is nonspecific but could be related to orbital pseudotumor, neoplasm or prior surgery. She also had CT of the neck on 02/29/2020 with contrast. There is postoperative changes in the right parotidectomy. No evidence of recurrent residual disease in the right neck. Cluster of slightly prominent enhancing lymph nodes left submandibular and jugulodigastric gastric measuring 6 to 7 mm in short axis dimension. These appear stable compared to September 08, 2019. Otherwise no cervical lymphadenopathy. Stable postoperative changes right neck. Opacification right mastoid air cells and middle ear. No evidence of supraglottic or glottic mass. As of February 15, 2020 Mrs. Nair had started her third cycle of chemotherapy unfortunately day 8 was held due to neutropenia. Her ANC at that time was 800. She has required growth factor support through her treatment. Follow-up CT PET scan done on May 30, 2020 showed focal increased metabolic activity is present in the left posterior palate. A single left level 2 lymph node size 0.6 cm, demonstrated increased metabolic activity. No evidence of metabolic activity disease in the right face or involving orbit or previous tumor location. New, compared to CT PET scan done in February 2019, subcentimeter left lung nodular findings size about 0.7 cm and 0.6 cm may reflect early metastatic disease, but compared to CT scan of head and neck prior to the treatment showed excellent response Mrs Nair is tolerating systemic therapy with cisplatin/Navelbine well. Her last treatment was on August 03, 2020 and Since then she has received 7 doses of Neupogen but no improvement in persistent neutropenia in fact repeat CBC done on September 05, 2020 showed absolute neutrophil count dropped down to 810 from 1260 on August 29, 2020 while total white blood count was within normal range continue to hold chemotherapy and eventually decided to proceed with bone marrow evaluation to rule out underlying bone marrow pathology Which was done on September 21, 2020 showed normocellular bone marrow for age. Slight erythroid predominance noted adequate myelopoiesis no overt dyspoietic or megaloblastic changes seen. No significant reticulin fibrosis observed FISH for MDS panel was unremarkable, flow cytometry showed no overtly aberrant myeloid or lymphoid population. CT PET scan done on October 07, 2020 showed status post right parotidectomy, no significant head or neck adenopathy. A 9 mm subpleural lingular nodule is FDG negative and slightly more prominent than February 2019 study. Less likely to be malignant. Came for follow-up, denies any specific complaint except no vision in the right eye is now enucleation is under consideration, she is being followed by Dr. Ignacio, biometrics experimentalist. As far as right facial discomfort/fullness is concerned patient had MRI scan of her neck done on April 13, 2021 at [facility] in [place], [place] and Dr. Seth's office is evaluating, as per patient if there is recurrence of disease she will be referred to [facility] for possible proton therapy but patient is awaiting further decision based on her MRI scan, Denies any fever chills denies any nausea or vomiting diarrhea or constipation denies any hemoptysis or hematemesis Medications: Albuterol Sulfate HFA 2 puff(s) (of 108 (90 Base) mcg/act) Aerosol, solution Inhalation q 6 hours PRN, ALPRAZolam 1 Tablet (of 1 mg) Oral t.i.d. PRN, Effexor XR 1 Capsule (of 37.5 mg) Capsule SR 24 HR Oral daily, Furosemide 1 Tablet (of 20 mg) Oral PRN, Lyrica 1 Capsule (of 100 mg) Oral t.i.d., Morphine Sulfate 1 Tablet (of 100 mg) Oral t.i.d., OxyCODONE HCl 1 Tablet (of 30 mg) Oral q 4 to 6 hours PRN Allergies: Aleve Review of Systems: Review of Systems is not available for this patient. Vital Signs: Performed on Apr 23, 2021 14:50 Height - 60.00 in Weight - 158.0 lbs (LOW) BSA - 1.69 sq.m BMI - 30.86 (HIGH) Temperature - 97.6 F (LOW) Pulse - 102 /min (HIGH) Respiration - 18 /min BP - 146/97 mm(hg) (HIGH) O2 Sat - 96 % Pain - 0 Performance Status: 0 - Fully active, able to carry on all predisease activities without restrictions. (ECOG) Physical Examination: ENMT - No mouth sores, no thrush, right facial fullness and patient is wearing right eye patch, no cervical lymphadenopathy, Respiratory - Lungs are clear to auscultation, Cardiovascular - Regular rate and rhythm of heart, Abdomen - Soft, bowel sounds present, Extremities - No visible edema. Lab/Imaging: Most recent lab results are not available for this patient. Impression: Recent adenoid cystic carcinoma peripheral gland with cranial nerve involvement/right skull base involvement. MRI scan done on 09/08/2019 showed widespread spread of tumor into right orbit, right cavernous sinus, fermentation operator space, pterygopalatine fossa and right facial nerve. Now with right facial nerve paralysis, facial asymmetry. History of adenoid cystic carcinoma right excessive peripheral gland status post partial pericardiectomy with facial nerve monitoring followed by reconstruction for T2 Nx with possible surgical margin lesion, followed by radiation therapy. Chronic smoking Anxiety disorder Clinically, patient has been doing reasonably well, in [id number] distress due to right facial pain and right eye visual disturbance. Mrs Rivera was referred to radiation oncology for palliative radiation therapy. Unfortunately, she is not a candidate for further radiation therapy due to involved risk due to history of prior radiation therapy to same area. A request was sent to pathology regarding next generation sequencing especially NTRK gene analysis but we were told, specimen is not available for evaluation. The role of palliative chemotherapy with cisplatin/Navelbine was discussed as literature has shown overall responsibilities about 44% and with 38% one year survival. did offer her treatment with cisplatin and Navelbine. Her current treatment plan is to give her chemotherapy with split dose of cisplatin/Navelbine on day 1 and 8 and repeat cycle every 21 days. She began her first dose on 01/03/2020. She has tolerated treatment well thus far. She had CT of the head on 02/29/2020 with and without contrast. There is no evidence of intracranial hemorrhage or mass-effect. Ventricular system and basal cisterns are patent. Mild small vessel changes. Mild parenchymal volume loss. 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 No evidence of enhancing intracranial metastatic disease. The left mastoid air cells are well aerated. Opacification right mastoid air cells and middle ear. Mild mucosal thickening along the ethmoid air cells. Previously described thin curvilinear soft tissue along the right medial orbit deep to the medial rectus is unchanged since her MRI September 08, [address] of the head August 15, 2019. This is nonspecific but could be related to orbital pseudotumor, neoplasm or prior surgery. She also had CT of the neck on 02/29/2020 with contrast. There is postoperative changes in the right parotidectomy. No evidence of recurrent residual disease in the right neck. Cluster of slightly prominent enhancing lymph nodes left submandibular and jugulodigastric gastric measuring 6 to 7 mm in short axis dimension. These appear stable compared to September 08, 2019. Recommend interval follow-up with PET/CT. Otherwise no cervical lymphadenopathy. Stable postoperative changes right neck. Opacification right mastoid air cells and middle ear. No evidence of supraglottic or glottic mass. As of February 15, 2020 Mrs. Nair had started her third cycle of chemotherapy unfortunately day 8 was held due to neutropenia. Her ANC at that time was 800. She was given 2 days of Neupogen and recovered well. She has required continued growth factor support with her chemotherapy due to persistent chemotherapy induced neutropenia. The growth factors have been necessary to keep her treatment plan on schedule. PET/CT from May 30, 2020 shows excellent response When compared with CT scan of head and neck prior to the initiation of palliative chemotherapy with cisplatin/Navelbine. She continues with chemotherapy as she does still have residual disease but dramatically improved. Last dose of chemotherapy was given on August 03, 2020 subsequently patient developed progressive neutropenia despite of Neupogen support and bone marrow evaluation was done on September 21, 2020 showed no obvious abnormality FISH for MDS was unremarkable flow cytometry was unremarkable and a follow-up CT PET scan done on October 07, 2020 shows complete remission, at that time it was decided to discontinue chemotherapy for the time being and monitor patient, As patient was developing mild peripheral numbness/neuropathy and her bone marrow was showing persistent neutropenia causing delay in her treatment and anemia, and both start recovering without support when no further chemotherapy was given after August 03, 2020. And on October 24, 2020 after discussion with patient regarding her bone marrow findings as well as PET scan finding it was decided to discontinue palliative chemotherapy Plan: Discussed with patient regarding her disease status and concerns and questions, will obtain MRI scan report and also discussed with Dr. Seth, ENT for further planning., Will flush her Port-A-Cath and then she will return to clinic in 1 month unless MRI scan of her neck shows recurrence of disease or disease progression and patient is not considered for proton therapy in that case we will see her early for discussion regarding palliative therapy. Signed By: Milton Walters M.D. <<Signature on File>>
== END 2021-04-23 14:06 | disposition home or self-care (01) ==
PROVIDERS: PCP Family Medicine; Visit Provider Internal Medicine Hematology & Oncology
DX: C07 Malignant neoplasm of parotid gland (principal); G51.0 Bell's palsy; D64.9 Anemia, unspecified; F17.210 Nicotine dependence, cigarettes, uncomplicated; Z79.899 Other long term (current) drug therapy
CPT/HCPCS: 99214

== ENCOUNTER 2021-05-25 08:56 | Outpatient (CLI) | payer MEDICARE, MEDICAID, SELFPAY ==
--- NOTE | 2021-05-25 10:50 | ONC FU_ITS ---
Dr. Walters follow up note Patient: Alia Nair Unit #: [id number]: 1960 Dicatated By: Milton Walters M.D.Date of Visit:May 25, 2021 Onc Med Follow-up/Prog Note History of Present Illness: Mrs. Rivera is a 61 -year-old female with history of adenoid cystic carcinoma right parotid gland. She is status post partial parotidectomy with facial nerve monitoring followed by reconstruction of the soft tissue defect with pedicled into oral buccal flap. The final pathology confirmed T2, MX lesion with positive surgical margins. Mrs Nair was referred to radiation oncology, as per patient she underwent radiation therapy here in [facility]. Since then she has been followed by ENT and with no evidence of disease until recently started having a right eye problem. MRI scan of the neck done on 09/08/2019 showed widespread neural spread of tumor into the right orbit right cavernous sinus, field spec space, pterygopalatine fossa and probably right facial nerve. Her case was discussed in multidisciplinary head and neck tumor conference in [place] by her ENT physician there. Treatment options including treating skull base involved area to palliate symptoms (IMRT or SRS). Or perhaps consider proton beam IM RT. She was referred to radiation oncology here in [place] and she was also referred to palliative care clinic for pain management. Mrs Nair was also encouraged to see medical oncology for palliative systemic therapy. Mrs Nair has seen radiation oncology and as per patient she was told there is no plan for further radiation therapy considering the risk versus benefits, especially due to prior radiation therapy to same area. 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 did offer her treatment with Cisplatin and vinorelbine. She began her first cycle on 01/03/2020. Long-standing history of smoking and is still active. Her pain (right eye and right side of her face) is under control with current pain medication., right facial swelling improved; no more headache and can also breathe through right nostril. Overall, she is pleased with response to the chemotherapy. She had CT of the head on 02/29/2020 with and without contrast. There is no evidence of intracranial hemorrhage or mass-effect. Ventricular system and basal cisterns are patent. Mild small vessel changes. Mild parenchymal volume loss. 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 No evidence of enhancing intracranial metastatic disease. The left mastoid air cells are well aerated. Opacification right mastoid air cells and middle ear. Mild mucosal thickening along the ethmoid air cells. Previously described thin curvilinear soft tissue along the right medial orbit deep to the medial rectus is unchanged since her MRI September 08, [address] of the head August 15, 2019. This is nonspecific but could be related to orbital pseudotumor, neoplasm or prior surgery. She also had CT of the neck on 02/29/2020 with contrast. There is postoperative changes in the right parotidectomy. No evidence of recurrent residual disease in the right neck. Cluster of slightly prominent enhancing lymph nodes left submandibular and jugulodigastric gastric measuring 6 to 7 mm in short axis dimension. These appear stable compared to September 08, 2019. Otherwise no cervical lymphadenopathy. Stable postoperative changes right neck. Opacification right mastoid air cells and middle ear. No evidence of supraglottic or glottic mass. As of February 15, 2020 Mrs. Nair had started her third cycle of chemotherapy unfortunately day 8 was held due to neutropenia. Her ANC at that time was 800. She has required growth factor support through her treatment. Follow-up CT PET scan done on May 30, 2020 showed focal increased metabolic activity is present in the left posterior palate. A single left level 2 lymph node size 0.6 cm, demonstrated increased metabolic activity. No evidence of metabolic activity disease in the right face or involving orbit or previous tumor location. New, compared to CT PET scan done in February 2019, subcentimeter left lung nodular findings size about 0.7 cm and 0.6 cm may reflect early metastatic disease, but compared to CT scan of head and neck prior to the treatment showed excellent response Mrs Nair is tolerating systemic therapy with cisplatin/Navelbine well. Her last treatment was on August 03, 2020 and Since then she has received 7 doses of Neupogen but no improvement in persistent neutropenia in fact repeat CBC done on September 05, 2020 showed absolute neutrophil count dropped down to 810 from 1260 on August 29, 2020 while total white blood count was within normal range continue to hold chemotherapy and eventually decided to proceed with bone marrow evaluation to rule out underlying bone marrow pathology Which was done on September 21, 2020 showed normocellular bone marrow for age. Slight erythroid predominance noted adequate myelopoiesis no overt dyspoietic or megaloblastic changes seen. No significant reticulin fibrosis observed FISH for MDS panel was unremarkable, flow cytometry showed no overtly aberrant myeloid or lymphoid population. CT PET scan done on October 07, 2020 showed status post right parotidectomy, no significant head or neck adenopathy. A 9 mm subpleural lingular nodule is FDG negative and slightly more prominent than February 2019 study. Less likely to be malignant. Dr. Seth evaluated her and ordered MRI scan of the neck done In [place] at [facility] on April 13, 2021 showed findings consistent with disease progression of right orbital, right orbital apex, right cavernous sinus and now extending into the right trigeminal cistern and for a man available. Extension of disease into the right frontal, ethmoid and maxillary sinus and postobstructive sinusitis. 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 into the right field spec space Came for follow-up, denies any specific complaints except mild discomfort/pain in the right facial and neck which is under control with current management, as per patient she has been following Dr. Seth ENT physician at [facility] in [place] and she was told that there is a disease progression and referred to [facility] for proton therapy is under consideration, patient is awaiting appointment, as per patient recently on May 09, 2021 she lost her to Covid infection, that's why she could not communicate with Dr. Seth's office regarding referral to [facility] Medications: Albuterol Sulfate HFA 2 puff(s) (of 108 (90 Base) mcg/act) Aerosol, solution Inhalation q 6 hours PRN, ALPRAZolam 1 Tablet (of 1 mg) Oral t.i.d. PRN, Effexor XR 1 Capsule (of 37.5 mg) Capsule SR 24 HR Oral daily, Furosemide 1 Tablet (of 20 mg) Oral PRN, Lyrica 1 Capsule (of 100 mg) Oral t.i.d., Morphine Sulfate 1 Tablet (of 100 mg) Oral t.i.d., OxyCODONE HCl 1 Tablet (of 30 mg) Oral q 4 to 6 hours PRN Allergies: Aleve Review of Systems: Review of Systems is not available for this patient. Vital Signs: Vitals are not available for this patient. Performance Status: 0 - Fully active, able to carry on all predisease activities without restrictions. (ECOG) Physical Examination: ENMT - No mouth sores, no thrush, no jaundice, right facial fullness due to right orbital involvement with adenoid cystic carcinoma, Respiratory - Lungs are clear to auscultation, Cardiovascular - Regular rate and rhythm of heart, Abdomen - Soft, bowel sounds present, Extremities - No visible edema. Lab/Imaging: Most recent lab results are not available for this patient. Impression: Recent adenoid cystic carcinoma peripheral gland with cranial nerve involvement/right skull base involvement. MRI scan done on 09/08/2019 showed widespread spread of tumor into right orbit, right cavernous sinus, field spec space, pterygopalatine fossa and right facial nerve. Now with right facial nerve paralysis, facial asymmetry. History of adenoid cystic carcinoma right excessive peripheral gland status post partial pericardiectomy with facial nerve monitoring followed by reconstruction for T2 Nx with possible surgical margin lesion, followed by radiation therapy. Chronic smoking Anxiety disorder Clinically, patient has been doing reasonably well, in [id number] distress due to right facial pain and right eye visual disturbance. Mrs Rivera was referred to radiation oncology for palliative radiation therapy. Unfortunately, she is not a candidate for further radiation therapy due to involved risk due to history of prior radiation therapy to same area. A request was sent to pathology regarding next generation sequencing especially NTRK gene analysis but we were told, specimen is not available for evaluation. The role of palliative chemotherapy with cisplatin/Navelbine was discussed as literature has shown overall responsibilities about 44% and with 38% one year survival. did offer her treatment with cisplatin and Navelbine. Her current treatment plan is to give her chemotherapy with split dose of cisplatin/Navelbine on day 1 and 8 and repeat cycle every 21 days. She began her first dose on 01/03/2020. She has tolerated treatment well thus far. She had CT of the head on 02/29/2020 with and without contrast. There is no evidence of intracranial hemorrhage or mass-effect. Ventricular system and basal cisterns are patent. Mild small vessel changes. Mild parenchymal volume loss. 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 No evidence of enhancing intracranial metastatic disease. The left mastoid air cells are well aerated. Opacification right mastoid air cells and middle ear. Mild mucosal thickening along the ethmoid air cells. Previously described thin curvilinear soft tissue along the right medial orbit deep to the medial rectus is unchanged since her MRI September 08, [address] of the head August 15, 2019. This is nonspecific but could be related to orbital pseudotumor, neoplasm or prior surgery. She also had CT of the neck on 02/29/2020 with contrast. There is postoperative changes in the right parotidectomy. No evidence of recurrent residual disease in the right neck. Cluster of slightly prominent enhancing lymph nodes left submandibular and jugulodigastric gastric measuring 6 to 7 mm in short axis dimension. These appear stable compared to September 08, 2019. Recommend interval follow-up with PET/CT. Otherwise no cervical lymphadenopathy. Stable postoperative changes right neck. Opacification right mastoid air cells and middle ear. No evidence of supraglottic or glottic mass. As of February 15, 2020 Mrs. Nair had started her third cycle of chemotherapy unfortunately day 8 was held due to neutropenia. Her ANC at that time was 800. She was given 2 days of Neupogen and recovered well. She has required continued growth factor support with her chemotherapy due to persistent chemotherapy induced neutropenia. The growth factors have been necessary to keep her treatment plan on schedule. PET/CT from May 30, 2020 shows excellent response When compared with CT scan of head and neck prior to the initiation of palliative chemotherapy with cisplatin/Navelbine. She continues with chemotherapy as she does still have residual disease but dramatically improved. Last dose of chemotherapy was given on August 03, 2020 subsequently patient developed progressive neutropenia despite of Neupogen support and bone marrow evaluation was done on September 21, 2020 showed no obvious abnormality FISH for MDS was unremarkable flow cytometry was unremarkable and a follow-up CT PET scan done on October 07, 2020 shows complete remission, at that time it was decided to discontinue chemotherapy for the time being and monitor patient, As patient was developing mild peripheral numbness/neuropathy and her bone marrow was showing persistent neutropenia causing delay in her treatment and anemia, and both start recovering without support when no further chemotherapy was given after August 03, 2020. And on October 24, 2020 after discussion with patient regarding her bone marrow findings as well as PET scan finding it was decided to discontinue palliative chemotherapy Plan: Discussed with patient regarding her follow-up MRI scan of soft tissue neck, done on April 13, 2021, ordered by Dr. Seth, her ENT physician in [place], which confirmed local disease progression, as per patient she is aware of that and now awaiting referral to [facility] for evaluation for proton therapy but recently her whole family gone through Covid infection and she lost her on January 06, 2021, that is why she could not communicate with Dr. Seth's office but now ready to proceed with treatment. Patient denies any worsening of right facial pain/discomfort. , Will discuss with Dr. Seth regarding obtaining biopsy from this progressive lesion involving right orbital and surrounding area, to do molecular profiling to assess targetable mutations including PD-L1 status, MSI H or TMB, if present then immunotherapy or newer agent with better toxicity profile can be considered as maintenance therapy after, if patient undergo proton therapy at [facility]. Dr. Seth's office was called today, and we were told he is in surgery all day today and then Friday, we will try to contact him again and then will inform patient regarding the planning.Patient was advised to stay in touch with Dr. Seth's office Signed By: Milton Walters M.D. <<Signature on File>>
== END 2021-05-25 08:57 | disposition home or self-care (01) ==
LOC: ONCMED 09:02
PROVIDERS: PCP Family Medicine; Visit Provider Internal Medicine Hematology & Oncology
DX: C69.61 Malignant neoplasm of right orbit (principal); Z92.3 Personal history of irradiation; Z92.21 Personal history of antineoplastic chemotherapy; F17.200 Nicotine dependence, unspecified, uncomplicated; F41.9 Anxiety disorder, unspecified
CPT/HCPCS: 99214

== ENCOUNTER 2021-08-13 10:57 | Outpatient (CLI) | payer MEDICARE, MEDICAID, SELFPAY ==
[2021-08-13 11:33] LABS: Basophils % 0.3 %; Eosinophils # 0.3 10^3/uL (0.0-0.8); Eosinophils % 5.2 %; Hematocrit 38.4 % (37.0-47.0); Hemoglobin 12.8 g/dL (11.5-15.3); Lymphocytes # 2.2 10^3/uL (0.8-4.8); Lymphocytes % 36.1 %; Mean Corpuscular HGB Conc 33.3 g/dL (30.0-36.0); Mean Corpuscular Hemoglobin 28.3 pg (28.0-34.0); Mean Platelet Volume 8.7 fL (7.4-10.4); Monocytes # 0.5 10^3/uL (0.2-0.9); Monocytes % 8.9 %; Neutrophils # 2.94 10^3/uL (1.8-7.7); Neutrophils % 49.3 %; Nucleated Red Blood Cells % 0 %; Platelet Count 268 10^3/cmm (130-400); Red Blood Count 4.52 10^6/uL (4.1-5.3); Red Cell Distribution Width 13.1 % (12.1-15.1)
[2021-08-13 11:56] LABS: Alanine Aminotransferase 13 U/L (0-33); Albumin Level 3.8 g/dL (3.5-5.2); Alkaline Phosphatase 102 IU/L (35-105); Aspartate Amino Transferase 15 U/L (0-32); Blood Urea Nitrogen 14 mg/dL (8-23); Calcium 8.3 mg/dL (8.5-10.5); Carbon Dioxide 26 mmol/L (22-29); Chloride 99 mmol/L (98-107); Globulin 2.9 g/dL (1.3-4.6); Glomerular Filtration Rate 101.6 mL/min (90-130); Glucose 96 mg/dL (65-115); Osmolality Calculated 284 mOsm/kg (285-295); Sodium 137 mmol/L (136-145); Total Bilirubin 0.2 mg/dL (0.15-1.2); Total Protein 6.7 g/dL (6.6-8.7)
[2021-08-13 12:02] LABS: Anion Gap 16.2 (5-19); Potassium 4.2 mmol/L (3.5-5.1)
--- NOTE | 2021-08-13 16:40 | ONC FU_ITS ---
Dr. Walters follow up note Patient: Alia Nair Unit #: [id number]: 1960 Dicatated By: Milton Walters M.D.Date of Visit:Aug 13, 2021 Onc Med Follow-up/Prog Note History of Present Illness: Mrs. Rivera is a 61 -year-old female with history of adenoid cystic carcinoma right parotid gland. She is status post partial parotidectomy with facial nerve monitoring followed by reconstruction of the soft tissue defect with pedicled into oral buccal flap. The final pathology confirmed T2, MX lesion with positive surgical margins. Mrs Nair was referred to radiation oncology, as per patient she underwent radiation therapy here in [facility]. Since then she has been followed by ENT and with no evidence of disease until recently started having a right eye problem. MRI scan of the neck done on 09/08/2019 showed widespread neural spread of tumor into the right orbit right cavernous sinus, firer powerhouse space, pterygopalatine fossa and probably right facial nerve. Her case was discussed in multidisciplinary head and neck tumor conference in [place] by her ENT physician there. Treatment options including treating skull base involved area to palliate symptoms (IMRT or SRS). Or perhaps consider proton beam IM RT. She was referred to radiation oncology here in [employer] and she was also referred to palliative care clinic for pain management. Mrs Nair was also encouraged to see medical oncology for palliative systemic therapy. Mrs Nair has seen radiation oncology and as per patient she was told there is no plan for further radiation therapy considering the risk versus benefits, especially due to prior radiation therapy to same area. 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 did offer her treatment with Cisplatin and vinorelbine. She began her first cycle on 01/03/2020. Long-standing history of smoking and is still active. Her pain (right eye and right side of her face) is under control with current pain medication., right facial swelling improved; no more headache and can also breathe through right nostril. Overall, she is pleased with response to the chemotherapy. She had CT of the head on 02/29/2020 with and without contrast. There is no evidence of intracranial hemorrhage or mass-effect. Ventricular system and basal cisterns are patent. Mild small vessel changes. Mild parenchymal volume loss. 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 No evidence of enhancing intracranial metastatic disease. The left mastoid air cells are well aerated. Opacification right mastoid air cells and middle ear. Mild mucosal thickening along the ethmoid air cells. Previously described thin curvilinear soft tissue along the right medial orbit deep to the medial rectus is unchanged since her MRI September 08, [address] of the head August 15, 2019. This is nonspecific but could be related to orbital pseudotumor, neoplasm or prior surgery. She also had CT of the neck on 02/29/2020 with contrast. There is postoperative changes in the right parotidectomy. No evidence of recurrent residual disease in the right neck. Cluster of slightly prominent enhancing lymph nodes left submandibular and jugulodigastric gastric measuring 6 to 7 mm in short axis dimension. These appear stable compared to September 08, 2019. Otherwise no cervical lymphadenopathy. Stable postoperative changes right neck. Opacification right mastoid air cells and middle ear. No evidence of supraglottic or glottic mass. As of February 15, 2020 Mrs. Nair had started her third cycle of chemotherapy unfortunately day 8 was held due to neutropenia. Her ANC at that time was 800. She has required growth factor support through her treatment. Follow-up CT PET scan done on May 30, 2020 showed focal increased metabolic activity is present in the left posterior palate. A single left level 2 lymph node size 0.6 cm, demonstrated increased metabolic activity. No evidence of metabolic activity disease in the right face or involving orbit or previous tumor location. New, compared to CT PET scan done in February 2019, subcentimeter left lung nodular findings size about 0.7 cm and 0.6 cm may reflect early metastatic disease, but compared to CT scan of head and neck prior to the treatment showed excellent response Mrs Nair is tolerating systemic therapy with cisplatin/Navelbine well. Her last treatment was on August 03, 2020 and Since then she has received 7 doses of Neupogen but no improvement in persistent neutropenia in fact repeat CBC done on September 05, 2020 showed absolute neutrophil count dropped down to 810 from 1260 on August 29, 2020 while total white blood count was within normal range continue to hold chemotherapy and eventually decided to proceed with bone marrow evaluation to rule out underlying bone marrow pathology Which was done on September 21, 2020 showed normocellular bone marrow for age. Slight erythroid predominance noted adequate myelopoiesis no overt dyspoietic or megaloblastic changes seen. No significant reticulin fibrosis observed FISH for MDS panel was unremarkable, flow cytometry showed no overtly aberrant myeloid or lymphoid population. CT PET scan done on October 07, 2020 showed status post right parotidectomy, no significant head or neck adenopathy. A 9 mm subpleural lingular nodule is FDG negative and slightly more prominent than February 2019 study. Less likely to be malignant. Dr. Seth evaluated her and ordered MRI scan of the neck done In [place] at [facility] on April 13, 2021 showed findings consistent with disease progression of right orbital, right orbital apex, right cavernous sinus and now extending into the right trigeminal cistern and for a man available. Extension of disease into the right frontal, ethmoid and maxillary sinus and postobstructive sinusitis. 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 into the right firer powerhouse space Patient underwent molecular profiling with the caris on July 03, 2021 and reported on July 29, 2021 and it showed, PD-L1 0%, TMB low, 5 mutation MSI stable, NTRK fusion not detected mild discomfort/pain in the right facial and neck which is under control with current management, as per patient she has been following Dr. Seth ENT physician at [facility] in [place] and she was told that there is a disease progression and referred to [facility] for proton therapy is under consideration, patient is awaiting appointment, as per patient recently on May 09, 2021 she lost her to Covid infection, that's why she could not communicate with Dr. Seth's office regarding referral to [facility] for follow-up, denies any specific complaints except fullness in right maxillary area, as per patient she has seen Dr. Seth's associate who recommended her either to consider proton therapy or chemotherapy, for which she was referred to [facility] but there was a concern but insurance coverage, as per patient her insurance might cover proton therapy at [facility] and she is in touch with insurance processing clerk and Dr. Seth's office. Patient underwent molecular profiling with the caris on July 03, 2021 and reported on July 29, 2021 and it showed, PD-L1 0%, TMB low, 5 mutation MSI stable, NTRK fusion not detected, she is here to discuss about her treatment options Medications: Albuterol Sulfate HFA 2 puff(s) (of 108 (90 Base) mcg/act) Aerosol, solution Inhalation q 6 hours PRN, ALPRAZolam 1 Tablet (of 1 mg) Oral t.i.d. PRN, Effexor XR 1 Capsule (of 37.5 mg) Capsule SR 24 HR Oral daily, Furosemide 1 Tablet (of 20 mg) Oral PRN, Lyrica 1 Capsule (of 100 mg) Oral t.i.d. PRN, Morphine Sulfate 1 Tablet (of 100 mg) Oral t.i.d., OxyCODONE HCl 1 Tablet (of 30 mg) Oral q 4 to 6 hours PRN Allergies: Aleve Review of Systems: Review of Systems is not available for this patient. Vital Signs: Performed on Aug 13, 2021 11:52 Height - 60.00 in Weight - 160.4 lbs (HIGH) BSA - 1.70 sq.m BMI - 31.33 (HIGH) Temperature - 98.6 F Pulse - 96 /min Respiration - 18 /min BP - 119/79 mm(hg) O2 Sat - 96 % Pain - 3 Fatigue - 0 Performance Status: 0 - Fully active, able to carry on all predisease activities without restrictions. (ECOG) Physical Examination: ENMT - No mouth sores, no thrush, no jaundice, fullness in right maxillary and preauricular area due to progressive adenocarcinoma, Respiratory - Lungs are clear to auscultation, Cardiovascular - Regular rate and rhythm of heart, Abdomen - Soft, bowel sounds present, Extremities - No visible edema. Lab/Imaging: Most recent lab results are not available for this patient. Impression: Recent adenoid cystic carcinoma peripheral gland with cranial nerve involvement/right skull base involvement. MRI scan done on 09/08/2019 showed widespread spread of tumor into right orbit, right cavernous sinus, firer powerhouse space, pterygopalatine fossa and right facial nerve. Now with right facial nerve paralysis, facial asymmetry. History of adenoid cystic carcinoma right excessive peripheral gland status post partial pericardiectomy with facial nerve monitoring followed by reconstruction for T2 Nx with possible surgical margin lesion, followed by radiation therapy. Chronic smoking Anxiety disorder Clinically, patient has been doing reasonably well, in [id number] distress due to right facial pain and right eye visual disturbance. Mrs Rivera was referred to radiation oncology for palliative radiation therapy. Unfortunately, she is not a candidate for further radiation therapy due to involved risk due to history of prior radiation therapy to same area. A request was sent to pathology regarding next generation sequencing especially NTRK gene analysis but we were told, specimen is not available for evaluation. The role of palliative chemotherapy with cisplatin/Navelbine was discussed as literature has shown overall responsibilities about 44% and with 38% one year survival. did offer her treatment with cisplatin and Navelbine. Her current treatment plan is to give her chemotherapy with split dose of cisplatin/Navelbine on day 1 and 8 and repeat cycle every 21 days. She began her first dose on 01/03/2020. She has tolerated treatment well thus far. She had CT of the head on 02/29/2020 with and without contrast. There is no evidence of intracranial hemorrhage or mass-effect. Ventricular system and basal cisterns are patent. Mild small vessel changes. Mild parenchymal volume loss. 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 No evidence of enhancing intracranial metastatic disease. The left mastoid air cells are well aerated. Opacification right mastoid air cells and middle ear. Mild mucosal thickening along the ethmoid air cells. Previously described thin curvilinear soft tissue along the right medial orbit deep to the medial rectus is unchanged since her MRI September 08, [address] of the head August 15, 2019. This is nonspecific but could be related to orbital pseudotumor, neoplasm or prior surgery. She also had CT of the neck on 02/29/2020 with contrast. There is postoperative changes in the right parotidectomy. No evidence of recurrent residual disease in the right neck. Cluster of slightly prominent enhancing lymph nodes left submandibular and jugulodigastric gastric measuring 6 to 7 mm in short axis dimension. These appear stable compared to September 08, 2019. Recommend interval follow-up with PET/CT. Otherwise no cervical lymphadenopathy. Stable postoperative changes right neck. Opacification right mastoid air cells and middle ear. No evidence of supraglottic or glottic mass. As of February 15, 2020 Mrs. Nair had started her third cycle of chemotherapy unfortunately day 8 was held due to neutropenia. Her ANC at that time was 800. She was given 2 days of Neupogen and recovered well. She has required continued growth factor support with her chemotherapy due to persistent chemotherapy induced neutropenia. The growth factors have been necessary to keep her treatment plan on schedule. PET/CT from May 30, 2020 shows excellent response When compared with CT scan of head and neck prior to the initiation of palliative chemotherapy with cisplatin/Navelbine. She continues with chemotherapy as she does still have residual disease but dramatically improved. Last dose of chemotherapy was given on August 03, 2020 subsequently patient developed progressive neutropenia despite of Neupogen support and bone marrow evaluation was done on September 21, 2020 showed no obvious abnormality FISH for MDS was unremarkable flow cytometry was unremarkable and a follow-up CT PET scan done on October 07, 2020 shows complete remission, at that time it was decided to discontinue chemotherapy for the time being and monitor patient, As patient was developing mild peripheral numbness/neuropathy and her bone marrow was showing persistent neutropenia causing delay in her treatment and anemia, and both start recovering without support when no further chemotherapy was given after August 03, 2020. And on October 24, 2020 after discussion with patient regarding her bone marrow findings as well as PET scan finding it was decided to discontinue palliative chemotherapy Plan: Discussed with patient regarding her labs white blood count 6 hemoglobin 12.8 hematocrit 38.4 platelets 268,000 Clinically, patient is doing reasonably well now with progressive disease in her right facial/right skull base, proton therapy is under consideration, there was a issue regarding her insurance coverage, as per patient she is in touch with insurance processing clerk and there is a possibility she may go for proton therapy at [facility]. While she is being evaluated for proton therapy, she underwent molecular profiling to identify targetable mutation, unfortunately it shows no targetable mutation e.g. TMB was low, MSI stable, PD-L1 0%, NTRK gene testing shows no fusion. So discussed with patient regarding treatment options as per patient she has seen Dr. Seth who said she is not a candidate for surgery so either proton therapy at [facility] or palliative therapy here in [facility], patient is considering proton therapy but there was insurance coverage issue as mentioned above so she is in touch with her insurance processing clerk and trying to get approval for proton therapy at [facility], if by chance her insurance refused to cover, then we will consider palliative therapy here in [facility] so she will return to clinic in 1 week for further discussion unless she pursue proton therapy at [facility]. Role of hospice care also discussed but patient says she would like to try all her options before she consider hospice care. Signed By: Milton Walters M.D. <<Signature on File>>
== END 2021-08-13 10:58 | disposition home or self-care (01) ==
LOC: ONCMED 11:11
PROVIDERS: PCP Family Medicine; Visit Provider Internal Medicine Hematology & Oncology
DX: C79.49 Secondary malignant neoplasm of other parts of nervous system (principal); Z85.89 Personal history of malignant neoplasm of other organs and systems; Z92.21 Personal history of antineoplastic chemotherapy; J32.8 Other chronic sinusitis; F17.210 Nicotine dependence, cigarettes, uncomplicated
CPT/HCPCS: 36591; 80053; 85025; 99214

== ENCOUNTER 2021-09-03 10:19 | Outpatient (CLI) | payer MEDICARE, MEDICAID, SELFPAY ==
--- NOTE | 2021-09-03 11:10 | ONC FU_ITS ---
Dr. Walters follow up note Patient: Alia Nair Unit #: [id number]: [id number] Dicatated By: Milton Walters M.D.Date of Visit:Sep 03, 2021 Onc Med Follow-up/Prog Note History of Present Illness: Mrs. Rivera is a 61 -year-old female with history of adenoid cystic carcinoma right parotid gland. She is status post partial parotidectomy with facial nerve monitoring followed by reconstruction of the soft tissue defect with pedicled into oral buccal flap. The final pathology confirmed T2, MX lesion with positive surgical margins. Mrs Nair was referred to radiation oncology, as per patient she underwent radiation therapy here in [facility]. Since then she has been followed by ENT and with no evidence of disease until recently started having a right eye problem. MRI scan of the neck done on 09/08/2019 showed widespread neural spread of tumor into the right orbit right cavernous sinus, talent rep space, pterygopalatine fossa and probably right facial nerve. Her case was discussed in multidisciplinary head and neck tumor conference in [place] by her ENT physician there. Treatment options including treating skull base involved area to palliate symptoms (IMRT or SRS). Or perhaps consider proton beam IM RT. She was referred to radiation oncology here in [place] and she was also referred to palliative care clinic for pain management. Mrs Nair was also encouraged to see medical oncology for palliative systemic therapy. Mrs Nair has seen radiation oncology and as per patient she was told there is no plan for further radiation therapy considering the risk versus benefits, especially due to prior radiation therapy to same area. 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 did offer her treatment with Cisplatin and vinorelbine. She began her first cycle on 01/03/2020. Long-standing history of smoking and is still active. Her pain (right eye and right side of her face) is under control with current pain medication., right facial swelling improved; no more headache and can also breathe through right nostril. Overall, she is pleased with response to the chemotherapy. She had CT of the head on 02/29/2020 with and without contrast. There is no evidence of intracranial hemorrhage or mass-effect. Ventricular system and basal cisterns are patent. Mild small vessel changes. Mild parenchymal volume loss. 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 No evidence of enhancing intracranial metastatic disease. The left mastoid air cells are well aerated. Opacification right mastoid air cells and middle ear. Mild mucosal thickening along the ethmoid air cells. Previously described thin curvilinear soft tissue along the right medial orbit deep to the medial rectus is unchanged since her MRI September 08, [address] of the head August 15, 2019. This is nonspecific but could be related to orbital pseudotumor, neoplasm or prior surgery. She also had CT of the neck on 02/29/2020 with contrast. There is postoperative changes in the right parotidectomy. No evidence of recurrent residual disease in the right neck. Cluster of slightly prominent enhancing lymph nodes left submandibular and jugulodigastric gastric measuring 6 to 7 mm in short axis dimension. These appear stable compared to September 08, 2019. Otherwise no cervical lymphadenopathy. Stable postoperative changes right neck. Opacification right mastoid air cells and middle ear. No evidence of supraglottic or glottic mass. As of February 15, 2020 Mrs. Nair had started her third cycle of chemotherapy unfortunately day 8 was held due to neutropenia. Her ANC at that time was 800. She has required growth factor support through her treatment. Follow-up CT PET scan done on May 30, 2020 showed focal increased metabolic activity is present in the left posterior palate. A single left level 2 lymph node size 0.6 cm, demonstrated increased metabolic activity. No evidence of metabolic activity disease in the right face or involving orbit or previous tumor location. New, compared to CT PET scan done in February 2019, subcentimeter left lung nodular findings size about 0.7 cm and 0.6 cm may reflect early metastatic disease, but compared to CT scan of head and neck prior to the treatment showed excellent response Mrs Nair is tolerating systemic therapy with cisplatin/Navelbine well. Her last treatment was on August 03, 2020 and Since then she has received 7 doses of Neupogen but no improvement in persistent neutropenia in fact repeat CBC done on September 05, 2020 showed absolute neutrophil count dropped down to 810 from 1260 on August 29, 2020 while total white blood count was within normal range continue to hold chemotherapy and eventually decided to proceed with bone marrow evaluation to rule out underlying bone marrow pathology Which was done on September 21, 2020 showed normocellular bone marrow for age. Slight erythroid predominance noted adequate myelopoiesis no overt dyspoietic or megaloblastic changes seen. No significant reticulin fibrosis observed FISH for MDS panel was unremarkable, flow cytometry showed no overtly aberrant myeloid or lymphoid population. CT PET scan done on October 07, 2020 showed status post right parotidectomy, no significant head or neck adenopathy. A 9 mm subpleural lingular nodule is FDG negative and slightly more prominent than February 2019 study. Less likely to be malignant. Dr. Seth evaluated her and ordered MRI scan of the neck done In [place] at [facility] on April 13, 2021 showed findings consistent with disease progression of right orbital, right orbital apex, right cavernous sinus and now extending into the right trigeminal cistern and for a man available. Extension of disease into the right frontal, ethmoid and maxillary sinus and postobstructive sinusitis. 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 into the right talent rep space Patient underwent molecular profiling with the caris on July 03, 2021 and reported on July 29, 2021 and it showed, PD-L1 0%, TMB low, 5 mutation MSI stable, NTRK fusion not detected mild discomfort/pain in the right facial and neck which is under control with current management, as per patient she has been following Dr. Seth ENT physician at [facility] in [place] and she was told that there is a disease progression and referred to [place] for proton therapy is under consideration, patient is awaiting appointment, as per patient recently on May 09, 2021 she lost her to Covid infection, that's why she could not communicate with Dr. Seth's office regarding referral to [facility] for follow-up, complaining of right facial fullness/Pain and right ear discomfort/pain which responded well to wax removal. Patient says she did call her insurance company regarding proton therapy coverage at [place] but as per patient they would not cover. Now patient considering palliative therapy. Medications: Albuterol Sulfate HFA 2 puff(s) (of 108 (90 Base) mcg/act) Aerosol, solution Inhalation q 6 hours PRN, ALPRAZolam 1 Tablet (of 1 mg) Oral t.i.d. PRN, Effexor XR 1 Capsule (of 37.5 mg) Capsule SR 24 HR Oral daily, Morphine Sulfate 1 Tablet (of 100 mg) Oral t.i.d., OxyCODONE HCl 1 Tablet (of 30 mg) Oral q 4 to 6 hours PRN Allergies: Aleve Review of Systems: Review of Systems is not available for this patient. Vital Signs: Performed on Sep 03, 2021 10:42 Height - 60.00 in Weight - 158.2 lbs (LOW) BSA - 1.69 sq.m BMI - 30.90 (HIGH) Temperature - 98.7 F Pulse - 99 /min Respiration - 17 /min BP - 135/89 mm(hg) O2 Sat - 98 % Pain - 3 Fatigue - 0 Performance Status: 0 - Fully active, able to carry on all predisease activities without restrictions. (ECOG) Physical Examination: ENMT - No mouth sores, no thrush, right facial/maxillary fullness with right eye involvement, Respiratory - Lungs are clear to auscultation, Cardiovascular - Regular rate and rhythm of heart, Abdomen - Soft, bowel sounds present, Extremities - No visible edema. Lab/Imaging: Most recent lab results are not available for this patient. Impression: Recent adenoid cystic carcinoma peripheral gland with cranial nerve involvement/right skull base involvement. MRI scan done on 09/08/2019 showed widespread spread of tumor into right orbit, right cavernous sinus, talent rep space, pterygopalatine fossa and right facial nerve. Now with right facial nerve paralysis, facial asymmetry. History of adenoid cystic carcinoma right excessive peripheral gland status post partial pericardiectomy with facial nerve monitoring followed by reconstruction for T2 Nx with possible surgical margin lesion, followed by radiation therapy. Chronic smoking Anxiety disorder Clinically, patient has been doing reasonably well, in [id number] distress due to right facial pain and right eye visual disturbance. Mrs Rivera was referred to radiation oncology for palliative radiation therapy. Unfortunately, she is not a candidate for further radiation therapy due to involved risk due to history of prior radiation therapy to same area. A request was sent to pathology regarding next generation sequencing especially NTRK gene analysis but we were told, specimen is not available for evaluation. The role of palliative chemotherapy with cisplatin/Navelbine was discussed as literature has shown overall responsibilities about 44% and with 38% one year survival. did offer her treatment with cisplatin and Navelbine. Her current treatment plan is to give her chemotherapy with split dose of cisplatin/Navelbine on day 1 and 8 and repeat cycle every 21 days. She began her first dose on 01/03/2020. She has tolerated treatment well thus far. She had CT of the head on 02/29/2020 with and without contrast. There is no evidence of intracranial hemorrhage or mass-effect. Ventricular system and basal cisterns are patent. Mild small vessel changes. Mild parenchymal volume loss. 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 No evidence of enhancing intracranial metastatic disease. The left mastoid air cells are well aerated. Opacification right mastoid air cells and middle ear. Mild mucosal thickening along the ethmoid air cells. Previously described thin curvilinear soft tissue along the right medial orbit deep to the medial rectus is unchanged since her MRI September 08, [address] of the head August 15, 2019. This is nonspecific but could be related to orbital pseudotumor, neoplasm or prior surgery. She also had CT of the neck on 02/29/2020 with contrast. There is postoperative changes in the right parotidectomy. No evidence of recurrent residual disease in the right neck. Cluster of slightly prominent enhancing lymph nodes left submandibular and jugulodigastric gastric measuring 6 to 7 mm in short axis dimension. These appear stable compared to September 08, 2019. Recommend interval follow-up with PET/CT. Otherwise no cervical lymphadenopathy. Stable postoperative changes right neck. Opacification right mastoid air cells and middle ear. No evidence of supraglottic or glottic mass. As of February 15, 2020 Mrs. Nair had started her third cycle of chemotherapy unfortunately day 8 was held due to neutropenia. Her ANC at that time was 800. She was given 2 days of Neupogen and recovered well. She has required continued growth factor support with her chemotherapy due to persistent chemotherapy induced neutropenia. The growth factors have been necessary to keep her treatment plan on schedule. PET/CT from May 30, 2020 shows excellent response When compared with CT scan of head and neck prior to the initiation of palliative chemotherapy with cisplatin/Navelbine. She continues with chemotherapy as she does still have residual disease but dramatically improved. Last dose of chemotherapy was given on August 03, 2020 subsequently patient developed progressive neutropenia despite of Neupogen support and bone marrow evaluation was done on September 21, 2020 showed no obvious abnormality FISH for MDS was unremarkable flow cytometry was unremarkable and a follow-up CT PET scan done on October 07, 2020 shows complete remission, at that time it was decided to discontinue chemotherapy for the time being and monitor patient, As patient was developing mild peripheral numbness/neuropathy and her bone marrow was showing persistent neutropenia causing delay in her treatment and anemia, and both start recovering without support when no further chemotherapy was given after August 03, 2020. And on October 24, 2020 after discussion with patient regarding her bone marrow findings as well as PET scan finding it was decided to discontinue palliative chemotherapy Plan: Discussed with patient regarding treatment options, patient was advised that her disease is not curable, as per patient she has seen ENT, Dr. Seth, who informed her that she not a candidate for surgery and patient is not considering radiation therapy because of fear of losing left eye and also would not consider hospice as in the past palliative therapy with cisplatin/Navelbine gave her good palliation and quality of life. Clinically, patient is doing reasonably well except right facial fullness/pain which is under control with the current pain medication her recently done scans/evaluation by Dr. Seth showed disease progression and molecular profiling did not show any targetable mutation so in that case we will consider palliative therapy with weekly carboplatin/gemcitabine, all the side effect possible benefits associated with chemotherapy including but not limited to bone marrow suppression, nausea vomiting, hair loss, were mentioned, further teaching was done by chemotherapy nurse, we will obtain approval of insurance prior to treatment and consider carboplatin AUC 2 and gemcitabine 1000 mg per metered square, day 1 and day 8 and repeat every 21 days. Patient return to clinic 1 week after her first cycle of chemotherapy with carboplatin/gemcitabine with CBC CMP Signed By: Milton Walters M.D. <<Signature on File>>
== END 2021-09-03 10:20 | disposition home or self-care (01) ==
LOC: ONCMED 10:25
PROVIDERS: PCP Family Medicine; Visit Provider Internal Medicine Hematology & Oncology
DX: Z51.11 Encounter for antineoplastic chemotherapy (principal); C11.1 Malignant neoplasm of posterior wall of nasopharynx; F17.210 Nicotine dependence, cigarettes, uncomplicated; F41.9 Anxiety disorder, unspecified
CPT/HCPCS: 99215

== ENCOUNTER 2021-09-19 08:13 | Outpatient (CLI) | payer MEDICARE, MEDICAID, SELFPAY ==
[2021-09-19 08:59] LABS: Basophils % 0.2 %; Eosinophils # 0.2 10^3/uL (0.0-0.8); Eosinophils % 3.4 %; Hematocrit 42.1 % (37.0-47.0); Hemoglobin 13.7 g/dL (11.5-15.3); Lymphocytes # 2.4 10^3/uL (0.8-4.8); Lymphocytes % 38.1 %; Mean Corpuscular HGB Conc 32.5 g/dL (30.0-36.0); Mean Corpuscular Hemoglobin 27.7 pg (28.0-34.0); Mean Corpuscular Volume 85.1 fl (81-99); Mean Platelet Volume 8.9 fL (7.4-10.4); Monocytes # 0.6 10^3/uL (0.2-0.9); Monocytes % 8.9 %; Neutrophils # 3.04 10^3/uL (1.8-7.7); Neutrophils % 49.2 %; Nucleated Red Blood Cells % 0 %; Platelet Count 341 10^3/cmm (130-400); Red Blood Count 4.95 10^6/uL (4.1-5.3); Red Cell Distribution Width 12.9 % (12.1-15.1); White Blood Count 6.2 10^3/uL (4.0-10.0)
[2021-09-19 09:15] LABS: Alanine Aminotransferase 16 U/L (0-33); Albumin Level 3.9 g/dL (3.5-5.2); Alkaline Phosphatase 109 IU/L (35-105); Anion Gap 15.9 (5-19); Aspartate Amino Transferase 17 U/L (0-32); Blood Urea Nitrogen 8 mg/dL (8-23); Calcium 9.5 mg/dL (8.5-10.5); Carbon Dioxide 27 mmol/L (22-29); Chloride 99 mmol/L (98-107); Globulin 2.6 g/dL (1.3-4.6); Glomerular Filtration Rate 101.6 mL/min (90-130); Glucose 132 mg/dL (65-115); Osmolality Calculated 286 mOsm/kg (285-295); Potassium 3.9 mmol/L (3.5-5.1); Sodium 138 mmol/L (136-145); Total Bilirubin 0.2 mg/dL (0.15-1.2); Total Protein 6.5 g/dL (6.6-8.7)
[2021-09-19] MEDS: sodium chloride 0.9% 250 ML 75 ML IV (11:04)
[2021-09-19] MEDS: palonosetron 0.25 mg/5 mL SDV IV (11:04)
[2021-09-19] MEDS: fosaprepitant 150 MG in sodium chloride 0.9% 150 ML 300 MG IV (11:21)
[2021-09-19 14:10] VITALS: BP 126/78; PULSE 91; RESP 16; TEMP 37.1; O2SAT 97
[2021-09-19 14:25] VITALS: BP 124/82; PULSE 95; RESP 16; TEMP 37.1; O2SAT 95
[2021-09-19 14:40] VITALS: BP 145/91; PULSE 87; RESP 16; TEMP 35.6; O2SAT 94
[2021-09-19 15:10] VITALS: BP 137/93; PULSE 92; RESP 16; TEMP 37.2; O2SAT 96
[2021-09-19 15:36] VITALS: BMI 30.7
== END 2021-09-19 08:14 | disposition home or self-care (01) ==
LOC: ONCMED 08:17
PROVIDERS: PCP Family Medicine; Visit Provider Nurse Practitioner Family
DX: Z51.11 Encounter for antineoplastic chemotherapy (principal); C47.9 Malignant neoplasm of peripheral nerves and autonomic nervous system, unspecified; C79.31 Secondary malignant neoplasm of brain; C79.51 Secondary malignant neoplasm of bone; F17.210 Nicotine dependence, cigarettes, uncomplicated; F41.1 Generalized anxiety disorder; H53.9 Unspecified visual disturbance; Z79.899 Other long term (current) drug therapy
CPT/HCPCS: 80053; 85025; 96367; 96372; 96413; 96417; 99215; J1100; J1453; J2469; J7050; J9045; J9201

== ENCOUNTER 2021-10-02 13:06 | Outpatient (CLI) | payer MEDICARE, MEDICAID, SELFPAY ==
[2021-10-02] MEDS: alteplase 1 mg/mL SDV 2 mL 2 MG INTRACATH (14:47)
[2021-10-02 15:57] LABS: Basophils % 0.2 %; Eosinophils # 0.1 10^3/uL (0.0-0.8); Eosinophils % 2.2 %; Hematocrit 37.6 % (37.0-47.0); Hemoglobin 12.4 g/dL (11.5-15.3); Lymphocytes # 2.5 10^3/uL (0.8-4.8); Lymphocytes % 45.7 %; Mean Corpuscular Hemoglobin 28.1 pg (28.0-34.0); Mean Corpuscular Volume 85.1 fl (81-99); Mean Platelet Volume 9.3 fL (7.4-10.4); Monocytes # 0.5 10^3/uL (0.2-0.9); Monocytes % 8.6 %; Neutrophils # 2.32 10^3/uL (1.8-7.7); Neutrophils % 43.1 %; Nucleated Red Blood Cells % 0 %; Platelet Count 197 10^3/cmm (130-400); Red Blood Count 4.42 10^6/uL (4.1-5.3); Red Cell Distribution Width 12.9 % (12.1-15.1); White Blood Count 5.4 10^3/uL (4.0-10.0)
[2021-10-02 16:51] LABS: Alanine Aminotransferase 18 U/L (0-33); Albumin Level 4.1 g/dL (3.5-5.2); Alkaline Phosphatase 111 IU/L (35-105); Anion Gap 12.8 (5-19); Aspartate Amino Transferase 20 U/L (0-32); Blood Urea Nitrogen 10 mg/dL (8-23); Calcium 9.5 mg/dL (8.5-10.5); Carbon Dioxide 28 mmol/L (22-29); Chloride 101 mmol/L (98-107); Globulin 2.4 g/dL (1.3-4.6); Glomerular Filtration Rate 101.6 mL/min (90-130); Glucose 129 mg/dL (65-115); Magnesium 2.1 mg/dL (1.7-2.3); Osmolality Calculated 287 mOsm/kg (285-295); Potassium 3.8 mmol/L (3.5-5.1); Sodium 138 mmol/L (136-145); Total Bilirubin 0.2 mg/dL (0.15-1.2); Total Protein 6.5 g/dL (6.6-8.7)
== END 2021-10-02 13:07 | disposition home or self-care (01) ==
LOC: ONCMED 13:07
PROVIDERS: Nurse Practitioner Family; PCP Family Medicine; Visit Provider Internal Medicine Hematology & Oncology
DX: C07 Malignant neoplasm of parotid gland (principal); D70.1 Agranulocytosis secondary to cancer chemotherapy; T45.1X5A Adverse effect of antineoplastic and immunosuppressive drugs, initial encounter; Z79.899 Other long term (current) drug therapy
CPT/HCPCS: 36415; 36593; 80053; 83735; 85025; J2997

== ENCOUNTER 2021-10-03 06:37 | Outpatient (CLI) | payer MEDICARE, MEDICAID, SELFPAY ==
[2021-10-03] MEDS: sodium chloride 0.9% 250 ML 75 ML IV ×2 (08:30)
[2021-10-03] MEDS: palonosetron 0.25 mg/5 mL SDV IV (10:35)
[2021-10-03] MEDS: fosaprepitant 150 MG in sodium chloride 0.9% 150 ML 300 MG IV (11:00)
--- NOTE | 2021-10-08 18:20 | ONC FU_ITS ---
Dr. Walters follow up note Patient: Alia Nair Unit #: [id number]: 1960 Dicatated By: Milton Walters M.D.Date of Visit:Oct 03, 2021 Onc Med Follow-up/Prog Note History of Present Illness: Mrs. Rivera is a 61 -year-old female with history of adenoid cystic carcinoma right parotid gland. She is status post partial parotidectomy with facial nerve monitoring followed by reconstruction of the soft tissue defect with pedicled into oral buccal flap. The final pathology confirmed T2, MX lesion with positive surgical margins. Mrs Nair was referred to radiation oncology, as per patient she underwent radiation therapy here in [facility]. Since then she has been followed by ENT and with no evidence of disease until recently started having a right eye problem. MRI scan of the neck done on 09/08/2019 showed widespread neural spread of tumor into the right orbit right cavernous sinus, german tutor space, pterygopalatine fossa and probably right facial nerve. Her case was discussed in multidisciplinary head and neck tumor conference in [place] by her ENT physician there. Treatment options including treating skull base involved area to palliate symptoms (IMRT or SRS). Or perhaps consider proton beam IM RT. She was referred to radiation oncology here in [place] and she was also referred to palliative care clinic for pain management. Mrs Nair was also encouraged to see medical oncology for palliative systemic therapy. Mrs Nair has seen radiation oncology and as per patient she was told there is no plan for further radiation therapy considering the risk versus benefits, especially due to prior radiation therapy to same area. 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 did offer her treatment with Cisplatin and vinorelbine. She began her first cycle on 01/03/2020. Long-standing history of smoking and is still active. Her pain (right eye and right side of her face) is under control with current pain medication., right facial swelling improved; no more headache and can also breathe through right nostril. Overall, she is pleased with response to the chemotherapy. She had CT of the head on 02/29/2020 with and without contrast. There is no evidence of intracranial hemorrhage or mass-effect. Ventricular system and basal cisterns are patent. Mild small vessel changes. Mild parenchymal volume loss. 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 No evidence of enhancing intracranial metastatic disease. The left mastoid air cells are well aerated. Opacification right mastoid air cells and middle ear. Mild mucosal thickening along the ethmoid air cells. Previously described thin curvilinear soft tissue along the right medial orbit deep to the medial rectus is unchanged since her MRI September 08, [address] of the head August 15, 2019. This is nonspecific but could be related to orbital pseudotumor, neoplasm or prior surgery. She also had CT of the neck on 02/29/2020 with contrast. There is postoperative changes in the right parotidectomy. No evidence of recurrent residual disease in the right neck. Cluster of slightly prominent enhancing lymph nodes left submandibular and jugulodigastric gastric measuring 6 to 7 mm in short axis dimension. These appear stable compared to September 08, 2019. Otherwise no cervical lymphadenopathy. Stable postoperative changes right neck. Opacification right mastoid air cells and middle ear. No evidence of supraglottic or glottic mass. As of February 15, 2020 Mrs. Nair had started her third cycle of chemotherapy unfortunately day 8 was held due to neutropenia. Her ANC at that time was 800. She has required growth factor support through her treatment. Follow-up CT PET scan done on May 30, 2020 showed focal increased metabolic activity is present in the left posterior palate. A single left level 2 lymph node size 0.6 cm, demonstrated increased metabolic activity. No evidence of metabolic activity disease in the right face or involving orbit or previous tumor location. New, compared to CT PET scan done in February 2019, subcentimeter left lung nodular findings size about 0.7 cm and 0.6 cm may reflect early metastatic disease, but compared to CT scan of head and neck prior to the treatment showed excellent response Mrs Nair is tolerating systemic therapy with cisplatin/Navelbine well. Her last treatment was on August 03, 2020 and Since then she has received 7 doses of Neupogen but no improvement in persistent neutropenia in fact repeat CBC done on September 05, 2020 showed absolute neutrophil count dropped down to 810 from 1260 on August 29, 2020 while total white blood count was within normal range continue to hold chemotherapy and eventually decided to proceed with bone marrow evaluation to rule out underlying bone marrow pathology Which was done on September 21, 2020 showed normocellular bone marrow for age. Slight erythroid predominance noted adequate myelopoiesis no overt dyspoietic or megaloblastic changes seen. No significant reticulin fibrosis observed FISH for MDS panel was unremarkable, flow cytometry showed no overtly aberrant myeloid or lymphoid population. CT PET scan done on October 07, 2020 showed status post right parotidectomy, no significant head or neck adenopathy. A 9 mm subpleural lingular nodule is FDG negative and slightly more prominent than February 2019 study. Less likely to be malignant. Dr. Seth evaluated her and ordered MRI scan of the neck done In [facility] on April 13, 2021 showed findings consistent with disease progression of right orbital, right orbital apex, right cavernous sinus and now extending into the right trigeminal cistern and for a man available. Extension of disease into the right frontal, ethmoid and maxillary sinus and postobstructive sinusitis. 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 into the right german tutor space Patient underwent molecular profiling with the [employer] on July 03, 2021 and reported on July 29, 2021 and it showed, PD-L1 0%, TMB low, 5 mutation MSI stable, NTRK fusion not detected Started on palliative therapy with carboplatin/gemcitabine on September 19, 2021 Came for follow-up, denies any specific complaints, no fever chills, no nausea vomiting, no diarrhea constipation, no worsening of mild discomfort in her right facial side, as per patient, she has lost vision in her right eye is now with some pressure, being followed by Dr. Ignacio, meter technician. Tolerated first dose of palliative therapy with carboplatin/gemcitabine well, patient missed day 8 chemotherapy with carboplatin/gemcitabine due to bad weather. Medications: Albuterol Sulfate HFA 2 puff(s) (of 108 (90 Base) mcg/act) Aerosol, solution Inhalation q 6 hours PRN, ALPRAZolam 1 Tablet (of 1 mg) Oral t.i.d. PRN, Claritin (10 mg) Tablet Oral daily, Effexor XR 1 Capsule (of 37.5 mg) Capsule SR 24 HR Oral daily, Morphine Sulfate 1 Tablet (of 100 mg) Oral t.i.d., OxyCODONE HCl 1 Tablet (of 30 mg) Oral q 4 to 6 hours PRN Allergies: Aleve Review of Systems: Review of Systems is not available for this patient. Vital Signs: Performed on Oct 03, 2021 09:46 Height - 60.00 in Weight - 162.4 lbs (HIGH) BSA - 1.71 sq.m BMI - 31.72 (HIGH) Temperature - 99.2 F (HIGH) Pulse - 104 /min (HIGH) Respiration - 18 /min BP - 147/100 mm(hg) (HIGH) O2 Sat - 97 % Pain - 3 Fatigue - 3 Performance Status: 0 - Fully active, able to carry on all predisease activities without restrictions. (ECOG) Physical Examination: Respiratory - Lungs are clear to auscultation, Cardiovascular - Regular rate and rhythm of heart, Abdomen - Soft, bowel sounds present, Extremities - No visible edema. Lab/Imaging: Test performed on Oct 02, 2021 15:27 Magnesium 2.1 mg/dL Sodium 138 mmol/L Potassium 3.8 mmol/L Chloride 101 mmol/L CO2 28 mmol/L Anion Gap 12.8 BUN 10 mg/dL Creatinine 0.6 mg/dL Cr Clearance (Est) 111.1200 mL/min eGFR 101.6 mL/min Glucose 129 mg/dL Osmolality - Calculated 287 mOsm/kg Calcium 9.5 mg/dL Protein, Total 6.5 g/dL Albumin 4.1 g/dL Globulin 2.4 g/dL Bilirubin, Total 0.2 mg/dL ALT (SGPT) 18 U/L AST (SGOT) 20 U/L Alkaline Phosphatase 111 IU/L WBC 5.4 10 3/uL RBC 4.42 10 6/uL HGB 12.4 g/dL HCT 37.6 % MCV 85.1 fl MCH 28.1 pg MCHC 33.0 g/dL RDW 12.9 % Platelet Count 197 10 3/cmm MPV 9.3 fL Neutrophils 2.32 10 3/uL Lymphocytes 2.5 10 3/uL Monocytes 0.5 10 3/uL Eosinophils 0.1 10 3/uL Basophils 0.0 10 3/uL Neutrophil % 43.1 % Lymphocyte % 45.7 % Monocyte % 8.6 % Eosinophil % 2.2 % Basophils % 0.2 % NRBC % 0 % Test performed on Sep 19, 2021 09:14 Manual Segs 49.2 % Manual Lymphocytes 38.1 % Manual Monocytes 8.9 % Manual Eosinophils 3.4 % Manual Basophils 0.2 % NRBCs 0 /100 WBC Impression: Recent adenoid cystic carcinoma peripheral gland with cranial nerve involvement/right skull base involvement. MRI scan done on 09/08/2019 showed widespread spread of tumor into right orbit, right cavernous sinus, german tutor space, pterygopalatine fossa and right facial nerve. Now with right facial nerve paralysis, facial asymmetry. History of adenoid cystic carcinoma right excessive peripheral gland status post partial pericardiectomy with facial nerve monitoring followed by reconstruction for T2 Nx with possible surgical margin lesion, followed by radiation therapy. Chronic smoking Anxiety disorder Clinically, patient has been doing reasonably well, in [id number] distress due to right facial pain and right eye visual disturbance. Mrs Rivera was referred to radiation oncology for palliative radiation therapy. Unfortunately, she is not a candidate for further radiation therapy due to involved risk due to history of prior radiation therapy to same area. A request was sent to pathology regarding next generation sequencing especially NTRK gene analysis but we were told, specimen is not available for evaluation. The role of palliative chemotherapy with cisplatin/Navelbine was discussed as literature has shown overall responsibilities about 44% and with 38% one year survival. did offer her treatment with cisplatin and Navelbine. Her current treatment plan is to give her chemotherapy with split dose of cisplatin/Navelbine on day 1 and 8 and repeat cycle every 21 days. She began her first dose on 01/03/2020. She has tolerated treatment well thus far. She had CT of the head on 02/29/2020 with and without contrast. There is no evidence of intracranial hemorrhage or mass-effect. Ventricular system and basal cisterns are patent. Mild small vessel changes. Mild parenchymal volume loss. 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 No evidence of enhancing intracranial metastatic disease. The left mastoid air cells are well aerated. Opacification right mastoid air cells and middle ear. Mild mucosal thickening along the ethmoid air cells. Previously described thin curvilinear soft tissue along the right medial orbit deep to the medial rectus is unchanged since her MRI September 08, [address] of the head August 15, 2019. This is nonspecific but could be related to orbital pseudotumor, neoplasm or prior surgery. She also had CT of the neck on 02/29/2020 with contrast. There is postoperative changes in the right parotidectomy. No evidence of recurrent residual disease in the right neck. Cluster of slightly prominent enhancing lymph nodes left submandibular and jugulodigastric gastric measuring 6 to 7 mm in short axis dimension. These appear stable compared to September 08, 2019. Recommend interval follow-up with PET/CT. Otherwise no cervical lymphadenopathy. Stable postoperative changes right neck. Opacification right mastoid air cells and middle ear. No evidence of supraglottic or glottic mass. As of February 15, 2020 Mrs. Nair had started her third cycle of chemotherapy unfortunately day 8 was held due to neutropenia. Her ANC at that time was 800. She was given 2 days of Neupogen and recovered well. She has required continued growth factor support with her chemotherapy due to persistent chemotherapy induced neutropenia. The growth factors have been necessary to keep her treatment plan on schedule. PET/CT from May 30, 2020 shows excellent response When compared with CT scan of head and neck prior to the initiation of palliative chemotherapy with cisplatin/Navelbine. She continues with chemotherapy as she does still have residual disease but dramatically improved. Last dose of chemotherapy was given on August 03, 2020 subsequently patient developed progressive neutropenia despite of Neupogen support and bone marrow evaluation was done on September 21, 2020 showed no obvious abnormality FISH for MDS was unremarkable flow cytometry was unremarkable and a follow-up CT PET scan done on October 07, 2020 shows complete remission, at that time it was decided to discontinue chemotherapy for the time being and monitor patient, As patient was developing mild peripheral numbness/neuropathy and her bone marrow was showing persistent neutropenia causing delay in her treatment and anemia, and both start recovering without support when no further chemotherapy was given after August 03, 2020. And on October 24, 2020 after discussion with patient regarding her bone marrow findings as well as PET scan finding it was decided to discontinue palliative chemotherapy Plan: Discussed with patient regarding her labs white blood count 5.4 hemoglobin 12.4 hematocrit 37.6 platelets 197,000 CMP within normal limits Clinically, patient is doing reasonably well with no new signs symptom, tolerating palliative therapy with carboplatin/gemcitabine well, will proceed with next dose today and then she will return to clinic in 1 week with CBC CMP if reasonable, day 8 with carboplatin/gemcitabine. As far as right eye pressure is concerned, patient has already lost vision and now being followed by Dr. Ignacio patient was advised to contact Dr. Ignacio regarding further management Signed By: Milton Walters M.D. <<Signature on File>>
== END 2021-10-03 06:38 | disposition home or self-care (01) ==
LOC: ONCMED 06:38
PROVIDERS: PCP Family Medicine; Visit Provider Internal Medicine Hematology & Oncology
DX: Z51.11 Encounter for antineoplastic chemotherapy (principal); C96.9 Malignant neoplasm of lymphoid, hematopoietic and related tissue, unspecified; F17.210 Nicotine dependence, cigarettes, uncomplicated; F41.9 Anxiety disorder, unspecified; H54.7 Unspecified visual loss; Z79.899 Other long term (current) drug therapy
CPT/HCPCS: 96367; 96413; 96417; 99215; J1100; J1453; J2469; J7050; J9045; J9201

== ENCOUNTER 2021-10-22 07:12 | Outpatient (RCR) | payer MEDICARE, MEDICAID, SELFPAY ==
[2021-10-04] MEDS: pegfilgrastim-bmez 6 mg/0.6 mL SYR SUBCUT (15:55)
[2021-10-10 09:17] LABS: Basophils % 0.1 %; Eosinophils % 0.3 %; Hematocrit 37.9 % (37.0-47.0); Hemoglobin 12.3 g/dL (11.5-15.3); Lymphocytes % 14.6 %; Mean Corpuscular HGB Conc 32.5 g/dL (30.0-36.0); Mean Corpuscular Hemoglobin 28.1 pg (28.0-34.0); Mean Corpuscular Volume 86.7 fl (81-99); Mean Platelet Volume 8.8 fL (7.4-10.4); Monocytes % 7.2 %; Neutrophils # 10.13 10^3/uL (1.8-7.7); Neutrophils % 75.4 %; Nucleated Red Blood Cells % 0 %; Platelet Count 171 10^3/cmm (130-400); Red Blood Count 4.37 10^6/uL (4.1-5.3); Red Cell Distribution Width 13.8 % (12.1-15.1); White Blood Count 13.4 10^3/uL (4.0-10.0)
[2021-10-10 09:39] LABS: Alanine Aminotransferase 72 U/L (0-33); Albumin Level 4.3 g/dL (3.5-5.2); Alkaline Phosphatase 199 IU/L (35-105); Anion Gap 15.2 (5-19); Aspartate Amino Transferase 31 U/L (0-32); Blood Urea Nitrogen 13 mg/dL (8-23); Calcium 9.9 mg/dL (8.5-10.5); Carbon Dioxide 28 mmol/L (22-29); Chloride 100 mmol/L (98-107); Globulin 2.6 g/dL (1.3-4.6); Glomerular Filtration Rate 101.6 mL/min (90-130); Glucose 108 mg/dL (65-115); Osmolality Calculated 289 mOsm/kg (285-295); Potassium 4.2 mmol/L (3.5-5.1); Sodium 139 mmol/L (136-145); Total Bilirubin 0.2 mg/dL (0.15-1.2); Total Protein 6.9 g/dL (6.6-8.7)
[2021-10-10 10:08] LABS: Slide Review Slide Review Perform
[2021-10-10] MEDS: sodium chloride 0.9% 250 ML 75 ML IV (10:58)
[2021-10-10] MEDS: palonosetron 0.25 mg/5 mL SDV IV (11:00)
[2021-10-10] MEDS: fosaprepitant 150 MG in sodium chloride 0.9% 150 ML 300 MG IV (11:00)
--- NOTE | 2021-10-11 09:01 | ONC FU_ITS ---
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 Rivera is a 61 -year-old female with history of adenoid cystic carcinoma right parotid gland. She is status post partial parotidectomy with facial nerve monitoring followed by reconstruction of the soft tissue defect with pedicled into oral buccal flap. The final pathology confirmed T2, MX lesion with positive surgical margins. Mrs Nair was referred to radiation oncology, as per patient she underwent radiation therapy here in [facility]. Since then she has been followed by ENT and with no evidence of disease until recently started having a right eye problem. MRI scan of the neck done on 09/08/2019 showed widespread neural spread of tumor into the right orbit right cavernous sinus, bike technician space, pterygopalatine fossa and probably right facial nerve. Her case was discussed in multidisciplinary head and neck tumor conference in [place] by her ENT physician there. Treatment options including treating skull base involved area to palliate symptoms (IMRT or SRS). Or perhaps consider proton beam IM RT. She was referred to radiation oncology here in [place] and she was also referred to palliative care clinic for pain management. Mrs Nair was also encouraged to see medical oncology for palliative systemic therapy. Mrs Nair has seen radiation oncology and as per patient she was told there is no plan for further radiation therapy considering the risk versus benefits, especially due to prior radiation therapy to same area. 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 did offer her treatment with Cisplatin and vinorelbine. She began her first cycle on 01/03/2020. Long-standing history of smoking and is still active. Her pain (right eye and right side of her face) is under control with current pain medication., right facial swelling improved; no more headache and can also breathe through right nostril. Overall, she is pleased with response to the chemotherapy. She had CT of the head on 02/29/2020 with and without contrast. There is no evidence of intracranial hemorrhage or mass-effect. Ventricular system and basal cisterns are patent. Mild small vessel changes. Mild parenchymal volume loss. 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 No evidence of enhancing intracranial metastatic disease. The left mastoid air cells are well aerated. Opacification right mastoid air cells and middle ear. Mild mucosal thickening along the ethmoid air cells. Previously described thin curvilinear soft tissue along the right medial orbit deep to the medial rectus is unchanged since her MRI September 08, [address] of the head August 15, 2019. This is nonspecific but could be related to orbital pseudotumor, neoplasm or prior surgery. She also had CT of the neck on 02/29/2020 with contrast. There is postoperative changes in the right parotidectomy. No evidence of recurrent residual disease in the right neck. Cluster of slightly prominent enhancing lymph nodes left submandibular and jugulodigastric gastric measuring 6 to 7 mm in short axis dimension. These appear stable compared to September 08, 2019. Otherwise no cervical lymphadenopathy. Stable postoperative changes right neck. Opacification right mastoid air cells and middle ear. No evidence of supraglottic or glottic mass. As of February 15, 2020 Mrs. Nair had started her third cycle of chemotherapy unfortunately day 8 was held due to neutropenia. Her ANC at that time was 800. She has required growth factor support through her treatment. Follow-up CT PET scan done on May 30, 2020 showed focal increased metabolic activity is present in the left posterior palate. A single left level 2 lymph node size 0.6 cm, demonstrated increased metabolic activity. No evidence of metabolic activity disease in the right face or involving orbit or previous tumor location. New, compared to CT PET scan done in February 2019, subcentimeter left lung nodular findings size about 0.7 cm and 0.6 cm may reflect early metastatic disease, but compared to CT scan of head and neck prior to the treatment showed excellent response Mrs Nair is tolerating systemic therapy with cisplatin/Navelbine well. Her last treatment was on August 03, 2020 and Since then she has received 7 doses of Neupogen but no improvement in persistent neutropenia in fact repeat CBC done on September 05, 2020 showed absolute neutrophil count dropped down to 810 from 1260 on August 29, 2020 while total white blood count was within normal range continue to hold chemotherapy and eventually decided to proceed with bone marrow evaluation to rule out underlying bone marrow pathology Which was done on September 21, 2020 showed normocellular bone marrow for age. Slight erythroid predominance noted adequate myelopoiesis no overt dyspoietic or megaloblastic changes seen. No significant reticulin fibrosis observed FISH for MDS panel was unremarkable, flow cytometry showed no overtly aberrant myeloid or lymphoid population. CT PET scan done on October 07, 2020 showed status post right parotidectomy, no significant head or neck adenopathy. A 9 mm subpleural lingular nodule is FDG negative and slightly more prominent than February 2019 study. Less likely to be malignant. Dr. Seth evaluated her and ordered MRI scan of the neck done In [place] at [facility] on April 13, 2021 showed findings consistent with disease progression of right orbital, right orbital apex, right cavernous sinus and now extending into the right trigeminal cistern and for a man available. Extension of disease into the right frontal, ethmoid and maxillary sinus and postobstructive sinusitis. 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 into the right bike technician space Patient underwent molecular profiling with the delon on July 03, 2021 and reported on July 29, 2021 and it showed, PD-L1 0%, TMB low, 5 mutation MSI stable, NTRK fusion not detected Started on palliative therapy with carboplatin/gemcitabine on September 19, 2021 Patient presents today for follow-up. She states that she feels like her treatment is helping. She states she does not have as much pressure behind her right eye or in her right jaw. She denies fatigue, fever, chills, or night sweats. She has a good appetite although at times she has to eat without her dentures. No shortness of breath wheezing or cough. No nausea or vomiting. No diarrhea or constipation. No headaches or dizziness. She is supposed to have an appointment with an seeing eye dog trainer in [place] for possible surgery. She was scheduled to see him yesterday but rescheduled. Review Of Symptoms:See above Past Medical History: Asthma Gastroesophageal reflux Hypertension Rheumatoid arthritis Cancer (Adenoid Cystic Carcinoma of Right Parotid Gland) in 2014 Past Surgical History: Covid vaccine 2nd dose in 2020 Covid vaccine #1 Pfizer in 2020 Parotidectomy in 2014 Biopsy in 2004 - Growth on Right Cheek Knee Surgery in 1992 Tonsillectomy in 1973 Appendectomy in 1971 Allergies: Aleve Medications: Albuterol Sulfate HFA 2 puff(s) (of 108 (90 Base) mcg/act) Aerosol, solution Inhalation q 6 hours PRN ALPRAZolam 1 Tablet (of 1 mg) Oral t.i.d. PRN Claritin (10 mg) Tablet Oral daily Effexor XR 1 Capsule (of 75 mg) Capsule SR 24 HR Oral daily Morphine Sulfate 1 Tablet (of 100 mg) Oral t.i.d. Morphine Sulfate 1 Tablet (of 30 mg) Oral t.i.d. OxyCODONE HCl 1 Tablet (of 30 mg) Oral q 4 to 6 hours PRN Family History: Ms. Nair's mother at age 72: Colon Cancer, and Leukemia. Ms. Nair's father at age 76: Pharynx Cancer. Her paternal grandfather at age 68: Pharynx Cancer. Social History: Ms. Nair is and she is a disability. She is a daily smoker who has smoked 0.5 packs/day for 53 years. She drinks occasionally. Smokes Vapor Cigarette patient reports 5/day. Physical Examination: Performed on Oct 10, 2021 10:02: Height - 60.00 in, Weight - 156.8 lbs (LOW), BSA - 1.68 sq.m, BMI - 30.62 (HIGH), Temperature - 97.4 F (LOW), Pulse - 80 /min, Respiration - 17 /min, BP - 126/88 mm(hg), O2 Sat - 96 %, Pain - 3, and Fatigue - 8. Performance Status: 0 - Fully active, able to carry on all predisease activities without restrictions. (ECOG) Constitutional Alert, cooperative, oriented. Mood and affect appropriate. Appears close to chronological age. Well nourished. Well developed. Eyes Right eye with bulging. Conjuctiva is red. Minimal amount clear drainage. Left eye normal ENMT Deformity noted to right side of jaw and mouth secondary to cancer Respiratory Lungs are clear to auscultation without rhonchi or wheezing. Cardiovascular Regular rate and rhythm of heart without murmurs, gallops or rubs. Abdomen Non-tender, non-distended, no masses, ascites or hepatosplenomegaly. Good bowel sounds. No guarding or rebound tenderness. Psychiatric Alert and oriented times three. Coherent speech. Verbalizes understanding of our discussions today. Laboratory: Test performed on Oct 23, 2021 07:36 Creatinine 0.6 mg/dL Cr Clearance (Est) 111.12 mL/min Test performed on Oct 10, 2021 09:08 Sodium 139 mmol/L Potassium 4.2 mmol/L Chloride 100 mmol/L CO2 28 mmol/L Anion Gap 15.2 BUN 13 mg/dL eGFR 101.6 mL/min Glucose 108 mg/dL Osmolality - Calculated 289 mOsm/kg Calcium 9.9 mg/dL Protein, Total 6.9 g/dL Albumin 4.3 g/dL Globulin 2.6 g/dL Bilirubin, Total 0.2 mg/dL ALT (SGPT) 72 U/L AST (SGOT) 31 U/L Alkaline Phosphatase 199 IU/L WBC 13.4 10 3/uL RBC 4.37 10 6/uL HGB 12.3 g/dL HCT 37.9 % MCV 86.7 fl MCH 28.1 pg MCHC 32.5 g/dL RDW 13.8 % Platelet Count 171 10 3/cmm MPV 8.8 fL Neutrophils 10.13 10 3/uL Lymphocytes 2.0 10 3/uL Monocytes 1.0 10 3/uL Eosinophils 0.0 10 3/uL Basophils 0.0 10 3/uL Neutrophil % 75.4 % Lymphocyte % 14.6 % Monocyte % 7.2 % Eosinophil % 0.3 % Basophils % 0.1 % NRBC % 0 % CBC Slide Review Slide Review Perform SLIDE REVIEW AGREES WITH AUTOMATED RESULTS ST Test performed on Oct 02, 2021 15:27 Magnesium 2.1 mg/dL Test performed on Sep 19, 2021 09:14 Manual Segs 49.2 % Manual Lymphocytes 38.1 % Manual Monocytes 8.9 % Manual Eosinophils 3.4 % Manual Basophils 0.2 % NRBCs 0 /100 WBC Impression: Recent adenoid cystic carcinoma peripheral gland with cranial nerve involvement/right skull base involvement. MRI scan done on 09/08/2019 showed widespread spread of tumor into right orbit, right cavernous sinus, bike technician space, pterygopalatine fossa and right facial nerve. Now with right facial nerve paralysis, facial asymmetry. History of adenoid cystic carcinoma right excessive peripheral gland status post partial pericardiectomy with facial nerve monitoring followed by reconstruction for T2 Nx with possible surgical margin lesion, followed by radiation therapy. Chronic smoking Anxiety disorder Clinically, patient has been doing reasonably well, in [id number] distress due to right facial pain and right eye visual disturbance. Mrs Rivera was referred to radiation oncology for palliative radiation therapy. Unfortunately, she is not a candidate for further radiation therapy due to involved risk due to history of prior radiation therapy to same area. A request was sent to pathology regarding next generation sequencing especially NTRK gene analysis but we were told, specimen is not available for evaluation. The role of palliative chemotherapy with cisplatin/Navelbine was discussed as literature has shown overall responsibilities about 44% and with 38% one year survival. did offer her treatment with cisplatin and Navelbine. Her current treatment plan is to give her chemotherapy with split dose of cisplatin/Navelbine on day 1 and 8 and repeat cycle every 21 days. She began her first dose on 01/03/2020. She has tolerated treatment well thus far. She had CT of the head on 02/29/2020 with and without contrast. There is no evidence of intracranial hemorrhage or mass-effect. Ventricular system and basal cisterns are patent. Mild small vessel changes. Mild parenchymal volume loss. 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 No evidence of enhancing intracranial metastatic disease. The left mastoid air cells are well aerated. Opacification right mastoid air cells and middle ear. Mild mucosal thickening along the ethmoid air cells. Previously described thin curvilinear soft tissue along the right medial orbit deep to the medial rectus is unchanged since her MRI September 08, [address] of the head August 15, 2019. This is nonspecific but could be related to orbital pseudotumor, neoplasm or prior surgery. She also had CT of the neck on 02/29/2020 with contrast. There is postoperative changes in the right parotidectomy. No evidence of recurrent residual disease in the right neck. Cluster of slightly prominent enhancing lymph nodes left submandibular and jugulodigastric gastric measuring 6 to 7 mm in short axis dimension. These appear stable compared to September 08, 2019. Recommend interval follow-up with PET/CT. Otherwise no cervical lymphadenopathy. Stable postoperative changes right neck. Opacification right mastoid air cells and middle ear. No evidence of supraglottic or glottic mass. As of February 15, 2020 Mrs. Nair had started her third cycle of chemotherapy unfortunately day 8 was held due to neutropenia. Her ANC at that time was 800. She was given 2 days of Neupogen and recovered well. She has required continued growth factor support with her chemotherapy due to persistent chemotherapy induced neutropenia. The growth factors have been necessary to keep her treatment plan on schedule. PET/CT from May 30, 2020 shows excellent response When compared with CT scan of head and neck prior to the initiation of palliative chemotherapy with cisplatin/Navelbine. She continues with chemotherapy as she does still have residual disease but dramatically improved. Last dose of chemotherapy was given on August 03, 2020 subsequently patient developed progressive neutropenia despite of Neupogen support and bone marrow evaluation was done on September 21, 2020 showed no obvious abnormality FISH for MDS was unremarkable flow cytometry was unremarkable and a follow-up CT PET scan done on October 07, 2020 shows complete remission, at that time it was decided to discontinue chemotherapy for the time being and monitor patient, As patient was developing mild peripheral numbness/neuropathy and her bone marrow was showing persistent neutropenia causing delay in her treatment and anemia, and both start recovering without support when no further chemotherapy was given after August 03, 2020. And on October 24, 2020 after discussion with patient regarding her bone marrow findings as well as PET scan finding it was decided to discontinue palliative chemotherapy Plan: Labs were reviewed with patient. She seems to be tolerating gemcitabine and carboplatin well. RTC in one week for treatment. Signed By: Anabelle Barreto N.P. <<Signature on File>>
[2021-10-22 13:12] LABS: Basophils % 0.4 %; Eosinophils # 0.2 10^3/uL (0.0-0.8); Eosinophils % 2.4 %; Hematocrit 36.5 % (37.0-47.0); Hemoglobin 11.6 g/dL (11.5-15.3); Lymphocytes # 1.7 10^3/uL (0.8-4.8); Lymphocytes % 23.2 %; Mean Corpuscular HGB Conc 31.8 g/dL (30.0-36.0); Mean Platelet Volume 8.9 fL (7.4-10.4); Monocytes % 13.8 %; Neutrophils # 4.43 10^3/uL (1.8-7.7); Neutrophils % 59.8 %; Nucleated Red Blood Cells % 0 %; Platelet Count 480 10^3/cmm (130-400); Red Blood Count 4.15 10^6/uL (4.1-5.3); Red Cell Distribution Width 14.9 % (12.1-15.1); White Blood Count 7.4 10^3/uL (4.0-10.0)
[2021-10-22 13:21] LABS: Alanine Aminotransferase 21 U/L (0-33); Alkaline Phosphatase 125 IU/L (35-105); Anion Gap 13.7 (5-19); Aspartate Amino Transferase 19 U/L (0-32); Blood Urea Nitrogen 12 mg/dL (8-23); Calcium 9.5 mg/dL (8.5-10.5); Carbon Dioxide 30 mmol/L (22-29); Chloride 99 mmol/L (98-107); Globulin 2.7 g/dL (1.3-4.6); Glomerular Filtration Rate 101.6 mL/min (90-130); Glucose 126 mg/dL (65-115); Osmolality Calculated 289 mOsm/kg (285-295); Potassium 3.7 mmol/L (3.5-5.1); Sodium 139 mmol/L (136-145); Total Bilirubin 0.3 mg/dL (0.15-1.2); Total Protein 6.7 g/dL (6.6-8.7)
== END 2021-10-22 23:59 | disposition home or self-care (01) ==
LOC: ONCMED 07:12
PROVIDERS: Nurse Practitioner Family; PCP Family Medicine; Visit Provider Internal Medicine Hematology & Oncology
DX: Z51.12 Encounter for antineoplastic immunotherapy (principal); C47.9 Malignant neoplasm of peripheral nerves and autonomic nervous system, unspecified; C78.39 Secondary malignant neoplasm of other respiratory organs; C79.49 Secondary malignant neoplasm of other parts of nervous system; C79.89 Secondary malignant neoplasm of other specified sites; G51.0 Bell's palsy; F17.210 Nicotine dependence, cigarettes, uncomplicated; F41.1 Generalized anxiety disorder; H53.9 Unspecified visual disturbance; Z79.899 Other long term (current) drug therapy
CPT/HCPCS: 36591; 80053; 83735; 85025; 96365; 96367; 96372; 96375; 99215; J1100; J1453; J2469; J7050; J9045; Q5120

== ENCOUNTER 2021-10-23 12:52 | Emergency (ER) | payer MEDICARE, MEDICAID, SELFPAY ==
[2021-10-23 12:59] VITALS: BP 155/104; PULSE 111; RESP 20; TEMP 37.5; O2SAT 93; BMI 28.3
--- NOTE | 2021-10-23 13:29 | CTR_ITS ---
PROCEDURE INFORMATION: Exam: CT Head Without Contrast Exam date and time: 10/23/2021 1:29 PM Age: 61 years old Clinical indication: Injury or trauma; Fall; Blunt trauma (contusions or hematomas), history of cancer TECHNIQUE: Imaging protocol: Computed tomography of the head without contrast. Radiation optimization: All CT scans at this facility use at least one of these dose optimization techniques: automated exposure control; mA and/or kV adjustment per patient size (includes targeted exams where dose is matched to clinical indication); or iterative reconstruction. COMPARISON: CT head wo/w con [id number] 02/29/2020 11:44 AM RADIATION DOSE METRICS: Total DLP (mGy-cm): 802.67 FINDINGS: Brain: No hemorrhage. Vasogenic edema within the right temporal lobe. No significant mass effect or signs of brain herniation. Masslike soft tissue density with punctate calcifications in the region of the right cavernous sinus with impression on the right anterolateral eusebio. Old lacunar infarct in the region of the anterior limb of the left internal capsule. Mild diffuse cerebral atrophy. Cerebral ventricles: No ventriculomegaly. Paranasal sinuses: Masslike soft tissue seen within the right paranasal sinuses. There is obliteration of the right lamina papyracea with masslike soft tissue extending into the retro-orbital fat and asymmetric right-sided proptosis. Mastoid air cells: Right mastoid effusion. Left mastoid air cells are well pneumatized. Bones/joints: Ill-defined areas of erosive change within the right skull base near the soft tissue mass centered within the right cavernous sinus and paranasal sinuses. No acute fracture. Soft tissues: Unremarkable. CT/CT head wo con* [id number] IMPRESSION: 1. No acute traumatic intracranial abnormality. 2. Irregular masslike soft tissue within the right orbit, right paranasal sinuses, right base of the skull, and in the region of the right cavernous sinus, which given history and imaging appearance is consistent with metastatic disease. There is also vasogenic edema within the right temporal lobe suggestive of either mass effect from the adjacent soft tissue or localized extension. MRI would provide more detailed evaluation as to the extent of the mass.
--- NOTE | 2021-10-23 13:29 | W.ED.FALL ---
HPI - Fall General: Chief Complaint: Fall Stated Complaint: hit head sent by PCP Time Seen by Provider: 10/23/21 13:06 Source: patient Mode of arrival: ambulatory Limitations: no limitations History of Present Illness: 61-year-old female presents emergency room with complaint of headache. She has a tumor around the eye with a primary of a parotid gland tumor on the right.She has been getting chemotherapy for it she fell 1 week ago when she stumbled over her dog. She struck her forehead there is no loss consciousness she has not had any nausea or vomiting but has persistent headache. She contacted her oncologist who referred her to the ER today. MD complaint: fall Onset (ago): week(s) (1) Fall from: standing Fall witnessed: yes, by bystander Place fall occurred: home Loss of consciousness: None Prolonged down time: no Symptoms prior to fall: none Context: tripped/slipped Location of injury: head and face Associated symptoms-after fall: Reports headache(s) and neck pain; Denies abdominal pain, chest pain, confusion, difficulty walking, hematuria, lightheadedness, numbness, short of breath, vertigo or weakness Review of Systems Const: Denies: fever(s), chills, body aches, change in appetite, fatigue or malaise ENMT: Denies: throat pain, ear or mastoid pain, nasal discharge or nasal congestion Card: Denies: chest pain or lightheadedness Resp: Denies: dyspnea, productive cough or non-productive cough GI: Denies: abdominal pain : Denies: hematuria Musc: Reports: neck pain Skin/Breast: Denies: rash or pruritus Neuro: Reports: headache(s); Denies: difficulty walking, vertigo or confusion PFSH ED PFSH: Medical History Adenoid cystic carcinoma Surgical History History of appendectomy (~1971) History of knee surgery History of parotidectomy (~2014) History of tonsillectomy (~1973) Port-A-Cath in place (~11/15/19) Family History Father Cancer Denies family history of Anesthesia complication Bleeding disorder Social History Smoking and tobacco status: never smoked Second hand smoke exposure: No Alcohol intake: never Adopted: No Caregiver/support person: Yes Lives independently: Yes Household members: spouse Housing: House Marital status: service: No Current occupational exposures/hazards: No Pets and animals: No History of recent travel: No Current gender identity: Female [employer]: Worship Financial difficulty paying for basics: Decline to Answer Physical Exam Const: COMMON NORMALS: no acute distress GENERAL APPEARANCE: cooperative and comfortable ORIENTATION/CONSCIOUSNESS: Yes awake, Yes oriented to person, Yes oriented to place and Yes oriented to time HENMT: COMMON NORMALS: normocephalic and atraumatic HEAD & SCALP: normocephalic and atraumatic Eye: COMMON NORMALS: Equal, round and reactive pupils present, EOMs intact bilaterally, conjunctivae normal and no scleral icterus CONJUNCTIVA: Yes conjunctivae normal PUPIL: Yes Equal, round and reactive pupils present Neck/C-Spine: COMMON NORMALS: full ROM, no lymphadenopathy, supple and no JVD Resp: COMMON NORMALS: normal respiratory effort, No retractions, No use of accessory muscles and clear to auscultation bilaterally AUSCULTATION: clear to auscultation bilaterally Cardio: COMMON NORMALS: no JVD, regular rate, regular rhythm and No murmurs present (Cardio) RATE: regular rate RHYTHM: regular rhythm GI: COMMON NORMALS: Soft to palpation and No hepatosplenomegaly present AUSCULTATION: Yes normoactive bowel sounds PALPATION: Yes Soft to palpation, No Tenderness to palpation present (GI), No Guarding due to palpation present (GI) and Yes No hepatosplenomegaly present Extremity: COMMON NORMALS: normal to inspection, capillary refill normal, no clubbing, cyanosis or edema, no calf tenderness and no pedal edema Neuro: SENSORIUM/ORIENTATION: Yes oriented to person, Yes oriented to place and Yes oriented to time Skin: COMMON NORMALS: no rashes or lesions noted GENERAL SKIN EXAM: no rashes or lesions noted Course Vital Signs: Vital signs: Vital Signs Temperature 99.5 F 10/23/21 12:59 Pulse Rate 111 H 10/23/21 12:59 Respiratory Rate 20 H 10/23/21 12:59 Blood Pressure 155/104 10/23/21 12:59 Pulse Oximetry 93 10/23/21 12:59 MDM - Fall Medical Decision Making Labs and imaging reviewed no acute bleed. Discussed concussion. Recheck if has any problems. Patient noted to have a low-grade fever but her white count was normal and differential essentially normal. Monitor fever closely at home return if has problems. Medical Records I reviewed the patient's medical records. Lab Data I reviewed the patient's lab results. Radiology Impressions Head CT 10/23/21 13:29 IMPRESSION: 1. No acute traumatic intracranial abnormality. 2. Irregular masslike soft tissue within the right orbit, right paranasal sinuses, right base of the skull, and in the region of the right cavernous sinus, which given history and imaging appearance is consistent with metastatic disease. There is also vasogenic edema within the right temporal lobe suggestive of either mass effect from the adjacent soft tissue or localized extension. MRI would provide more detailed evaluation as to the extent of the mass. Cervical Spine CT 10/23/21 16:43 IMPRESSION: 1. No acute osseous abnormality of the cervical spine. 2. Left thyroid nodule noted measuring 1.5 cm. Would recommend nonemergent thyroid ultrasound if not previously performed. COMMENTS: Consistent with the [place]'s Incidental Findings Committee white paper (J Am Bill Radiol 2015): In patients aged 35 years and older with an incidental thyroid nodule equal to or greater than 1.[address], MRI or extrathyroidal US, further evaluation with dedicated thyroid US is recommended for patients with normal life expectancy and without comorbidities. For smaller nodules without suspicious features, no further evaluation or follow up is recommended. Discharge Plan Discharge Patient Disposition: Home Clinical Impression: Concussion without loss of consciousness, Parotid gland adenocarcinoma Condition: Stable Prescriptions: No Action alprazolam [Xanax] 1 mg tablet 1 mg PO TID PRN (Reason: Anxiety) 0RF pregabalin [Lyrica] 100 mg Capsule 100 mg PO DAILY 0RF oxycodone 20 mg Tablet 20 mg PO Q6H PRN (Reason: Pain) 0RF venlafaxine 37.5 mg capsule,extended release 24hr 37.5 mg PO DAILY 0RF morphine 60 mg tablet extended release 60 mg PO BID 0RF Discharge Orders: Discharge ED (Routine); Ordered 10/23/21 Ordered By: Ashvin Garza Referrals: Kristi Bethea DO [Primary Care Provider] - Patient Instructions: Opioid Safety Coding Level of Care Code ED Automotive Glass Technician for Eran Villafuerte
--- NOTE | 2021-10-23 16:43 | CTR_ITS ---
PROCEDURE INFORMATION: Exam: CT Cervical Spine Without Contrast Exam date and time: 10/23/2021 4:43 PM Age: 61 years old Clinical indication: Injury or trauma; Blunt trauma; Patient HX: Fall with pain in neck and head TECHNIQUE: Imaging protocol: Computed tomography images of the cervical spine without contrast. Radiation optimization: All CT scans at this facility use at least one of these dose optimization techniques: automated exposure control; mA and/or kV adjustment per patient size (includes targeted exams where dose is matched to clinical indication); or iterative reconstruction. COMPARISON: CT neck w con* [id number] 02/29/2020 11:40 AM RADIATION DOSE METRICS: Total DLP (mGy-cm): 550.06 FINDINGS: Bones/joints: No acute fracture. Normal alignment. Discs/Spinal canal/Neural foramina: No significant disc protrusion. No severe spinal canal stenosis. No significant neural foraminal narrowing. Thyroid: Thyroid nodule noted in the left lobe measuring 1.5 cm series 4, image 46. Lungs: 1.7 cm bleb noted in the medial right lung apex. Soft tissues: Unremarkable. CT/CT cervical spin wo con* [id number] IMPRESSION: 1. No acute osseous abnormality of the cervical spine. 2. Left thyroid nodule noted measuring 1.5 cm. Would recommend nonemergent thyroid ultrasound if not previously performed. COMMENTS: Consistent with the [place] [employer]'s Incidental Findings Committee white paper (J Am Bill Radiol 2015): In patients aged 35 years and older with an incidental thyroid nodule equal to or greater than 1.[address], MRI or extrathyroidal US, further evaluation with dedicated thyroid US is recommended for patients with normal life expectancy and without comorbidities. For smaller nodules without suspicious features, no further evaluation or follow up is recommended.
== END 2021-10-23 17:41 | disposition home or self-care (01) ==
PROVIDERS: Emergency Provider Family Medicine; PCP Family Medicine
DX: S06.0X0A Concussion without loss of consciousness, initial encounter (principal); C07 Malignant neoplasm of parotid gland; W01.0XXA Fall on same level from slipping, tripping and stumbling without subsequent striking against object, initial encounter; Z92.21 Personal history of antineoplastic chemotherapy
CPT/HCPCS: 70450; 72125; 99282

== ENCOUNTER 2021-11-08 06:51 | Outpatient (RCR) | payer MEDICARE, MEDICAID, SELFPAY ==
--- NOTE | 2021-10-24 10:09 | ONC FU_ITS ---
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 Rivera is a 61 -year-old female with history of adenoid cystic carcinoma right parotid gland. She is status post partial parotidectomy with facial nerve monitoring followed by reconstruction of the soft tissue defect with pedicled into oral buccal flap. The final pathology confirmed T2, MX lesion with positive surgical margins. Mrs Nair was referred to radiation oncology, as per patient she underwent radiation therapy here in [facility]. Since then she has been followed by ENT and with no evidence of disease until recently started having a right eye problem. 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 Her case was discussed in multidisciplinary head and neck tumor conference in [place] by her ENT physician there. Treatment options including treating skull base involved area to palliate symptoms (IMRT or SRS). Or perhaps consider proton beam IM RT. She was referred to radiation oncology here in [place] and she was also referred to palliative care clinic for pain management. Mrs Nair was also encouraged to see medical oncology for palliative systemic therapy. Mrs Nair has seen radiation oncology and as per patient she was told there is no plan for further radiation therapy considering the risk versus benefits, especially due to prior radiation therapy to same area. 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 did offer her treatment with Cisplatin and vinorelbine. She began her first cycle on 01/03/2020. Long-standing history of smoking and is still active. Her pain (right eye and right side of her face) is under control with current pain medication., right facial swelling improved; no more headache and can also breathe through right nostril. Overall, she is pleased with response to the chemotherapy. She had CT of the head on 02/29/2020 with and without contrast. There is no evidence of intracranial hemorrhage or mass-effect. Ventricular system and basal cisterns are patent. Mild small vessel changes. Mild parenchymal volume loss. 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 No evidence of enhancing intracranial metastatic disease. The left mastoid air cells are well aerated. Opacification right mastoid air cells and middle ear. Mild mucosal thickening along the ethmoid air cells. Previously described thin curvilinear soft tissue along the right medial orbit deep to the medial rectus is unchanged since her MRI September 08, [address] of the head August 15, 2019. This is nonspecific but could be related to orbital pseudotumor, neoplasm or prior surgery. She also had CT of the neck on 02/29/2020 with contrast. There is postoperative changes in the right parotidectomy. No evidence of recurrent residual disease in the right neck. Cluster of slightly prominent enhancing lymph nodes left submandibular and jugulodigastric gastric measuring 6 to 7 mm in short axis dimension. These appear stable compared to September 08, 2019. Otherwise no cervical lymphadenopathy. Stable postoperative changes right neck. Opacification right mastoid air cells and middle ear. No evidence of supraglottic or glottic mass. As of February 15, 2020 Mrs. Nair had started her third cycle of chemotherapy unfortunately day 8 was held due to neutropenia. Her ANC at that time was 800. She has required growth factor support through her treatment. Follow-up CT PET scan done on May 30, 2020 showed focal increased metabolic activity is present in the left posterior palate. A single left level 2 lymph node size 0.6 cm, demonstrated increased metabolic activity. No evidence of metabolic activity disease in the right face or involving orbit or previous tumor location. New, compared to CT PET scan done in February 2019, subcentimeter left lung nodular findings size about 0.7 cm and 0.6 cm may reflect early metastatic disease, but compared to CT scan of head and neck prior to the treatment showed excellent response Mrs Nair is tolerating systemic therapy with cisplatin/Navelbine well. Her last treatment was on August 03, 2020 and Since then she has received 7 doses of Neupogen but no improvement in persistent neutropenia in fact repeat CBC done on September 05, 2020 showed absolute neutrophil count dropped down to 810 from 1260 on August 29, 2020 while total white blood count was within normal range continue to hold chemotherapy and eventually decided to proceed with bone marrow evaluation to rule out underlying bone marrow pathology Which was done on September 21, 2020 showed normocellular bone marrow for age. Slight erythroid predominance noted adequate myelopoiesis no overt dyspoietic or megaloblastic changes seen. No significant reticulin fibrosis observed FISH for MDS panel was unremarkable, flow cytometry showed no overtly aberrant myeloid or lymphoid population. CT PET scan done on October 07, 2020 showed status post right parotidectomy, no significant head or neck adenopathy. A 9 mm subpleural lingular nodule is FDG negative and slightly more prominent than February 2019 study. Less likely to be malignant. Dr. Seth evaluated her and ordered MRI scan of the neck done In [place] at [facility] on April 13, 2021 showed findings consistent with disease progression of right orbital, right orbital apex, right cavernous sinus and now extending into the right trigeminal cistern and for a man available. Extension of disease into the right frontal, ethmoid and maxillary sinus and postobstructive sinusitis. 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 She states she does not have as much pressure behind her right eye or in her right jaw. She denies fatigue, fever, chills, or night sweats. She has a good appetite although at times she has to eat without her dentures. No shortness of breath wheezing or cough. No nausea or vomiting. No diarrhea or constipation. No headaches or dizziness. She is supposed to have an appointment with an asset recovery specialist in [place] for possible surgery. She had a fall approximately two weeks ago which caused a concussion. She continues to have a headache from that but it has greatly improved. Review Of Symptoms:Review of Systems is not available for this patient. Past Medical History: Asthma Gastroesophageal reflux Hypertension Rheumatoid arthritis Cancer (Adenoid Cystic Carcinoma of Right Parotid Gland) in 2014 Past Surgical History: Covid vaccine 2nd dose in 2020 Covid vaccine #1 Pfizer in 2020 Parotidectomy in 2014 Biopsy in 2004 - Growth on Right Cheek Knee Surgery in 1992 Tonsillectomy in 1973 Appendectomy in 1971 Allergies: Aleve Medications: Albuterol Sulfate HFA 2 puff(s) (of 108 (90 Base) mcg/act) Aerosol, solution Inhalation q 6 hours PRN ALPRAZolam 1 Tablet (of 1 mg) Oral t.i.d. PRN Claritin (10 mg) Tablet Oral daily Effexor XR 1 Capsule (of 75 mg) Capsule SR 24 HR Oral daily Morphine Sulfate 1 Tablet (of 100 mg) Oral t.i.d. Morphine Sulfate 1 Tablet (of 30 mg) Oral t.i.d. OxyCODONE HCl 1 Tablet (of 30 mg) Oral q 4 to 6 hours PRN Family History: Ms. Nair's mother at age 72: Colon Cancer, and Leukemia. Ms. Nair's father at age 76: Pharynx Cancer. Her paternal grandfather at age 68: Pharynx Cancer. Social History: Ms. Nair is and she is a disability. She is a daily smoker who has smoked 0.5 packs/day for 53 years. She drinks occasionally. Smokes Vapor Cigarette patient reports 5/day. Physical Examination: Vitals are not available for this patient. Performance Status: 0 - Fully active, able to carry on all predisease activities without restrictions. (ECOG) Constitutional Alert, cooperative, oriented. Mood and affect appropriate. Appears close to chronological age. Well nourished. Well developed. Respiratory Lungs are clear to auscultation without rhonchi or wheezing. Cardiovascular Regular rate and rhythm of heart without murmurs, gallops or rubs. Abdomen Non-tender, non-distended, no masses, ascites or hepatosplenomegaly. Good bowel sounds. No guarding or rebound tenderness. Extremities No visible deformities, no cyanosis, clubbing or edema. Pulses 3+ and equal bilaterally. Musculoskeletal No tenderness or swelling, normal range of motion without obvious weakness. Psychiatric Alert and oriented times three. Coherent speech. Verbalizes understanding of our discussions today. Laboratory: Test performed on Oct 23, 2021 07:36 Creatinine 0.6 mg/dL Cr Clearance (Est) 111.12 mL/min Test performed on Oct 10, 2021 09:08 Sodium 139 mmol/L Potassium 4.2 mmol/L Chloride 100 mmol/L CO2 28 mmol/L Anion Gap 15.2 BUN 13 mg/dL eGFR 101.6 mL/min Glucose 108 mg/dL Osmolality - Calculated 289 mOsm/kg Calcium 9.9 mg/dL Protein, Total 6.9 g/dL Albumin 4.3 g/dL Globulin 2.6 g/dL Bilirubin, Total 0.2 mg/dL ALT (SGPT) 72 U/L AST (SGOT) 31 U/L Alkaline Phosphatase 199 IU/L WBC 13.4 10 3/uL RBC 4.37 10 6/uL HGB 12.3 g/dL HCT 37.9 % MCV 86.7 fl MCH 28.1 pg MCHC 32.5 g/dL RDW 13.8 % Platelet Count 171 10 3/cmm MPV 8.8 fL Neutrophils 10.13 10 3/uL Lymphocytes 2.0 10 3/uL Monocytes 1.0 10 3/uL Eosinophils 0.0 10 3/uL Basophils 0.0 10 3/uL Neutrophil % 75.4 % Lymphocyte % 14.6 % Monocyte % 7.2 % Eosinophil % 0.3 % Basophils % 0.1 % NRBC % 0 % CBC Slide Review Slide Review Perform SLIDE REVIEW AGREES WITH AUTOMATED RESULTS ST Test performed on Oct 02, 2021 15:27 Magnesium 2.1 mg/dL Test performed on Sep 19, 2021 09:14 Manual Segs 49.2 % Manual Lymphocytes 38.1 % Manual Monocytes 8.9 % Manual Eosinophils 3.4 % Manual Basophils 0.2 % NRBCs 0 /100 WBC Impression: Recent adenoid cystic carcinoma peripheral gland with cranial nerve involvement/right skull base involvement. MRI scan done on 09/08/2019 showed widespread spread of tumor into right orbit, right cavernous sinus, senior radiation protection technician space, pterygopalatine fossa and right facial nerve. Now with right facial nerve paralysis, facial asymmetry. History of adenoid cystic carcinoma right excessive peripheral gland status post partial pericardiectomy with facial nerve monitoring followed by reconstruction for T2 Nx with possible surgical margin lesion, followed by radiation therapy. Chronic smoking Anxiety disorder Clinically, patient has been doing reasonably well, in [id number] distress due to right facial pain and right eye visual disturbance. Mrs Rivera was referred to radiation oncology for palliative radiation therapy. Unfortunately, she is not a candidate for further radiation therapy due to involved risk due to history of prior radiation therapy to same area. A request was sent to pathology regarding next generation sequencing especially NTRK gene analysis but we were told, specimen is not available for evaluation. The role of palliative chemotherapy with cisplatin/Navelbine was discussed as literature has shown overall responsibilities about 44% and with 38% one year survival. did offer her treatment with cisplatin and Navelbine. Her current treatment plan is to give her chemotherapy with split dose of cisplatin/Navelbine on day 1 and 8 and repeat cycle every 21 days. She began her first dose on 01/03/2020. She has tolerated treatment well thus far. She had CT of the head on 02/29/2020 with and without contrast. There is no evidence of intracranial hemorrhage or mass-effect. Ventricular system and basal cisterns are patent. Mild small vessel changes. Mild parenchymal volume loss. 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 No evidence of enhancing intracranial metastatic disease. The left mastoid air cells are well aerated. Opacification right mastoid air cells and middle ear. Mild mucosal thickening along the ethmoid air cells. Previously described thin curvilinear soft tissue along the right medial orbit deep to the medial rectus is unchanged since her MRI September 08, [address] of the head August 15, 2019. This is nonspecific but could be related to orbital pseudotumor, neoplasm or prior surgery. She also had CT of the neck on 02/29/2020 with contrast. There is postoperative changes in the right parotidectomy. No evidence of recurrent residual disease in the right neck. Cluster of slightly prominent enhancing lymph nodes left submandibular and jugulodigastric gastric measuring 6 to 7 mm in short axis dimension. These appear stable compared to September 08, 2019. Recommend interval follow-up with PET/CT. Otherwise no cervical lymphadenopathy. Stable postoperative changes right neck. Opacification right mastoid air cells and middle ear. No evidence of supraglottic or glottic mass. As of February 15, 2020 Mrs. Nair had started her third cycle of chemotherapy unfortunately day 8 was held due to neutropenia. Her ANC at that time was 800. She was given 2 days of Neupogen and recovered well. She has required continued growth factor support with her chemotherapy due to persistent chemotherapy induced neutropenia. The growth factors have been necessary to keep her treatment plan on schedule. PET/CT from May 30, 2020 shows excellent response When compared with CT scan of head and neck prior to the initiation of palliative chemotherapy with cisplatin/Navelbine. She continues with chemotherapy as she does still have residual disease but dramatically improved. Last dose of chemotherapy was given on August 03, 2020 subsequently patient developed progressive neutropenia despite of Neupogen support and bone marrow evaluation was done on September 21, 2020 showed no obvious abnormality FISH for MDS was unremarkable flow cytometry was unremarkable and a follow-up CT PET scan done on October 07, 2020 shows complete remission, at that time it was decided to discontinue chemotherapy for the time being and monitor patient, As patient was developing mild peripheral numbness/neuropathy and her bone marrow was showing persistent neutropenia causing delay in her treatment and anemia, and both start recovering without support when no further chemotherapy was given after August 03, 2020. And on October 24, 2020 after discussion with patient regarding her bone marrow findings as well as PET scan finding it was decided to discontinue palliative chemotherapy Plan: Labs were reviewed with patient. She is doing well and tolerating gemcitabine/carboplatin treatment well. She will receive treatment today and return to clinic in one week with CBC, CMP. Signed By: Anabelle Barreto N.P. <<Signature on File>>
[2021-10-24] MEDS: palonosetron 0.25 mg/5 mL SDV IV (10:20)
[2021-10-24] MEDS: sodium chloride 0.9% 250 ML 75 ML IV (10:20)
[2021-10-24] MEDS: fosaprepitant 150 MG in sodium chloride 0.9% 150 ML 300 MG IV (10:40)
[2021-10-31 08:27] LABS: Basophils % 0.5 %; Eosinophils % 1.4 %; Hematocrit 35.5 % (37.0-47.0); Hemoglobin 11.5 g/dL (11.5-15.3); Lymphocytes # 1.2 10^3/uL (0.8-4.8); Lymphocytes % 54.3 %; Mean Corpuscular HGB Conc 32.4 g/dL (30.0-36.0); Mean Corpuscular Hemoglobin 28.7 pg (28.0-34.0); Mean Corpuscular Volume 88.5 fl (81-99); Monocytes # 0.2 10^3/uL (0.2-0.9); Monocytes % 8.1 %; Neutrophils % 35.7 %; Nucleated Red Blood Cells % 0 %; Platelet Count 210 10^3/cmm (130-400); Red Blood Count 4.01 10^6/uL (4.1-5.3); Red Cell Distribution Width 14.5 % (12.1-15.1); White Blood Count 2.2 10^3/uL (4.0-10.0)
[2021-10-31 08:32] LABS: Neutrophils # 0.79 10^3/uL (1.8-7.7)
[2021-10-31 08:46] LABS: Alanine Aminotransferase 68 U/L (0-33); Albumin Level 4.3 g/dL (3.5-5.2); Alkaline Phosphatase 116 IU/L (35-105); Anion Gap 14.1 (5-19); Aspartate Amino Transferase 33 U/L (0-32); Blood Urea Nitrogen 14 mg/dL (8-23); Carbon Dioxide 30 mmol/L (22-29); Chloride 98 mmol/L (98-107); Globulin 2.7 g/dL (1.3-4.6); Glomerular Filtration Rate 101.6 mL/min (90-130); Glucose 108 mg/dL (65-115); Osmolality Calculated 287 mOsm/kg (285-295); Potassium 4.1 mmol/L (3.5-5.1); Sodium 138 mmol/L (136-145); Total Bilirubin 0.2 mg/dL (0.15-1.2)
--- NOTE | 2021-10-31 17:34 | ONC FU_ITS ---
Dr. Walters follow up note Patient: Alia Nair Unit #: [id number]: 1960 Dicatated By: Milton Walters M.D.Date of Visit:Oct 31, 2021 Onc Med Follow-up/Prog Note History of Present Illness: Mrs. Rivera is a 61 -year-old female with history of adenoid cystic carcinoma right parotid gland. She is status post partial parotidectomy with facial nerve monitoring followed by reconstruction of the soft tissue defect with pedicled into oral buccal flap. The final pathology confirmed T2, MX lesion with positive surgical margins. Mrs Nair was referred to radiation oncology, as per patient she underwent radiation therapy here in [facility]. Since then she has been followed by ENT and with no evidence of disease until recently started having a right eye problem. MRI scan of the neck done on 09/08/2019 showed widespread neural spread of tumor into the right orbit right cavernous sinus, insole doubler space, pterygopalatine fossa and probably right facial nerve. Her case was discussed in multidisciplinary head and neck tumor conference in [place] by her ENT physician there. Treatment options including treating skull base involved area to palliate symptoms (IMRT or SRS). Or perhaps consider proton beam IM RT. She was referred to radiation oncology here in [place] and she was also referred to palliative care clinic for pain management. Mrs Nair was also encouraged to see medical oncology for palliative systemic therapy. Mrs Nair has seen radiation oncology and as per patient she was told there is no plan for further radiation therapy considering the risk versus benefits, especially due to prior radiation therapy to same area. 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 did offer her treatment with Cisplatin and vinorelbine. She began her first cycle on 01/03/2020. Long-standing history of smoking and is still active. Her pain (right eye and right side of her face) is under control with current pain medication., right facial swelling improved; no more headache and can also breathe through right nostril. Overall, she is pleased with response to the chemotherapy. She had CT of the head on 02/29/2020 with and without contrast. There is no evidence of intracranial hemorrhage or mass-effect. Ventricular system and basal cisterns are patent. Mild small vessel changes. Mild parenchymal volume loss. 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 No evidence of enhancing intracranial metastatic disease. The left mastoid air cells are well aerated. Opacification right mastoid air cells and middle ear. Mild mucosal thickening along the ethmoid air cells. Previously described thin curvilinear soft tissue along the right medial orbit deep to the medial rectus is unchanged since her MRI September 08, [address] of the head August 15, 2019. This is nonspecific but could be related to orbital pseudotumor, neoplasm or prior surgery. She also had CT of the neck on 02/29/2020 with contrast. There is postoperative changes in the right parotidectomy. No evidence of recurrent residual disease in the right neck. Cluster of slightly prominent enhancing lymph nodes left submandibular and jugulodigastric gastric measuring 6 to 7 mm in short axis dimension. These appear stable compared to September 08, 2019. Otherwise no cervical lymphadenopathy. Stable postoperative changes right neck. Opacification right mastoid air cells and middle ear. No evidence of supraglottic or glottic mass. As of February 15, 2020 Mrs. Nair had started her third cycle of chemotherapy unfortunately day 8 was held due to neutropenia. Her ANC at that time was 800. She has required growth factor support through her treatment. Follow-up CT PET scan done on May 30, 2020 showed focal increased metabolic activity is present in the left posterior palate. A single left level 2 lymph node size 0.6 cm, demonstrated increased metabolic activity. No evidence of metabolic activity disease in the right face or involving orbit or previous tumor location. New, compared to CT PET scan done in February 2019, subcentimeter left lung nodular findings size about 0.7 cm and 0.6 cm may reflect early metastatic disease, but compared to CT scan of head and neck prior to the treatment showed excellent response Mrs Nair is tolerating systemic therapy with cisplatin/Navelbine well. Her last treatment was on August 03, 2020 and Since then she has received 7 doses of Neupogen but no improvement in persistent neutropenia in fact repeat CBC done on September 05, 2020 showed absolute neutrophil count dropped down to 810 from 1260 on August 29, 2020 while total white blood count was within normal range continue to hold chemotherapy and eventually decided to proceed with bone marrow evaluation to rule out underlying bone marrow pathology Which was done on September 21, 2020 showed normocellular bone marrow for age. Slight erythroid predominance noted adequate myelopoiesis no overt dyspoietic or megaloblastic changes seen. No significant reticulin fibrosis observed FISH for MDS panel was unremarkable, flow cytometry showed no overtly aberrant myeloid or lymphoid population. CT PET scan done on October 07, 2020 showed status post right parotidectomy, no significant head or neck adenopathy. A 9 mm subpleural lingular nodule is FDG negative and slightly more prominent than February 2019 study. Less likely to be malignant. Dr. Seth evaluated her and ordered MRI scan of the neck done In [facility] on April 13, 2021 showed findings consistent with disease progression of right orbital, right orbital apex, right cavernous sinus and now extending into the right trigeminal cistern and for a man available. Extension of disease into the right frontal, ethmoid and maxillary sinus and postobstructive sinusitis. 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 into the right insole doubler space Patient underwent molecular profiling with the delon on July 03, 2021 and reported on July 29, 2021 and it showed, PD-L1 0%, TMB low, 5 mutation MSI stable, NTRK fusion not detected Started on palliative therapy with carboplatin/gemcitabine on September 19, 2021 Came for follow-up, denies any specific complaint except generalized weakness and fatigue and excessive sleep, patient is on morphine/oxycodone/alprazolam for her right facial pain and anxiety. But no headaches blurred vision or double vision, no mouth sores, no diarrhea or constipation except episode of nausea, vomiting x1 yesterday after having scrambled eggs. No fever chills, tolerating palliative therapy with carboplatin/gemcitabine well otherwise Medications: Albuterol Sulfate HFA 2 puff(s) (of 108 (90 Base) mcg/act) Aerosol, solution Inhalation q 6 hours PRN, ALPRAZolam 1 Tablet (of 1 mg) Oral t.i.d. PRN, Claritin (10 mg) Tablet Oral daily, Effexor XR 1 Capsule (of 75 mg) Capsule SR 24 HR Oral daily, Morphine Sulfate 1 Tablet (of 100 mg) Oral t.i.d., Morphine Sulfate 1 Tablet (of 30 mg) Oral t.i.d., OxyCODONE HCl 1 Tablet (of 30 mg) Oral q 4 to 6 hours PRN Allergies: Aleve Review of Systems: Review of Systems is not available for this patient. Vital Signs: Performed on Oct 31, 2021 14:53 Height - 60.00 in Weight - 158.2 lbs (HIGH) BSA - 1.69 sq.m BMI - 30.90 (HIGH) Temperature - 98.0 F (LOW) Pulse - 96 /min Respiration - 18 /min BP - 141/91 mm(hg) (HIGH) O2 Sat - 96 % Pain - 0 Fatigue - 6 Performance Status: 0 - Fully active, able to carry on all predisease activities without restrictions. (ECOG) Physical Examination: ENMT - No mouth sores, no thrush, no jaundice, improvement in right facial puffiness, Respiratory - Lungs are clear to auscultation, Cardiovascular - Regular rate and rhythm of heart, Abdomen - Soft, bowel sounds present, Extremities - No visible edema. Lab/Imaging: Test performed on Oct 31, 2021 09:01 Creatinine 0.6 mg/dL Cr Clearance (Est) 111.12 mL/min Test performed on Oct 10, 2021 09:08 Sodium 139 mmol/L Potassium 4.2 mmol/L Chloride 100 mmol/L CO2 28 mmol/L Anion Gap 15.2 BUN 13 mg/dL eGFR 101.6 mL/min Glucose 108 mg/dL Osmolality - Calculated 289 mOsm/kg Calcium 9.9 mg/dL Protein, Total 6.9 g/dL Albumin 4.3 g/dL Globulin 2.6 g/dL Bilirubin, Total 0.2 mg/dL ALT (SGPT) 72 U/L AST (SGOT) 31 U/L Alkaline Phosphatase 199 IU/L WBC 13.4 10 3/uL RBC 4.37 10 6/uL HGB 12.3 g/dL HCT 37.9 % MCV 86.7 fl MCH 28.1 pg MCHC 32.5 g/dL RDW 13.8 % Platelet Count 171 10 3/cmm MPV 8.8 fL Neutrophils 10.13 10 3/uL Lymphocytes 2.0 10 3/uL Monocytes 1.0 10 3/uL Eosinophils 0.0 10 3/uL Basophils 0.0 10 3/uL Neutrophil % 75.4 % Lymphocyte % 14.6 % Monocyte % 7.2 % Eosinophil % 0.3 % Basophils % 0.1 % NRBC % 0 % CBC Slide Review Slide Review Perform SLIDE REVIEW AGREES WITH AUTOMATED RESULTS ST Test performed on Oct 02, 2021 15:27 Magnesium 2.1 mg/dL Test performed on Sep 19, 2021 09:14 Manual Segs 49.2 % Manual Lymphocytes 38.1 % Manual Monocytes 8.9 % Manual Eosinophils 3.4 % Manual Basophils 0.2 % NRBCs 0 /100 WBC Impression: Recent adenoid cystic carcinoma peripheral gland with cranial nerve involvement/right skull base involvement. MRI scan done on 09/08/2019 showed widespread spread of tumor into right orbit, right cavernous sinus, insole doubler space, pterygopalatine fossa and right facial nerve. Now with right facial nerve paralysis, facial asymmetry. History of adenoid cystic carcinoma right excessive peripheral gland status post partial pericardiectomy with facial nerve monitoring followed by reconstruction for T2 Nx with possible surgical margin lesion, followed by radiation therapy. Chronic smoking Anxiety disorder Clinically, patient has been doing reasonably well, in [id number] distress due to right facial pain and right eye visual disturbance. Mrs Rivera was referred to radiation oncology for palliative radiation therapy. Unfortunately, she is not a candidate for further radiation therapy due to involved risk due to history of prior radiation therapy to same area. A request was sent to pathology regarding next generation sequencing especially NTRK gene analysis but we were told, specimen is not available for evaluation. The role of palliative chemotherapy with cisplatin/Navelbine was discussed as literature has shown overall responsibilities about 44% and with 38% one year survival. did offer her treatment with cisplatin and Navelbine. Her current treatment plan is to give her chemotherapy with split dose of cisplatin/Navelbine on day 1 and 8 and repeat cycle every 21 days. She began her first dose on 01/03/2020. She has tolerated treatment well thus far. She had CT of the head on 02/29/2020 with and without contrast. There is no evidence of intracranial hemorrhage or mass-effect. Ventricular system and basal cisterns are patent. Mild small vessel changes. Mild parenchymal volume loss. 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 No evidence of enhancing intracranial metastatic disease. The left mastoid air cells are well aerated. Opacification right mastoid air cells and middle ear. Mild mucosal thickening along the ethmoid air cells. Previously described thin curvilinear soft tissue along the right medial orbit deep to the medial rectus is unchanged since her MRI September 08, [address] of the head August 15, 2019. This is nonspecific but could be related to orbital pseudotumor, neoplasm or prior surgery. She also had CT of the neck on 02/29/2020 with contrast. There is postoperative changes in the right parotidectomy. No evidence of recurrent residual disease in the right neck. Cluster of slightly prominent enhancing lymph nodes left submandibular and jugulodigastric gastric measuring 6 to 7 mm in short axis dimension. These appear stable compared to September 08, 2019. Recommend interval follow-up with PET/CT. Otherwise no cervical lymphadenopathy. Stable postoperative changes right neck. Opacification right mastoid air cells and middle ear. No evidence of supraglottic or glottic mass. As of February 15, 2020 Mrs. Nair had started her third cycle of chemotherapy unfortunately day 8 was held due to neutropenia. Her ANC at that time was 800. She was given 2 days of Neupogen and recovered well. She has required continued growth factor support with her chemotherapy due to persistent chemotherapy induced neutropenia. The growth factors have been necessary to keep her treatment plan on schedule. PET/CT from May 30, 2020 shows excellent response When compared with CT scan of head and neck prior to the initiation of palliative chemotherapy with cisplatin/Navelbine. She continues with chemotherapy as she does still have residual disease but dramatically improved. Last dose of chemotherapy was given on August 03, 2020 subsequently patient developed progressive neutropenia despite of Neupogen support and bone marrow evaluation was done on September 21, 2020 showed no obvious abnormality FISH for MDS was unremarkable flow cytometry was unremarkable and a follow-up CT PET scan done on October 07, 2020 shows complete remission, at that time it was decided to discontinue chemotherapy for the time being and monitor patient, As patient was developing mild peripheral numbness/neuropathy and her bone marrow was showing persistent neutropenia causing delay in her treatment and anemia, and both start recovering without support when no further chemotherapy was given after August 03, 2020. And on October 24, 2020 after discussion with patient regarding her bone marrow findings as well as PET scan finding it was decided to discontinue palliative chemotherapy Plan: Discussed with patient regarding her labs white blood count 2.2 hemoglobin 11.5 hematocrit 35.5 platelets 210,000 ANC 790 CMP within normal limits except ALT 68 AST 33 alk phos 116 Clinically, patient doing well with no new signs symptom suggestive of disease progression] right facial swelling has improved while on carboplatin/gemcitabine. Moreover her right facial pain is also improving, her excessive sleepiness and generalized weakness and fatigue could be due to narcotics, patient was advised to discontinue morphine while continue oxycodone on as-needed basis and alprazolam for her anxiety and will monitor and adjust the dose accordingly. Today's CBC shows persistent leukopenia/neutropenia, we will hold her chemotherapy and give her Neupogen daily for 3 days and then she will return to clinic on Friday with CBC if neutropenia/leukopenia resolved, will consider delayed day 8 chemotherapy with carboplatin/gemcitabine. Signed By: Milton Walters M.D. <<Signature on File>>
[2021-11-05 09:24] LABS: Basophils % 0.3 %; Eosinophils # 0.2 10^3/uL (0.0-0.8); Hematocrit 38.1 % (37.0-47.0); Hemoglobin 12.4 g/dL (11.5-15.3); Lymphocytes # 1.8 10^3/uL (0.8-4.8); Lymphocytes % 27.7 %; Mean Corpuscular HGB Conc 32.5 g/dL (30.0-36.0); Mean Corpuscular Hemoglobin 28.1 pg (28.0-34.0); Mean Corpuscular Volume 86.4 fl (81-99); Mean Platelet Volume 9.6 fL (7.4-10.4); Monocytes # 1.6 10^3/uL (0.2-0.9); Monocytes % 24.4 %; Neutrophils # 2.76 10^3/uL (1.8-7.7); Neutrophils % 42.9 %; Nucleated Red Blood Cells % 0 %; Platelet Count 167 10^3/cmm (130-400); Red Blood Count 4.41 10^6/uL (4.1-5.3); Red Cell Distribution Width 15.7 % (12.1-15.1); White Blood Count 6.4 10^3/uL (4.0-10.0)
[2021-11-05] MEDS: sodium chloride 0.9% 250 ML 200 ML IV (11:38)
[2021-11-05] MEDS: palonosetron 0.25 mg/5 mL SDV IV (11:39)
[2021-11-05] MEDS: fosaprepitant 150 MG in sodium chloride 0.9% 150 ML 300 MG IV (12:05)
--- NOTE | 2021-11-05 15:04 | ONC FU_ITS ---
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 Rivera is a 61 -year-old female with history of adenoid cystic carcinoma right parotid gland. She is status post partial parotidectomy with facial nerve monitoring followed by reconstruction of the soft tissue defect with pedicled into oral buccal flap. The final pathology confirmed T2, MX lesion with positive surgical margins. Mrs Nair was referred to radiation oncology, as per patient she underwent radiation therapy here in [facility]. Since then she has been followed by ENT and with no evidence of disease until recently started having a right eye problem. MRI scan of the neck done on 09/08/2019 showed widespread neural spread of tumor into the right orbit right cavernous sinus, plaster caster space, pterygopalatine fossa and probably right facial nerve. Her case was discussed in multidisciplinary head and neck tumor conference in [place] by her ENT physician there. Treatment options including treating skull base involved area to palliate symptoms (IMRT or SRS). Or perhaps consider proton beam IM RT. She was referred to radiation oncology here in [place] and she was also referred to palliative care clinic for pain management. Mrs Nair was also encouraged to see medical oncology for palliative systemic therapy. Mrs Nair has seen radiation oncology and as per patient she was told there is no plan for further radiation therapy considering the risk versus benefits, especially due to prior radiation therapy to same area. 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 did offer her treatment with Cisplatin and vinorelbine. She began her first cycle on 01/03/2020. Long-standing history of smoking and is still active. Her pain (right eye and right side of her face) is under control with current pain medication., right facial swelling improved; no more headache and can also breathe through right nostril. Overall, she is pleased with response to the chemotherapy. She had CT of the head on 02/29/2020 with and without contrast. There is no evidence of intracranial hemorrhage or mass-effect. Ventricular system and basal cisterns are patent. Mild small vessel changes. Mild parenchymal volume loss. 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 No evidence of enhancing intracranial metastatic disease. The left mastoid air cells are well aerated. Opacification right mastoid air cells and middle ear. Mild mucosal thickening along the ethmoid air cells. Previously described thin curvilinear soft tissue along the right medial orbit deep to the medial rectus is unchanged since her MRI September 08, [address] of the head August 15, 2019. This is nonspecific but could be related to orbital pseudotumor, neoplasm or prior surgery. She also had CT of the neck on 02/29/2020 with contrast. There is postoperative changes in the right parotidectomy. No evidence of recurrent residual disease in the right neck. Cluster of slightly prominent enhancing lymph nodes left submandibular and jugulodigastric gastric measuring 6 to 7 mm in short axis dimension. These appear stable compared to September 08, 2019. Otherwise no cervical lymphadenopathy. Stable postoperative changes right neck. Opacification right mastoid air cells and middle ear. No evidence of supraglottic or glottic mass. As of February 15, 2020 Mrs. Nair had started her third cycle of chemotherapy unfortunately day 8 was held due to neutropenia. Her ANC at that time was 800. She has required growth factor support through her treatment. Follow-up CT PET scan done on May 30, 2020 showed focal increased metabolic activity is present in the left posterior palate. A single left level 2 lymph node size 0.6 cm, demonstrated increased metabolic activity. No evidence of metabolic activity disease in the right face or involving orbit or previous tumor location. New, compared to CT PET scan done in February 2019, subcentimeter left lung nodular findings size about 0.7 cm and 0.6 cm may reflect early metastatic disease, but compared to CT scan of head and neck prior to the treatment showed excellent response Mrs Nair is tolerating systemic therapy with cisplatin/Navelbine well. Her last treatment was on August 03, 2020 and Since then she has received 7 doses of Neupogen but no improvement in persistent neutropenia in fact repeat CBC done on September 05, 2020 showed absolute neutrophil count dropped down to 810 from 1260 on August 29, 2020 while total white blood count was within normal range continue to hold chemotherapy and eventually decided to proceed with bone marrow evaluation to rule out underlying bone marrow pathology Which was done on September 21, 2020 showed normocellular bone marrow for age. Slight erythroid predominance noted adequate myelopoiesis no overt dyspoietic or megaloblastic changes seen. No significant reticulin fibrosis observed FISH for MDS panel was unremarkable, flow cytometry showed no overtly aberrant myeloid or lymphoid population. CT PET scan done on October 07, 2020 showed status post right parotidectomy, no significant head or neck adenopathy. A 9 mm subpleural lingular nodule is FDG negative and slightly more prominent than February 2019 study. Less likely to be malignant. Dr. Seth evaluated her and ordered MRI scan of the neck done In [place] at [facility] on April 13, 2021 showed findings consistent with disease progression of right orbital, right orbital apex, right cavernous sinus and now extending into the right trigeminal cistern and for a man available. Extension of disease into the right frontal, ethmoid and maxillary sinus and postobstructive sinusitis. 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 into the right plaster caster space Patient underwent molecular profiling with the delon on July 03, 2021 and reported on July 29, 2021 and it showed, PD-L1 0%, TMB low, 5 mutation MSI stable, NTRK fusion not detected Started on palliative therapy with carboplatin/gemcitabine on September 19, 2021 Patient presents today for follow-up. She states she has been feeling pretty good. Get back on her pain medication but was unable to do so due to pain not being controlled adequately. She states her appetite has been good. She denies fever, chills, night sweats. She denies sinus drainage or sore throat. She does have sores in her left nostril. No shortness of breath, cough, chest pain. No GI problems. No problems. She denies headache or dizziness. No numbness or paresthesias. It is noted today that her blood pressure is mildly elevated. She states she has been on blood pressure medication in the past but it was discontinued due to blood pressures being normal. Review Of Symptoms: See above. Past Medical History: Asthma Gastroesophageal reflux Hypertension Rheumatoid arthritis Cancer (Adenoid Cystic Carcinoma of Right Parotid Gland) in 2014 Past Surgical History: Covid vaccine 2nd dose in 2020 Covid vaccine #1 Pfizer in 2020 Parotidectomy in 2014 Biopsy in 2004 - Growth on Right Cheek Knee Surgery in 1992 Tonsillectomy in 1973 Appendectomy in 1971 Allergies: Aleve Medications: Albuterol Sulfate HFA 2 puff(s) (of 108 (90 Base) mcg/act) Aerosol, solution Inhalation q 6 hours PRN ALPRAZolam 1 Tablet (of 1 mg) Oral t.i.d. PRN Claritin (10 mg) Tablet Oral daily Effexor XR 1 Capsule (of 75 mg) Capsule SR 24 HR Oral daily Morphine Sulfate 1 Tablet (of 100 mg) Oral t.i.d. Morphine Sulfate 1 Tablet (of 30 mg) Oral t.i.d. OxyCODONE HCl 1 Tablet (of 30 mg) Oral q 4 to 6 hours PRN Family History: Ms. Nair's mother at age 72: Colon Cancer, and Leukemia. Ms. Nair's father at age 76: Pharynx Cancer. Her paternal grandfather at age 68: Pharynx Cancer. Social History: Ms. Nair is and she is a disability. She is a daily smoker who has smoked 0.5 packs/day for 53 years. She drinks occasionally. Smokes Vapor Cigarette patient reports 5/day. Physical Examination: Performed on Nov 05, 2021 11:17: Height - 60.00 in, BP - 151/99 mm(hg) (HIGH), Performed on Nov 05, 2021 11:16: Height - 60.00 in, Weight - 153.4 lbs (LOW), BSA - 1.67 sq.m, BMI - 29.96, Temperature - 98.1 F (LOW), Pulse - 104 /min (HIGH), Respiration - 18 /min, BP - 152/94 mm(hg) (HIGH), O2 Sat - 96 %, Pain - 4, and Fatigue - 3. Performance Status: 0 - Fully active, able to carry on all predisease activities without restrictions. (ECOG) Constitutional Alert, cooperative, oriented. Mood and affect appropriate. Appears close to chronological age. Well nourished. Well developed. Respiratory Lungs are clear to auscultation without rhonchi or wheezing. Cardiovascular Regular rate and rhythm of heart without murmurs, gallops or rubs. Abdomen Non-tender, non-distended, no masses, ascites or hepatosplenomegaly. Good bowel sounds. No guarding or rebound tenderness. Extremities No visible deformities, no cyanosis, clubbing or edema. Pulses 3+ and equal bilaterally. Musculoskeletal No tenderness or swelling, normal range of motion without obvious weakness. Psychiatric Alert and oriented times three. Coherent speech. Verbalizes understanding of our discussions today. Laboratory: Test performed on Nov 05, 2021 09:05 WBC 6.4 10 3/uL RBC 4.41 10 6/uL HGB 12.4 g/dL HCT 38.1 % MCV 86.4 fl MCH 28.1 pg MCHC 32.5 g/dL RDW 15.7 % Platelet Count 167 10 3/cmm MPV 9.6 fL Neutrophils 2.76 10 3/uL Lymphocytes 1.8 10 3/uL Monocytes 1.6 10 3/uL Eosinophils 0.2 10 3/uL Basophils 0.0 10 3/uL Neutrophil % 42.9 % Lymphocyte % 27.7 % Monocyte % 24.4 % Eosinophil % 3.0 % Basophils % 0.3 % NRBC % 0 % Test performed on Oct 31, 2021 09:01 Creatinine 0.6 mg/dL Cr Clearance (Est) 111.12 mL/min Test performed on Oct 10, 2021 09:08 Sodium 139 mmol/L Potassium 4.2 mmol/L Chloride 100 mmol/L CO2 28 mmol/L Anion Gap 15.2 BUN 13 mg/dL eGFR 101.6 mL/min Glucose 108 mg/dL Osmolality - Calculated 289 mOsm/kg Calcium 9.9 mg/dL Protein, Total 6.9 g/dL Albumin 4.3 g/dL Globulin 2.6 g/dL Bilirubin, Total 0.2 mg/dL ALT (SGPT) 72 U/L AST (SGOT) 31 U/L Alkaline Phosphatase 199 IU/L CBC Slide Review Slide Review Perform SLIDE REVIEW AGREES WITH AUTOMATED RESULTS ST Test performed on Oct 02, 2021 15:27 Magnesium 2.1 mg/dL Test performed on Sep 19, 2021 09:14 Manual Segs 49.2 % Manual Lymphocytes 38.1 % Manual Monocytes 8.9 % Manual Eosinophils 3.4 % Manual Basophils 0.2 % NRBCs 0 /100 WBC Impression: Recent adenoid cystic carcinoma peripheral gland with cranial nerve involvement/right skull base involvement. MRI scan done on 09/08/2019 showed widespread spread of tumor into right orbit, right cavernous sinus, plaster caster space, pterygopalatine fossa and right facial nerve. Now with right facial nerve paralysis, facial asymmetry. History of adenoid cystic carcinoma right excessive peripheral gland status post partial pericardiectomy with facial nerve monitoring followed by reconstruction for T2 Nx with possible surgical margin lesion, followed by radiation therapy. Chronic smoking Anxiety disorder Clinically, patient has been doing reasonably well, in [id number] distress due to right facial pain and right eye visual disturbance. Mrs Rivera was referred to radiation oncology for palliative radiation therapy. Unfortunately, she is not a candidate for further radiation therapy due to involved risk due to history of prior radiation therapy to same area. A request was sent to pathology regarding next generation sequencing especially NTRK gene analysis but we were told, specimen is not available for evaluation. The role of palliative chemotherapy with cisplatin/Navelbine was discussed as literature has shown overall responsibilities about 44% and with 38% one year survival. did offer her treatment with cisplatin and Navelbine. Her current treatment plan is to give her chemotherapy with split dose of cisplatin/Navelbine on day 1 and 8 and repeat cycle every 21 days. She began her first dose on 01/03/2020. She has tolerated treatment well thus far. She had CT of the head on 02/29/2020 with and without contrast. There is no evidence of intracranial hemorrhage or mass-effect. Ventricular system and basal cisterns are patent. Mild small vessel changes. Mild parenchymal volume loss. 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 No evidence of enhancing intracranial metastatic disease. The left mastoid air cells are well aerated. Opacification right mastoid air cells and middle ear. Mild mucosal thickening along the ethmoid air cells. Previously described thin curvilinear soft tissue along the right medial orbit deep to the medial rectus is unchanged since her MRI September 08, [address] of the head August 15, 2019. This is nonspecific but could be related to orbital pseudotumor, neoplasm or prior surgery. She also had CT of the neck on 02/29/2020 with contrast. There is postoperative changes in the right parotidectomy. No evidence of recurrent residual disease in the right neck. Cluster of slightly prominent enhancing lymph nodes left submandibular and jugulodigastric gastric measuring 6 to 7 mm in short axis dimension. These appear stable compared to September 08, 2019. Recommend interval follow-up with PET/CT. Otherwise no cervical lymphadenopathy. Stable postoperative changes right neck. Opacification right mastoid air cells and middle ear. No evidence of supraglottic or glottic mass. As of February 15, 2020 Mrs. Nair had started her third cycle of chemotherapy unfortunately day 8 was held due to neutropenia. Her ANC at that time was 800. She was given 2 days of Neupogen and recovered well. She has required continued growth factor support with her chemotherapy due to persistent chemotherapy induced neutropenia. The growth factors have been necessary to keep her treatment plan on schedule. PET/CT from May 30, 2020 shows excellent response When compared with CT scan of head and neck prior to the initiation of palliative chemotherapy with cisplatin/Navelbine. She continues with chemotherapy as she does still have residual disease but dramatically improved. Last dose of chemotherapy was given on August 03, 2020 subsequently patient developed progressive neutropenia despite of Neupogen support and bone marrow evaluation was done on September 21, 2020 showed no obvious abnormality FISH for MDS was unremarkable flow cytometry was unremarkable and a follow-up CT PET scan done on October 07, 2020 shows complete remission, at that time it was decided to discontinue chemotherapy for the time being and monitor patient, As patient was developing mild peripheral numbness/neuropathy and her bone marrow was showing persistent neutropenia causing delay in her treatment and anemia, and both start recovering without support when no further chemotherapy was given after August 03, 2020. And on October 24, 2020 after discussion with patient regarding her bone marrow findings as well as PET scan finding it was decided to discontinue palliative chemotherapy Plan: Labs were reviewed with patient. WBC is 6.4, hemoglobin 12.4, hematocrit 38.1, platelet count 167,000, neutrophil count 2.76. Patient states she is feeling well. She was unable to decrease the amount of pain medication due to pain on the right side of her face and in her right eye. At last visit she stated she was very sleepy all the time so we thought possibly cutting back on narcotics would help with this. Bactroban ointment will be presribed for sores in left nostril. Patient to monitor her blood pressure at home and take readings to Dr. Bethea, her PCP, at next visit in one week. She is tolerating her palliative chemotherapy with cisplatin and gemcitabine well. Her cycle 2-day 8 had to be postponed due to pancytopenia. Her labs have stabilized so we will continue with cycle 2-day 8 today. She will return to clinic in 2 weeks with CBC and CMP. Signed By: Anabelle Barreto N.P. <<Signature on File>>
== END 2021-11-22 23:59 | disposition home or self-care (01) ==
LOC: ONCMED 06:51
PROVIDERS: Nurse Practitioner Family; PCP Family Medicine; Visit Provider Internal Medicine Hematology & Oncology
DX: Z51.11 Encounter for antineoplastic chemotherapy (principal); C47 Malignant neoplasm of peripheral nerves and autonomic nervous system; C79.49 Secondary malignant neoplasm of other parts of nervous system; C79.51 Secondary malignant neoplasm of bone; C79.89 Secondary malignant neoplasm of other specified sites; F17.210 Nicotine dependence, cigarettes, uncomplicated; F41.1 Generalized anxiety disorder; G89.3 Neoplasm related pain (acute) (chronic); H53.9 Unspecified visual disturbance; Z79.899 Other long term (current) drug therapy
CPT/HCPCS: 36591; 80053; 85025; 96367; 96372; 96375; 96413; 96417; 99215; J1100; J1442; J1453; J2469; J7050; J9045; J9201; Q5101

== ENCOUNTER 2021-11-22 12:04 | Emergency (ER) | payer MEDICARE, MEDICAID, SELFPAY ==
[2021-11-22 12:12] VITALS: BP 128/72; PULSE 96; RESP 16; TEMP 36.7; O2SAT 95; BMI 29.5
[2021-11-22 12:21] VITALS: BP 134/80; PULSE 89; RESP 16; O2SAT 97
--- NOTE | 2021-11-22 12:24 | ED_ITS ---
HPI - Headache General: Chief Complaint: Headache Stated Complaint: Migraine, Sent my doctor Time Seen by Provider: 11/22/21 12:23 History of Present Illness: Ms. 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 She presents to the emergency department today due to headache. She reports a fall due to tripping/slipping on wet floor approximately 1 month ago and since that time has had increasing headaches. She describes them as varying in quality, location, and characteristic. She denies associated neurologic symptoms. Overall course has worsened. Intensity today is moderate to severe. At times there is a hyperalgia component of pain on her scalp. No other specific changes in health, exacerbating, or alleviating factors identified. Pertinent past history: other Onset (ago): week(s) Severity: severe Quality & Timing: aching Context: other Review of Systems General: Reports: 10 or more systems reviewed and unremarkable except in HPI and below PFSH ED PFSH: Medical History Adenoid cystic carcinoma Surgical History History of appendectomy (~1971) History of knee surgery History of parotidectomy (~2014) History of tonsillectomy (~1973) Port-A-Cath in place (~11/15/19) Family History Father Cancer Denies family history of Anesthesia complication Bleeding disorder Social History Smoking and tobacco status: never smoked Second hand smoke exposure: No Alcohol intake: never Adopted: No Caregiver/support person: Yes Lives independently: Yes Household members: spouse Housing: House Marital status: service: No Current occupational exposures/hazards: No Pets and animals: No History of recent travel: No Current gender identity: Female Kanchan/Bahai: Jehovah'S Witness Financial difficulty paying for basics: Decline to Answer Physical Exam Const: COMMON NORMALS: alert GENERAL APPEARANCE: cooperative and well developed HENMT: COMMON NORMALS: normocephalic and atraumatic HEAD & SCALP: normocephalic and atraumatic THROAT: posterior oropharynx normal OTHER: Surgical scar right parotid region. There is facial asymmetry associated with this. Eye: COMMON NORMALS: conjunctivae normal CONJUNCTIVA: Yes conjunctivae normal SCLERA: sclerae normal OTHER: Right eye lower lid swollen, reportedly chronic, does limit closing Neck/C-Spine: COMMON NORMALS: supple GENERAL: Yes trachea midline Resp: COMMON NORMALS: clear to auscultation bilaterally EFFORT & INSPECT ION: Yes able to speak in complete sentences AUSCULTATION: clear to auscultation bilaterally Cardio: COMMON NORMALS: regular rate and regular rhythm RATE: regular rate RHYTHM: regular rhythm GI: COMMON NORMALS: Soft to palpation PALPATION: Yes Soft to palpation and No Tenderness to palpation present (GI) Extremity: GENERAL: Yes normal exam except as noted and No edema Neuro: COMMON NORMALS: moves all extremities SENSORIUM/ORIENTATION: Yes alert and No Orientation impaired Psych: COMMON NORMALS: mental status grossly normal and Normal thought process present THOUGHT PROCESS: Normal thought process present Course ED course: - Patient was seen and evaluated by me at bedside - Patient placed on cardiac monitors, IV access obtained - Initial evaluation notable for exam as above, there are associated neurologic abnormalities with her headache however these are reportedly chronic in the context of cancer -Migraine cocktail ordered - Labs notable for no leukocytosis, normal hemoglobin. Metabolic panel with mild hypokalemia, replenishment ordered. - Imaging notable for widely metastatic known cancer - Upon serial reexamination after treatment the patient was improved. She expressed desire to be discharged. - Based on patient history, evaluation, and testing as interpreted the most likely cause of the patient's condition is headache and a context of metastatic cancer. I did discuss the case with oncology on-call, patient was started on steroids and will have close follow-up with oncology. - The results of ED evaluation were discussed with the patient including prescriptions and/or symptomatic cares (if applicable) including appropriate and responsible use, followup plan, and return precautions. The patient verbalized understanding and felt safe for discharge. - Patient discharged in satisfactory condition. Note: Click bubbles or prepopulated turk in note writing are used for assistance with data collection and billing and are inherently more limited than narrative and other text portions of this note. Please use narrative for additional clinical history and defer to narrative/free test for any case of contradictory information. If information appears in only free text or click bubble it should be considered present or absent as reported. Please contact note personal lines underwriter for clarifications of clinical information or contradictory information. MDM is a brief summary, contradictory or erroneous seeming information should be clarified and full note should be reviewed. Vital Signs: Vital signs: Vital Signs Temperature 98.1 F 11/22/21 12:12 Pulse Rate 85 11/22/21 16:58 Respiratory Rate 16 11/22/21 16:58 Blood Pressure 135/89 11/22/21 16:58 Pulse Oximetry 100 11/22/21 16:58 MDM - Headache Medical Decision Making 61-year-old lady with widely metastatic breast cancer currently on palliative chemotherapy presenting with headache that has become increasingly frequent over the past month. No neck pain or meningismus. Chronic associated cranial nerve deficits and facial asymmetry. Symptoms improved with migraine cocktail and after discussion with oncology patient will be initiated on steroids with close outpatient follow-up. Patient desires discharge. Discharged in satisfactory condition. Medical Records I reviewed the patient's medical records. Lab Data I reviewed the patient's lab results. : 11/22/21 13:24 11/22/21 15:[address] 11/22/21 12:44 IMPRESSION: 1. Patient has a known expansile metastatic soft tissue mass centered in the RIGHT orbit with extension into multiple cavities. There is bone and soft tissue destruction. 2. There is extension of soft tissue mass into the RIGHT nasal cavity, RIGHT middle cranial fossa along the dura and along the RIGHT tentorium with partial encasement of the RIGHT carotid artery. 3. Extensive metastatic involvement and bone destruction involving the hard palate, sinus cavities, skull base and clivus. Head CT 11/22/21 12:44 IMPRESSION: 1. Patient has a known aggressive soft tissue tumor with destruction centered within the RIGHT orbit. Soft tissue mass is causing proptosis and there is extensive soft tissue involvement and osseous involvement. This has been recently described without significant progression since 10/23/2021. Significant progression since 02/29/2020. 2. Due to its distribution multiple cranial nerves are involved. 3. There is soft tissue or extension beyond the orbit and globe into the middle cranial fossa and along the RIGHT tentorium with tumor abutting the eusebio and the RIGHT middle cerebellar peduncle. 4. Again noted is vasogenic edema in the RIGHT temporal lobe. Neck CT 11/22/21 12:44 Impression: 1. Patient has extensive, known metastatic involvement centered in the RIGHT orbit with extension into the nasal cavity, RIGHT middle cranial fossa, skull base and along the RIGHT tentorium. Masses involving several of the cranial nerves. Tumor extension would be better evaluated by PET/CT imaging follow-up. 2. No physical obstruction of the esophagus. Laboratory Results WBC 5.0 10^3/uL (4.0-10.0) 11/22/21 13:24 RBC 4.02 10^6/uL (4.1-5.3) L 11/22/21 13:24 Hgb 11.6 g/dL (11.5-15.3) 11/22/21 13:24 Hct 36.2 % (37.0-47.0) L 11/22/21 13:24 MCV 90.0 fl (81-99) 11/22/21 13:24 MCH 28.9 pg (28.0-34.0) 11/22/21 13:24 MCHC 32.0 g/dL (30.0-36.0) 11/22/21 13:24 RDW 16.4 % (12.1-15.1) H 11/22/21 13:24 Plt Count 372 10^3/cmm (130-400) 11/22/21 13:24 MPV 9.1 fL (7.4-10.4) 11/22/21 13:24 Neut % (Auto) 42.5 % 11/22/21 13:24 Lymph % (Auto) 39.3 % 11/22/21 13:24 [place] % (Auto) 13.2 % 11/22/21 13:24 Eos % (Auto) 4.4 % 11/22/21 13:24 Baso % (Auto) 0.4 % 11/22/21 13:24 Neut # (Auto) 2.13 10^3/uL (1.8-7.7) 11/22/21 13:24 Lymph # (Auto) 2.0 10^3/uL (0.8-4.8) 11/22/21 13:24 [place] # (Auto) 0.7 10^3/uL (0.2-0.9) 11/22/21 13:24 Eos # (Auto) 0.2 10^3/uL (0.0-0.8) 11/22/21 13:24 Baso # (Auto) 0.0 10^3/uL (0.0-0.1) 11/22/21 13:24 Nucleated RBC % (auto) 0 % 11/22/21 13:24 Nucleated RBCs # 0.0 /100WBC 11/22/21 13:24 Sodium 137 mmol/L (136-145) 11/22/21 15:15 Potassium 3.3 mmol/L (3.5-5.1) L 11/22/21 15:15 Chloride 104 mmol/L (98-107) 11/22/21 15:15 Carbon Dioxide 25 mmol/L (22-29) 11/22/21 15:15 Anion Gap 11.3 (5-19) 11/22/21 15:15 BUN 8 mg/dL (8-23) 11/22/21 15:15 Creatinine 0.4 mg/dL (0.5-0.9) L 11/22/21 15:15 GFR Calculation 162.3 mL/min (90-130) H 11/22/21 15:15 Glucose 81 mg/dL (65-115) 11/22/21 15:15 Calculated Osmolality 281 mOsm/kg (285-295) L 11/22/21 15:15 Calcium 7.4 mg/dL (8.5-10.5) L 11/22/21 15:15 Total Bilirubin 0.2 mg/dL (0.15-1.2) 11/22/21 15:15 AST 19 U/L (0-32) 11/22/21 15:15 ALT 13 U/L (0-33) 11/22/21 15:15 Alkaline Phosphatase 103 IU/L (35-105) 11/22/21 15:15 Total Protein 5.2 g/dL (6.6-8.7) L 11/22/21 15:15 Albumin 3.2 g/dL (3.5-5.2) L 11/22/21 15:15 Globulin 2.0 g/dL (1.3-4.6) 11/22/21 15:15 Discharge Plan Discharge Patient Disposition: Home Clinical Impression: Headache, Metastatic cancer, Hypokalemia Condition: Stable Prescriptions: New Decadron 6 mg tablet 6 mg PO DAILY Qty: 20 0RF No Action alprazolam [Xanax] 1 mg tablet 1 mg PO QID PRN (Reason: Anxiety) 0RF morphine 30 mg tablet extended release 30 mg PO TID@07,15,23 0RF morphine 100 mg tablet extended release 100 mg PO TID@06,14,22 0RF erythromycin 5 mg/gram (0.5 %) ointment See Rx Instructions .ROUTE .COMPLEX 0RF Rx Instructions: apply to right eye tid mupirocin 2 % ointment 1 applic TOPICAL . DIRECTED 0RF Roxicodone 30 mg tablet 30 mg PO Q4H MDD 6 tabs PRN (Reason: Pain) 0RF albuterol sulfate 90 mcg/actuation HFA aerosol inhaler 2 puff INHALATION Q6H PRN (Reason: Shortness Of Breath) 0RF amoxicillin-pot clavulanate 875-125 mg tablet 1 tab PO BID 0RF Discharge Orders: Discharge ED (Routine); Ordered 11/22/21 Ordered By: Chapin Mcghee Referrals: Kristi Bethea DO [Primary Care Provider] - Discharge Diet: Usual diet Discharge Activity: Resume usual activity Patient Instructions: Hypokalemia (ED), General Headache (ED), Opioid Safety Activity Restrictions/Additional Instructions: Thank you for visiting the emergency department. You were seen and evaluated for headache. The exact cause of your headache is unclear and likely multifactorial, given your complex history this is additionally contributed to by your cancer. You were noted to have mildly low potassium on your metabolic panel. You will be started on steroids to help decrease brain edema. Please follow-up with your primary care provider and oncology team. Please have repeat labs drawn within 1 week to reassess potassium. Please return to the emergency department for anything that you are concerned about and feel needs emergency department evaluation. Coding Level of Care Code ED Assistant Manager Pt for Eran Villafuerte
--- NOTE | 2021-11-22 12:44 | CT_ITS ---
WS: [id number] CT FACIAL BONES HISTORY: headaches, swallowing difficulty, parotid cancer TECHNIQUE: Images obtained from the supraorbital location through the mandible. Soft tissue and bone windows are reviewed. Coronal and sagittal reformats have also been submitted. DLP: 673.[address] scans at [facility] use at least one of these dose optimization techniques: automated e xposure control; mA and/or kV adjustment per patient size (includes targeted exams where dose is matc hed to clinical indication); or iterative reconstruction. COMPARISON: No similar study. Again noted is the moderately enhancing soft tissue mass centered within the RIGHT orbit and globe wi th extension into the RIGHT nasal cavity, RIGHT middle cranial fossa and extension along the RIGHT te ntorium. There is extensive enhancement with obliteration of the optic nerve and the extraocular musc les. Proptosis of the RIGHT orbit. Extensive bone destruction. Invasion into the frontal, ethmoid and sphenoid sinus cavities. There are multiple small dense fragments are sharp probably bone fragments. There is involvement of the facial bones in the clivus. Numerous cranial nerves are involved. Tumor encases at least a portion of the intracranial carotid artery on the RIGHT. CT/CT facial bones w con [id number] IMPRESSION: 1. Patient has a known expansile metastatic soft tissue mass centered in the R IGHT orbit with extension into multiple cavities. There is bone and soft tissue destruction. 2. There is extension of soft tissue mass into the RIGHT nasal cavity, RIGHT m iddle cranial fossa along the dura and along the RIGHT tentorium with partial e ncasement of the RIGHT carotid artery. 3. Extensive metastatic involvement and bone destruction involving the hard pa late, sinus cavities, skull base and clivus.
--- NOTE | 2021-11-22 12:44 | CT_ITS ---
WS: [id number] CT HEAD NONCONTRAST HISTORY: headaches, increasing severity TECHNIQUE: Contiguous axial imaging performed through the brain in 2.5 mm imaging. Bone and soft tiss ue windows. Sagittal and coronal reformats reviewed. All CT scans at [facility] use at least one of these dose optimization techniques: automated exposure control; mA and/or kV adjustment per pa tient size (includes targeted exams where dose is matched to clinical indication); or iterative recon struction. DLP: 713.42 mGy.cm COMPARISON: CT brain 10/23/2021, 02/29/2020 As previously described on the brain CT of 10/23/2021 there is a destructive soft tissue mass centered within the RIGHT orbit with numerous scattered calcifications and destruction of the adjacent soft ti ssue and osseous structures. Mass is causing protrusion and bulging of the RIGHT globe. There is exte nsive tumor invading in the soft tissues and fat of the RIGHT orbit with extension into the RIGHT jose luis al cavity and ethmoid air cells. There is poor definition and obliteration of the optic nerve and ext raocular muscles. There is extension posterior along the medial RIGHT temporal lobe and into the RIGH T cavernous sinus. There is additional extension of the soft tissue mass along the RIGHT tentorium. T umor abuts the RIGHT eusebio and middle cerebellar peduncle. There are multiple small foci within the tu mor which are probably deposits of bone destruction or calcium. Significant progression of the destru ctive mass since 02/29/2020 but very similar in appearance to the study of 10/23/2021. Again noted is vas ogenic edema in the RIGHT temporal lobe. At this time there is no midline shift or hydrocephalus. Prior lacunar anterior limb of the LEFT internal capsule. Ventricles: Normal size with no hydrocephalus. Paranasal sinuses: As visualized are clear. Mastoid air cells: Abnormal soft tissue in the RIGHT mastoid air cells. Calvarium and scalp: Destructive process and abnormal appearance of the bone at the skull base and do rsum sellae. Due to the distribution of the bone and soft tissue changes multiple cranial nerves are affected. Abnormal soft tissue extends along the carotid canal. CT/CT head wo con* [id number] IMPRESSION: 1. Patient has a known aggressive soft tissue tumor with destruction centered within the RIGHT orbit. Soft tissue mass is causing proptosis and there is exte nsive soft tissue involvement and osseous involvement. This has been recently d escribed without significant progression since 10/23/2021. Significant progressio n since 02/29/2020. 2. Due to its distribution multiple cranial nerves are involved. 3. There is soft tissue or extension beyond the orbit and globe into the middl e cranial fossa and along the RIGHT tentorium with tumor abutting the eusebio and the RIGHT middle cerebellar peduncle. 4. Again noted is vasogenic edema in the RIGHT temporal lobe.
--- NOTE | 2021-11-22 12:44 | CT_ITS ---
WS: [id number] CT NECK WITH CONTRAST HISTORY: difficulty swallowing, hx parotid cancer TECHNIQUE: Contiguous 5 mm axial images are performed through the neck with intravenous contrast. Sag ittal and coronal reformats are also submitted. All CT scans at [facility] use at least one o f these dose optimization techniques: automated exposure control; mA and/or kV adjustment per patient size (includes targeted exams where dose is matched to clinical indication); or iterative reconstruc tion. CONTRAST: CONTRAST: Omnipaque 300; 75 mL IV. DLP: 366.7 mGy.cm COMPARISON: 02/29/2020 Patient's undergone a prior RIGHT parotidectomy. Patient has recurrent soft tissue mass which is meta static centered in the RIGHT orbit and globe. This has been previously described. This mass extends f rom the RIGHT orbit posteriorly into the RIGHT middle cranial fossa along the dura. There is partial encasement of the RIGHT middle lobe and extension along the RIGHT tentorium. There is involvement of the clivus and the multiple cranial nerves through the Meckel's cave. There is probably additional cr anial nerve root involvement but this would be better evaluated by MRI. There is no soft tissue extending into the oral cavity or oropharynx to cause of physical limitation of swallowing. There may be tumor involvement involve the hypoglossal canal or the vagus nerve. No metastatic lesions at the lung apices. Patient has a LEFT subclavian Port-A-Cath. CT/CT neck w con* [id number] Impression: 1. Patient has extensive, known metastatic involvement centered in the RIGHT or bit with extension into the nasal cavity, RIGHT middle cranial fossa, skull bas e and along the RIGHT tentorium. Masses involving several of the cranial nerves . Tumor extension would be better evaluated by PET/CT imaging follow-up. 2. No physical obstruction of the esophagus.
[2021-11-22 13:34] LABS: Basophils % 0.4 %; Eosinophils # 0.2 10^3/uL (0.0-0.8); Eosinophils % 4.4 %; Hematocrit 36.2 % (37.0-47.0); Hemoglobin 11.6 g/dL (11.5-15.3); Lymphocytes % 39.3 %; Mean Corpuscular Hemoglobin 28.9 pg (28.0-34.0); Mean Platelet Volume 9.1 fL (7.4-10.4); Monocytes # 0.7 10^3/uL (0.2-0.9); Monocytes % 13.2 %; Neutrophils # 2.13 10^3/uL (1.8-7.7); Neutrophils % 42.5 %; Nucleated Red Blood Cells % 0 %; Platelet Count 372 10^3/cmm (130-400); Red Blood Count 4.02 10^6/uL (4.1-5.3); Red Cell Distribution Width 16.4 % (12.1-15.1)
[2021-11-22] MEDS: iohexol 300 mg/mL 100 mL Btl IV ×2 (13:57→14:00)
[2021-11-22] MEDS: metoclopramide 5 mg/mL SDV 2 mL 10 MG IVP (14:25)
[2021-11-22] MEDS: diphenhydrAMINE 50 mg/mL SDV 1mL 25 MG IVP (14:26)
[2021-11-22] MEDS: sodium chloride 0.9% 1,000 ML 999 ML IV (14:27)
[2021-11-22] MEDS: acetaminophen 1,000 MG/100 ML PIGGYBACK 400 MG IV (14:27)
[2021-11-22 14:37] VITALS: BP 138/100; PULSE 93; RESP 18; O2SAT 99
--- NOTE | 2021-11-22 15:18 | PC.NURSE ---
PT REFUSES TO KEEP BLOOD PRESSURE CUFF ON. I EXPLAINED THE REASON FOR KEEPING IT ON AND THE RISKS OF HAVING A HIGH BLOOD PRESSURE.
[2021-11-22 15:48] LABS: Alanine Aminotransferase 13 U/L (0-33); Albumin Level 3.2 g/dL (3.5-5.2); Alkaline Phosphatase 103 IU/L (35-105); Blood Urea Nitrogen 8 mg/dL (8-23); Calcium 7.4 mg/dL (8.5-10.5); Carbon Dioxide 25 mmol/L (22-29); Chloride 104 mmol/L (98-107); Glomerular Filtration Rate 162.3 mL/min (90-130); Glucose 81 mg/dL (65-115); Osmolality Calculated 281 mOsm/kg (285-295); Sodium 137 mmol/L (136-145); Total Bilirubin 0.2 mg/dL (0.15-1.2); Total Protein 5.2 g/dL (6.6-8.7)
[2021-11-22 15:58] LABS: Anion Gap 11.3 (5-19); Aspartate Amino Transferase 19 U/L (0-32); Potassium 3.3 mmol/L (3.5-5.1)
[2021-11-22] MEDS: potassium chloride oral liq 20 mEq/15 mL UDC 40 MEQ PO (16:16)
[2021-11-22 16:58] VITALS: BP 135/89; PULSE 85; RESP 16; O2SAT 100
--- NOTE | 2021-11-22 17:02 | PC.NURSE ---
PT ACTING APPROPRIATELY UPON ARRIVAL TO THE ED. SON CAME THREE TIMES THROUGHOUT THE STAY. EACH TIME AFTER, PT WENT TO THE RESTROOM. WHEN GIVING DISCHARGE INSTRUCTIONS AND SIGNING PAPER, PT WAS FALLING ASLEEP. PT WITH UNSTEADY GAIT WHEN AMBULATING TO EXIT WITH SON. VITAL SIGNS WITHIN NORMAL RANGE. DR. WHIPPLE INFORMED OF THE SITUATION.
== END 2021-11-22 17:12 | disposition home or self-care (01) ==
PROVIDERS: Emergency Provider Emergency Medicine; PCP Family Medicine
DX: R51.9 Headache, unspecified (principal); C79.9 Secondary malignant neoplasm of unspecified site; C50.919 Malignant neoplasm of unspecified site of unspecified female breast; E87.6 Hypokalemia; Z90.89 Acquired absence of other organs; Z90.09 Acquired absence of other part of head and neck; Z79.899 Other long term (current) drug therapy
CPT/HCPCS: 70450; 70487; 70491; 80053; 85025; 96361; 96374; 96375; 99284; J1200; J2765; J7030; Q9967

== ENCOUNTER 2021-11-27 15:33 | Outpatient (CLI) | payer MEDICARE, MEDICAID, SELFPAY | END 2021-11-27 15:34 | disposition home or self-care (01) | PROVIDERS: PCP Family Medicine; Visit Provider Internal Medicine Hematology & Oncology | DX: C07 Malignant neoplasm of parotid gland (principal); D70.1 Agranulocytosis secondary to cancer chemotherapy; T45.1X5A Adverse effect of antineoplastic and immunosuppressive drugs, initial encounter; Z79.899 Other long term (current) drug therapy | CPT/HCPCS: 96372; Q5101 ==

== ENCOUNTER 2021-12-20 15:00 | Outpatient (RCR) | payer MEDICARE, MEDICAID, SELFPAY ==
[2021-11-26 08:45] LABS: Basophils % 0.3 %; Eosinophils % 0.5 %; Hematocrit 36.8 % (37.0-47.0); Hemoglobin 11.8 g/dL (11.5-15.3); Lymphocytes % 46.2 %; Mean Corpuscular HGB Conc 32.1 g/dL (30.0-36.0); Mean Corpuscular Hemoglobin 28.3 pg (28.0-34.0); Mean Corpuscular Volume 88.2 fl (81-99); Mean Platelet Volume 8.9 fL (7.4-10.4); Monocytes % 15.8 %; Neutrophils # 2.41 10^3/uL (1.8-7.7); Nucleated Red Blood Cells % 0 %; Platelet Count 454 10^3/cmm (130-400); Red Blood Count 4.17 10^6/uL (4.1-5.3); Red Cell Distribution Width 15.9 % (12.1-15.1); White Blood Count 6.5 10^3/uL (4.0-10.0)
[2021-11-26 09:04] LABS: Alanine Aminotransferase 16 U/L (0-33); Albumin Level 4.2 g/dL (3.5-5.2); Alkaline Phosphatase 120 IU/L (35-105); Anion Gap 15.4 (5-19); Aspartate Amino Transferase 15 U/L (0-32); Blood Urea Nitrogen 11 mg/dL (8-23); Calcium 9.7 mg/dL (8.5-10.5); Carbon Dioxide 27 mmol/L (22-29); Chloride 97 mmol/L (98-107); Globulin 2.7 g/dL (1.3-4.6); Glomerular Filtration Rate 101.6 mL/min (90-130); Glucose 124 mg/dL (65-115); Osmolality Calculated 283 mOsm/kg (285-295); Potassium 3.4 mmol/L (3.5-5.1); Sodium 136 mmol/L (136-145); Total Bilirubin 0.2 mg/dL (0.15-1.2); Total Protein 6.9 g/dL (6.6-8.7)
[2021-11-26] MEDS: sodium chloride 0.9% 250 ML 75 ML IV (11:06)
[2021-11-26] MEDS: palonosetron 0.25 mg/5 mL SDV IV (11:06)
[2021-11-26] MEDS: fosaprepitant 150 MG in sodium chloride 0.9% 150 ML 550 MG IV (11:38)
[2021-11-26] MEDS: alteplase 1 mg/mL SDV 2 mL 2 MG IV (13:50)
--- NOTE | 2021-11-30 09:11 | ONC FU_ITS ---
Dr. Walters follow up note Patient: Alia Nair Unit #: [id number]: 1960 Dicatated By: Milton Walters M.D.Date of Visit:Nov 26, 2021 Onc Med Follow-up/Prog Note History of Present Illness: Mrs. Nair is a 61 -year-old female with history of adenoid cystic carcinoma right parotid gland. She is status post partial parotidectomy with facial nerve monitoring followed by reconstruction of the soft tissue defect with pedicled into oral buccal flap. The final pathology confirmed T2, MX lesion with positive surgical margins. Mrs Nair was referred to radiation oncology, as per patient she underwent radiation therapy here in [facility]. Since then she has been followed by ENT and with no evidence of disease until recently started having a right eye problem. 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 Her case was discussed in multidisciplinary head and neck tumor conference in [place] by her ENT physician there. Treatment options including treating skull base involved area to palliate symptoms (IMRT or SRS). Or perhaps consider proton beam IM RT. She was referred to radiation oncology here in [place] and she was also referred to palliative care clinic for pain management. Mrs Nair was also encouraged to see medical oncology for palliative systemic therapy. Mrs Nair has seen radiation oncology and as per patient she was told there is no plan for further radiation therapy considering the risk versus benefits, especially due to prior radiation therapy to same area. 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 did offer her treatment with Cisplatin and vinorelbine. She began her first cycle on 01/03/2020. Long-standing history of smoking and is still active. Her pain (right eye and right side of her face) is under control with current pain medication., right facial swelling improved; no more headache and can also breathe through right nostril. Overall, she is pleased with response to the chemotherapy. She had CT of the head on 02/29/2020 with and without contrast. There is no evidence of intracranial hemorrhage or mass-effect. Ventricular system and basal cisterns are patent. Mild small vessel changes. Mild parenchymal volume loss. 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 No evidence of enhancing intracranial metastatic disease. The left mastoid air cells are well aerated. Opacification right mastoid air cells and middle ear. Mild mucosal thickening along the ethmoid air cells. Previously described thin curvilinear soft tissue along the right medial orbit deep to the medial rectus is unchanged since her MRI September 08, [address] of the head August 15, 2019. This is nonspecific but could be related to orbital pseudotumor, neoplasm or prior surgery. She also had CT of the neck on 02/29/2020 with contrast. There is postoperative changes in the right parotidectomy. No evidence of recurrent residual disease in the right neck. Cluster of slightly prominent enhancing lymph nodes left submandibular and jugulodigastric gastric measuring 6 to 7 mm in short axis dimension. These appear stable compared to September 08, 2019. Otherwise no cervical lymphadenopathy. Stable postoperative changes right neck. Opacification right mastoid air cells and middle ear. No evidence of supraglottic or glottic mass. As of February 15, 2020 Mrs. Nair had started her third cycle of chemotherapy unfortunately day 8 was held due to neutropenia. Her ANC at that time was 800. She has required growth factor support through her treatment. Follow-up CT PET scan done on May 30, 2020 showed focal increased metabolic activity is present in the left posterior palate. A single left level 2 lymph node size 0.6 cm, demonstrated increased metabolic activity. No evidence of metabolic activity disease in the right face or involving orbit or previous tumor location. New, compared to CT PET scan done in February 2019, subcentimeter left lung nodular findings size about 0.7 cm and 0.6 cm may reflect early metastatic disease, but compared to CT scan of head and neck prior to the treatment showed excellent response Mrs Nair is tolerating systemic therapy with cisplatin/Navelbine well. Her last treatment was on August 03, 2020 and Since then she has received 7 doses of Neupogen but no improvement in persistent neutropenia in fact repeat CBC done on September 05, 2020 showed absolute neutrophil count dropped down to 810 from 1260 on August 29, 2020 while total white blood count was within normal range continue to hold chemotherapy and eventually decided to proceed with bone marrow evaluation to rule out underlying bone marrow pathology Which was done on September 21, 2020 showed normocellular bone marrow for age. Slight erythroid predominance noted adequate myelopoiesis no overt dyspoietic or megaloblastic changes seen. No significant reticulin fibrosis observed FISH for MDS panel was unremarkable, flow cytometry showed no overtly aberrant myeloid or lymphoid population. CT PET scan done on October 07, 2020 showed status post right parotidectomy, no significant head or neck adenopathy. A 9 mm subpleural lingular nodule is FDG negative and slightly more prominent than February 2019 study. Less likely to be malignant. Dr. Seth evaluated her and ordered MRI scan of the neck done In [facility] on April 13, 2021 showed findings consistent with disease progression of right orbital, right orbital apex, right cavernous sinus and now extending into the right trigeminal cistern and for a man available. Extension of disease into the right frontal, ethmoid and maxillary sinus and postobstructive sinusitis. 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 Patient underwent molecular profiling with the [employer] on July 03, 2021 and reported on July 29, 2021 and it showed, PD-L1 0%, TMB low, 5 mutation MSI stable, NTRK fusion not detected Started on palliative therapy with carboplatin/gemcitabine on September 19, 2021 Patient developed progressive right-sided headache for which she went to [facility] on November 22, [address] scan of head and neck which showed expansile metastatic soft tissue mass centered in the right orbit with extension into multiple cavities including right nasal cavity, right middle cranial fossa and extension along with right tentorium. And extensive involvement with obliteration of optic nerve and extra ocular muscle. Proptosis of right orbit. Extensive bone destruction. Invasion into frontal, ethmoid, sphenoid sinus cavities there is involvement of facial bones in clivus. Numerous cranial nerves are involved and tumor encases at least a portion of intracranial carotid artery on the right., Stable when compared with CT head done on October 23, 2021 but significant progression since February 29, 2020 Came for follow-up, denies any specific complaint except persistent right-sided facial/headaches but under control with current pain medication. Patient has been noncompliant with her palliative chemotherapy because of transportation issues, as per patient she is trying her best to come here for follow-up. And also wants to explore proton therapy at [facility], as per patient she did call her manager insurance and she was informed that if needed her insurance will help her getting proton therapy at [facility]. Otherwise denies any seizure-like activity denies any fever chills denies any nausea or vomiting denies any diarrhea or constipation also complaining of some sore throat and off-and-on problem with swallowing Medications: Albuterol Sulfate HFA 2 puff(s) (of 108 (90 Base) mcg/act) Aerosol, solution Inhalation q 6 hours PRN, ALPRAZolam 1 Tablet (of 1 mg) Oral t.i.d. PRN, Claritin (10 mg) Tablet Oral daily, Effexor XR 1 Capsule (of 75 mg) Capsule SR 24 HR Oral daily, Morphine Sulfate 1 Tablet (of 100 mg) Oral t.i.d., Morphine Sulfate 1 Tablet (of 30 mg) Oral t.i.d., OxyCODONE HCl 1 Tablet (of 30 mg) Oral q 4 to 6 hours PRN Allergies: Aleve Review of Systems: Review of Systems is not available for this patient. Vital Signs: Performed on Nov 26, 2021 09:38 Height - 60.00 in Weight - 154.2 lbs (HIGH) BSA - 1.67 sq.m BMI - 30.12 (HIGH) Temperature - 99.5 F (HIGH) Pulse - 94 /min Respiration - 19 /min BP - 154/104 mm(hg) (HIGH) O2 Sat - 99 % Pain - 0 Fatigue - 0 Performance Status: 0 - Fully active, able to carry on all predisease activities without restrictions. (ECOG) Physical Examination: ENMT - No mouth sores, but pharyngeal thrush, no jaundice, right facial fullness, Respiratory - Lungs are clear to auscultation, Cardiovascular - Regular rate and rhythm of heart , Abdomen - Soft, bowel sounds present, Extremities - No visible edema. Lab/Imaging: Test performed on Nov 26, 2021 09:36 Creatinine 0.6 mg/dL Cr Clearance (Est) 111.12 mL/min Test performed on Nov 05, 2021 09:05 WBC 6.4 10 3/uL RBC 4.41 10 6/uL HGB 12.4 g/dL HCT 38.1 % MCV 86.4 fl MCH 28.1 pg MCHC 32.5 g/dL RDW 15.7 % Platelet Count 167 10 3/cmm MPV 9.6 fL Neutrophils 2.76 10 3/uL Lymphocytes 1.8 10 3/uL Monocytes 1.6 10 3/uL Eosinophils 0.2 10 3/uL Basophils 0.0 10 3/uL Neutrophil % 42.9 % Lymphocyte % 27.7 % Monocyte % 24.4 % Eosinophil % 3.0 % Basophils % 0.3 % NRBC % 0 % Test performed on Oct 10, 2021 09:08 Sodium 139 mmol/L Potassium 4.2 mmol/L Chloride 100 mmol/L CO2 28 mmol/L Anion Gap 15.2 BUN 13 mg/dL eGFR 101.6 mL/min Glucose 108 mg/dL Osmolality - Calculated 289 mOsm/kg Calcium 9.9 mg/dL Protein, Total 6.9 g/dL Albumin 4.3 g/dL Globulin 2.6 g/dL Bilirubin, Total 0.2 mg/dL ALT (SGPT) 72 U/L AST (SGOT) 31 U/L Alkaline Phosphatase 199 IU/L CBC Slide Review Slide Review Perform SLIDE REVIEW AGREES WITH AUTOMATED RESULTS ST Test performed on Oct 02, 2021 15:27 Magnesium 2.1 mg/dL Test performed on Sep 19, 2021 09:14 Manual Segs 49.2 % Manual Lymphocytes 38.1 % Manual Monocytes 8.9 % Manual Eosinophils 3.4 % Manual Basophils 0.2 % NRBCs 0 /100 WBC Impression: Recent adenoid cystic carcinoma peripheral gland with cranial nerve involvement/right skull base involvement. 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 Now with right facial nerve paralysis, facial asymmetry. History of adenoid cystic carcinoma right excessive peripheral gland status post partial pericardiectomy with facial nerve monitoring followed by reconstruction for T2 Nx with possible surgical margin lesion, followed by radiation therapy. Chronic smoking Anxiety disorder Clinically, patient has been doing reasonably well, in [id number] distress due to right facial pain and right eye visual disturbance. Mrs Rivera was referred to radiation oncology for palliative radiation therapy. Unfortunately, she is not a candidate for further radiation therapy due to involved risk due to history of prior radiation therapy to same area. A request was sent to pathology regarding next generation sequencing especially NTRK gene analysis but we were told, specimen is not available for evaluation. The role of palliative chemotherapy with cisplatin/Navelbine was discussed as literature has shown overall responsibilities about 44% and with 38% one year survival. did offer her treatment with cisplatin and Navelbine. Her current treatment plan is to give her chemotherapy with split dose of cisplatin/Navelbine on day 1 and 8 and repeat cycle every 21 days. She began her first dose on 01/03/2020. She has tolerated treatment well thus far. She had CT of the head on 02/29/2020 with and without contrast. There is no evidence of intracranial hemorrhage or mass-effect. Ventricular system and basal cisterns are patent. Mild small vessel changes. Mild parenchymal volume loss. 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 No evidence of enhancing intracranial metastatic disease. The left mastoid air cells are well aerated. Opacification right mastoid air cells and middle ear. Mild mucosal thickening along the ethmoid air cells. Previously described thin curvilinear soft tissue along the right medial orbit deep to the medial rectus is unchanged since her MRI September 08, [address] of the head August 15, 2019. This is nonspecific but could be related to orbital pseudotumor, neoplasm or prior surgery. She also had CT of the neck on 02/29/2020 with contrast. There is postoperative changes in the right parotidectomy. No evidence of recurrent residual disease in the right neck. Cluster of slightly prominent enhancing lymph nodes left submandibular and jugulodigastric gastric measuring 6 to 7 mm in short axis dimension. These appear stable compared to September 08, 2019. Recommend interval follow-up with PET/CT. Otherwise no cervical lymphadenopathy. Stable postoperative changes right neck. Opacification right mastoid air cells and middle ear. No evidence of supraglottic or glottic mass. As of February 15, 2020 Mrs. Nair had started her third cycle of chemotherapy unfortunately day 8 was held due to neutropenia. Her ANC at that time was 800. She was given 2 days of Neupogen and recovered well. She has required continued growth factor support with her chemotherapy due to persistent chemotherapy induced neutropenia. The growth factors have been necessary to keep her treatment plan on schedule. PET/CT from May 30, 2020 shows excellent response When compared with CT scan of head and neck prior to the initiation of palliative chemotherapy with cisplatin/Navelbine. She continues with chemotherapy as she does still have residual disease but dramatically improved. Last dose of chemotherapy was given on August 03, 2020 subsequently patient developed progressive neutropenia despite of Neupogen support and bone marrow evaluation was done on September 21, 2020 showed no obvious abnormality FISH for MDS was unremarkable flow cytometry was unremarkable and a follow-up CT PET scan done on October 07, 2020 shows complete remission, at that time it was decided to discontinue chemotherapy for the time being and monitor patient, As patient was developing mild peripheral numbness/neuropathy and her bone marrow was showing persistent neutropenia causing delay in her treatment and anemia, and both start recovering without support when no further chemotherapy was given after August 03, 2020. And on October 24, 2020 after discussion with patient regarding her bone marrow findings as well as PET scan finding it was decided to discontinue palliative chemotherapy Plan: Discussed with patient regarding her labs showed white blood count 6.5 hemoglobin 11.8 hematocrit 36.8 platelets 454,000 CMP within normal limit except potassium 3.4 Clinically, patient doing reasonably well, now with progressive headache/right facial pain, as per patient when she take chemotherapy it helps her symptoms but unfortunately she could not keep up with her follow-up appointments due to transportation issue and patient is trying her best to be compliant. At this point we will proceed with her next scheduled dose of palliative chemotherapy with carboplatin/gemcitabine and then she will return to clinic in 1 week with CBC CMP We will also refer her to radiation oncology at [facility] in [place] for evaluation for proton therapy if possible. In the meantime we will continue with supportive care, also discussed about role of hospice but patient declined to discuss. As far as sore throat/off-and-on dysphagia is concerned probably due to thrush, patient said she has nystatin at home and she was advised to take 3 times a day swish and swallow. If no improvement may consider oral fluconazole.If there is no improvement in her dysphagia, which could be due to candidal pharyngitis other possibility could be tumor involvement directly into pharynx or due to cranial nerve involvement, patient may benefit from G-tube placement, as she is at high risk for aspiration but patient declined knowing the risk versus benefits Signed By: Milton Walters M.D. <<Signature on File>>
[2021-12-04 09:40] LABS: Basophils # 0.1 10^3/uL (0.0-0.1); Basophils % 0.7 %; Eosinophils % 0.1 %; Hematocrit 35.9 % (37.0-47.0); Hemoglobin 11.5 g/dL (11.5-15.3); Lymphocytes # 3.4 10^3/uL (0.8-4.8); Lymphocytes % 32.1 %; Mean Corpuscular Hemoglobin 28.4 pg (28.0-34.0); Mean Corpuscular Volume 88.6 fl (81-99); Mean Platelet Volume 8.8 fL (7.4-10.4); Monocytes # 1.1 10^3/uL (0.2-0.9); Monocytes % 10.2 %; Neutrophils # 5.45 10^3/uL (1.8-7.7); Neutrophils % 50.7 %; Nucleated Red Blood Cells % 0 %; Platelet Count 167 10^3/cmm (130-400); Red Blood Count 4.05 10^6/uL (4.1-5.3); Red Cell Distribution Width 15.9 % (12.1-15.1); White Blood Count 10.7 10^3/uL (4.0-10.0)
[2021-12-04 09:45] LABS: Alanine Aminotransferase 34 U/L (0-33); Albumin Level 3.9 g/dL (3.5-5.2); Alkaline Phosphatase 116 IU/L (35-105); Aspartate Amino Transferase 16 U/L (0-32); Blood Urea Nitrogen 18 mg/dL (8-23); Calcium 9.1 mg/dL (8.5-10.5); Carbon Dioxide 30 mmol/L (22-29); Chloride 97 mmol/L (98-107); Glomerular Filtration Rate 125.4 mL/min (90-130); Glucose 115 mg/dL (65-115); Osmolality Calculated 281 mOsm/kg (285-295); Sodium 134 mmol/L (136-145); Total Bilirubin 0.2 mg/dL (0.15-1.2); Total Protein 5.9 g/dL (6.6-8.7)
[2021-12-04 11:12] LABS: Slide Review Slide Review Perform
--- NOTE | 2021-12-04 11:29 | ONC FU_ITS ---
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 Nair is a 61 -year-old female with history of adenoid cystic carcinoma right parotid gland. She is status post partial parotidectomy with facial nerve monitoring followed by reconstruction of the soft tissue defect with pedicled into oral buccal flap. The final pathology confirmed T2, MX lesion with positive surgical margins. Mrs Nair was referred to radiation oncology, as per patient she underwent radiation therapy here in [facility]. Since then she has been followed by ENT and with no evidence of disease until recently started having a right eye problem. MRI scan of the neck done on 09/08/2019 showed widespread neural spread of tumor into the right orbit right cavernous sinus, food technologist space, pterygopalatine fossa and probably right facial nerve. Her case was discussed in multidisciplinary head and neck tumor conference in [place] by her ENT physician there. Treatment options including treating skull base involved area to palliate symptoms (IMRT or SRS). Or perhaps consider proton beam IM RT. She was referred to radiation oncology here in [place] and she was also referred to palliative care clinic for pain management. Mrs Nair was also encouraged to see medical oncology for palliative systemic therapy. Mrs Nair has seen radiation oncology and as per patient she was told there is no plan for further radiation therapy considering the risk versus benefits, especially due to prior radiation therapy to same area. 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 did offer her treatment with Cisplatin and vinorelbine. She began her first cycle on 01/03/2020. Long-standing history of smoking and is still active. Her pain (right eye and right side of her face) is under control with current pain medication., right facial swelling improved; no more headache and can also breathe through right nostril. Overall, she is pleased with response to the chemotherapy. She had CT of the head on 02/29/2020 with and without contrast. There is no evidence of intracranial hemorrhage or mass-effect. Ventricular system and basal cisterns are patent. Mild small vessel changes. Mild parenchymal volume loss. 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 No evidence of enhancing intracranial metastatic disease. The left mastoid air cells are well aerated. Opacification right mastoid air cells and middle ear. Mild mucosal thickening along the ethmoid air cells. Previously described thin curvilinear soft tissue along the right medial orbit deep to the medial rectus is unchanged since her MRI September 08, [address] of the head August 15, 2019. This is nonspecific but could be related to orbital pseudotumor, neoplasm or prior surgery. She also had CT of the neck on 02/29/2020 with contrast. There is postoperative changes in the right parotidectomy. No evidence of recurrent residual disease in the right neck. Cluster of slightly prominent enhancing lymph nodes left submandibular and jugulodigastric gastric measuring 6 to 7 mm in short axis dimension. These appear stable compared to September 08, 2019. Otherwise no cervical lymphadenopathy. Stable postoperative changes right neck. Opacification right mastoid air cells and middle ear. No evidence of supraglottic or glottic mass. As of February 15, 2020 Mrs. Nair had started her third cycle of chemotherapy unfortunately day 8 was held due to neutropenia. Her ANC at that time was 800. She has required growth factor support through her treatment. Follow-up CT PET scan done on May 30, 2020 showed focal increased metabolic activity is present in the left posterior palate. A single left level 2 lymph node size 0.6 cm, demonstrated increased metabolic activity. No evidence of metabolic activity disease in the right face or involving orbit or previous tumor location. New, compared to CT PET scan done in February 2019, subcentimeter left lung nodular findings size about 0.7 cm and 0.6 cm may reflect early metastatic disease, but compared to CT scan of head and neck prior to the treatment showed excellent response Mrs Nair is tolerating systemic therapy with cisplatin/Navelbine well. Her last treatment was on August 03, 2020 and Since then she has received 7 doses of Neupogen but no improvement in persistent neutropenia in fact repeat CBC done on September 05, 2020 showed absolute neutrophil count dropped down to 810 from 1260 on August 29, 2020 while total white blood count was within normal range continue to hold chemotherapy and eventually decided to proceed with bone marrow evaluation to rule out underlying bone marrow pathology Which was done on September 21, 2020 showed normocellular bone marrow for age. Slight erythroid predominance noted adequate myelopoiesis no overt dyspoietic or megaloblastic changes seen. No significant reticulin fibrosis observed FISH for MDS panel was unremarkable, flow cytometry showed no overtly aberrant myeloid or lymphoid population. CT PET scan done on October 07, 2020 showed status post right parotidectomy, no significant head or neck adenopathy. A 9 mm subpleural lingular nodule is FDG negative and slightly more prominent than February 2019 study. Less likely to be malignant. Dr. Seth evaluated her and ordered MRI scan of the neck done In [place] at [facility] on April 13, 2021 showed findings consistent with disease progression of right orbital, right orbital apex, right cavernous sinus and now extending into the right trigeminal cistern and for a man available. Extension of disease into the right frontal, ethmoid and maxillary sinus and postobstructive sinusitis. 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 into the right food technologist space Patient underwent molecular profiling with the delon on July 03, 2021 and reported on July 29, 2021 and it showed, PD-L1 0%, TMB low, 5 mutation MSI stable, NTRK fusion not detected Started on palliative therapy with carboplatin/gemcitabine on September 19, 2021 Patient developed progressive right-sided headache for which she went to [facility] on November 22, [address] scan of head and neck which showed expansile metastatic soft tissue mass centered in the right orbit with extension into multiple cavities including right nasal cavity, right middle cranial fossa and extension along with right tentorium. And extensive involvement with obliteration of optic nerve and extra ocular muscle. Proptosis of right orbit. Extensive bone destruction. Invasion into frontal, ethmoid, sphenoid sinus cavities there is involvement of facial bones in clivus. Numerous cranial nerves are involved and tumor encases at least a portion of intracranial carotid artery on the right., Stable when compared with CT head done on October 23, 2021 but significant progression since February 29, 2020 Patient presents today for follow-up. She states she tolerated last treatment well. She was tired for 2 to 3 days and after that her energy increased and she has been feeling well ever since. She states her appetite has been good. She denies fever, chills, night sweats. No sinus drainage or sore throat. She has had some difficulty with swallowing so she pur???es her food and that helps. She denies shortness of breath, cough, chest pain. No nausea or vomiting or diarrhea or constipation. No urinary symptoms. No joint or bone pain. She does have right-sided face and headache pain but it is well controlled with her medications. Review Of Symptoms: See above. Past Medical History: Asthma Gastroesophageal reflux Hypertension Rheumatoid arthritis Cancer (Adenoid Cystic Carcinoma of Right Parotid Gland) in 2014 Past Surgical History: Covid vaccine 2nd dose in 2020 Covid vaccine #1 Pfizer in 2020 Parotidectomy in 2014 Biopsy in 2004 - Growth on Right Cheek Knee Surgery in 1992 Tonsillectomy in 1973 Appendectomy in 1971 Allergies: Aleve Medications: Albuterol Sulfate HFA 2 puff(s) (of 108 (90 Base) mcg/act) Aerosol, solution Inhalation q 6 hours PRN ALPRAZolam 1 Tablet (of 1 mg) Oral t.i.d. PRN Claritin (10 mg) Tablet Oral daily Effexor XR 1 Capsule (of 75 mg) Capsule SR 24 HR Oral daily Lansoprazole 1 Capsule (of 30 mg) Capsule Delayed Release Oral daily Morphine Sulfate 1 Tablet (of 100 mg) Oral t.i.d. Morphine Sulfate 1 Tablet (of 30 mg) Oral t.i.d. OxyCODONE HCl 1 Tablet (of 30 mg) Oral q 4 to 6 hours PRN Family History: Ms. Nair's mother at age 72: Colon Cancer, and Leukemia. Ms. Nair's father at age 76: Pharynx Cancer. Her paternal grandfather at age 68: Pharynx Cancer. Social History: Ms. Nair is and she is a disability. She is a daily smoker who has smoked 0.5 packs/day for 53 years. She drinks occasionally. Smokes Vapor Cigarette patient reports 5/day, and vaping. Physical Examination: Performed on Dec 04, 2021 10:44: Height - 60.00 in, BP - 145/100 mm(hg) (HIGH), Performed on Dec 04, 2021 10:43: Height - 60.00 in, Weight - 159.2 lbs (HIGH), BSA - 1.69 sq.m, BMI - 31.09 (HIGH), Temperature - 98.9 F (HIGH), Pulse - 120 /min (HIGH), Respiration - 18 /min, BP - 154/98 mm(hg) (HIGH), O2 Sat - 97 %, Pain - 3, and Fatigue - 2. Performance Status: 0 - Fully active, able to carry on all predisease activities without restrictions. (ECOG) Constitutional Alert, cooperative, oriented. Mood and affect appropriate. Appears close to chronological age. Well nourished. Well developed. 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 Cardiovascular Regular rate and rhythm of heart without murmurs, gallops or rubs. Abdomen Non-tender, non-distended, no masses, ascites or hepatosplenomegaly. Good bowel sounds. No guarding or rebound tenderness. Psychiatric Alert and oriented times three. Coherent speech. Verbalizes understanding of our discussions today. Laboratory: Test performed on Dec 04, 2021 09:20 Sodium 134 mmol/L Potassium 4.0 mmol/L Chloride 97 mmol/L CO2 30 mmol/L Anion Gap 11.0 BUN 18 mg/dL Creatinine 0.5 mg/dL Cr Clearance (Est) 133.3400 mL/min eGFR 125.4 mL/min Glucose 115 mg/dL Osmolality - Calculated 281 mOsm/kg Calcium 9.1 mg/dL Protein, Total 5.9 g/dL Albumin 3.9 g/dL Globulin 2.0 g/dL Bilirubin, Total 0.2 mg/dL ALT (SGPT) 34 U/L AST (SGOT) 16 U/L Alkaline Phosphatase 116 IU/L WBC 10.7 10 3/uL RBC 4.05 10 6/uL HGB 11.5 g/dL HCT 35.9 % MCV 88.6 fl MCH 28.4 pg MCHC 32.0 g/dL RDW 15.9 % Platelet Count 167 10 3/cmm MPV 8.8 fL Neutrophils 5.45 10 3/uL Lymphocytes 3.4 10 3/uL Monocytes 1.1 10 3/uL Eosinophils 0.0 10 3/uL Basophils 0.1 10 3/uL Neutrophil % 50.7 % Lymphocyte % 32.1 % Monocyte % 10.2 % Eosinophil % 0.1 % Basophils % 0.7 % NRBC % 0 % CBC Slide Review Slide Review Perform SLIDE REVIEW AGREES WITH AUTOMATED RESULTS Test performed on Oct 02, 2021 15:27 Magnesium 2.1 mg/dL Test performed on Sep 19, 2021 09:14 Manual Segs 49.2 % Manual Lymphocytes 38.1 % Manual Monocytes 8.9 % Manual Eosinophils 3.4 % Manual Basophils 0.2 % NRBCs 0 /100 WBC Impression: Recent adenoid cystic carcinoma peripheral gland with cranial nerve involvement/right skull base involvement. MRI scan done on 09/08/2019 showed widespread spread of tumor into right orbit, right cavernous sinus, food technologist space, pterygopalatine fossa and right facial nerve. Now with right facial nerve paralysis, facial asymmetry. History of adenoid cystic carcinoma right excessive peripheral gland status post partial pericardiectomy with facial nerve monitoring followed by reconstruction for T2 Nx with possible surgical margin lesion, followed by radiation therapy. Chronic smoking Anxiety disorder Clinically, patient has been doing reasonably well, in [id number] distress due to right facial pain and right eye visual disturbance. Mrs Rivera was referred to radiation oncology for palliative radiation therapy. Unfortunately, she is not a candidate for further radiation therapy due to involved risk due to history of prior radiation therapy to same area. A request was sent to pathology regarding next generation sequencing especially NTRK gene analysis but we were told, specimen is not available for evaluation. The role of palliative chemotherapy with cisplatin/Navelbine was discussed as literature has shown overall responsibilities about 44% and with 38% one year survival. did offer her treatment with cisplatin and Navelbine. Her current treatment plan is to give her chemotherapy with split dose of cisplatin/Navelbine on day 1 and 8 and repeat cycle every 21 days. She began her first dose on 01/03/2020. She has tolerated treatment well thus far. She had CT of the head on 02/29/2020 with and without contrast. There is no evidence of intracranial hemorrhage or mass-effect. Ventricular system and basal cisterns are patent. Mild small vessel changes. Mild parenchymal volume loss. 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 No evidence of enhancing intracranial metastatic disease. The left mastoid air cells are well aerated. Opacification right mastoid air cells and middle ear. Mild mucosal thickening along the ethmoid air cells. Previously described thin curvilinear soft tissue along the right medial orbit deep to the medial rectus is unchanged since her MRI September 08, [address] of the head August 15, 2019. This is nonspecific but could be related to orbital pseudotumor, neoplasm or prior surgery. She also had CT of the neck on 02/29/2020 with contrast. There is postoperative changes in the right parotidectomy. No evidence of recurrent residual disease in the right neck. Cluster of slightly prominent enhancing lymph nodes left submandibular and jugulodigastric gastric measuring 6 to 7 mm in short axis dimension. These appear stable compared to September 08, 2019. Recommend interval follow-up with PET/CT. Otherwise no cervical lymphadenopathy. Stable postoperative changes right neck. Opacification right mastoid air cells and middle ear. No evidence of supraglottic or glottic mass. As of February 15, 2020 Mrs. Nair had started her third cycle of chemotherapy unfortunately day 8 was held due to neutropenia. Her ANC at that time was 800. She was given 2 days of Neupogen and recovered well. She has required continued growth factor support with her chemotherapy due to persistent chemotherapy induced neutropenia. The growth factors have been necessary to keep her treatment plan on schedule. PET/CT from May 30, 2020 shows excellent response When compared with CT scan of head and neck prior to the initiation of palliative chemotherapy with cisplatin/Navelbine. She continues with chemotherapy as she does still have residual disease but dramatically improved. Last dose of chemotherapy was given on August 03, 2020 subsequently patient developed progressive neutropenia despite of Neupogen support and bone marrow evaluation was done on September 21, 2020 showed no obvious abnormality FISH for MDS was unremarkable flow cytometry was unremarkable and a follow-up CT PET scan done on October 07, 2020 shows complete remission, at that time it was decided to discontinue chemotherapy for the time being and monitor patient, As patient was developing mild peripheral numbness/neuropathy and her bone marrow was showing persistent neutropenia causing delay in her treatment and anemia, and both start recovering without support when no further chemotherapy was given after August 03, 2020. And on October 24, 2020 after discussion with patient regarding her bone marrow findings as well as PET scan finding it was decided to discontinue palliative chemotherapy Plan: Labs were discussed with patient. CBC with white count at 10.7, hemoglobin 11.5 and platelet count at 167,000. She will continue with cycle 3-day 8 of carboplatin and gemcitabine. She will receive Neulasta tomorrow. Patient has been seeing Dr. Lynn at [facility]. We will obtain records from him. We will also refer her to radiation oncology at [facility] for evaluation for proton therapy if possible. In the meantime we will continue with supportive care, also discussed about role of hospice but patient declined to discuss. Patient will receive treatment today and return to the clinic in 2 weeks with CBC and CMP. Signed By: Anabelle Barreto N.P. <<Signature on File>>
[2021-12-04] MEDS: sodium chloride 0.9% 250 ML 75 ML IV (11:56)
[2021-12-04] MEDS: palonosetron 0.25 mg/5 mL SDV IV (11:56)
[2021-12-04] MEDS: fosaprepitant 150 MG in sodium chloride 0.9% 150 ML 300 MG IV (12:25)
[2021-12-18 08:37] LABS: Basophils % 0.3 %; Eosinophils # 0.1 10^3/uL (0.0-0.8); Eosinophils % 0.7 %; Hematocrit 34.4 % (37.0-47.0); Hemoglobin 11.1 g/dL (11.5-15.3); Lymphocytes # 2.5 10^3/uL (0.8-4.8); Lymphocytes % 36.4 %; Mean Corpuscular HGB Conc 32.3 g/dL (30.0-36.0); Mean Corpuscular Volume 89.8 fl (81-99); Mean Platelet Volume 9.5 fL (7.4-10.4); Monocytes # 1.2 10^3/uL (0.2-0.9); Monocytes % 17.8 %; Neutrophils # 3.09 10^3/uL (1.8-7.7); Neutrophils % 44.2 %; Nucleated Red Blood Cells % 0 %; Platelet Count 303 10^3/cmm (130-400); Red Blood Count 3.83 10^6/uL (4.1-5.3)
[2021-12-18 09:04] LABS: Alanine Aminotransferase 31 U/L (0-33); Albumin Level 3.8 g/dL (3.5-5.2); Alkaline Phosphatase 108 IU/L (35-105); Anion Gap 13.8 (5-19); Aspartate Amino Transferase 19 U/L (0-32); Blood Urea Nitrogen 12 mg/dL (8-23); Calcium 8.9 mg/dL (8.5-10.5); Carbon Dioxide 29 mmol/L (22-29); Chloride 101 mmol/L (98-107); Glomerular Filtration Rate 85.1 mL/min (90-130); Glucose 131 mg/dL (65-115); Osmolality Calculated 292 mOsm/kg (285-295); Potassium 3.8 mmol/L (3.5-5.1); Sodium 140 mmol/L (136-145); Total Bilirubin 0.2 mg/dL (0.15-1.2); Total Protein 6.8 g/dL (6.6-8.7)
[2021-12-18] MEDS: sodium chloride 0.9% 250 ML 75 ML IV (11:49)
[2021-12-18] MEDS: palonosetron 0.25 mg/5 mL SDV IV (11:49)
[2021-12-18] MEDS: fosaprepitant 150 MG in sodium chloride 0.9% 150 ML 300 MG IV (12:24)
--- NOTE | 2021-12-19 09:52 | ONC FU_ITS ---
Dr. Walters follow up note Patient: Alia Nair Unit #: [id number]: [id number] Dicatated By: Milton Walters M.D.Date of Visit:Dec 18, 2021 Onc Med Follow-up/Prog Note History of Present Illness: Mrs. Nair is a 61 -year-old female with history of adenoid cystic carcinoma right parotid gland. She is status post partial parotidectomy with facial nerve monitoring followed by reconstruction of the soft tissue defect with pedicled into oral buccal flap. The final pathology confirmed T2, MX lesion with positive surgical margins. Mrs Nair was referred to radiation oncology, as per patient she underwent radiation therapy here in [facility]. Since then she has been followed by ENT and with no evidence of disease until recently started having a right eye problem. MRI scan of the neck done on 09/08/2019 showed widespread neural spread of tumor into the right orbit right cavernous sinus, natural sciences department chair space, pterygopalatine fossa and probably right facial nerve. Her case was discussed in multidisciplinary head and neck tumor conference in [place] by her ENT physician there. Treatment options including treating skull base involved area to palliate symptoms (IMRT or SRS). Or perhaps consider proton beam IM RT. She was referred to radiation oncology here in [place] and she was also referred to palliative care clinic for pain management. Mrs Nair was also encouraged to see medical oncology for palliative systemic therapy. Mrs Nair has seen radiation oncology and as per patient she was told there is no plan for further radiation therapy considering the risk versus benefits, especially due to prior radiation therapy to same area. 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 did offer her treatment with Cisplatin and vinorelbine. She began her first cycle on 01/03/2020. Long-standing history of smoking and is still active. Her pain (right eye and right side of her face) is under control with current pain medication., right facial swelling improved; no more headache and can also breathe through right nostril. Overall, she is pleased with response to the chemotherapy. She had CT of the head on 02/29/2020 with and without contrast. There is no evidence of intracranial hemorrhage or mass-effect. Ventricular system and basal cisterns are patent. Mild small vessel changes. Mild parenchymal volume loss. 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 No evidence of enhancing intracranial metastatic disease. The left mastoid air cells are well aerated. Opacification right mastoid air cells and middle ear. Mild mucosal thickening along the ethmoid air cells. Previously described thin curvilinear soft tissue along the right medial orbit deep to the medial rectus is unchanged since her MRI September 08, [address] of the head August 15, 2019. This is nonspecific but could be related to orbital pseudotumor, neoplasm or prior surgery. She also had CT of the neck on 02/29/2020 with contrast. There is postoperative changes in the right parotidectomy. No evidence of recurrent residual disease in the right neck. Cluster of slightly prominent enhancing lymph nodes left submandibular and jugulodigastric gastric measuring 6 to 7 mm in short axis dimension. These appear stable compared to September 08, 2019. Otherwise no cervical lymphadenopathy. Stable postoperative changes right neck. Opacification right mastoid air cells and middle ear. No evidence of supraglottic or glottic mass. As of February 15, 2020 Mrs. Nair had started her third cycle of chemotherapy unfortunately day 8 was held due to neutropenia. Her ANC at that time was 800. She has required growth factor support through her treatment. Follow-up CT PET scan done on May 30, 2020 showed focal increased metabolic activity is present in the left posterior palate. A single left level 2 lymph node size 0.6 cm, demonstrated increased metabolic activity. No evidence of metabolic activity disease in the right face or involving orbit or previous tumor location. New, compared to CT PET scan done in February 2019, subcentimeter left lung nodular findings size about 0.7 cm and 0.6 cm may reflect early metastatic disease, but compared to CT scan of head and neck prior to the treatment showed excellent response Mrs Nair is tolerating systemic therapy with cisplatin/Navelbine well. Her last treatment was on August 03, 2020 and Since then she has received 7 doses of Neupogen but no improvement in persistent neutropenia in fact repeat CBC done on September 05, 2020 showed absolute neutrophil count dropped down to 810 from 1260 on August 29, 2020 while total white blood count was within normal range continue to hold chemotherapy and eventually decided to proceed with bone marrow evaluation to rule out underlying bone marrow pathology Which was done on September 21, 2020 showed normocellular bone marrow for age. Slight erythroid predominance noted adequate myelopoiesis no overt dyspoietic or megaloblastic changes seen. No significant reticulin fibrosis observed FISH for MDS panel was unremarkable, flow cytometry showed no overtly aberrant myeloid or lymphoid population. CT PET scan done on October 07, 2020 showed status post right parotidectomy, no significant head or neck adenopathy. A 9 mm subpleural lingular nodule is FDG negative and slightly more prominent than February 2019 study. Less likely to be malignant. Dr. Seth evaluated her and ordered MRI scan of the neck done In [facility] on April 13, 2021 showed findings consistent with disease progression of right orbital, right orbital apex, right cavernous sinus and now extending into the right trigeminal cistern and for a man available. Extension of disease into the right frontal, ethmoid and maxillary sinus and postobstructive sinusitis. 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 into the right natural sciences department chair space Patient underwent molecular profiling with the [employer] on July 03, 2021 and reported on July 29, 2021 and it showed, PD-L1 0%, TMB low, 5 mutation MSI stable, NTRK fusion not detected Started on palliative therapy with carboplatin/gemcitabine on September 19, 2021 Patient developed progressive right-sided headache for which she went to [facility] on November 22, [address] scan of head and neck which showed expansile metastatic soft tissue mass centered in the right orbit with extension into multiple cavities including right nasal cavity, right middle cranial fossa and extension along with right tentorium. And extensive involvement with obliteration of optic nerve and extra ocular muscle. Proptosis of right orbit. Extensive bone destruction. Invasion into frontal, ethmoid, sphenoid sinus cavities there is involvement of facial bones in clivus. Numerous cranial nerves are involved and tumor encases at least a portion of intracranial carotid artery on the right., Stable when compared with CT head done on October 23, 2021 but significant progression since February 29, 2020 Came for follow-up, denies any specific complaints except chronic headache which is under control with current pain medication, patient smells of marijuana and admit smoking it on regular basis. No nausea or vomiting, no diarrhea or constipation, no dysphagia. Tolerating palliative chemotherapy with gemcitabine/carboplatin well otherwise Patient was informed that her insurance is not accepted at [facility] for proton therapy Medications: Albuterol Sulfate HFA 2 puff(s) (of 108 (90 Base) mcg/act) Aerosol, solution Inhalation q 6 hours PRN, ALPRAZolam 1 Tablet (of 1 mg) Oral t.i.d. PRN, Claritin (10 mg) Tablet Oral daily, Effexor XR 1 Capsule (of 75 mg) Capsule SR 24 HR Oral daily, Lansoprazole 1 Capsule (of 30 mg) Capsule Delayed Release Oral daily, Morphine Sulfate 1 Tablet (of 100 mg) Oral t.i.d., Morphine Sulfate 1 Tablet (of 30 mg) Oral t.i.d., OxyCODONE HCl 1 Tablet (of 30 mg) Oral q 4 to 6 hours PRN Allergies: Aleve Review of Systems: Review of Systems is not available for this patient. Vital Signs: Performed on Dec 18, 2021 13:29 Height - 60.00 in Weight - 156.0 lbs (LOW) BSA - 1.68 sq.m BMI - 30.47 (HIGH) Temperature - 99.0 F (HIGH) Pulse - 105 /min (HIGH) Respiration - 20 /min BP - 146/90 mm(hg) (HIGH) O2 Sat - 98 % Pain - 3 Fatigue - 3 Performance Status: 1 - No physically strenuous activity, but ambulatory and able to carry out light or sedentary work (e.g. office work, light house work). (ECOG) Physical Examination: ENMT - On limited exam, no mouth sores, no thrush, no jaundice, right facial swelling due to the tumor, Respiratory - Lungs are clear to auscultation, Cardiovascular - Regular rate and rhythm of heart, Abdomen - Soft, bowel sounds present, Extremities - No visible edema. Lab/Imaging: Test performed on Dec 18, 2021 09:14 Creatinine 0.7 mg/dL Cr Clearance (Est) 95.25 mL/min Test performed on Dec 04, 2021 09:20 Sodium 134 mmol/L Potassium 4.0 mmol/L Chloride 97 mmol/L CO2 30 mmol/L Anion Gap 11.0 BUN 18 mg/dL eGFR 125.4 mL/min Glucose 115 mg/dL Osmolality - Calculated 281 mOsm/kg Calcium 9.1 mg/dL Protein, Total 5.9 g/dL Albumin 3.9 g/dL Globulin 2.0 g/dL Bilirubin, Total 0.2 mg/dL ALT (SGPT) 34 U/L AST (SGOT) 16 U/L Alkaline Phosphatase 116 IU/L WBC 10.7 10 3/uL RBC 4.05 10 6/uL HGB 11.5 g/dL HCT 35.9 % MCV 88.6 fl MCH 28.4 pg MCHC 32.0 g/dL RDW 15.9 % Platelet Count 167 10 3/cmm MPV 8.8 fL Neutrophils 5.45 10 3/uL Lymphocytes 3.4 10 3/uL Monocytes 1.1 10 3/uL Eosinophils 0.0 10 3/uL Basophils 0.1 10 3/uL Neutrophil % 50.7 % Lymphocyte % 32.1 % Monocyte % 10.2 % Eosinophil % 0.1 % Basophils % 0.7 % NRBC % 0 % CBC Slide Review Slide Review Perform SLIDE REVIEW AGREES WITH AUTOMATED RESULTS Test performed on Oct 02, 2021 15:27 Magnesium 2.1 mg/dL Test performed on Sep 19, 2021 09:14 Manual Segs 49.2 % Manual Lymphocytes 38.1 % Manual Monocytes 8.9 % Manual Eosinophils 3.4 % Manual Basophils 0.2 % NRBCs 0 /100 WBC Impression: Recent adenoid cystic carcinoma peripheral gland with cranial nerve involvement/right skull base involvement. MRI scan done on 09/08/2019 showed widespread spread of tumor into right orbit, right cavernous sinus, natural sciences department chair space, pterygopalatine fossa and right facial nerve. Now with right facial nerve paralysis, facial asymmetry. History of adenoid cystic carcinoma right excessive peripheral gland status post partial pericardiectomy with facial nerve monitoring followed by reconstruction for T2 Nx with possible surgical margin lesion, followed by radiation therapy. Chronic smoking Anxiety disorder Clinically, patient has been doing reasonably well, in [id number] distress due to right facial pain and right eye visual disturbance. Mrs Rivera was referred to radiation oncology for palliative radiation therapy. Unfortunately, she is not a candidate for further radiation therapy due to involved risk due to history of prior radiation therapy to same area. A request was sent to pathology regarding next generation sequencing especially NTRK gene analysis but we were told, specimen is not available for evaluation. The role of palliative chemotherapy with cisplatin/Navelbine was discussed as literature has shown overall responsibilities about 44% and with 38% one year survival. did offer her treatment with cisplatin and Navelbine. Her current treatment plan is to give her chemotherapy with split dose of cisplatin/Navelbine on day 1 and 8 and repeat cycle every 21 days. She began her first dose on 01/03/2020. She has tolerated treatment well thus far. She had CT of the head on 02/29/2020 with and without contrast. There is no evidence of intracranial hemorrhage or mass-effect. Ventricular system and basal cisterns are patent. Mild small vessel changes. Mild parenchymal volume loss. 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 No evidence of enhancing intracranial metastatic disease. The left mastoid air cells are well aerated. Opacification right mastoid air cells and middle ear. Mild mucosal thickening along the ethmoid air cells. Previously described thin curvilinear soft tissue along the right medial orbit deep to the medial rectus is unchanged since her MRI September 08, [address] of the head August 15, 2019. This is nonspecific but could be related to orbital pseudotumor, neoplasm or prior surgery. She also had CT of the neck on 02/29/2020 with contrast. There is postoperative changes in the right parotidectomy. No evidence of recurrent residual disease in the right neck. Cluster of slightly prominent enhancing lymph nodes left submandibular and jugulodigastric gastric measuring 6 to 7 mm in short axis dimension. These appear stable compared to September 08, 2019. Recommend interval follow-up with PET/CT. Otherwise no cervical lymphadenopathy. Stable postoperative changes right neck. Opacification right mastoid air cells and middle ear. No evidence of supraglottic or glottic mass. As of February 15, 2020 Mrs. Nair had started her third cycle of chemotherapy unfortunately day 8 was held due to neutropenia. Her ANC at that time was 800. She was given 2 days of Neupogen and recovered well. She has required continued growth factor support with her chemotherapy due to persistent chemotherapy induced neutropenia. The growth factors have been necessary to keep her treatment plan on schedule. PET/CT from May 30, 2020 shows excellent response When compared with CT scan of head and neck prior to the initiation of palliative chemotherapy with cisplatin/Navelbine. She continues with chemotherapy as she does still have residual disease but dramatically improved. Last dose of chemotherapy was given on August 03, 2020 subsequently patient developed progressive neutropenia despite of Neupogen support and bone marrow evaluation was done on September 21, 2020 showed no obvious abnormality FISH for MDS was unremarkable flow cytometry was unremarkable and a follow-up CT PET scan done on October 07, 2020 shows complete remission, at that time it was decided to discontinue chemotherapy for the time being and monitor patient, As patient was developing mild peripheral numbness/neuropathy and her bone marrow was showing persistent neutropenia causing delay in her treatment and anemia, and both start recovering without support when no further chemotherapy was given after August 03, 2020. And on October 24, 2020 after discussion with patient regarding her bone marrow findings as well as PET scan finding it was decided to discontinue palliative chemotherapy Plan: Discussed with patient regarding her labs white blood count 7 hemoglobin 11.1 hematocrit 34.4 platelets 303,000 CMP within normal limits Clinically, patient doing well with no new signs symptom suggestive of disease progression, tolerating palliative therapy with carboplatin/gemcitabine well, will proceed with next dose today and then she will return to clinic in 1 week with CBC CMP and if reasonable for day 8 palliative chemotherapy with carboplatin/gemcitabine. Patient was advised to quit smoking and be careful with marijuana especially if taking narcotics which can cause significant respiratory suppression, patient is aware of marijuana related issues. Signed By: Milton Walters M.D. <<Signature on File>>
== END 2021-12-22 23:59 | disposition home or self-care (01) ==
LOC: ONCMED 15:00
PROVIDERS: Nurse Practitioner Family; PCP Family Medicine; Visit Provider Internal Medicine Hematology & Oncology
DX: Z51.11 Encounter for antineoplastic chemotherapy (principal); C47.9 Malignant neoplasm of peripheral nerves and autonomic nervous system, unspecified; C79.51 Secondary malignant neoplasm of bone; C79.31 Secondary malignant neoplasm of brain; C79.89 Secondary malignant neoplasm of other specified sites; R51.9 Headache, unspecified; H53.9 Unspecified visual disturbance; R97.8 Other abnormal tumor markers; D70.1 Agranulocytosis secondary to cancer chemotherapy; T45.1X5A Adverse effect of antineoplastic and immunosuppressive drugs, initial encounter; F12.20 Cannabis dependence, uncomplicated; Z79.899 Other long term (current) drug therapy
CPT/HCPCS: 36593; 80053; 85025; 96367; 96372; 96413; 96417; 99215; J1100; J1453; J2469; J2997; J7050; J9045; J9201; Q5101

== ENCOUNTER 2022-01-15 08:00 | Oncology outpatient (recurring) (ONCR) | payer MEDICARE, MEDICAID, SELFPAY ==
[2021-12-25 13:54] LABS: Basophils % 0.6 %; Eosinophils % 0.6 %; Hematocrit 32.2 % (37.0-47.0); Hemoglobin 10.7 g/dL (11.5-15.3); Lymphocytes # 1.4 10^3/uL (0.8-4.8); Lymphocytes % 26.8 %; Mean Corpuscular HGB Conc 33.2 g/dL (30.0-36.0); Mean Corpuscular Hemoglobin 29.3 pg (28.0-34.0); Mean Corpuscular Volume 88.2 fl (81-99); Mean Platelet Volume 8.7 fL (7.4-10.4); Monocytes # 0.6 10^3/uL (0.2-0.9); Monocytes % 10.7 %; Neutrophils # 2.86 10^3/uL (1.8-7.7); Neutrophils % 53.4 %; Nucleated Red Blood Cells % 0 %; Platelet Count 209 10^3/cmm (130-400); Red Blood Count 3.65 10^6/uL (4.1-5.3); Red Cell Distribution Width 15.1 % (12.1-15.1); White Blood Count 5.3 10^3/uL (4.0-10.0)
[2021-12-25 14:12] LABS: Alanine Aminotransferase 31 U/L (0-33); Albumin Level 3.9 g/dL (3.5-5.2); Alkaline Phosphatase 110 IU/L (35-105); Anion Gap 10.9 (5-19); Aspartate Amino Transferase 24 U/L (0-32); Blood Urea Nitrogen 9 mg/dL (8-23); Calcium 8.7 mg/dL (8.5-10.5); Carbon Dioxide 30 mmol/L (22-29); Chloride 100 mmol/L (98-107); Globulin 2.4 g/dL (1.3-4.6); Glomerular Filtration Rate 125.4 mL/min (90-130); Glucose 107 mg/dL (65-115); Osmolality Calculated 283 mOsm/kg (285-295); Potassium 3.9 mmol/L (3.5-5.1); Sodium 137 mmol/L (136-145); Total Bilirubin 0.2 mg/dL (0.15-1.2); Total Protein 6.3 g/dL (6.6-8.7)
[2021-12-25 14:20] LABS: Slide Review Slide Review Perform
[2021-12-27 12:00] VITALS: BMI 28.5
[2021-12-27 12:34] VITALS: BP 112/76; PULSE 80; RESP 18; TEMP 35.9; O2SAT 96
[2021-12-27] MEDS: sodium chloride 0.9% 250 ML 75 ML IV (13:12)
[2021-12-27] MEDS: palonosetron 0.25 mg/5 mL SDV IVP (13:20)
[2021-12-27] MEDS: CARBOplatin 240 MG in sodium chloride 0.9% 500 ML 524 MG IV (14:24)
[2021-12-28 11:19] VITALS: BP 126/73; PULSE 99; RESP 18; TEMP 37.1; O2SAT 99
--- NOTE | 2022-01-03 09:42 | PC.NURSE ---
Cycle 4 day 1 on 12/27/21 was actually supposed to be ordered as cycle 4 day 8. Corrected in [facility] charting. Moving forward treatment scheduled for 01/10/22 should be cycle 5 day 1.
[2022-01-10 08:37] VITALS: BMI 27.5
[2022-01-10 08:49] LABS: Basophils % 0.2 %; Eosinophils # 0.1 10^3/uL (0.0-0.8); Eosinophils % 1.9 %; Hematocrit 34.5 % (37.0-47.0); Hemoglobin 11.2 g/dL (11.5-15.3); Lymphocytes # 1.1 10^3/uL (0.8-4.8); Lymphocytes % 22.8 %; Mean Corpuscular HGB Conc 32.5 g/dL (30.0-36.0); Mean Corpuscular Hemoglobin 29.2 pg (28.0-34.0); Mean Corpuscular Volume 90.1 fl (81-99); Mean Platelet Volume 9.6 fL (7.4-10.4); Monocytes # 0.7 10^3/uL (0.2-0.9); Neutrophils # 2.83 10^3/uL (1.8-7.7); Neutrophils % 59.9 %; Nucleated Red Blood Cells % 0 %; Platelet Count 266 10^3/cmm (130-400); Red Blood Count 3.83 10^6/uL (4.1-5.3); Red Cell Distribution Width 15.8 % (12.1-15.1); White Blood Count 4.7 10^3/uL (4.0-10.0)
[2022-01-10 09:30] LABS: Alanine Aminotransferase 28 U/L (0-33); Albumin Level 4.3 g/dL (3.5-5.2); Alkaline Phosphatase 128 IU/L (35-105); Anion Gap 13.9 (5-19); Aspartate Amino Transferase 28 U/L (0-32); Blood Urea Nitrogen 9 mg/dL (8-23); Calcium 9.6 mg/dL (8.5-10.5); Carbon Dioxide 29 mmol/L (22-29); Chloride 99 mmol/L (98-107); Globulin 2.7 g/dL (1.3-4.6); Glomerular Filtration Rate 125.4 mL/min (90-130); Glucose 112 mg/dL (65-115); Osmolality Calculated 285 mOsm/kg (285-295); Potassium 3.9 mmol/L (3.5-5.1); Sodium 138 mmol/L (136-145); Total Bilirubin 0.2 mg/dL (0.15-1.2)
== END 2022-01-22 23:59 | disposition home or self-care (01) ==
PROVIDERS: Internal Medicine Hematology & Oncology; PCP Family Medicine; Visit Provider Nurse Practitioner Family
DX: C07 Malignant neoplasm of parotid gland (principal); D70.1 Agranulocytosis secondary to cancer chemotherapy; T45.1X5A Adverse effect of antineoplastic and immunosuppressive drugs, initial encounter; F17.210 Nicotine dependence, cigarettes, uncomplicated; G50.1 Atypical facial pain; H53.9 Unspecified visual disturbance; D64.9 Anemia, unspecified; Z79.899 Other long term (current) drug therapy; Z92.3 Personal history of irradiation
CPT/HCPCS: 36591; 80053; 85025; 96367; 96372; 96375; 96413; 96417; 99215; 99999; J1100; J2469; J7040; J7050; J9045; J9201; Q5101

== ENCOUNTER 2022-01-23 08:44 | Oncology outpatient (recurring) (ONCR) | payer MEDICARE, MEDICAID, SELFPAY ==
[2022-01-23 10:11] LABS: Basophils % 0.2 %; Eosinophils % 0.2 %; Hematocrit 43.1 % (37.0-47.0); Hemoglobin 14.3 g/dL (11.5-15.3); Lymphocytes # 3.5 10^3/uL (0.8-4.8); Lymphocytes % 28.7 %; Mean Corpuscular HGB Conc 33.2 g/dL (30.0-36.0); Mean Corpuscular Hemoglobin 28.8 pg (28.0-34.0); Mean Corpuscular Volume 86.9 fl (81-99); Mean Platelet Volume 8.9 fL (7.4-10.4); Monocytes # 1.5 10^3/uL (0.2-0.9); Monocytes % 12.1 %; Neutrophils # 7.09 10^3/uL (1.8-7.7); Neutrophils % 58.6 %; Nucleated Red Blood Cells % 0 %; Platelet Count 292 10^3/cmm (130-400); Red Blood Count 4.96 10^6/uL (4.1-5.3); Red Cell Distribution Width 14.3 % (12.1-15.1); White Blood Count 12.1 10^3/uL (4.0-10.0)
[2022-01-23 10:29] LABS: Alanine Aminotransferase 26 U/L (0-33); Albumin Level 4.7 g/dL (3.5-5.2); Alkaline Phosphatase 135 IU/L (35-105); Anion Gap 16.5 (5-19); Aspartate Amino Transferase 25 U/L (0-32); Blood Urea Nitrogen 12 mg/dL (8-23); Calcium 10.2 mg/dL (8.5-10.5); Carbon Dioxide 28 mmol/L (22-29); Chloride 96 mmol/L (98-107); Glomerular Filtration Rate 101.6 mL/min (90-130); Glucose 98 mg/dL (65-115); Osmolality Calculated 284 mOsm/kg (285-295); Potassium 3.5 mmol/L (3.5-5.1); Sodium 137 mmol/L (136-145); Total Bilirubin 0.3 mg/dL (0.15-1.2); Total Protein 7.7 g/dL (6.6-8.7)
[2022-01-23] MEDS: alteplase 1 mg/mL SDV 2 mL 2 MG INTRACATH (10:50)
== END 2022-02-21 23:59 | disposition home or self-care (01) ==
PROVIDERS: Internal Medicine Hematology & Oncology; PCP Family Medicine; Visit Provider Nurse Practitioner Family
DX: C07 Malignant neoplasm of parotid gland (principal); F17.210 Nicotine dependence, cigarettes, uncomplicated; J32.1 Chronic frontal sinusitis; J32.2 Chronic ethmoidal sinusitis; J32.0 Chronic maxillary sinusitis; D70.1 Agranulocytosis secondary to cancer chemotherapy; T45.1X5A Adverse effect of antineoplastic and immunosuppressive drugs, initial encounter; H54.62 Unqualified visual loss, left eye, normal vision right eye; Z79.899 Other long term (current) drug therapy; Z92.3 Personal history of irradiation
CPT/HCPCS: 36415; 36591; 36593; 80053; 85025; 99215; J2997

== ENCOUNTER 2022-02-21 12:00 | Outpatient (CLI) | payer MEDICARE, MEDICAID, SELFPAY ==
--- NOTE | 2022-02-21 12:27 | MR_ITS ---
WS: [id number] MRI HEAD AND ORBITS WITHOUT AND WITH CONTRAST TECHNIQUE: Sagittal T1, T2 axial, T2 axial FLAIR, axial susceptibility weighted imaging, axial diffus ion weighted images, and coronal T2 images were obtained. Pre and post-T1 axial and post T1 coronal i mages. ADC and FSPGR images. CLINICAL INFORMATION: MALIGNANT NEOPLASM OF LEFT ORBIT COMPARISON: CT November 22, 2021 FINDINGS: No evidence of restricted diffusion to suggest acute ischemia. Prior postoperative changes RIGHT paro tidectomy. Again seen is the expansile metastatic soft tissue mass involving the RIGHT orbit with bon y expansion and destruction. This extends into the RIGHT middle cranial fossa and extends posterior a long the dura and RIGHT tentorium. Encasement of the RIGHT cavernous carotid artery. In addition this extends to involve the hard palate, sinus cavities, central skull base and clivus. Extensive enhance ment with encasement of the RIGHT greater than LEFT prechiasmatic optic nerves with diffuse infiltrat ion of the RIGHT orbit and rectus muscles. RIGHT orbit proptosis is similar in appearance to previous . Metastatic disease involves the anterior and middle skull base with diffuse enhancement extending nayan ng the 7th and 8th cranial nerves in the RIGHT IAC. Diffuse involvement RIGHT greater than LEFT kaela nous sinuses with filling of Meckel's cave on the RIGHT. Enhancing nodular tumor extending to the opt ic chiasm eccentric to the RIGHT. Diffuse involvement of the sella. Cavernous carotid flow-voids luz in patent. Extension to the central skull base involves the clivus and RIGHT middle cranial fossa with bulky enh ancing peripheral dural metastasis. This extends anteriorly to involve the RIGHT greater than LEFT in ferior frontal lobes and paranasal sinuses. Bulky enhancing tumor extends along the RIGHT temporal lo be and middle cranial fossa. This extends posteriorly along the tentorium and clivus. Involvement of the RIGHT IAC and RIGHT tentorium. Mass effect on the RIGHT aspect of the eusebio with partial effacemen t of the ambient cisterns. 4th ventricle remains patent. Mass effect is similar in appearance the new or CT. Diffuse T2 signal abnormality involving the RIGHT temporal lobe as well as the eusebio and brachi um pontis extending into the RIGHT cerebellum. Additional T2 signal abnormality involving the RIGHT i nferior frontal lobe No hydrocephalus. Upper cervical spine remains patent. Mild mass effect on the R IGHT lateral ventricle. Narrowing of the RIGHT cavernous carotid artery which remains patent. Diffuse encasement and narrowing of the RIGHT supra clinoid ICA. Enhancing dural metastasis involving the inferior frontal lobes RIGHT greater than LEFT, RIGHT middle cranial fossa extending along the m esial temporal lobe, posteriorly along the tentorium and clivus. Extension into the RIGHT IAC. This e xtends to the RIGHT CP angle. Additional enhancing tumor extends along the RIGHT frontal lobe lateral ly and sylvian fissure. Bulky paravertebral tumor spread involving the mechanical development engineer space along V3 through foramen ovale into t he intracranial compartment. Additional involvement of the RIGHT pterygopalatine fossae with bony mckenna truction and perineural spread along V2. Denervation atrophy of the muscles of mastication on the RIG HT. Enlargement of the mandibular foramen with perineural tumor spread along the inferior alveolar ne rve. Opacification RIGHT mastoid air cells. LEFT mastoid air cells well aerated. Opacification sphenoid si nus with trapped fluid secretions. MR/MR head orbits wo/w* [id number] IMPRESSION: 1. Again seen is the expansile destructive soft tissue mass centered in the RI GHT orbit with associated proptosis. Associated Paranasal sinus and intracrania l extension similar to previous. 2. Enhancing tumor involves the anterior skull base extending into the RIGHT m iddle cranial fossae with posterior extension along the tentorium into the RIGH T IAC with mass effect on the eusebio. 3. Diffuse edema involving the RIGHT temporal lobe, RIGHT hemipons extending i nto the brachium pontis, and RIGHT cerebellum. 4. Diffuse involvement of the RIGHT greater than LEFT cavernous sinuses and Me ckel's cave with intrasellar extension. 5. Enhancing tumor involving the RIGHT aspect of the optic chiasm and prechias matic optic nerve. Enhancing tumor extends along the prechiasmatic LEFT optic n erve extending to the orbital apex. 6. Perineural tumor spread described above. 7. Overall extension of tumor appears similar to the recent CT.
[2022-02-21] MEDS: gadobenate dimeglumine 20 mL vial IV (13:38)
== END 2022-02-21 12:01 | disposition home or self-care (01) ==
LOC: RAD 12:00
PROVIDERS: PCP Family Medicine; Visit Provider Student in an Organized Health Care Education/Training Program
DX: C69.62 Malignant neoplasm of left orbit (principal)
CPT/HCPCS: 70543; 70553

== ENCOUNTER 2022-03-03 17:03 | Emergency (ER) | payer MEDICARE, MEDICAID, SELFPAY ==
[2022-03-03 17:21] VITALS: BP 130/78; PULSE 78; RESP 16; TEMP 36.6; O2SAT 97; BMI 31.1
--- NOTE | 2022-03-03 18:33 | ED_ITS ---
HPI - General Adult General: Chief complaint: General Medical Stated complaint: FAILURE TO THRIVE Time Seen by Provider: 03/03/22 17:07 History of Present Illness: Patient is a 61-year-old female with history of metastatic brain cancer currently on hospice presenting to the emergency room for emergency respite care. Patient recently moved in with her daughter is currently getting home hospice. Patient was at home when she was observed to be agitated and aggressive with patient's daughter and with patient's children. Patient's daughter became overwhelmed and called patient's hospice company who recommended calling the EMS system and getting patient to the emergency room. Onset: chronic Duration:ongoing Location:home Severity:moderate Review of Systems General: Reports: ROS unobtainable due to medical condition and ROS unobtainable due to mental status PFSH ED PFSH: Medical History Adenoid cystic carcinoma Surgical History History of appendectomy (~1971) History of knee surgery History of parotidectomy (~2014) History of tonsillectomy (~1973) Port-A-Cath in place (~11/15/19) Family History Father Cancer throat cancer Mother Cancer colon cancer and leukemia Hypertension Denies family history of Diabetes CAD (coronary artery disease) Clotting disorder Dementia Hyperlipidemia Psychiatric illness Chronic kidney disease (CKD) Suicide Anesthesia complication Bleeding disorder Lung disease Stroke Social History Smoking and tobacco status: current every day smoker (3 cigs/day, using patches to try to quit smoking) cigarettes Second hand smoke exposure: No Alcohol intake: never Adopted: No Caregiver/support person: Yes Lives independently: Yes Household members: spouse Housing: House Marital status: service: No Current occupational exposures/hazards: No Pets and animals: No History of recent travel: No Current gender identity: Female Kanchan/Catholic: Denominational Financial difficulty paying for basics: Decline to Answer Physical Exam Const: COMMON NORMALS: alert HENMT: COMMON NORMALS: atraumatic HEAD & SCALP: atraumatic MOUTH: moist mucous membranes not abnormal Eye: COMMON NORMALS: EOMs intact bilaterally and conjunctivae normal CONJUNCTIVA: Yes conjunctivae normal Neck/C-Spine: COMMON NORMALS: full ROM and supple Resp: COMMON NORMALS: normal respiratory effort and clear to auscultation bilaterally AUSCULTATION: clear to auscultation bilaterally Cardio: COMMON NORMALS: regular rate RATE: regular rate GI: COMMON NORMALS: Soft to palpation and non-tender PALPATION: Yes Soft to palpation Extremity: COMMON NORMALS: full ROM Neuro: SENSORIUM/ORIENTATION: Yes alert OTHER: + Ocasionally answering questions and following commands, moving all extremities, neurological exam limited Psych: OTHER: +unable to assess due to underlying medical condition, +intermittent agitation Course Vital Signs: Vital signs: Vital Signs Temperature 98 F 03/03/22 17:21 Pulse Rate 92 03/04/22 12:00 Respiratory Rate 20 H 03/04/22 06:29 Blood Pressure 161/97 03/04/22 08:34 Pulse Oximetry 95 03/04/22 12:00 MDM - General Adult Medical Decision Making 61-year-old female history of metastatic brain cancer presenting to the emergency room for concerns of increased agitation at home. Patient is currently under hospice. Discussed case with patient's daughter Sahara Deshpande has been that she is unable to take care of her mother at home at this time given 3 children and there is concern for their safety at home due to her increased agitation. I discussed case with patient's hospice company who tells me that they are actively trying to place the patient into an inpatient hospice service. Patient's hospice company tells me that they would be able to arrange patient for hospice first thing in the morning and pick the patient up from the emergency room. On reassessment at 10 AM, my skilled nursing case manager reached patient's daughter who elects to take patient home at this time. Patient is currently awaiting inpatient hospice placement. Daughter aware that the hospice company is actively seeking placement. Disposition: Discharge. Daughter counseled regarding diagnostic impression, treatment plan. Daughter given ED strict return precautions to return for continuation, worsening, or development of new symptoms. Instructed to f/u w/ PCP regarding symptoms today. Daughter verbalized understanding. Lab Data : 03/03/22 18:25 03/03/22 18:25 Laboratory Results WBC 8.9 10^3/uL (4.0-10.0) 03/03/22 18:25 RBC 5.49 10^6/uL (4.1-5.3) H 03/03/22 18: Hgb 15.0 g/dL (11.5-15.3) 03/03/22 18: Hct 46.6 % (37.0-47.0) 03/03/22 18: MCV 84.9 fl (81-99) 03/03/22: MCH 27.3 pg (28.0-34.0) L 03/03/22: MCHC 32.2 g/dL (30.0-36.0) 03/03/22: RDW 13.4 % (12.1-15.1) 03/03/22: Plt Count 251 10^3/cmm (130-400) 03/03/22 MPV 9.7 fL (7.4-10.4) 03/03/22: Neut % (Auto) 62.3 % 03/03/22: Lymph % (Auto) 26.7 % 03/03/22: Cloud % (Auto) 9.9 % 03/03/22: Eos % (Auto) 0.7 % 03/03/22: Baso % (Auto) 0.2 % 03/03/22: Neut # (Auto) 5.51 10^3/uL (1.8-7.7) 03/03/22: Lymph # (Auto) 2.4 10^3/uL (0.8-4.8) 03/03/22: Cloud # (Auto) 0.9 10^3/uL (0.2-0.9) 03/03/22: Eos # (Auto) 0.1 10^3/uL (0.0-0.8) 03/03/22: Baso # (Auto) 0.0 10^3/uL (0.0-0.1) 03/03/22: Nucleated RBC % (auto) 0 % 03/03/22 Nucleated RBCs # 0.0 /100WBC 03/03/22 18: Sodium 145 mmol/L (136-145) 03/03/22 18: Potassium 3.6 mmol/L (3.5-5.1) 03/03/22 18:25 Chloride 102 mmol/L (98-107) 03/03/22 18:25 Carbon Dioxide 31 mmol/L (22-29) H 03/03/22 18:25 Anion Gap 15.6 (5-19) 03/03/22 18:25 BUN 10 mg/dL (8-23) 03/03/22 18:25 Creatinine 0.6 mg/dL (0.5-0.9) 03/03/22 18:25 GFR Calculation 101.6 mL/min (90-130) 03/03/22 18:25 Glucose 116 mg/dL (65-115) H 03/03/22 18:25 Calculated Osmolality 300 mOsm/kg (285-295) H 03/03/22 18:25 Calcium 10.3 mg/dL (8.5-10.5) 03/03/22 18:25 Total Bilirubin 0.5 mg/dL (0.15-1.2) 03/03/22 18:25 AST 44 U/L (0-32) H 03/03/22 18:25 ALT 33 U/L (0-33) 03/03/22 18:25 Alkaline Phosphatase 172 IU/L (35-105) H 03/03/22 18:25 Total Protein 7.3 g/dL (6.6-8.7) 03/03/22 18:25 Albumin 4.2 g/dL (3.5-5.2) 03/03/22 18:25 Globulin 3.1 g/dL (1.3-4.6) 03/03/22 18:25 Lipase 14 U/L (13-60) 03/03/22 18:25 Discharge Plan Discharge Patient Disposition: Home Clinical Impression: Agitation, Hospice care Condition: Stable Prescriptions: No Action alprazolam [Xanax] 1 mg tablet 1 mg PO QID PRN (Reason: Anxiety) 0RF methylprednisolone [Medrol (Marcel)] 4 mg tablets,dose pack 4 mg PO .COMPLEX 0RF Rx Instructions: 4 mg PO as directed; doxycycline hyclate 100 mg tablet 100 mg PO BID 0RF nystatin 100,000 unit/mL suspension 500,000 unit PO QID Qty: 200 0RF Rx Instructions: administer 1/2 of dose in each side of the mouth pregabalin [Lyrica] 150 mg capsule 150 mg PO BEDTIME 0RF (DME) Wheelchair See Rx Instructions .Route .MEDSUPPLY Qty: 1 0RF Rx Instructions: As directed morphine 30 mg tablet extended release 30 mg PO TID@07,15,23 0RF morphine 100 mg tablet extended release 100 mg PO TID@06,14,22 0RF erythromycin 5 mg/gram (0.5 %) ointment See Rx Instructions .ROUTE .COMPLEX 0RF Rx Instructions: apply to right eye tid mupirocin 2 % ointment 1 applic TOPICAL . DIRECTED 0RF Roxicodone 30 mg tablet 30 mg PO Q4H MDD 6 tabs PRN (Reason: Pain) 0RF albuterol sulfate 90 mcg/actuation HFA aerosol inhaler 2 puff INHALATION Q6H PRN (Reason: Shortness Of Breath) 0RF amoxicillin-pot clavulanate 875-125 mg tablet 1 tab PO BID 0RF Discharge Orders: Discharge ED (Routine); Ordered 03/03/22 Ordered By: Myles Zhou Referrals: Kristi Bethea DO [Primary Care Provider] - Discharge Diet: Advance as tolerated Discharge Activity: Increase activity as tolerated Activity Restrictions/Additional Instructions: Come back if you have any new or concerning issues. Coding Level of Care Code ED Executive [employer] Consultant for [employer] Fwd Exam Comprehensive
[2022-03-03 18:37] LABS: Basophils % 0.2 %; Eosinophils # 0.1 10^3/uL (0.0-0.8); Eosinophils % 0.7 %; Hematocrit 46.6 % (37.0-47.0); Lymphocytes # 2.4 10^3/uL (0.8-4.8); Lymphocytes % 26.7 %; Mean Corpuscular HGB Conc 32.2 g/dL (30.0-36.0); Mean Corpuscular Hemoglobin 27.3 pg (28.0-34.0); Mean Corpuscular Volume 84.9 fl (81-99); Mean Platelet Volume 9.7 fL (7.4-10.4); Monocytes # 0.9 10^3/uL (0.2-0.9); Monocytes % 9.9 %; Neutrophils # 5.51 10^3/uL (1.8-7.7); Neutrophils % 62.3 %; Nucleated Red Blood Cells % 0 %; Platelet Count 251 10^3/cmm (130-400); Red Blood Count 5.49 10^6/uL (4.1-5.3); Red Cell Distribution Width 13.4 % (12.1-15.1); White Blood Count 8.9 10^3/uL (4.0-10.0)
[2022-03-03] MEDS: LORazepam 2 mg/mL INJ 1 mL IM (18:43)
[2022-03-03 18:52] LABS: Alanine Aminotransferase 33 U/L (0-33); Albumin Level 4.2 g/dL (3.5-5.2); Alkaline Phosphatase 172 IU/L (35-105); Anion Gap 15.6 (5-19); Aspartate Amino Transferase 44 U/L (0-32); Blood Urea Nitrogen 10 mg/dL (8-23); Calcium 10.3 mg/dL (8.5-10.5); Carbon Dioxide 31 mmol/L (22-29); Chloride 102 mmol/L (98-107); Globulin 3.1 g/dL (1.3-4.6); Glomerular Filtration Rate 101.6 mL/min (90-130); Glucose 116 mg/dL (65-115); Lipase 14 U/L (13-60); Osmolality Calculated 300 mOsm/kg (285-295); Potassium 3.6 mmol/L (3.5-5.1); Sodium 145 mmol/L (136-145); Total Bilirubin 0.5 mg/dL (0.15-1.2); Total Protein 7.3 g/dL (6.6-8.7)
[2022-03-03] MEDS: morphine 4 mg/mL SDV 1 mL IVP (19:15)
[2022-03-03] MEDS: morphine 4 mg/mL SDV 1 mL 2 MG IM (23:12)
[2022-03-04] MEDS: LORazepam 2 mg Tablet PO ×2 (00:10→11:25)
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
[2022-03-04 06:29] VITALS: PULSE 63; RESP 20; O2SAT 93
[2022-03-04 08:34] VITALS: BP 161/97; PULSE 96; O2SAT 93
[2022-03-04] MEDS: midazolam 1 mg/mL INJ 2 mL IM (09:04)
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
[2022-03-04 12:00] VITALS: PULSE 92; O2SAT 95
--- NOTE | 2022-03-04 13:15 | DCPLANNER ---
manager express was asked to speak with [facility] to see where they were at with finding placement for patient. manager express spoke with Elvia at [facility] about finding placement for patient. manager express was told that hospice was unable to find [facility] placement for patient at this time. Patients daughter stated that she would brick picker daughter.
== END 2022-03-04 12:05 | disposition home or self-care (01) ==
PROVIDERS: Emergency Provider Emergency Medicine; PCP Family Medicine
DX: R45.1 Restlessness and agitation (principal); Z85.3 Personal history of malignant neoplasm of breast; F17.210 Nicotine dependence, cigarettes, uncomplicated
CPT/HCPCS: 80053; 83690; 85025; 96372; 96374; 99284; J2060; J2250; J2270